=== PATIENT | female | born 1950 | race Caucasian/White ===

== ENCOUNTER 2016-11-17 14:29 | Emergency (ER) | payer OTHER ==
[2016-11-17] MEDS ORDERED: NORCO 7.5/325 MG TAB PO ONE (15:02)
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
[2016-11-17] MEDS ORDERED: NORCO 5/325 MG PO ONE (15:10)
[2016-11-17] MEDS ORDERED: NORCO 5/325 MG ONE (15:12)
--- NOTE | 2016-11-17 15:35 | XRAY ---
Indication: Neck pain following recent cervical collar removal. Injury 5 months ago. Multiple contiguous axial images obtained through the cervical spine. Sagittal and coronal reformatted images obtained. Comparison: June 17, 2017. Osseous structures remain demineralized consistent with patient's age. Again nondisplaced type III odontoid process fracture with interval healing. No new/acute fracture, suspicious bony lesions, or spinal canal stenosis. Stable multilevel degenerative endplate spurring and bilateral facet arthropathy. Sagittal and coronal reformatted images again demonstrates minimal multilevel disc space narrowing again greatest at the C5-C6 level. Stable minimal grade 1 C6 anterolisthesis and remote endplate fractures of C7 and T4 segments. No new compression fracture, subluxation, or jumped facet. Normal-appearing craniocervical junction. Visualized noncontrasted soft tissues again demonstrates mild bilateral carotid calcifications and left neck base stimulator lead. Base of the brain unremarkable. Lung apices again demonstrates pulmonary emphysema. Impression: 1. Stable nondisplaced type III odontoid fracture with interval healing. No new acute fracture or canal stenosis. 2. Stable osteopenia, multilevel degenerative changes, remote C7/T3 endplate fractures, and grade 1 C6 anterolisthesis. 3. Stable emphysema. CTDI 55.44
[2016-11-17 16:50] VITALS: O2SAT 97
[2016-11-17 17:11] VITALS: BP 142/74; PULSE 72
== END 2016-11-17 17:19 | disposition home or self-care (01) ==
LOC: ED 14:29
DX: M79.1 Myalgia (principal); M54.2 Cervicalgia; V89.2XXS Person injured in unspecified motor-vehicle accident, traffic, sequela; I10 Essential (primary) hypertension
CPT/HCPCS: 72125; 99283; L0172

== ENCOUNTER 2017-07-11 10:30 | Emergency (ER) | payer OTHER ==
[2017-07-11] MEDS ORDERED: Sodium Chloride 0.9% 1000 ML 1,000 ML IV STA (10:50)
[2017-07-11] MEDS ORDERED: DUONEB 0.5-3 MG/3 ml Neb IH ONE ×2 (10:52→11:03)
[2017-07-11] MEDS ORDERED: Sodium Chloride 0.9% 1000 ML 1,000 ML ONE (10:57)
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
[2017-07-11 11:29] LABS: BASOPHIL % 0.3 % (0.0-0.4); Eosinophil % 4.8 % (0.00-5.0); Granulocytes % 56.6 % (36.0-66.0); Lymphocytes % 28.1 % (24.0-44.0); Mean Cell Volume 95.7 fl (78-100); Mean Platelet Volume 9.1 fl (6-9.5); Monocytes % 10.2 % (0.0-12.0); Platelet Count 208 K/mm3 (150-450); Red Blood Count 3.92 M/mm3 (4.1-5.4); Red Cell Distribution Width 13.2 % (11.5-14.0); White Blood Count 5.8 K/mm3 (4.0-10.5)
[2017-07-11 11:30] LABS: Mean Corpuscular Hemoglobin 31.3 pg (26-32)
[2017-07-11 11:59] VITALS: BP 197/101; PULSE 64
[2017-07-11 11:59] LABS: ALBUMIN 3.6 g/dL (3.4-5.0); ALKALINE PHOSPHATASE 95 U/L (46-116); BLOOD UREA NITROGEN 13 mg/dL (9-20); CHLORIDE 105 mEq/L (98-107); Carbon Dioxide 27.6 mEq/L (21-32); ETHYL ALCOHOL < 0.010 % (0.00-0.01); Glucose 91 MG/DL (70-110); SGOT/AST 17 U/L (15-37); SGPT/ALT 10 U/L (12-78); SODIUM 141 mEq/L (136-145); Total Protein 7.2 gm/dL (6.4-8.2)
[2017-07-11 12:52] VITALS: O2SAT 89
[2017-07-11] MEDS ORDERED: BABY ASPIRIN 81 MG CHEW PO ONE (13:01)
[2017-07-11] MEDS ORDERED: DELTASONE 20 MG PO ONE (13:07)
[2017-07-11] MEDS ORDERED: AMOXIL 500 MG PO ONE (13:08)
[2017-07-11] MEDS ORDERED: BABY ASPIRIN 81 MG CHEW ONE (13:21)
[2017-07-11] MEDS ORDERED: AMOXIL 500 MG ONE (13:22)
[2017-07-11] MEDS ORDERED: DELTASONE 20 MG ONE (13:22)
--- NOTE | 2017-07-11 21:25 | XRAY ---
Indication: Low oxygen levels. Comparison: December 29, 2016. Portable chest markedly underinflated today and slightly rotated with now bibasilar infiltrates versus atelectasis. Remaining lungs clear. Heart is not enlarged. Stable left-sided electronic stimulator device/lead. Bony thorax intact again without osteopenia, degenerative changes, and multilevel thoracic compression deformities. Impression: Underinflated chest with bibasilar infiltrates versus atelectasis. Correlate clinically.
--- NOTE | 2017-07-11 21:27 | XRAY ---
Indication: Dizziness. Frequent falls. History of epilepsy. Multiple contiguous axial images obtained through the head without contrast. Comparison: June 17, 2016. Again age-appropriate global atrophy and minimal periventricular degenerative micro-ischemia. No acute intracranial hemorrhage, abnormal extra-axial fluid collection, or mass effect. Fourth ventricle is midline without hydrocephalus. Bony calvarium intact. Visualized paranasal sinuses and mastoid air cells are clear. Impression: Stable nonacute senile brain. Comment: Preliminary interpretation was made by [facility]. No discrepancy. CTDI 52.03
== END 2017-07-11 14:44 | disposition home or self-care (01) ==
LOC: ED 10:30
DX: J44.1 Chronic obstructive pulmonary disease with (acute) exacerbation (principal); R42 Dizziness and giddiness; J43.9 Emphysema, unspecified; I10 Essential (primary) hypertension; F41.9 Anxiety disorder, unspecified; F32.9 Major depressive disorder, single episode, unspecified; R56.9 Unspecified convulsions; Z79.899 Other long term (current) drug therapy
CPT/HCPCS: 36000; 36415; 70450; 71010; 80053; 82962; 85025; 93005; 94640; 96360; 99284; G0481; A9270-GY; J7506

== ENCOUNTER 2017-07-22 15:02 | Emergency (ER) | payer OTHER ==
[2017-07-22] MEDS ORDERED: MORPHINE SULFATE 10 MG/ML IM ONE (15:28)
[2017-07-22] MEDS ORDERED: Phenergan 25 MG INJ IM ONE (15:29)
--- NOTE | 2017-07-22 15:39 | ERPHSYRPT ---
- History of Present Illness Time Seen by Provider: 07/22/17 15:20 Source: patient Exam Limitations: clinical condition Patient Subjective Stated Complaint: pt states 2 weeks ago had a seizure and fell, and now left hip hurts getting progressively worse Triage Nursing Assessment: pt walked in, alert, resp easy, skin w/d, no bruising or sweling noted Physician History: PATIENT WITH A HISTORY OF SEIZURE DISORDER, HAD A SEIZURE AND FELL 2 WEEKS AGO COMPLAINS OF PERSISTENT LOWER BACK PAIN AND PAIN BEHIND LEFT HIP UPON WEIGHT BEARING. DENIES ASSOCIATED HEAD OR NECK INJURY, NUMBNESS OR TINGLING OR WEAKNESS IN EXTREMITIES. Occurred: other (2 WEEKS AGO) Reason for Fall: fell from standing pos (DUO TO SEIZURE) Injuries/Pain Location: back, pelvis Loss of Consciousness: no loss of consciousness Quality: throbbing Severity of Pain-Max: moderate Severity of Pain-Current: moderate Modifying Factors: Improves With: other (WEIGHT BEARING) Allergies/Adverse Reactions: cefaclor [From Ceclor] Allergy (Verified 07/22/17 15:18) Home Medications: Lamotrigine 100 mg [lamICTAL 100MG TABLET] 100 mg PO BID 06/25/14 [History ] Levetiracetam [Keppra] 500 mg PO BID 06/25/14 [History] Metoprolol Succinate 50 mg PO DAILY 05/28/16 [History] Aspirin [Adult Low Dose Aspirin EC] 81 mg PO DAILY 07/24/16 [History] Citalopram Hydrobromide [Celexa] 10 mg PO DAILY 07/24/16 [History] Hydroxyzine HCl 25 mg [Atarax 25 mg] 25 mg PO Q4HPRN PRN 07/24/16 [History ] Olanzapine [Zyprexa] 5 mg PO HS 07/24/16 [History] Sennosides/Docusate Sodium [Senna-S Tablet] 1 each PO BID PRN 09/25/16 [History] Hx Tetanus, Diphtheria Vaccination/Date Given: Yes Hx Influenza Vaccination/Date Given: No Hx Pneumococcal Vaccination/Date Given: Yes Immunizations Up to Date: Yes - Review of Systems Constitutional: No Fever, No Chills Eyes: No Symptoms Ears, Nose, & Throat: No Symptoms Respiratory: No Cough, No Dyspnea Cardiac: No Chest Pain, No Edema, No Syncope Abdominal/Gastrointestinal: No Abdominal Pain, No Nausea, No Vomiting, No Diarrhea Genitourinary Symptoms: No Dysuria Musculoskeletal: Injury, No Back Pain, No Neck Pain Skin: No Rash Neurological: No Dizziness, No Focal Weakness, No Sensory Changes Psychological: No Symptoms Endocrine: No Symptoms All Other Systems: Reviewed and Negative - Past Medical History Pertinent Past Medical History: Yes Neurological History: Seizures ENT History: No Pertinent History Cardiac History: No Pertinent History, Hypertension Respiratory History: COPD, Emphysema Endocrine Medical History: No Pertinent History Musculoskeletal History: No Pertinent History GI Medical History: No Pertinent History History: No Pertinent History Psycho-Social History: Anxiety, Depression Female Reproductive Disorders: No Pertinent History Other Medical History: [facility] PT. fractured c-spine - Past Surgical History Past Surgical History: Yes Neuro Surgical History: No Pertinent History Respiratory: No Pertinent History Other Surgical History: MAGNET PLACEMENT FOR SEIZURES - Social History Smoking Status: Former smoker How long have you smoked: 55 Exposure to second hand smoke: No Drug Use: none Patient Lives Alone: Yes Significant Family History: no pertinent family hx - Female History Hx Last Menstrual Period: post Hx Now: No - Nursing Vital Signs Nursing Vital Signs: Initial Vital Signs Temperature 97.0 F 07/22/17 15:13 Pulse Rate 84 07/22/17 15:13 Respiratory Rate 20 07/22/17 15:13 Blood Pressure 126/69 07/22/17 15:13 O2 Sat by Pulse Oximetry 93 L 07/22/17 15:13 Pain Scale Pain Intensity 9 - [place] Coma Score Best Eye Response ([place]): (4) open spontaneously Best Verbal Response ([place]): (5) oriented Best Motor Response ([place]): (6) obeys commands [place] Total: 15 - Physical Exam General Appearance: no apparent distress, alert Head Injury: no evidence of injury Eye Exam: PERRL/EOMI ENT Exam: airway nml Neck Exam: normal inspection, No tenderness Respiratory/Chest Exam: normal breath sounds, No chest tenderness, No respiratory distress Cardiovascular Exam: normal heart sounds, regular rate/rhythm Gastrointestinal Exam: soft, normal bowel sounds, other (NONTENDER), No tenderness, No distention, No guarding, No ecchymosis Back Exam: normal inspection, other (FULL RANGE OF MOTION BILAT HIPS, FLEXION, EXTENSION, INTERNAL/ EXTERNAL ROTATION WITHOUT PAIN), No vertebral tenderness ( TENDERNESS VERTEBRAL L2-L5 WITH PARASPINAL AND LEFT SACROILIAC TENDERNESS) Extremity Exam: normal inspection (BILAT PEDIS PULSES 2+, BILAT GREATER TROCHANTER NONTENDER), normal range of motion, pelvis stable, No deformities Neurologic Exam: alert, oriented x 3, cooperative, sensation nml, No motor deficits Skin Exam: normal color, warm, dry SpO2: 93 Oxygen Delivery: Room Air - Radiology Exams Pelvis X-ray Interpretation: Discussed w/ radiologist, No Fracture (MILD OSTEOPENIA AND SCATTERED VASCULAR CALCIFICATIONS) L-Spine X-ray Interpretation: Discussed w/ radiologist (NORMAL ALIGNMENT WITH MILD OSTEOPENIA, MILD L5-S1 DISC SPACE NARROWING, MINIMLA MILTILEVEL ANTRIOR ENDPLATE SPURRING AND SCATTERED AORTOILIAC CALCIFICATIONS) Ordered Tests: Active Orders 24 hr Category Date Time Status LUMBAR COMPLETE (MIN 4 VIEWS) Stat Exams 07/22/17 15:32 Taken PELVIS (1 OR 2 VIEWS) Stat Exams 07/22/17 15:31 Taken Medication Summary Discontinued Medications Generic Name Dose Route Start Last Admin Trade Name Freq PRN Reason Stop Dose Admin Morphine Sulfate 6 mg 07/22/17 15:28 07/22/17 15:48 Morphine Sulfate 10 Mg/Ml IM 07/22/17 15:29 10 mg STAT ONE Administration Morphine Sulfate Confirm 07/22/17 15:46 Morphine Sulfate 10 Mg/Ml Administered 07/22/17 15:47 Dose 10 mg .ROUTE .STK-MED ONE Promethazine HCl 25 mg 07/22/17 15:29 07/22/17 15:48 Phenergan 25 Mg Inj IM 07/22/17 15:30 25 mg STAT ONE Administration Promethazine HCl Confirm 07/22/17 15:46 Phenergan 25 Mg Inj Administered 07/22/17 15:47 Dose 25 mg .ROUTE .STK-MED ONE - Progress Progress: improved Progress Note: 07/22/17 15:40 GIVEN MORPHINE 6MG/PHENERGAN 25MG IM, MODERATE RELIEF OF PAIN DISCOMFORT 07/22/17 16:34 07/22/17 16:35 Counseled pt/family regarding: diagnosis, need for follow-up, rad results - Departure Time of Disposition: 16:50 Departure Disposition: Home Clinical Impression: ACUTE LUMBAR/SACROILIAC JOINT STRAIN Condition: Stable Critical Care Time: No Referrals: IMELDA CROSS [Primary Care Provider] - Additional Instructions: NORFLEX 100MG TWICE DAILY FOR MUSCLE SPASMS. NORCO 5/325 EVERY 4 HOURS FOR PAIN DISCOMFORT. CONSULT YOUR PRIMARY CARE PHYSICIAN FOR EVALUATION AND PHYSICAL THERAPY. Prescriptions: Hydrocodone/Acetaminophen [[place] 5-325 Tablet] 1 each PO Q4-6HPRN PRN #15 tablet PRN Reason: Pain Orphenadrine Citrate 100 mg [Norflex 100 MG Tablet] 100 mg PO BIDPRN PRN # 14 tab PRN Reason: Muscle Spasms
[2017-07-22] MEDS ORDERED: Phenergan 25 MG INJ ONE (15:46)
[2017-07-22] MEDS ORDERED: MORPHINE SULFATE 10 MG/ML ONE (15:46)
--- NOTE | 2017-07-22 16:25 | XRAY ---
Indication: Low back pain following fall. Comparison: None 5 views of the lumbar spine demonstrates 5 lumbar vertebral segments in normal alignment with mild osteopenia, mild L5-S1 disc space narrowing, minimal multilevel anterior endplate spurring, and scattered aortoiliac calcifications. No other bony, articular, or soft tissue abnormalities.
--- NOTE | 2017-07-22 16:28 | XRAY ---
Indication: Pain following fall. Comparison: None AP pelvis demonstrates mild osteopenia and scattered vascular calcifications. No other bony, articular, or soft tissue abnormalities.
[2017-07-22 16:55] VITALS: BP 148/65; PULSE 68; O2SAT 98
== END 2017-07-22 16:54 | disposition home or self-care (01) ==
LOC: ED 15:02
DX: S39.012A Strain of muscle, fascia and tendon of lower back, initial encounter (principal); S33.6XXA Sprain of sacroiliac joint, initial encounter; W19.XXXD Unspecified fall, subsequent encounter; M54.5 Low back pain; R56.9 Unspecified convulsions; Z79.899 Other long term (current) drug therapy; I10 Essential (primary) hypertension; J44.9 Chronic obstructive pulmonary disease, unspecified
CPT/HCPCS: 72110; 72170; 96372; 99284; J2270; J2550

== ENCOUNTER 2017-09-22 10:50 | Observation (INO) | payer MEDICAID, OTHER ==
[2017-09-22] MEDS ORDERED: Ativan 1 MG PO ONE (11:03)
--- NOTE | 2017-09-22 11:07 | ERPHSYRPT ---
- History of Present Illness Time Seen by Provider: 09/22/17 11:03 Source: patient, EMS Exam Limitations: no limitations Physician History: mild to mod feeling shakey today, no injury, no fever, no lethargy, no pain, not dizzy, hx copd on home oxygen, hx anxiety, hx htn, no dm, shakiness is improving, pt is ambulatory Allergies/Adverse Reactions: [facility] Allergy (Verified 09/22/17 10:53) Home Medications: Metoprolol Succinate 50 mg PO DAILY 05/28/16 [History] Aspirin [Adult Low Dose Aspirin EC] 81 mg PO DAILY 07/24/16 [History] Hydroxyzine HCl 25 mg [Atarax 25 mg] 25 mg PO Q4HPRN PRN 07/24/16 [History ] Olanzapine [Zyprexa] 5 mg PO HS 07/24/16 [History] Sennosides/Docusate Sodium [Senna-S Tablet] 1 each PO BID PRN 09/25/16 [History] Lamotrigine [Lamictal] 200 mg PO BID 09/22/17 [History] Levetiracetam [Keppra] 750 mg PO BID 09/22/17 [History] Paroxetine HCl 20 mg [Paxil 20 MG] 20 mg PO DAILY 09/22/17 [History] Trazodone HCl 50 mg [Desyrel 50 mg] 100 mg PO HS 09/22/17 [History] Hx Tetanus, Diphtheria Vaccination/Date Given: Yes Hx Influenza Vaccination/Date Given: No Hx Pneumococcal Vaccination/Date Given: Yes - Review of Systems Constitutional: No Fever Eyes: No Symptoms Ears, Nose, & Throat: No Symptoms Respiratory: No Cyanosis, No Dyspnea Cardiac: No Chest Pain Abdominal/Gastrointestinal: No Abdominal Pain, No Vomiting Musculoskeletal: No Back Pain, No Neck Pain Skin: No Rash Neurological: No Focal Weakness, No Headache, No Lethargy, No Speech Changes Psychological: Anxiety - Past Medical History Pertinent Past Medical History: Yes Neurological History: Seizures ENT History: No Pertinent History Cardiac History: No Pertinent History, Hypertension Respiratory History: COPD, Emphysema Endocrine Medical History: No Pertinent History Musculoskeletal History: No Pertinent History GI Medical History: No Pertinent History History: No Pertinent History Psycho-Social History: Anxiety, Depression Female Reproductive Disorders: No Pertinent History Other Medical History: [facility] PT. fractured c-spine - Past Surgical History Past Surgical History: Yes Neuro Surgical History: No Pertinent History Respiratory: No Pertinent History Other Surgical History: MAGNET PLACEMENT FOR SEIZURES - Social History Smoking Status: Former smoker How long have you smoked: 55 Exposure to second hand smoke: No Drug Use: none Patient Lives Alone: Yes Significant Family History: no pertinent family hx - Nursing Vital Signs Nursing Vital Signs: Initial Vital Signs Temperature 98.7 F 09/22/17 10:51 Pulse Rate 76 09/22/17 10:51 Respiratory Rate 20 09/22/17 10:51 Blood Pressure 162/102 09/22/17 10:51 O2 Sat by Pulse Oximetry 95 09/22/17 10:51 Pain Scale Pain Intensity 0 - Physical Exam General Appearance: no apparent distress Eye Exam: PERRL/EOMI Ears, Nose, Throat Exam: moist mucous membranes Neck Exam: normal inspection, No meningismus Respiratory Exam: normal breath sounds, lungs clear, No respiratory distress Cardiovascular Exam: regular rate/rhythm Gastrointestinal/Abdomen Exam: soft, No tenderness Back Exam: No vertebral tenderness Extremity Exam: normal range of motion, pelvis stable Neurologic Exam: alert, oriented x 3, cooperative, other (cn 3 to 10 grossly intact) - Course Nursing assessment & vital signs reviewed: Yes EKG Interpreted by Me: Other (nsr 67 similar 06/2017) Ordered Tests: Active Orders 24 hr Category Date Time Status Tours Captain STAT Care 09/22/17 11:01 Active EKG-ER Only STAT Care 09/22/17 11:01 Active IV Insertion STAT Care 09/22/17 11:01 Active Orthostatic Vital Signs STAT Care 09/22/17 12:51 Active Oxygen-ED Only NASAL CANNULA 2 lpm Care 09/22/17 11:01 Active CHEST 1 VIEW (PORTABLE) Stat Exams 09/22/17 11:01 Completed BLOOD CULTURE Stat Lab 09/22/17 Ordered CBC W DIFF Stat Lab 09/22/17 11:20 Completed CMP Stat Lab 09/22/17 11:20 Completed TROPONIN Q3H Lab 09/22/17 11:20 Completed TROPONIN Q3H Lab 09/22/17 14:15 Ordered TROPONIN Q3H Lab 09/22/17 17:15 Ordered TROPONIN Q3H Lab 09/22/17 20:15 Ordered TROPONIN Q3H Lab 09/22/17 23:15 Ordered UA W/RFX UR CULTURE Stat Lab 09/22/17 11:02 Completed Transfer Order Routine Transfer 09/22/17 Ordered Medication Summary Generic Name Dose Route Start Last Admin Trade Name Julia PRN Reason Stop Dose Admin Levofloxacin/Dextrose 500 mg in 100 mls @ 100 mls/hr 09/22/17 13:14 Levofloxacin 500mg/100ml D5w IV 09/22/17 14:13 STAT STA Discontinued Medications Generic Name Dose Route Start Last Admin Trade Name Julia PRN Reason Stop Dose Admin Lorazepam 1 mg 09/22/17 11:03 09/22/17 11:24 Ativan 1 Mg PO 09/22/17 11:04 1 mg STAT ONE Administration Lorazepam Confirm 09/22/17 11:17 Ativan 1 Mg Administered 09/22/17 11:18 Dose 1 mg .ROUTE .[place] ONE Lab/Rad Data: Laboratory Result Diagrams 09/22/17 11:20 09/22/17 11:20 Laboratory Results 09/22/17 09/22/17 09/22/17 Range/Units 11:20 11:20 11:20 WBC 3.9 L (4.0-10.5) K/mm3 RBC 4.06 L (4.1-5.4) M/mm3 Hgb 12.5 (12.0-16.0) gm/dl Hct 38.5 (35-47) % MCV 94.8 (78-100) fl MCH 30.7 (26-32) pg MCHC 32.5 (32-36) g/dl RDW 13.0 (11.5-14.0) % Plt Count 248 (150-450) K/mm3 MPV 8.9 (6-9.5) fl Gran % 50.7 (36.0-66.0) % Lymphocytes % 33.2 (24.0-44.0) % Monocytes % 12.4 H (0.0-12.0) % Eosinophils % 3.4 (0.00-5.0) % Basophils % 0.3 (0.0-0.4) % Basophils # 0.01 (0-0.4) Sodium 140 (136-145) mEq/L Potassium 4.1 (3.5-5.1) mEq/L Chloride 103 (98-107) mEq/L Carbon Dioxide 27.4 (21-32) mEq/L Anion Gap 14.1 (5-15) MEQ/L BUN 8 L (9-20) mg/dL Creatinine 1.01 (0.55-1.30) mg/dl Estimated GFR 58 ML/MIN Glucose 94 (70-110) MG/DL Calcium 9.4 (8.5-10.1) mg/dL Total Bilirubin 0.20 (0.2-1.0) mg/dL AST 19 (15-37) U/L ALT 15 (12-78) U/L Alkaline Phosphatase 172 H (46-116) U/L Troponin I < 0.017 (0.000-0.056) ng/ml Serum Total Protein 7.3 (6.4-8.2) gm/dL Albumin 3.6 (3.4-5.0) g/dL Ur Collection Type Urine Color (YELLOW) Urine Appearance (CLEAR) Urine pH (5-6) Ur Specific [place] (1.005-1.025) Urine Protein (Negative) Urine Ketones (NEGATIVE) Urine Blood (0-5) Jos/ul Urine Nitrite (NEGATIVE) Urine Bilirubin (NEGATIVE) Urine Urobilinogen (0-1) mg/dL Ur Leukocyte Esterase (NEGATIVE) Urine Culture Reflexed (NO) Urine Glucose (NEGATIVE) mg/dL Specimen Received 09/22/17 Range/Units 11:02 WBC (4.0-10.5) K/mm3 RBC (4.1-5.4) M/mm3 Hgb (12.0-16.0) gm/dl Hct (35-47) % MCV (78-100) fl MCH (26-32) pg MCHC (32-36) g/dl RDW (11.5-14.0) % Plt Count (150-450) K/mm3 MPV (6-9.5) fl Gran % (36.0-66.0) % Lymphocytes % (24.0-44.0) % Monocytes % (0.0-12.0) % Eosinophils % (0.00-5.0) % Basophils % (0.0-0.4) % Basophils # (0-0.4) Sodium (136-145) mEq/L Potassium (3.5-5.1) mEq/L Chloride (98-107) mEq/L Carbon Dioxide (21-32) mEq/L Anion Gap (5-15) MEQ/L BUN (9-20) mg/dL Creatinine (0.55-1.30) mg/dl Estimated GFR ML/MIN Glucose (70-110) MG/DL Calcium (8.5-10.1) mg/dL Total Bilirubin (0.2-1.0) mg/dL AST (15-37) U/L ALT (12-78) U/L Alkaline Phosphatase (46-116) U/L Troponin I (0.000-0.056) ng/ml Serum Total Protein (6.4-8.2) gm/dL Albumin (3.4-5.0) g/dL Ur Collection Type CATH Urine Color YELLOW (YELLOW) Urine Appearance CLEAR (CLEAR) Urine pH 7.0 (5-6) Ur Specific [place] 1.010 (1.005-1.025) Urine Protein NEGATIVE (Negative) Urine Ketones NEGATIVE (NEGATIVE) Urine Blood NEGATIVE (0-5) Jos/ul Urine Nitrite NEGATIVE (NEGATIVE) Urine Bilirubin NEGATIVE (NEGATIVE) Urine Urobilinogen NORMAL (0-1) mg/dL Ur Leukocyte Esterase NEGATIVE (NEGATIVE) Urine Culture Reflexed NO (NO) Urine Glucose NEGATIVE (NEGATIVE) mg/dL Specimen Received 09-22 - Progress Progress: improved Progress Note: 09/22/17 13:20 d/w Dr Henson Discussed with : Natividad Will see patient in: hospital (observation) Counseled pt/family regarding: lab results, diagnosis, rad results - Departure Time of Disposition: 13:20 Departure Disposition: Observation Clinical Impression: Anxiety, COPD with exacerbation Pneumonia Qualifiers: Pneumonia type: due to unspecified organism Laterality: bilateral Lung location : unspecified part of lung Qualified Code(s): J18.9 - Pneumonia, unspecified organism Condition: Fair Critical Care Time: No Referrals: IMELDA HENSON [Primary Care Provider] - Instructions: Pneumonia -- Adult, Anxiety -- Adult
[2017-09-22] MEDS ORDERED: Ativan 1 MG ONE (11:17)
[2017-09-22 11:34] LABS: BASOPHIL % 0.3 % (0.0-0.4); Eosinophil % 3.4 % (0.00-5.0); Granulocytes % 50.7 % (36.0-66.0); Lymphocytes % 33.2 % (24.0-44.0); Mean Cell Volume 94.8 fl (78-100); Mean Platelet Volume 8.9 fl (6-9.5); Monocytes % 12.4 % (0.0-12.0); Platelet Count 248 K/mm3 (150-450); Red Blood Count 4.06 M/mm3 (4.1-5.4); White Blood Count 3.9 K/mm3 (4.0-10.5)
[2017-09-22 11:35] LABS: ADD URINE CULTURE? NO (NO); Bilirubin NEGATIVE (NEGATIVE); Blood NEGATIVE Ery/ul (0-5); COMPLETE URINE MICROSCOPIC? NO; Collection Type CATH; Glucose NEGATIVE (NEGATIVE); Leukocyte Esterase NEGATIVE (NEGATIVE)
--- NOTE | 2017-09-22 11:35 | XRAY ---
Indication: Weakness. Comparison: July 11, 2017. Portable chest again slightly underinflated with mild bibasilar infiltrates versus atelectasis, less than before. Heart is not enlarged. Stable left-sided electronic stimulator device with lead. No new cardiopulmonary abnormalities.
[2017-09-22 11:56] LABS: ALBUMIN 3.6 g/dL (3.4-5.0); ANION GAP 14.1 MEQ/L (5-15); BILIRUBIN,TOTAL 0.2 mg/dL (0.2-1.0); Carbon Dioxide 27.4 mEq/L (21-32); Potassium 4.1 mEq/L (3.5-5.1); Total Protein 7.3 gm/dL (6.4-8.2)
[2017-09-22 12:48] LABS: Mean Corpuscular Hemoglobin 30.7 pg (26-32)
[2017-09-22] MEDS ORDERED: Levofloxacin 500MG/100ML D5W 500 MG/100 ML BAG IV STA (13:14)
[2017-09-22] MEDS ORDERED: Levofloxacin 500MG/100ML D5W 500 MG/100 ML BAG IV ONE (13:18)
[2017-09-22] MEDS: DUONEB 0.5-3 MG/3 ml Neb IH SCH ×3 (15:28→23:40)
[2017-09-22] MEDS ORDERED: Senokot-S Tablet PO PRN (16:03)
[2017-09-22] MEDS ORDERED: ATARAX 25 MG PO PRN (16:03)
[2017-09-22] MEDS ORDERED: Nitrostat 0.4 MG Tablet SL PRN (16:03)
[2017-09-22] MEDS ORDERED: Norflex 100 MG Tablet PO PRN (16:03)
[2017-09-22] MEDS: Keppra 250 MG PO SCH (21:56)
[2017-09-22] MEDS: lamICTAL 100MG TABLET PO SCH (21:57)
[2017-09-22] MEDS ORDERED: DESYREL 50 MG PO SCH (22:00)
[2017-09-22] MEDS ORDERED: LAMOTRIGINE 200 MG PO SCH (22:00)
[2017-09-22] MEDS ORDERED: NON-FORMULARY ITEM (Levetiracetam [Keppra] 750 MG) PO SCH (22:00)
[2017-09-22] MEDS ORDERED: zyPREXA 5MG TABLET PO SCH (22:00)
[2017-09-23] MEDS: DUONEB 0.5-3 MG/3 ml Neb IH SCH ×3 (02:43→11:01)
[2017-09-23 05:45] LABS: Mean Cell Volume 95.5 fl (78-100); Mean Platelet Volume 8.6 fl (6-9.5); Platelet Count 225 K/mm3 (150-450); White Blood Count 4.1 K/mm3 (4.0-10.5)
[2017-09-23 05:50] LABS: Mean Corpuscular Hemoglobin 30.2 pg (26-32)
[2017-09-23 06:09] LABS: Potassium 3.7 mEq/L (3.5-5.1)
--- NOTE | 2017-09-23 08:39 | PCM.SSS ---
History of Present Illness - Chief Complaint Chief Complaint: PNEUMONIA History of Present Illness: is a 66 year old female pt from [facility] with hx sz d/o, COPD,and anxiety who was reported by the ER to be suffering from weakness and shakiness. She tells me that she was feeling fine yesterday, then sat in the chair and started shaking all over, eventually just shaking on her R side. She denies LOC. Does have hx grand mal seizures but has not had one of those for some time. She called the ambulance to get her. Denies chest pain; did have some SOB. In the ER per the doctor she apparently had a hard time standing and walking. She was found to have infiltrates on CXR. She has minimal cough and WBC are wnl. This morning she is feeling well, kyler po well. - Review of Systems Constitutional: Weakness Respiratory: Short Of Breath Musculoskeletal: Arthralgias Neurological: Seizure, No Sensory Changes, No Speech Changes Psychological: Anxiety, No Depression, No Suicidal Ideations, No Homicidal Ideations All Other Systems: Reviewed and Negative Medications & Allergies Home Medications: Home Medication List Metoprolol Succinate 50 mg PO DAILY 05/28/16 [History Confirmed 09/22/17] Aspirin [Adult Low Dose Aspirin EC] 81 mg PO DAILY 07/24/16 [History Confirmed 09/22/17] Hydroxyzine HCl 25 mg [Atarax 25 mg] 25 mg PO Q4HPRN PRN 07/24/16 [ History Confirmed 09/22/17] Olanzapine [Zyprexa] 5 mg PO HS 07/24/16 [History Confirmed 09/22/17] Nitroglycerin 0.4 mg Tablet [Nitrostat 0.4 MG Tablet] 0.4 mg SL Q5MIN PRN MR X 3 PRN #1 bottle 09/25/16 [Rx Confirmed 09/22/17] Sennosides/Docusate Sodium [Senna-S Tablet] 1 each PO BID PRN 09/25/16 [History Confirmed 09/22/17] Orphenadrine Citrate 100 mg [Norflex 100 MG Tablet] 100 mg PO BIDPRN PRN # 14 tab 07/22/17 [Rx Confirmed 09/22/17] Buspirone HCl 5 mg [Buspar 5 mg] 15 mg PO DAILY 09/22/17 [History Confirmed 09/22/17] Lamotrigine [Lamictal] 200 mg PO BID 09/22/17 [History Confirmed 09/22/17] Levetiracetam [Keppra] 750 mg PO BID 09/22/17 [History Confirmed 09/22/17] Paroxetine HCl 20 mg [Paxil 20 MG] 20 mg PO DAILY 09/22/17 [History Confirmed 09/22/17] Trazodone HCl 50 mg [Desyrel 50 mg] 100 mg PO HS 09/22/17 [History Confirmed 09/22/17] Doxycycline Hyclate 100 mg PO BID #20 tablet 09/23/17 [Rx] Allergies/Adverse Reactions: Allergies Allergy/AdvReac Type Severity Reaction Status Date / Time cefaclor [From [facility]] Allergy Mild Verified 09/22/17 13:54 - Past Medical History Past Medical History: Yes Neurological History: Seizures ENT History: No Pertinent History Cardiac History: No Pertinent History, Hypertension Respiratory History: COPD, Emphysema Endocrine Medical History: No Pertinent History Musculoskelatal History: No Pertinent History GI Medical History: No Pertinent History History: No Pertinent History Pyscho-Social History: Anxiety, Depression Reproductive Disorders: No Pertinent History Comment: [facility] PT. fractured c-spine - Female History Are you now?: No - Past Surgical History Past Surgical History: Yes Neuro Surgical History: No Pertinent History Cardiac History: No Pertinent History Respiratory Surgery: No Pertinent History GI Surgical History: No Pertinent History Genitourinary Surgical Hx: No Pertinent History Musculskeletal Surgical Hx: No Pertinent History, Orthopedic Surgery Female Surgical History: No Pertinent History Other Surgical History: MAGNET PLACEMENT FOR SEIZURES - Social History Smoking Status: Former smoker How long have you smoked: 55 Exposure to second hand smoke: No Alcohol: None Drug Use: none Significant Family History: no pertinent family hx - Physical Exam Vital Signs: Vital Signs - 24 hr Temp Pulse Resp BP Pulse Ox 09/23/17 07:26 18 09/23/17 07:23 98.1 F 77 18 114/63 90 L 09/23/17 07:00 76 20 90 L 09/23/17 04:00 98.5 F 69 19 107/56 93 L 09/23/17 02:44 78 93 L 12/06/17 00:00 97.6 F 76 19 101/53 92 L 09/22/17 23:28 76 18 92 L 09/22/17 20:00 16 09/22/17 19:38 98.8 F 89 16 101/55 95 09/22/17 19:10 77 18 95 09/22/17 16:30 98.4 F 66 16 180/84 91 L 09/22/17 16:00 18 09/22/17 15:00 68 18 90 L 09/22/17 13:55 98.3 F 68 16 194/85 92 L 09/22/17 13:43 98.3 F 68 16 194/85 92 L 09/22/17 13:24 70 18 157/87 09/22/17 12:50 16 09/22/17 12:40 68 16 152/96 98 09/22/17 11:50 16 09/22/17 11:41 66 16 163/79 100 09/22/17 10:51 98.7 F 76 20 162/102 95 Oxygen-Last 24 hours O2 Percentage 2 Liters = 28% O2 Percentage 2 Liters = 28% O2 Percentage 2 Liters = 28% O2 Percentage 2 Liters = 28% O2 Percentage 2 Liters = 28% O2 Percentage 2 Liters = 28% O2 Percentage 2 Liters = 28% O2 Percentage 2 Liters = 28% O2 Percentage 2 Liters = 28% O2 Percentage 2 Liters = 28% O2 Percentage 2 Liters = 28% O2 Percentage 2 Liters = 28% General Appearance: no apparent distress, alert Neurologic Exam: oriented x 3, cooperative Eye Exam: eyes nml inspection Ears, Nose, Throat Exam: moist mucous membranes Neck Exam: normal inspection, non-tender, No lymphadenopathy Respiratory Exam: lungs clear, diminished breath sounds, No crackles/rales, No rhonchi, No wheezing Cardiovascular Exam: regular rate/rhythm, normal heart sounds, No murmur Gastrointestinal/Abdomen Exam: soft, normal bowel sounds, No tenderness, No distention, No mass, No guarding, No rebound Back Exam: normal inspection, No CVA tenderness Extremity Exam: No pedal edema, No swelling Skin Exam: normal color, warm, dry, No rash Results - Labs Lab/Micro Results: Lab Results-Last 24 Hours 09/22/17 09/22/17 09/22/17 Range/Units 14:25 17:42 20:40 WBC (4.0-10.5) K/mm3 RBC (4.1-5.4) M/mm3 Hgb (12.0-16.0) gm/dl Hct (35-47) % MCV (78-100) fl MCH (26-32) pg MCHC (32-36) g/dl RDW (11.5-14.0) % Plt Count (150-450) K/mm3 MPV (6-9.5) fl Sodium (136-145) mEq/L Potassium (3.5-5.1) mEq/L Chloride (98-107) mEq/L Carbon Dioxide (21-32) mEq/L Anion Gap (5-15) MEQ/L BUN (9-20) mg/dL Creatinine (0.55-1.30) mg/dl Estimated GFR ML/MIN Glucose (70-110) MG/DL Calcium (8.5-10.1) mg/dL Troponin I < 0.017 < 0.017 < 0.017 (0.000-0.056) ng/ml 09/22/17 09/23/17 09/23/17 Range/Units 23:24 05:20 05:20 WBC 4.1 (4.0-10.5) K/mm3 RBC 3.80 L (4.1-5.4) M/mm3 Hgb 11.5 L (12.0-16.0) gm/dl Hct 36.3 (35-47) % MCV 95.5 (78-100) fl MCH 30.2 (26-32) pg MCHC 31.7 L (32-36) g/dl RDW 13.0 (11.5-14.0) % Plt Count 225 (150-450) K/mm3 MPV 8.6 (6-9.5) fl Sodium 139 (136-145) mEq/L Potassium 3.7 (3.5-5.1) mEq/L Chloride 103 (98-107) mEq/L Carbon Dioxide 27.0 (21-32) mEq/L Anion Gap 13.0 (5-15) MEQ/L BUN 16 (9-20) mg/dL Creatinine 1.17 (0.55-1.30) mg/dl Estimated GFR 49 ML/MIN Glucose 93 (70-110) MG/DL Calcium 8.9 (8.5-10.1) mg/dL Troponin I < 0.017 (0.000-0.056) ng/ml - Other Procedures and Tests Respiratory Therapy 09/22/17 15:00 Respiratory Nebulizer Q4H Assessment/Plan (1) COPD with exacerbation Current Visit: Yes Status: Acute Assessment & Plan: Has received levaquin IV here; will send her home on po doxycycline. She can d /c home today and f/u with me in office in 1 week. Code(s): J44.1 - CHRONIC OBSTRUCTIVE PULMONARY DISEASE W (ACUTE) EXACERBATION (2) Seizure disorder Current Visit: No Status: Chronic Assessment & Plan: She has been stable on her seizure meds for some time and this was atypical for seizure activity for her. She has been taking her keppra and lamictal regularly. May be related to her COPD exacerbation. She does not drive. Plan to treat the COPD and observe the seizure disorder; if any more increase in seizure-like activity will adjust her meds as needed/refer to neurology if needed. Any further seizure-like activity at home pt should call 911 or, if no acute concerns and seizure activity is mild, let the office know elma. Code(s): G40.909 - EPILEPSY, UNSP, NOT INTRACTABLE, WITHOUT STATUS EPILEPTICUS (3) Anxiety Current Visit: Yes Status: Chronic Code(s): F41.9 - ANXIETY DISORDER, UNSPECIFIED (4) Weakness Current Visit: Yes Status: Acute Assessment & Plan: If pt is ok getting up and out of bed, ok to d/c home today. Code(s): R53.1 - WEAKNESS (5) Elevated alkaline phosphatase level Current Visit: Yes Status: Acute Assessment & Plan: 170s - recheck outpatient. (6) Dyspnea Current Visit: Yes Status: Acute Qualifiers: Dyspnea type: shortness of breath Qualified Code(s): R06.02 - Shortness of breath; R06.00 - Dyspnea, unspecified; R06.01 - Orthopnea Assessment & Plan: could be related to the COPD exacerbation. Her troponins were neg x 5. Code(s): R06.00 - DYSPNEA, UNSPECIFIED Hospital Summary - Hospital Course Hospital Course: Pt admitted through ER with weakness and COPD exacerbation. She complains to me of seizure-like activity at home when she was otherwise feeling well. Very little cough; some shortness of breath. Troponins neg x 5. She is feeling good the next morning, would like to D/c home. If she is up without assistance, ok to d/c home on po antibiotics and f/u with me in 1 week. Will check a keppra level and observe for further seizure activity. - Vitals & Intake/Output Vital Signs: Vital Signs Temperature 98.1 F 09/23/17 07:23 Pulse Rate 77 09/23/17 07:23 Respiratory Rate 18 09/23/17 07:26 Blood Pressure 114/63 09/23/17 07:23 O2 Sat by Pulse Oximetry 90 L 09/23/17 07:23 Oxygen-Last Documented O2 Percentage 2 Liters = 28% Intake & Output: Intake & Output 09/20/17 09/21/17 09/22/17 09/23/17 11:59 11:59 11:59 11:59 Intake Total 1160 Output Total 1400 Balance -240 Weight 57.72 kg - Lab Result Diagrams: 09/23/17 05:20 09/23/17 05:20 Lab Results-Last 24 Hrs: Lab Results-Last 24 Hours 09/22/17 09/22/17 09/22/17 Range/Units 14:25 17:42 20:40 WBC (4.0-10.5) K/mm3 RBC (4.1-5.4) M/mm3 Hgb (12.0-16.0) gm/dl Hct (35-47) % MCV (78-100) fl MCH (26-32) pg MCHC (32-36) g/dl RDW (11.5-14.0) % Plt Count (150-450) K/mm3 MPV (6-9.5) fl Sodium (136-145) mEq/L Potassium (3.5-5.1) mEq/L Chloride (98-107) mEq/L Carbon Dioxide (21-32) mEq/L Anion Gap (5-15) MEQ/L BUN (9-20) mg/dL Creatinine (0.55-1.30) mg/dl Estimated GFR ML/MIN Glucose (70-110) MG/DL Calcium (8.5-10.1) mg/dL Troponin I < 0.017 < 0.017 < 0.017 (0.000-0.056) ng/ml 09/22/17 09/23/17 09/23/17 Range/Units 23:24 05:20 05:20 WBC 4.1 (4.0-10.5) K/mm3 RBC 3.80 L (4.1-5.4) M/mm3 Hgb 11.5 L (12.0-16.0) gm/dl Hct 36.3 (35-47) % MCV 95.5 (78-100) fl MCH 30.2 (26-32) pg MCHC 31.7 L (32-36) g/dl RDW 13.0 (11.5-14.0) % Plt Count 225 (150-450) K/mm3 MPV 8.6 (6-9.5) fl Sodium 139 (136-145) mEq/L Potassium 3.7 (3.5-5.1) mEq/L Chloride 103 (98-107) mEq/L Carbon Dioxide 27.0 (21-32) mEq/L Anion Gap 13.0 (5-15) MEQ/L BUN 16 (9-20) mg/dL Creatinine 1.17 (0.55-1.30) mg/dl Estimated GFR 49 ML/MIN Glucose 93 (70-110) MG/DL Calcium 8.9 (8.5-10.1) mg/dL Troponin I < 0.017 (0.000-0.056) ng/ml - Procedures and Test Procedures and Tests throughout Hospitalization: Therapy Orders & Screens 09/22/17 14:14 RT Screen per Nursing Assess ONCE Comment: Protocol Order Physician Instructions: Greater than 3 points order RT Admission Screen Reason For Exam: Triggered on Admission Diagnosis: PNEUMONIA Diagnosis: PNEUMONIA Pneumonia: Yes Home O2: Yes: [place] Asthma: Yes CHF: No Home CPAP/BIPAP: No Home Nebs/MDI: No Total Points: 12 09/22/17 15:00 Respiratory Nebulizer Q4H Comment: Diagnosis: PNEUMONIA - Discharge Disposition: Home, Self-Care Condition: Stable Prescriptions: New Doxycycline Hyclate 100 mg PO BID #20 tablet Continue Metoprolol Succinate 50 mg PO DAILY Hydroxyzine HCl 25 mg [Atarax 25 mg] 25 mg PO Q4HPRN PRN PRN Reason: Anxiety Aspirin [Adult Low Dose Aspirin EC] 81 mg PO DAILY Olanzapine [Zyprexa] 5 mg PO HS Sennosides/Docusate Sodium [Senna-S Tablet] 1 each PO BID PRN PRN Reason: Constipation Nitroglycerin 0.4 mg Tablet [Nitrostat 0.4 MG Tablet] 0.4 mg SL Q5MIN PRN MR X 3 PRN #1 bottle PRN Reason: Chest Pain Orphenadrine Citrate 100 mg [Norflex 100 MG Tablet] 100 mg PO BIDPRN PRN #14 tab PRN Reason: Muscle Spasms Paroxetine HCl 20 mg [Paxil 20 MG] 20 mg PO DAILY Levetiracetam [Keppra] 750 mg PO BID Trazodone HCl 50 mg [Desyrel 50 mg] 100 mg PO HS Lamotrigine [Lamictal] 200 mg PO BID Buspirone HCl 5 mg [Buspar 5 mg] 15 mg PO DAILY Instructions: Pneumonia -- Adult, Anxiety -- Adult Follow up with: IMELDA CROSS [Primary Care Provider] -
[2017-09-23] MEDS ORDERED: DELTASONE 20 MG PO SCH (10:00)
[2017-09-23] MEDS ORDERED: Paxil 20 MG PO SCH (10:00)
[2017-09-23] MEDS ORDERED: Levofloxacin 500MG/100ML D5W 500 MG/100 ML BAG IV SCH (10:00)
[2017-09-23] MEDS ORDERED: BUSPAR 5 MG PO SCH (10:00)
[2017-09-23] MEDS ORDERED: ECOTRIN 81 MG PO SCH (10:00)
[2017-09-23] MEDS ORDERED: Toprol Xl 50 MG PO SCH (10:00)
[2017-09-23] MEDS: lamICTAL 100MG TABLET PO SCH (10:24)
[2017-09-23] MEDS: Keppra 250 MG PO SCH (10:25)
[2017-09-23 11:36] VITALS: BP 99/53; PULSE 87; O2SAT 92
== END 2017-09-23 11:50 | disposition home or self-care (01) ==
LOC: ED 10:50 → MED SURG 13:30
PROVIDERS: ADMIT Family Medicine; ATTEND Family Medicine
DX: J44.1 Chronic obstructive pulmonary disease with (acute) exacerbation (principal); G40.909 Epilepsy, unspecified, not intractable, without status epilepticus; F41.9 Anxiety disorder, unspecified; R53.1 Weakness; R06.02 Shortness of breath; Z79.899 Other long term (current) drug therapy; I10 Essential (primary) hypertension; F41.8 Other specified anxiety disorders; R74.8 Abnormal levels of other serum enzymes
CPT/HCPCS: 36000; 36415; 71010; 80048; 80053; 80177; 81002; 84484; 85025; 85027; 87040; 93005; 93041; 93268; 94640; 94760; 96365; 99285; G0378; J1956; A9270-GY; J7506

== ENCOUNTER 2017-10-14 22:30 | Observation (INO) | payer MEDICAID ==
[2017-10-14] MEDS ORDERED: Ativan 2 MG/1 ML VIAL SL ONE (22:38)
[2017-10-14] MEDS ORDERED: Zofran 4 MG/2 ML VIAL IV ONE (22:38)
[2017-10-14] MEDS ORDERED: PROVENTIL 2.5 MG/3 ML NEB IH ONE ×2 (22:39→23:10)
[2017-10-14] MEDS ORDERED: Zofran 4 MG/2 ML VIAL ONE (23:02)
[2017-10-14] MEDS ORDERED: Ativan 2 MG/1 ML VIAL ONE (23:03)
[2017-10-14 23:15] LABS: BASOPHIL % 0.3 % (0.0-0.4); Eosinophil % 2.4 % (0.00-5.0); Granulocytes % 62.3 % (36.0-66.0); Lymphocytes % 25.4 % (24.0-44.0); Mean Cell Volume 92.4 fl (78-100); Mean Corpuscular Hemoglobin 29.7 pg (26-32); Mean Platelet Volume 8.5 fl (6-9.5); Monocytes % 9.6 % (0.0-12.0); Platelet Count 285 K/mm3 (150-450); Red Blood Count 4.34 M/mm3 (4.1-5.4); Red Cell Distribution Width 13.1 % (11.5-14.0); White Blood Count 6.4 K/mm3 (4.0-10.5)
--- NOTE | 2017-10-14 23:19 | ERPHSYRPT ---
- History of Present Illness Time Seen by Provider: 10/14/17 22:32 Source: patient, EMS Patient Subjective Stated Complaint: PT STATES SHE BEGAN SHAKING AROUND 2030 THIS EVENING. REPORTS FEELING ANXIOUS, STATES SHE WAS FEELING ANXIOUS THIS MORNING - REPORTS SHE HAD AN ANXIETY ATTACK BUT SHE WAS ABLE TO BREATHE THROUGH IT UNTIL IT WENT AWAY. Triage Nursing Assessment: PT IS AOX3, PUPILS PERRL, PT IS AFEBRILE, RESPS EASY AND NON LABORED, LUNG SOUNDS ARE CLEAR THROUGHOUT, RADIAL PULSES ARE STRONG AND EQUAL, ABD IS SOFT NONTENDER, SKIN IS PINK WARM DRY. PT APPEARS ANXIOUS UPON EXAM WITH A FINE TREMOR PRESENT THAT IS INTERMITTENT IN NATURE. PT COOPERATIVE. Physician History: CC: Shaky Hx: 66 y/o patient of Dr Henson with hx of anxiety, COPD. Recently treated with pneumonia. She states she had an anxiety attack this AM and got herself better. Tonite she felt shaky, anxious and could not control her symptoms. She called 911. No fever. Normal urine. Her breathing has been better. No V/D. No chest pain. Not short of breath. She lives alone. She has some nausea. Severity: moderate Allergies/Adverse Reactions: cefaclor [From [facility]] Allergy (Mild, Verified 10/14/17 22:43) STATES GOT REAL HOT Home Medications: Metoprolol Succinate 50 mg PO DAILY 05/28/16 [History] Aspirin [Adult Low Dose Aspirin EC] 81 mg PO DAILY 07/24/16 [History] Hydroxyzine HCl 25 mg [Atarax 25 mg] 25 mg PO Q4HPRN PRN 07/24/16 [History ] Olanzapine [Zyprexa] 5 mg PO HS 07/24/16 [History] Sennosides/Docusate Sodium [Senna-S Tablet] 1 each PO BID PRN 09/25/16 [History] Buspirone HCl 5 mg [Buspar 5 mg] 15 mg PO DAILY 09/22/17 [History] Lamotrigine [Lamictal] 200 mg PO BID 09/22/17 [History] Levetiracetam [Keppra] 750 mg PO BID 09/22/17 [History] Paroxetine HCl 20 mg [Paxil 20 MG] 20 mg PO DAILY 09/22/17 [History] Trazodone HCl 50 mg [Desyrel 50 mg] 100 mg PO HS 09/22/17 [History] Hx Tetanus, Diphtheria Vaccination/Date Given: Yes Hx Influenza Vaccination/Date Given: Yes Hx Pneumococcal Vaccination/Date Given: Yes Immunizations Up to Date: Yes - Review of Systems Constitutional: Chills (shaking), No Fever, No Malaise Eyes: No Symptoms Ears, Nose, & Throat: No Symptoms Respiratory: No Cough, No Dyspnea Cardiac: No Chest Pain Abdominal/Gastrointestinal: Nausea, No Abdominal Pain, No Vomiting, No Diarrhea Genitourinary Symptoms: No Dysuria Skin: No Rash Neurological: No Headache Psychological: Anxiety All Other Systems: Reviewed and Negative - Past Medical History Pertinent Past Medical History: Yes Neurological History: Seizures ENT History: No Pertinent History Cardiac History: No Pertinent History, Hypertension Respiratory History: COPD, Emphysema Endocrine Medical History: No Pertinent History Musculoskeletal History: No Pertinent History GI Medical History: No Pertinent History History: No Pertinent History Psycho-Social History: Anxiety, Depression Female Reproductive Disorders: No Pertinent History Other Medical History: [facility] PT. fractured c-spine - Past Surgical History Past Surgical History: Yes Neuro Surgical History: No Pertinent History Cardiac: No Pertinent History Respiratory: No Pertinent History Gastrointestinal: No Pertinent History Genitourinary: No Pertinent History Musculoskeletal: No Pertinent History, Orthopedic Surgery Female Surgical History: No Pertinent History Other Surgical History: MAGNET PLACEMENT FOR SEIZURES - Social History Smoking Status: Former smoker How long have you smoked: 55 Exposure to second hand smoke: No Drug Use: none Patient Lives Alone: No Significant Family History: no pertinent family hx - Nursing Vital Signs Nursing Vital Signs: Initial Vital Signs Temperature 98.6 F 10/14/17 22:32 Pulse Rate 66 10/14/17 22:32 Respiratory Rate 20 10/14/17 22:32 Blood Pressure 182/81 10/14/17 22:32 O2 Sat by Pulse Oximetry 95 10/14/17 22:32 Pain Scale Pain Intensity 0 - Physical Exam General Appearance: alert, other (conversant) Eye Exam: PERRL/EOMI Ears, Nose, Throat Exam: moist mucous membranes Neck Exam: normal inspection, non-tender, supple Respiratory Exam: wheezing (faint right) Cardiovascular Exam: regular rate/rhythm Gastrointestinal/Abdomen Exam: soft, No tenderness, No distention Back Exam: normal inspection Extremity Exam: normal inspection, normal range of motion, No calf tenderness, No pedal edema Neurologic Exam: alert, oriented x 3, cooperative, lurer II-XII nml as tested, sensation nml, No motor deficits Skin Exam: warm, dry, No rash SpO2 Interpretation: normal SpO2: 95 Oxygen Delivery: Room Air - Course Nursing assessment & vital signs reviewed: Yes EKG Interpreted by Me: RATE (71), Sinus Rhythm, NORMAL AXIS, NORMAL INTERVALS ( QTc 437), Non-specific ST Changes - Radiology Exams cxr X-ray Interpretation: Interpreted by me (COPD, bibasilar atelecatsis. Right base dominant infiltrates.) Ordered Tests: Active Orders 24 hr Category Date Time Status Cath for Specimen-Straight STAT Care 10/14/17 22:38 Active EKG-ER Only STAT Care 10/14/17 22:37 Active IV Insertion STAT Care 10/14/17 22:37 Active CHEST 1 VIEW (PORTABLE) Stat Exams 10/14/17 22:38 Taken BLOOD CULTURE Stat Lab 10/14/17 23:55 Received CBC W DIFF Stat Lab 10/14/17 23:00 Completed CMP Stat Lab 10/14/17 23:00 Completed Lactic Acid Stat Lab 10/14/17 22:37 Completed MAGNESIUM Stat Lab 10/14/17 23:00 Completed UA W/RFX UR CULTURE Stat Lab 10/14/17 23:45 Completed VENOUS BLOOD GAS Stat Lab 10/14/17 22:39 Completed Respiratory Nebulizer STAT RT 10/14/17 22:40 Completed Medication Summary Generic Name Dose Route Start Last Admin Trade Name Freq PRN Reason Stop Dose Admin Levofloxacin 250 mg 10/15/17 00:32 Levofloxacin 250mg Tablet PO 10/15/17 00:33 STAT ONE Levofloxacin 500 mg 10/15/17 00:32 Levofloxacin 500 Mg Tablet PO 10/15/17 00:33 STAT ONE Discontinued Medications Generic Name Dose Route Start Last Admin Trade Name Freq PRN Reason Stop Dose Admin Albuterol Sulfate 2.5 mg 10/14/17 22:39 10/14/17 23:12 Proventil 2.5 Mg/3 Ml Neb IH 10/14/17 22:40 2.5 mg STAT ONE Administration Albuterol Sulfate Confirm 10/14/17 23:10 Proventil 2.5 Mg/3 Ml Neb Administered 10/14/17 23:11 Dose 2.5 mg IH .STK-MED ONE Lorazepam 1 mg 10/14/17 22:38 10/14/17 23:08 Ativan 2 Mg/1 Ml Vial SL 10/14/17 22:39 1 mg STAT ONE Administration Lorazepam Confirm 10/14/17 23:03 Ativan 2 Mg/1 Ml Vial Administered 10/14/17 23:04 Dose 2 mg .ROUTE .STK-MED ONE Ondansetron HCl 4 mg 10/14/17 22:38 10/14/17 23:08 Zofran 4 Mg/2 Ml Vial IV 10/14/17 22:39 4 mg STAT ONE Administration Ondansetron HCl Confirm 10/14/17 23:02 Zofran 4 Mg/2 Ml Vial Administered 10/14/17 23:03 Dose 4 mg .ROUTE .STK-MED ONE Lab/Rad Data: Laboratory Result Diagrams 10/14/17 23:00 10/14/17 23:00 Laboratory Results 10/15/17 10/15/17 10/14/17 Range/Units 00:07 00:07 23:45 WBC (4.0-10.5) K/mm3 RBC (4.1-5.4) M/mm3 Hgb (12.0-16.0) gm/dl Hct (35-47) % MCV (78-100) fl MCH (26-32) pg MCHC (32-36) g/dl RDW (11.5-14.0) % Plt Count (150-450) K/mm3 MPV (6-9.5) fl Gran % (36.0-66.0) % Lymphocytes % (24.0-44.0) % Monocytes % (0.0-12.0) % Eosinophils % (0.00-5.0) % Basophils % (0.0-0.4) % Basophils # (0-0.4) VBG pH 7.37 (7.32-7.42) VBG pCO2 at Pat Temp 49 (42-55) mm/Hg VBG pO2 at Pat Temp 38 (25-40) mm/Hg VBG HCO3 28.3 H (22-28) meq/L VBG O2 Sat (Ritu) 76.2 L (95-100) VBG Base Excess 2.2 H (-2.0-2.0) VBG Hemoglobin 13.2 VBG Carboxyhemoglobin 2.0 (0.0-6.9) % T HGB POC Potassium 4.1 (3.5-5.1) Sodium (136-145) mEq/L Potassium (3.5-5.1) mEq/L Chloride (98-107) mEq/L Carbon Dioxide (21-32) mEq/L Anion Gap (5-15) MEQ/L BUN (9-20) mg/dL Creatinine (0.55-1.30) mg/dl Estimated GFR ML/MIN Glucose (70-110) MG/DL Lactic Acid 1.0 (0.4-2.0) Calcium (8.5-10.1) mg/dL Magnesium (1.8-2.4) mg/dL Total Bilirubin (0.2-1.0) mg/dL AST (15-37) U/L ALT (12-78) U/L Alkaline Phosphatase (46-116) U/L Serum Total Protein (6.4-8.2) gm/dL Albumin (3.4-5.0) g/dL Ur Collection Type CATH Urine Color YELLOW (YELLOW) Urine Appearance CLEAR (CLEAR) Urine pH 7.0 (5-6) Ur Specific [place] 1.010 (1.005-1.025) Urine Protein NEGATIVE (Negative) Urine Ketones NEGATIVE (NEGATIVE) Urine Blood NEGATIVE (0-5) Jos/ul Urine Nitrite NEGATIVE (NEGATIVE) Urine Bilirubin NEGATIVE (NEGATIVE) Urine Urobilinogen NORMAL (0-1) mg/dL Ur Leukocyte Esterase NEGATIVE (NEGATIVE) Urine Culture Reflexed NO (NO) Urine Glucose NEGATIVE (NEGATIVE) mg/dL Specimen Received 10-14-17 [id number] 10/14/17 10/14/17 10/14/17 Range/Units 23:00 23:00 23:00 WBC 6.4 (4.0-10.5) K/mm3 RBC 4.34 (4.1-5.4) M/mm3 Hgb 12.9 (12.0-16.0) gm/dl Hct 40.1 (35-47) % MCV 92.4 (78-100) fl MCH 29.7 (26-32) pg MCHC 32.2 (32-36) g/dl RDW 13.1 (11.5-14.0) % Plt Count 285 (150-450) K/mm3 MPV 8.5 (6-9.5) fl Gran % 62.3 (36.0-66.0) % Lymphocytes % 25.4 (24.0-44.0) % Monocytes % 9.6 (0.0-12.0) % Eosinophils % 2.4 (0.00-5.0) % Basophils % 0.3 (0.0-0.4) % Basophils # 0.02 (0-0.4) VBG pH (7.32-7.42) VBG pCO2 at Pat Temp (42-55) mm/Hg VBG pO2 at Pat Temp (25-40) mm/Hg VBG HCO3 (22-28) meq/L VBG O2 Sat (Ritu) (95-100) VBG Base Excess (-2.0-2.0) VBG Hemoglobin VBG Carboxyhemoglobin (0.0-6.9) % T HGB POC Potassium (3.5-5.1) Sodium 138 (136-145) mEq/L Potassium 4.4 (3.5-5.1) mEq/L Chloride 101 (98-107) mEq/L Carbon Dioxide 26.1 (21-32) mEq/L Anion Gap 15.4 H (5-15) MEQ/L BUN 11 (9-20) mg/dL Creatinine 1.03 (0.55-1.30) mg/dl Estimated GFR 57 ML/MIN Glucose 120 H (70-110) MG/DL Lactic Acid (0.4-2.0) Calcium 9.3 (8.5-10.1) mg/dL Magnesium 1.8 (1.8-2.4) mg/dL Total Bilirubin 0.20 (0.2-1.0) mg/dL AST 21 (15-37) U/L ALT 19 (12-78) U/L Alkaline Phosphatase 173 H (46-116) U/L Serum Total Protein 7.5 (6.4-8.2) gm/dL Albumin 3.6 (3.4-5.0) g/dL Ur Collection Type Urine Color (YELLOW) Urine Appearance (CLEAR) Urine pH (5-6) Ur Specific [place] (1.005-1.025) Urine Protein (Negative) Urine Ketones (NEGATIVE) Urine Blood (0-5) Jos/ul Urine Nitrite (NEGATIVE) Urine Bilirubin (NEGATIVE) Urine Urobilinogen (0-1) mg/dL Ur Leukocyte Esterase (NEGATIVE) Urine Culture Reflexed (NO) Urine Glucose (NEGATIVE) mg/dL Specimen Received - Progress Progress Note: 10/14/17 23:19 Rectal temp 98. She has no current sign of infection. Will give lorazepam and neb and check labs. 10/14/17 23:44 Allergic to ceclor. She was given levaquin in [facility] at home last admission early Sep. 10/15/17 00:33 No focal weakness. Anxiety better. She was too weak and shaky to ambulate with nurse. She does have RLL pneumonia or cxr. Called Dr Soto for [place] and will place in obs for abtx, PT consult. Counseled pt/family regarding: lab results, diagnosis, need for follow-up, rad results - Departure Time of Disposition: 00:34 Departure Disposition: Observation Clinical Impression: Generalized weakness, RLL pneumonia, Anxiety Condition: Fair Critical Care Time: No Referrals: IMELDA HENSON [Primary Care Provider] -
[2017-10-14 23:47] LABS: ADD URINE CULTURE? NO (NO); Blood NEGATIVE Ery/ul (0-5); COMPLETE URINE MICROSCOPIC? NO; Collection Type CATH; Leukocyte Esterase NEGATIVE (NEGATIVE)
[2017-10-14 23:57] LABS: ALBUMIN 3.6 g/dL (3.4-5.0); ANION GAP 15.4 MEQ/L (5-15); BILIRUBIN,TOTAL 0.2 mg/dL (0.2-1.0); Carbon Dioxide 26.1 mEq/L (21-32); Potassium 4.4 mEq/L (3.5-5.1); Total Protein 7.5 gm/dL (6.4-8.2)
[2017-10-15 00:14] LABS: VBG BASE EXCESS 2.2 (-2.0-2.0); VBG HCO3- 28.3 meq/L (22-28); VBG HEMOGLOBIN 13.2; VBG O2 SATURATION 76.2 (95-100); VBG POTASSIUM 4.1 (3.5-5.1); VBG pH 7.37 (7.32-7.42)
[2017-10-15] MEDS ORDERED: Levofloxacin 250MG Tablet PO ONE (00:32)
[2017-10-15] MEDS ORDERED: Levofloxacin 500 MG Tablet PO ONE (00:32)
[2017-10-15] MEDS ORDERED: Levofloxacin 250MG Tablet ONE (00:46)
[2017-10-15] MEDS ORDERED: Levofloxacin 500 MG Tablet ONE (00:46)
[2017-10-15] MEDS ORDERED: Ativan 1 MG PO PRN (01:16)
[2017-10-15] MEDS ORDERED: TYLENOL 325 MG PO PRN (01:16)
[2017-10-15] MEDS ORDERED: Sodium Chloride 0.9% 1000 ML 1,000 ML IV SCH (01:16)
--- NOTE | 2017-10-15 02:22 | PCM.HP ---
History of Present Illness - Chief Complaint Chief Complaint: Generalized weakness, RLL Pneumonia, Anxiety History of Present Illness: is a 66 year old female patient of Dr Henson who arrived in the ER with the sudden onset of anxiety, shaking on the inside and feeling weak. She lives at home and is normally independent with her care, was unable to ambulate in the ER after arrival due to weakness and anxiety. She has some mild dry cough today, is on oxygen at home. - Review of Systems Constitutional: No Fever, No Chills Respiratory: Cough Cardiac: No Chest Pain, No Edema, No Syncope Abdominal/Gastrointestinal: No Abdominal Pain, No Nausea, No Vomiting, No Diarrhea Psychological: Anxiety All Other Systems: Reviewed and Negative Medications & Allergies Home Medications: Home Medication List Metoprolol Succinate 50 mg PO DAILY 05/28/16 [History Confirmed 09/22/17] Aspirin [Adult Low Dose Aspirin EC] 81 mg PO DAILY 07/24/16 [History Confirmed 09/22/17] Hydroxyzine HCl 25 mg [Atarax 25 mg] 25 mg PO Q4HPRN PRN 07/24/16 [ History Confirmed 09/22/17] Olanzapine [Zyprexa] 5 mg PO HS 07/24/16 [History Confirmed 09/22/17] Nitroglycerin 0.4 mg Tablet [Nitrostat 0.4 MG Tablet] 0.4 mg SL Q5MIN PRN MR X 3 PRN #1 bottle 09/25/16 [Rx Confirmed 09/22/17] Sennosides/Docusate Sodium [Senna-S Tablet] 1 each PO BID PRN 09/25/16 [History Confirmed 09/22/17] Orphenadrine Citrate 100 mg [Norflex 100 MG Tablet] 100 mg PO BIDPRN PRN # 14 tab 07/22/17 [Rx Confirmed 09/22/17] Buspirone HCl 5 mg [Buspar 5 mg] 15 mg PO DAILY 09/22/17 [History Confirmed 09/22/17] Lamotrigine [Lamictal] 200 mg PO BID 09/22/17 [History Confirmed 09/22/17] Levetiracetam [Keppra] 750 mg PO BID 09/22/17 [History Confirmed 09/22/17] Paroxetine HCl 20 mg [Paxil 20 MG] 20 mg PO DAILY 09/22/17 [History Confirmed 09/22/17] Trazodone HCl 50 mg [Desyrel 50 mg] 100 mg PO HS 09/22/17 [History Confirmed 09/22/17] Doxycycline Hyclate 100 mg PO BID #20 tablet 09/23/17 [Rx] Allergies/Adverse Reactions: Allergies Allergy/AdvReac Type Severity Reaction Status Date / Time cefaclor [From [facility]] Allergy Mild Verified 10/14/17 22:43 - Past Medical History Past Medical History: Yes Neurological History: Seizures ENT History: No Pertinent History Cardiac History: Hypertension Respiratory History: Asthma, COPD, Pneumonia Endocrine Medical History: No Pertinent History Musculoskelatal History: No Pertinent History GI Medical History: No Pertinent History History: No Pertinent History Pyscho-Social History: Anxiety, Depression, Panic Disorder Reproductive Disorders: No Pertinent History Comment: [facility] PT. fractured c-spine - Female History Are you now?: No - Past Surgical History Past Surgical History: Yes Neuro Surgical History: No Pertinent History Cardiac History: No Pertinent History Respiratory Surgery: No Pertinent History GI Surgical History: No Pertinent History Genitourinary Surgical Hx: No Pertinent History Musculskeletal Surgical Hx: No Pertinent History, Orthopedic Surgery Female Surgical History: No Pertinent History Other Surgical History: MAGNET PLACEMENT FOR SEIZURES - Social History Smoking Status: Former smoker How long have you smoked: 55 Exposure to second hand smoke: No Alcohol: None Drug Use: none Significant Family History: no pertinent family hx - Physical Exam Vital Signs: Vital Signs - 24 hr Temp Pulse Resp BP Pulse Ox 10/15/17 01:49 97.9 F 74 20 171/90 97 10/15/17 00:54 71 18 129/80 96 10/15/17 00:34 95 10/15/17 00:25 98.7 F 80 20 95 10/14/17 23:21 71 20 153/102 95 10/14/17 23:12 68 24 91 L 10/14/17 22:32 98.6 F 66 20 182/81 95 Oxygen-Last 24 hours O2 Percentage 3 Liters = 32% O2 Percentage 3 Liters = 32% O2 Percentage 3 Liters = 32% O2 Percentage 3 Liters = 32% General Appearance: no apparent distress, anxiety Respiratory Exam: prolonged expirations, rhonchi Cardiovascular Exam: regular rate/rhythm, normal heart sounds, normal peripheral pulses Gastrointestinal/Abdomen Exam: soft, normal bowel sounds, No tenderness, No mass Back Exam: normal inspection, normal range of motion, No CVA tenderness, No vertebral tenderness Extremity Exam: normal inspection, normal range of motion, pelvis stable Assessment/Plan (1) RLL pneumonia Current Visit: Yes Status: Acute Assessment & Plan: on levaquin, nebs and supportive care. Code(s): J18.1 - LOBAR PNEUMONIA, UNSPECIFIED ORGANISM (2) Weakness Current Visit: Yes Status: Acute Code(s): R53.1 - WEAKNESS (3) Anxiety Current Visit: Yes Status: Chronic Assessment & Plan: on po ativan Code(s): F41.9 - ANXIETY DISORDER, UNSPECIFIED
[2017-10-15] MEDS: DUONEB 0.5-3 MG/3 ml Neb IH SCH ×2 (03:54→07:05)
[2017-10-15] MEDS ORDERED: DUONEB 0.5-3 MG/3 ml Neb IH ONE (06:48)
--- NOTE | 2017-10-15 07:43 | PCM.DCORD ---
- Discharge Disposition: Home, Self-Care Condition: Stable Prescriptions: New Lorazepam 1 mg [Ativan 1 MG] 1 mg PO TID PRN PRN #30 tablet PRN Reason: Anxiety Levofloxacin [Levofloxacin 250MG Tablet] 250 mg PO Q24H22 #7 tab Continue Metoprolol Succinate 50 mg PO DAILY Hydroxyzine HCl 25 mg [Atarax 25 mg] 25 mg PO Q4HPRN PRN PRN Reason: Anxiety Aspirin [Adult Low Dose Aspirin EC] 81 mg PO DAILY Olanzapine [Zyprexa] 5 mg PO HS Sennosides/Docusate Sodium [Senna-S Tablet] 1 each PO BID PRN PRN Reason: Constipation Nitroglycerin 0.4 mg Tablet [Nitrostat 0.4 MG Tablet] 0.4 mg SL Q5MIN PRN MR X 3 PRN #1 bottle PRN Reason: Chest Pain Orphenadrine Citrate 100 mg [Norflex 100 MG Tablet] 100 mg PO BIDPRN PRN #14 tab PRN Reason: Muscle Spasms Paroxetine HCl 20 mg [Paxil 20 MG] 20 mg PO DAILY Levetiracetam [Keppra] 750 mg PO BID Trazodone HCl 50 mg [Desyrel 50 mg] 100 mg PO HS Lamotrigine [Lamictal] 200 mg PO BID Buspirone HCl 5 mg [Buspar 5 mg] 15 mg PO DAILY Follow up with: IMELDA CROSS [Primary Care Provider] -
[2017-10-15] MEDS ORDERED: Nitrostat 0.4 MG Tablet SL PRN (08:41)
[2017-10-15] MEDS ORDERED: Senokot-S Tablet PO PRN (08:41)
[2017-10-15] MEDS ORDERED: Norflex 100 MG Tablet PO PRN (08:41)
[2017-10-15] MEDS ORDERED: ATARAX 25 MG PO PRN (08:41)
--- NOTE | 2017-10-15 09:05 | XRAY ---
Indication: COPD. Comparison: October 08, 2017. Portable chest now demonstrates right base subsegmental atelectasis/scarring with stable left base fibrosis/scarring. Remaining heart and lungs unremarkable.
[2017-10-15] MEDS ORDERED: BUSPAR 5 MG PO SCH (10:00)
[2017-10-15] MEDS ORDERED: KEPPRA 500 MG PO SCH (10:00)
[2017-10-15] MEDS ORDERED: NON-FORMULARY ITEM (Levetiracetam [Keppra] 750 MG) PO SCH (10:00)
[2017-10-15] MEDS ORDERED: Paxil 20 MG PO SCH (10:00)
[2017-10-15] MEDS ORDERED: lamICTAL 100MG TABLET PO SCH (10:00)
[2017-10-15] MEDS ORDERED: ECOTRIN 81 MG PO SCH (10:00)
[2017-10-15] MEDS ORDERED: Toprol Xl 50 MG PO SCH (10:00)
[2017-10-15] MEDS ORDERED: LAMOTRIGINE 200 MG PO SCH (10:00)
[2017-10-15 11:42] VITALS: BP 103/58; PULSE 82; O2SAT 90
[2017-10-15] MEDS ORDERED: zyPREXA 5MG TABLET PO SCH (22:00)
[2017-10-15] MEDS ORDERED: Levofloxacin 250MG Tablet PO SCH (22:00)
[2017-10-15] MEDS ORDERED: DESYREL 50 MG PO SCH (22:00)
[2017-10-15] MEDS ORDERED: Levofloxacin 500 MG Tablet PO SCH (22:00)
== END 2017-10-15 10:50 | disposition home or self-care (01) ==
LOC: ED 22:30 → MED SURG 10-15 01:11
PROVIDERS: ADMIT Family Medicine; ATTEND Family Medicine
DX: J18.1 Lobar pneumonia, unspecified organism (principal); R53.1 Weakness; Z79.899 Other long term (current) drug therapy; F41.8 Other specified anxiety disorders; G40.909 Epilepsy, unspecified, not intractable, without status epilepticus; J44.9 Chronic obstructive pulmonary disease, unspecified; J45.909 Unspecified asthma, uncomplicated
CPT/HCPCS: 36000; 36415; 71010; 80053; 81002; 82805; 83605; 83735; 85025; 87040; 93005; 94640; 94760; 96374; 99285; G0378; J2060; J2405; P9612; A9270-GY

== ENCOUNTER 2017-10-19 10:18 | Observation (INO) | payer MEDICAID ==
[2017-10-19] MEDS ORDERED: Sodium Chloride 0.9% 1000 ML 1,000 ML IV STA (10:42)
[2017-10-19] MEDS ORDERED: Valium 5 MG PO ONE (10:45)
[2017-10-19] MEDS ORDERED: Sodium Chloride 0.9% 1000 ML 1,000 ML ONE (10:48)
[2017-10-19] MEDS ORDERED: Valium 5 MG ONE (10:48)
--- NOTE | 2017-10-19 10:51 | ERPHSYRPT ---
- History of Present Illness Time Seen by Provider: 10/19/17 10:30 Source: patient Exam Limitations: no limitations Patient Subjective Stated Complaint: Ems states they were called to Pt residence for pt having weakness and chest pain. upon their arrival Ems states pt confused to time and complained of chest pain with deep breathing. Triage Nursing Assessment: pt pale, warm, dry. mouth dry. pt alert oriented x2. lung sounds clear and equal. denies cough or reecent illness. old bruising with abrasion noted to left eye. pt states she fell. Physician History: SINCE YESTERDAY PT HAS HAD MID ANTERIOR CHEST PAIN, CHILLS AND A FRONTAL HEADACHE. PT ALSO STATES SHE FELL AT HOME WHICH IS HER REASON FOR HER CHEST PAIN. PT WAS HOSPITALIZED AT [facility] FROM 10/14/17 - 10/15/17 WITH PNEUMONIA AND IS CURRENTLY ON LEVAQUIN. PT IS ORIENTED TO TIME AND PLACE BUT DOES NOT KNOW THE CURRENT PRESIDENT. PT ADMITS TO FALLING 3 TIMES IN THE PAST FEW DAYS. PT STATES SHE HAS BEEN LIVING ALONE FOR THE PAST 18 MONTHS AFTER HER MOTHER . PT ALSO STATES SHE HAS BEEN ON 3L/M HOME OXYGEN FOR YEARS. Allergies/Adverse Reactions: cefaclor [From [facility]] Allergy (Mild, Verified 10/19/17 10:28) STATES GOT REAL HOT Home Medications: Metoprolol Succinate 50 mg PO DAILY 05/28/16 [History] Aspirin [Adult Low Dose Aspirin EC] 81 mg PO DAILY 07/24/16 [History] Hydroxyzine HCl 25 mg [Atarax 25 mg] 25 mg PO Q4HPRN PRN 07/24/16 [History ] Olanzapine [Zyprexa] 5 mg PO HS 07/24/16 [History] Sennosides/Docusate Sodium [Senna-S Tablet] 1 each PO BID PRN 09/25/16 [History] Buspirone HCl 5 mg [Buspar 5 mg] 15 mg PO DAILY 09/22/17 [History] Lamotrigine [Lamictal] 200 mg PO BID 09/22/17 [History] Levetiracetam [Keppra] 750 mg PO BID 09/22/17 [History] Paroxetine HCl 20 mg [Paxil 20 MG] 20 mg PO DAILY 09/22/17 [History] Trazodone HCl 50 mg [Desyrel 50 mg] 100 mg PO HS 09/22/17 [History] Hx Tetanus, Diphtheria Vaccination/Date Given: Yes (up to date) Hx Influenza Vaccination/Date Given: Yes Hx Pneumococcal Vaccination/Date Given: Yes Immunizations Up to Date: Yes - Review of Systems Constitutional: Chills, No Fever Respiratory: No Dyspnea Cardiac: Chest Pain Abdominal/Gastrointestinal: No Abdominal Pain, No Vomiting, No Diarrhea Neurological: Headache All Other Systems: Reviewed and Negative - Past Medical History Pertinent Past Medical History: Yes Neurological History: Seizures ENT History: No Pertinent History Cardiac History: Hypertension Respiratory History: Asthma, COPD, Pneumonia Endocrine Medical History: No Pertinent History Musculoskeletal History: No Pertinent History GI Medical History: No Pertinent History History: No Pertinent History Psycho-Social History: Anxiety, Depression, Panic Disorder Female Reproductive Disorders: No Pertinent History Other Medical History: [facility] PT. fractured c-spine - Past Surgical History Past Surgical History: Yes Neuro Surgical History: No Pertinent History Cardiac: No Pertinent History Respiratory: No Pertinent History Gastrointestinal: No Pertinent History Genitourinary: No Pertinent History Musculoskeletal: No Pertinent History, Orthopedic Surgery Female Surgical History: No Pertinent History Other Surgical History: MAGNET PLACEMENT FOR SEIZURES - Social History Smoking Status: Former smoker How long have you smoked: 55 Exposure to second hand smoke: No Drug Use: none Patient Lives Alone: No Significant Family History: no pertinent family hx - Female History Hx Now: No - Nursing Vital Signs Nursing Vital Signs: Initial Vital Signs O2 Sat by Pulse Oximetry 94 L 10/19/17 10:20 Pain Scale Pain Intensity 0 - Physical Exam General Appearance: alert Eye Exam: PERRL/EOMI Ears, Nose, Throat Exam: TMs normal, dry mucous membranes, pharyngeal erythema ( MILD) Neck Exam: normal inspection, non-tender Respiratory Exam: lungs clear Cardiovascular Exam: normal heart sounds Gastrointestinal/Abdomen Exam: soft, normal bowel sounds, tenderness (MINIMAL SUPRAPUBIC TENDERNESS) Back Exam: other (KYPHOSIS), No vertebral tenderness Extremity Exam: normal inspection, normal range of motion, No pedal edema Neurologic Exam: alert, cooperative, sensation nml, other (NO BABINSKI PRESENT) , No motor deficits Skin Exam: abrasion (~ 1 CM LINEAR HEALING ABRASION TO LATERAL ASPECT OF LEFT EYEBROW), other (~ 2 CM DIAMETER OLD BRUISING OF LOWER RIGHT ANTERIOR CHEST WITHOUT CREPITUS) SpO2 Interpretation: normal SpO2: 94 Oxygen Delivery: Room Air - Course Nursing assessment & vital signs reviewed: Yes EKG Interpreted by Me: RATE (84), Sinus Rhythm, NORMAL AXIS, NORMAL INTERVALS - Radiology Exams Chest X-ray Interpretation: Interpreted by me, No Pneumonia - CT Exams Head CT Interpretation: Tele-radiologist Report (CHRONIC AGE RELATED CHANGES BUT NO EVIDENCE OF ACUTE INTRACRANIAL PATHOLOGY.) Ordered Tests: Active Orders 24 hr Category Date Time Status Accounting Intern STAT Care 10/19/17 10:43 Active EKG-ER Only STAT Care 10/19/17 10:42 Active IV Insertion STAT Care 10/19/17 10:42 Active Oxygen-ED Only NASAL CANNULA 2 lpm Care 10/19/17 10:42 Active Pulse Oximetry (ED) STAT Care 10/19/17 10:42 Active CHEST 2 VIEWS (PA AND LAT) Stat Exams 10/19/17 10:43 Taken HEAD WITHOUT CONTRAST [CT] Stat Exams 10/19/17 12:34 Taken AMYLASE Stat Lab 10/19/17 11:10 Completed CBC W DIFF Stat Lab 10/19/17 11:10 Completed CMP Stat Lab 10/19/17 11:10 Completed CULTURE, THROAT Stat Lab 10/19/17 11:15 Received CULTURE,URINE Stat Lab 10/19/17 11:05 Received LIPASE Stat Lab 10/19/17 11:10 Completed MAGNESIUM Stat Lab 10/19/17 11:10 Completed NT PRO BNP Stat Lab 10/19/17 11:10 Completed STREP SCREEN-BETA A Stat Lab 10/19/17 11:15 Completed TROPONIN Q3H Lab 10/19/17 11:10 Completed TROPONIN Q3H Lab 10/19/17 13:45 Ordered TROPONIN Q3H Lab 10/19/17 16:45 Ordered TROPONIN Q3H Lab 10/19/17 19:45 Ordered TROPONIN Q3H Lab 10/19/17 22:45 Ordered UA W/ MICROSCOPIC Stat Lab 10/19/17 11:05 Completed Medication Summary Generic Name Dose Route Start Last Admin Trade Name Freq PRN Reason Stop Dose Admin Magnesium Oxide 400 mg 10/19/17 22:00 10/19/17 12:01 Mag-Ox 400 PO 11/18/17 21:59 400 mg BID MOE Administration Discontinued Medications Generic Name Dose Route Start Last Admin Trade Name Freq PRN Reason Stop Dose Admin Diazepam 5 mg 10/19/17 10:45 10/19/17 10:57 Valium 5 Mg PO 10/19/17 10:46 5 mg STAT ONE Administration Diazepam Confirm 10/19/17 10:48 Valium 5 Mg Administered 10/19/17 10:49 Dose 5 mg .ROUTE .STK-MED ONE Sodium Chloride 1,000 mls @ 999 mls/hr 10/19/17 10:42 10/19/17 10:58 Sodium Chloride 0.9% 1000 Ml IV 10/19/17 11:42 999 mls/hr .Q1H1M STA Administration Sodium Chloride Confirm 10/19/17 10:48 Sodium Chloride 0.9% 1000 Ml Administered 10/19/17 10:49 Dose 1,000 mls @ ud .ROUTE .STK-MED ONE Lab/Rad Data: Laboratory Result Diagrams 10/19/17 11:10 10/19/17 11:10 Laboratory Results 10/19/17 10/19/17 10/19/17 Range/Units 11:15 11:15 11:10 WBC (4.0-10.5) K/mm3 RBC (4.1-5.4) M/mm3 Hgb (12.0-16.0) gm/dl Hct (35-47) % MCV (78-100) fl MCH (26-32) pg MCHC (32-36) g/dl RDW (11.5-14.0) % Plt Count (150-450) K/mm3 MPV (6-9.5) fl Gran % (36.0-66.0) % Lymphocytes % (24.0-44.0) % Monocytes % (0.0-12.0) % Eosinophils % (0.00-5.0) % Basophils % (0.0-0.4) % Basophils # (0-0.4) Sodium (136-145) mEq/L Potassium (3.5-5.1) mEq/L Chloride (98-107) mEq/L Carbon Dioxide (21-32) mEq/L Anion Gap (5-15) MEQ/L BUN (9-20) mg/dL Creatinine (0.55-1.30) mg/dl Estimated GFR ML/MIN Glucose (70-110) MG/DL Calcium (8.5-10.1) mg/dL Magnesium (1.8-2.4) mg/dL Total Bilirubin (0.2-1.0) mg/dL AST (15-37) U/L ALT (12-78) U/L Alkaline Phosphatase (46-116) U/L Troponin I < 0.017 (0.000-0.056) ng/ml NT-Pro-B Natriuret Pep (0-125) pg/ml Serum Total Protein (6.4-8.2) gm/dL Albumin (3.4-5.0) g/dL Amylase (25-115) U/L Lipase (73-393) U/L Ur Collection Type Urine Color (YELLOW) Urine Appearance (CLEAR) Urine pH (5-6) Ur Specific [place] (1.005-1.025) Urine Protein (Negative) Urine Ketones (NEGATIVE) Urine Blood (0-5) Jos/ul Urine Nitrite (NEGATIVE) Urine Bilirubin (NEGATIVE) Urine Urobilinogen (0-1) mg/dL Ur Leukocyte Esterase (NEGATIVE) Urine Microscopic RBC (0-2) /HPF Urine Microscopic WBC (0-5) /HPF Ur Epithelial Cells (FEW) /HPF Urine Bacteria (NEGATIVE) /HPF Urine Mucus (NEGATIVE) /HPF Urine Culture Reflexed (NO) Urine Glucose (NEGATIVE) mg/dL Influenza Type A Ag NEGATIVE (NEGATIVE) Influenza Type B Ag NEGATIVE (NEGATIVE) RSV (PCR) NEGATIVE (Negative) Streptococcus Screen NEGATIVE (Negative) Specimen Received 10/19/17 10/19/17 10/19/17 Range/Units 11:10 11:10 11:05 WBC 6.3 (4.0-10.5) K/mm3 RBC 3.98 L (4.1-5.4) M/mm3 Hgb 11.9 L (12.0-16.0) gm/dl Hct 37.1 (35-47) % MCV 93.2 (78-100) fl MCH 29.8 (26-32) pg MCHC 32.1 (32-36) g/dl RDW 13.4 (11.5-14.0) % Plt Count 259 (150-450) K/mm3 MPV 8.5 (6-9.5) fl Gran % 63.2 (36.0-66.0) % Lymphocytes % 26.6 (24.0-44.0) % Monocytes % 9.3 (0.0-12.0) % Eosinophils % 0.6 (0.00-5.0) % Basophils % 0.3 (0.0-0.4) % Basophils # 0.02 (0-0.4) Sodium 141 (136-145) mEq/L Potassium 3.7 (3.5-5.1) mEq/L Chloride 105 (98-107) mEq/L Carbon Dioxide 25.2 (21-32) mEq/L Anion Gap 14.5 (5-15) MEQ/L BUN 17 (9-20) mg/dL Creatinine 0.99 (0.55-1.30) mg/dl Estimated GFR 59 ML/MIN Glucose 109 (70-110) MG/DL Calcium 8.7 (8.5-10.1) mg/dL Magnesium 1.7 L (1.8-2.4) mg/dL Total Bilirubin 0.30 (0.2-1.0) mg/dL AST 23 (15-37) U/L ALT 21 (12-78) U/L Alkaline Phosphatase 144 H (46-116) U/L Troponin I (0.000-0.056) ng/ml NT-Pro-B Natriuret Pep 175 H (0-125) pg/ml Serum Total Protein 6.8 (6.4-8.2) gm/dL Albumin 3.4 (3.4-5.0) g/dL Amylase 19 L (25-115) U/L Lipase 72 L (73-393) U/L Ur Collection Type CATH Urine Color YELLOW (YELLOW) Urine Appearance CLEAR (CLEAR) Urine pH 5.0 (5-6) Ur Specific [place] 1.025 (1.005-1.025) Urine Protein 100 (Negative) Urine Ketones LARGE (NEGATIVE) Urine Blood 5-10 (0-5) Jos/ul Urine Nitrite NEGATIVE (NEGATIVE) Urine Bilirubin NEGATIVE (NEGATIVE) Urine Urobilinogen 4 (0-1) mg/dL Ur Leukocyte Esterase NEGATIVE (NEGATIVE) Urine Microscopic RBC 0-2 (0-2) /HPF Urine Microscopic WBC 0-2 (0-5) /HPF Ur Epithelial Cells RARE (FEW) /HPF Urine Bacteria FEW (NEGATIVE) /HPF Urine Mucus SLIGHT (NEGATIVE) /HPF Urine Culture Reflexed YES (NO) Urine Glucose NEGATIVE (NEGATIVE) mg/dL Influenza Type A Ag (NEGATIVE) Influenza Type B Ag (NEGATIVE) RSV (PCR) (Negative) Streptococcus Screen (Negative) Specimen Received 10/19/16 1130 - Progress Discussed with : Charles (OBS - [id number]) - Departure Time of Disposition: 14:13 Departure Disposition: Observation Clinical Impression: CONFUSION, GENERALIZED WEAKNESS, CHEST PAIN, MILD HYPOMAGNESEMIA, FREQUENT FALLS, HTN, COPD, ANXIETY, DEPRESSION, SEIZURE DISORDER Condition: Stable Critical Care Time: No Referrals: IMELDA CROSS [Primary Care Provider] -
[2017-10-19 11:28] LABS: BASOPHIL % 0.3 % (0.0-0.4); Basophil (Absolute #) 0.02 (0-0.4); Eosinophil % 0.6 % (0.00-5.0); Eosinophil (Absolute #) 0.04 (0-0.5); Granulocyte Absolute (ANC) 3.95 (1.4-6.9); Granulocytes % 63.2 % (36.0-66.0); Hematocrit 37.1 % (35-47); Hemoglobin 11.9 gm/dl (12.0-16.0); Lymphocyte (Absolute #) 1.66 (1.0-4.6); Lymphocytes % 26.6 % (24.0-44.0); Mean Cell Volume 93.2 fl (78-100); Mean Corpuscular Hemoglobin 29.8 pg (26-32); Mean Corpuscular Hgb Concent. 32.1 g/dl (32-36); Mean Platelet Volume 8.5 fl (6-9.5); Monocyte (Absolute #) 0.58 (0.0-1.3); Monocytes % 9.3 % (0.0-12.0); Platelet Count 259 K/mm3 (150-450); Red Blood Count 3.98 M/mm3 (4.1-5.4); Red Cell Distribution Width 13.4 % (11.5-14.0); White Blood Count 6.3 K/mm3 (4.0-10.5)
[2017-10-19 11:46] LABS: Appearance CLEAR (CLEAR); Bacteria FEW /HPF (NEGATIVE); Bilirubin NEGATIVE (NEGATIVE); Epithelial Cells RARE /HPF (FEW); Glucose NEGATIVE (NEGATIVE); Ketones LARGE (NEGATIVE); Leukocyte Esterase NEGATIVE (NEGATIVE); Mucus SLIGHT /HPF (NEGATIVE); Nitrite NEGATIVE (NEGATIVE); Protein,Urine Dip 100 (Negative); Specific Gravity 1.025 (1.005-1.025); Urobilinogen 4 mg/dL (0-1); WBC 0-2 /HPF (0-5)
[2017-10-19 11:53] LABS: ALBUMIN 3.4 g/dL (3.4-5.0); ANION GAP 14.5 MEQ/L (5-15); BILIRUBIN,TOTAL 0.3 mg/dL (0.2-1.0); Calcium 8.7 mg/dL (8.5-10.1); Carbon Dioxide 25.2 mEq/L (21-32); Creatinine 1 0.99 mg/dl (0.55-1.30); MAGNESIUM 1.7 mg/dL (1.8-2.4); Potassium 3.7 mEq/L (3.5-5.1); Total Protein 6.8 gm/dL (6.4-8.2)
[2017-10-19] MEDS: MAG-OX 400 PO SCH (12:01)
[2017-10-19 12:29] LABS: INFLUENZA A NEGATIVE (NEGATIVE); INFLUENZA B NEGATIVE (NEGATIVE); RESPIRATORY SYNCTIAL VIRUS NEGATIVE (Negative)
[2017-10-19] MEDS ORDERED: PROVENTIL 2.5 MG/3 ML NEB IH PRN (15:01)
[2017-10-19] MEDS ORDERED: TYLENOL 325 MG PO PRN (15:01)
[2017-10-19] MEDS ORDERED: Phenergan 25 MG INJ IV PRN (15:01)
[2017-10-19] MEDS ORDERED: Nitrostat 0.4 MG Tablet SL PRN (15:48)
[2017-10-19] MEDS: Sodium Chloride 0.9% 1000 ML 1,000 ML IV SCH (15:58)
[2017-10-19] MEDS: BUSPAR 5 MG PO SCH (16:00)
[2017-10-19] MEDS: Paxil 20 MG PO SCH (16:00)
[2017-10-19] MEDS: Toprol Xl 50 MG PO SCH (16:00)
[2017-10-19] MEDS: ECOTRIN 81 MG PO SCH (16:01)
--- NOTE | 2017-10-19 18:16 | XRAY ---
Indication: Chest pain. Comparison: October 14, 2017. PA/lateral chest demonstrates stable minimal left base fibrosis/scarring and right apical calcified granuloma. Remaining heart and lungs unremarkable. No new/acute findings.
--- NOTE | 2017-10-19 18:18 | XRAY ---
Indication: Multiple falls. Multiple contiguous axial images obtained through the head without contrast as ordered. Comparison: July 11, 2017. Again age-appropriate global atrophy and minimal periventricular degenerative micro-ischemia. No acute intracranial hemorrhage, abnormal extra-axial fluid collection, or mass effect. Fourth ventricle is midline without hydrocephalus. Bony calvarium intact. Tiny fluid leveling in the right maxillary sinus. Remaining visualized paranasal sinuses and mastoid air cells are clear. Impression: 1. Stable nonacute senile brain. 2. Minimal right maxillary sinus disease. Comment: Preliminary interpretation was made by [facility]. No critical discrepancy. CTDI 61.49
[2017-10-19] MEDS: DESYREL 50 MG PO SCH (21:09)
[2017-10-19] MEDS: Senokot-S Tablet PO PRN (21:09)
[2017-10-19] MEDS: zyPREXA 5MG TABLET PO SCH (21:09)
[2017-10-19] MEDS: KEPPRA 500 MG PO SCH (21:10)
[2017-10-19] MEDS: lamICTAL 100MG TABLET PO SCH (21:11)
[2017-10-19] MEDS ORDERED: NON-FORMULARY ITEM (Levetiracetam [Keppra] 750 MG) PO SCH (22:00)
[2017-10-19] MEDS ORDERED: LAMOTRIGINE 200 MG PO SCH (22:00)
[2017-10-20] MEDS: Sodium Chloride 0.9% 1000 ML 1,000 ML IV SCH ×3 (02:18→23:06)
[2017-10-20 05:49] LABS: BASOPHIL % 0.2 % (0.0-0.4); Basophil (Absolute #) 0.01 (0-0.4); Eosinophil % 3.4 % (0.00-5.0); Eosinophil (Absolute #) 0.14 (0-0.5); Granulocyte Absolute (ANC) 1.48 (1.4-6.9); Granulocytes % 36.6 % (36.0-66.0); Hematocrit 33.2 % (35-47); Hemoglobin 10.5 gm/dl (12.0-16.0); Lymphocyte (Absolute #) 1.93 (1.0-4.6); Lymphocytes % 47.5 % (24.0-44.0); Mean Cell Volume 95.7 fl (78-100); Mean Corpuscular Hgb Concent. 31.6 g/dl (32-36); Mean Platelet Volume 8.6 fl (6-9.5); Monocytes % 12.3 % (0.0-12.0); Platelet Count 227 K/mm3 (150-450); Red Blood Count 3.47 M/mm3 (4.1-5.4); Red Cell Distribution Width 13.5 % (11.5-14.0); White Blood Count 4.1 K/mm3 (4.0-10.5)
[2017-10-20 05:53] LABS: Mean Corpuscular Hemoglobin 30.2 pg (26-32)
[2017-10-20 06:26] LABS: ALBUMIN 2.9 g/dL (3.4-5.0); ALKALINE PHOSPHATASE 123 U/L (46-116); ANION GAP 12.4 MEQ/L (5-15); BLOOD UREA NITROGEN 13 mg/dL (9-20); CHLORIDE 110 mEq/L (98-107); Calcium 8.5 mg/dL (8.5-10.1); Carbon Dioxide 24.7 mEq/L (21-32); Creatinine 1 0.85 mg/dl (0.55-1.30); EST GLOMERULAR FILTRATION RATE > 60 ML/MIN; Glucose 97 MG/DL (70-110); MAGNESIUM 1.8 mg/dL (1.8-2.4); Potassium 3.8 mEq/L (3.5-5.1); SGOT/AST 22 U/L (15-37); SGPT/ALT 17 U/L (12-78); SODIUM 143 mEq/L (136-145); Total Protein 5.6 gm/dL (6.4-8.2)
[2017-10-20 06:30] LABS: TROPONIN < 0.017 ng/ml (0.000-0.056)
[2017-10-20] MEDS ORDERED: MAG-OX 400 PO SCH (10:00)
[2017-10-20] MEDS: lamICTAL 100MG TABLET PO SCH ×2 (10:20→22:49)
[2017-10-20] MEDS: MAG-OX 400 PO SCH ×2 (10:20→22:49)
[2017-10-20] MEDS: ECOTRIN 81 MG PO SCH (10:20)
[2017-10-20] MEDS: KEPPRA 500 MG PO SCH ×2 (10:20→22:48)
[2017-10-20] MEDS: Toprol Xl 50 MG PO SCH (10:20)
[2017-10-20] MEDS: Paxil 20 MG PO SCH (10:23)
--- NOTE | 2017-10-20 14:29 | PCM.HP ---
History of Present Illness - Chief Complaint Chief Complaint: confusion, chest pain, freq. falling History of Present Illness: is a 66 year old female of mine from [facility] who was in the hospital about 2 weeks ago with pneumonia. After that she has had some episodes of dizziness and shaking, as well as multiple falls. She states several times she doesn't remember much from "when I was sick." Last night she was apparently quite disoriented and was brought to the ER. She had mildly low magnesium. Her head CT was negative for acute findings. She did have some signs of dehydration. This morning she is oriented to placed, with some prompting oriented to time. Still thinks Fitzgerald is the president. She does not know if she can stand up today. Pt lives alone. - Review of Systems All Other Systems: Unable due to condition (recent memory loss) Medications & Allergies Home Medications: Home Medication List Metoprolol Succinate 50 mg PO DAILY 05/28/16 [History Confirmed 10/19/17] Aspirin [Adult Low Dose Aspirin EC] 81 mg PO DAILY 07/24/16 [History Confirmed 10/19/17] Hydroxyzine HCl 25 mg [Atarax 25 mg] 25 mg PO Q4HPRN PRN 07/24/16 [ History Confirmed 10/19/17] Olanzapine [Zyprexa] 5 mg PO HS 07/24/16 [History Confirmed 10/19/17] Nitroglycerin 0.4 mg Tablet [Nitrostat 0.4 MG Tablet] 0.4 mg SL Q5MIN PRN MR X 3 PRN #1 bottle 09/25/16 [Rx Confirmed 10/19/17] Sennosides/Docusate Sodium [Senna-S Tablet] 1 each PO BID PRN 09/25/16 [History Confirmed 10/19/17] Orphenadrine Citrate 100 mg [Norflex 100 MG Tablet] 100 mg PO BIDPRN PRN # 14 tab 07/22/17 [Rx Confirmed 10/19/17] Buspirone HCl 5 mg [Buspar 5 mg] 15 mg PO DAILY 09/22/17 [History Confirmed 10/19/17] Lamotrigine [Lamictal] 200 mg PO BID 09/22/17 [History Confirmed 10/19/17] Levetiracetam [Keppra] 750 mg PO BID 09/22/17 [History Confirmed 10/19/17] Paroxetine HCl 20 mg [Paxil 20 MG] 20 mg PO DAILY 09/22/17 [History Confirmed 10/19/17] Trazodone HCl 50 mg [Desyrel 50 mg] 100 mg PO HS 09/22/17 [History Confirmed 10/19/17] Levofloxacin [Levofloxacin 250MG Tablet] 250 mg PO Q24H22 #7 tab 10/15/17 [Rx Confirmed 10/19/17] Lorazepam 1 mg [Ativan 1 MG] 1 mg PO TID PRN PRN #30 tablet 10/15/17 [Rx Confirmed 10/19/17] Allergies/Adverse Reactions: Allergies Allergy/AdvReac Type Severity Reaction Status Date / Time cefaclor [From [facility]] Allergy Mild Verified 10/19/17 10:28 - Past Medical History Past Medical History: Yes Neurological History: Seizures ENT History: No Pertinent History Cardiac History: Hypertension Respiratory History: Asthma, COPD, Pneumonia Endocrine Medical History: No Pertinent History Musculoskelatal History: No Pertinent History GI Medical History: No Pertinent History History: No Pertinent History Pyscho-Social History: Anxiety, Depression, Panic Disorder Reproductive Disorders: No Pertinent History Comment: [facility] PT. fractured c-spine - Female History Are you now?: No - Past Surgical History Past Surgical History: Yes Neuro Surgical History: No Pertinent History Cardiac History: No Pertinent History Respiratory Surgery: No Pertinent History GI Surgical History: No Pertinent History Genitourinary Surgical Hx: No Pertinent History Musculskeletal Surgical Hx: No Pertinent History, Orthopedic Surgery Female Surgical History: No Pertinent History Other Surgical History: MAGNET PLACEMENT FOR SEIZURES - Social History Smoking Status: Never smoker How long have you smoked: 55 Exposure to second hand smoke: No Alcohol: None Drug Use: none Significant Family History: no pertinent family hx - Physical Exam Vital Signs: Vital Signs - 24 hr Temp Pulse Resp BP Pulse Ox 10/20/17 12:00 97.9 F 70 18 112/62 94 L 10/20/17 08:00 97.9 F 72 19 112/57 94 L 10/20/17 04:00 97.9 F 72 19 112/57 94 L 10/20/17 00:00 97.9 F 86 20 92/55 92 L 10/19/17 20:00 98.5 F 64 18 149/67 94 L 10/19/17 19:18 64 18 95 10/19/17 17:49 79 18 96 10/19/17 15:05 98.1 F 70 18 118/69 98 10/19/17 15:01 98.1 F 70 18 118/69 98 Oxygen-Last 24 hours O2 Percentage 2 Liters = 28% O2 Percentage 2 Liters = 28% O2 Percentage 2 Liters = 28% O2 Percentage 2 Liters = 28% O2 Percentage 2 Liters = 28% O2 Percentage 2 Liters = 28% O2 Percentage 2 Liters = 28% General Appearance: no apparent distress, alert Neurologic Exam: cooperative, other (oriented to place; oriented to date with minimal prompting.) Eye Exam: eyes nml inspection Neck Exam: normal inspection, supple, No lymphadenopathy Respiratory Exam: normal breath sounds, lungs clear, other (R substernal ttp), No crackles/rales, No rhonchi, No wheezing Cardiovascular Exam: regular rate/rhythm, normal heart sounds, No murmur Gastrointestinal/Abdomen Exam: soft, No tenderness, No distention, No mass Extremity Exam: swelling (trace pitting edema pretibial bilat) Skin Exam: normal color, warm, dry, No rash Results - Labs Lab/Micro Results: Lab Results-Last 24 Hours 10/19/17 10/19/17 10/19/17 Range/Units 16:45 20:10 22:50 WBC (4.0-10.5) K/mm3 RBC (4.1-5.4) M/mm3 Hgb (12.0-16.0) gm/dl Hct (35-47) % MCV (78-100) fl MCH (26-32) pg MCHC (32-36) g/dl RDW (11.5-14.0) % Plt Count (150-450) K/mm3 MPV (6-9.5) fl Gran % (36.0-66.0) % Lymphocytes % (24.0-44.0) % Monocytes % (0.0-12.0) % Eosinophils % (0.00-5.0) % Basophils % (0.0-0.4) % Basophils # (0-0.4) Sodium (136-145) mEq/L Potassium (3.5-5.1) mEq/L Chloride (98-107) mEq/L Carbon Dioxide (21-32) mEq/L Anion Gap (5-15) MEQ/L BUN (9-20) mg/dL Creatinine (0.55-1.30) mg/dl Estimated GFR ML/MIN Glucose (70-110) MG/DL Calcium (8.5-10.1) mg/dL Magnesium (1.8-2.4) mg/dL Total Bilirubin (0.2-1.0) mg/dL AST (15-37) U/L ALT (12-78) U/L Alkaline Phosphatase (46-116) U/L Troponin I < 0.017 < 0.017 < 0.017 (0.000-0.056) ng/ml Serum Total Protein (6.4-8.2) gm/dL Albumin (3.4-5.0) g/dL 10/20/17 10/20/17 Range/Units 05:20 05:20 WBC 4.1 (4.0-10.5) K/mm3 RBC 3.47 L (4.1-5.4) M/mm3 Hgb 10.5 L (12.0-16.0) gm/dl Hct 33.2 L (35-47) % MCV 95.7 (78-100) fl MCH 30.2 (26-32) pg MCHC 31.6 L (32-36) g/dl RDW 13.5 (11.5-14.0) % Plt Count 227 (150-450) K/mm3 MPV 8.6 (6-9.5) fl Gran % 36.6 (36.0-66.0) % Lymphocytes % 47.5 H (24.0-44.0) % Monocytes % 12.3 H (0.0-12.0) % Eosinophils % 3.4 (0.00-5.0) % Basophils % 0.2 (0.0-0.4) % Basophils # 0.01 (0-0.4) Sodium 143 (136-145) mEq/L Potassium 3.8 (3.5-5.1) mEq/L Chloride 110 H (98-107) mEq/L Carbon Dioxide 24.7 (21-32) mEq/L Anion Gap 12.4 (5-15) MEQ/L BUN 13 (9-20) mg/dL Creatinine 0.85 (0.55-1.30) mg/dl Estimated GFR > 60 ML/MIN Glucose 97 (70-110) MG/DL Calcium 8.5 (8.5-10.1) mg/dL Magnesium 1.8 (1.8-2.4) mg/dL Total Bilirubin 0.20 (0.2-1.0) mg/dL AST 22 (15-37) U/L ALT 17 (12-78) U/L Alkaline Phosphatase 123 H (46-116) U/L Troponin I < 0.017 (0.000-0.056) ng/ml Serum Total Protein 5.6 L (6.4-8.2) gm/dL Albumin 2.9 L (3.4-5.0) g/dL - Other Procedures and Tests Respiratory Therapy 10/19/17 17:49 Respiratory Nebulizer PRN Assessment/Plan (1) Falls Current Visit: Yes Status: Acute Qualifiers: Encounter type: subsequent encounter Qualified Code(s): W19.XXXD - Unspecified fall, subsequent encounter Assessment & Plan: PT to evaluate. Code(s): W19.XXXA - UNSPECIFIED FALL, INITIAL ENCOUNTER (2) Chest pain Current Visit: No Status: Acute Qualifiers: Chest pain type: intercostal pain Qualified Code(s): R07.82 - Intercostal pain Assessment & Plan: I think likely related to injury sustained in one of her falls. her troponins are neg x 6. Code(s): R07.9 - CHEST PAIN, UNSPECIFIED (3) Hypertension Current Visit: No Status: Chronic Qualifiers: Hypertension type: essential hypertension Qualified Code(s): I10 - Essential (primary) hypertension Assessment & Plan: observe on home meds. Code(s): I10 - ESSENTIAL (PRIMARY) HYPERTENSION (4) Dizziness Current Visit: Yes Status: Acute Assessment & Plan: Will check orthostats when she is able. CT of head was nl. Will consider MRI brain. Code(s): R42 - DIZZINESS AND GIDDINESS
[2017-10-20] MEDS: DESYREL 50 MG PO SCH (22:48)
[2017-10-20] MEDS: zyPREXA 5MG TABLET PO SCH (22:49)
[2017-10-20] MEDS: Senokot-S Tablet PO PRN (22:49)
[2017-10-21 06:11] LABS: Hematocrit 32.7 % (35-47); Hemoglobin 9.9 gm/dl (12.0-16.0); Mean Cell Volume 98.8 fl (78-100); Mean Corpuscular Hemoglobin 29.9 pg (26-32); Mean Corpuscular Hgb Concent. 30.3 g/dl (32-36); Mean Platelet Volume 8.8 fl (6-9.5); Platelet Count 218 K/mm3 (150-450); Red Blood Count 3.31 M/mm3 (4.1-5.4)
[2017-10-21 06:37] LABS: ANION GAP 9.7 MEQ/L (5-15); BLOOD UREA NITROGEN 12 mg/dL (9-20); CHLORIDE 112 mEq/L (98-107); Calcium 8.3 mg/dL (8.5-10.1); Carbon Dioxide 26.4 mEq/L (21-32); Creatinine 1 0.81 mg/dl (0.55-1.30); EST GLOMERULAR FILTRATION RATE > 60 ML/MIN; Glucose 102 MG/DL (70-110); MAGNESIUM 1.7 mg/dL (1.8-2.4); Potassium 4.1 mEq/L (3.5-5.1); SODIUM 144 mEq/L (136-145)
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
[2017-10-21] MEDS: KEPPRA 500 MG PO SCH ×2 (09:21→21:44)
[2017-10-21] MEDS: BUSPAR 5 MG PO SCH (09:21)
[2017-10-21] MEDS: lamICTAL 100MG TABLET PO SCH ×2 (09:21→21:46)
[2017-10-21] MEDS: MAG-OX 400 PO SCH ×2 (09:22→21:47)
[2017-10-21] MEDS: Paxil 20 MG PO SCH (09:22)
[2017-10-21] MEDS: Toprol Xl 50 MG PO SCH (09:22)
[2017-10-21] MEDS: Senokot-S Tablet PO PRN ×2 (09:22→21:46)
[2017-10-21] MEDS: ECOTRIN 81 MG PO SCH (09:22)
[2017-10-21] MEDS: ENOXAPARIN SODIUM SQ SCH (09:23)
[2017-10-21] MEDS: Sodium Chloride 0.9% 1000 ML 1,000 ML IV SCH ×2 (09:23→20:07)
[2017-10-21] MEDS: DESYREL 50 MG PO SCH (21:46)
[2017-10-21] MEDS: zyPREXA 5MG TABLET PO SCH (21:47)
[2017-10-22] MEDS: Sodium Chloride 0.9% 1000 ML 1,000 ML IV SCH ×2 (06:02→16:03)
[2017-10-22 06:23] LABS: Hematocrit 30.3 % (35-47); Hemoglobin 9.4 gm/dl (12.0-16.0); Mean Cell Volume 97.4 fl (78-100); Mean Corpuscular Hemoglobin 30.2 pg (26-32); Mean Platelet Volume 8.8 fl (6-9.5); Platelet Count 212 K/mm3 (150-450); Red Blood Count 3.11 M/mm3 (4.1-5.4); Red Cell Distribution Width 13.8 % (11.5-14.0); White Blood Count 4.2 K/mm3 (4.0-10.5)
[2017-10-22 06:29] LABS: ANION GAP 5.4 MEQ/L (5-15); BLOOD UREA NITROGEN 11 mg/dL (9-20); CHLORIDE 106 mEq/L (98-107); Calcium 8.3 mg/dL (8.5-10.1); Carbon Dioxide 27.3 mEq/L (21-32); Creatinine 1 0.72 mg/dl (0.55-1.30); EST GLOMERULAR FILTRATION RATE > 60 ML/MIN; Glucose 101 MG/DL (70-110); Potassium 3.8 mEq/L (3.5-5.1); SODIUM 135 mEq/L (136-145)
[2017-10-22] MEDS: lamICTAL 100MG TABLET PO SCH ×2 (09:35→20:04)
[2017-10-22] MEDS: Toprol Xl 50 MG PO SCH (09:36)
[2017-10-22] MEDS: KEPPRA 500 MG PO SCH ×2 (09:36→20:03)
[2017-10-22] MEDS: Paxil 20 MG PO SCH (09:36)
[2017-10-22] MEDS: MAG-OX 400 PO SCH ×2 (09:37→20:04)
[2017-10-22] MEDS: ENOXAPARIN SODIUM SQ SCH (09:37)
[2017-10-22] MEDS: ECOTRIN 81 MG PO SCH (09:37)
[2017-10-22] MEDS: BUSPAR 5 MG PO SCH (09:37)
--- NOTE | 2017-10-22 16:42 | PCM.NOTE ---
Date and Time: 10/22/17 Slime Subjective Assessment: Pt has been up and walked, no c/o dizziness. Does still have mid sternal chest pain that is constant. oriented to date today! - Review of Systems Constitutional: No Fever Cardiac: Chest Pain Objective Exam General Appearance: no apparent distress, alert Neurologic Exam: oriented x 3, cooperative Skin Exam: normal color, warm, dry Respiratory Exam: normal breath sounds, lungs clear, No crackles/rales, No rhonchi, No wheezing Cardiovascular Exam: regular rate/rhythm, normal heart sounds, No murmur Gastrointestinal/Abdomen Exam: soft, normal bowel sounds, No tenderness Extremity Exam: No pedal edema, No swelling Back Exam: normal inspection, No rash OBJECTIVE DATA Vital Signs: Vital Signs - 24 hr Temp Pulse Resp BP Pulse Ox 10/22/17 16:00 97.9 F 71 16 132/76 96 10/22/17 11:52 98.3 F 75 16 140/61 95 10/22/17 10:43 68 20 95 10/22/17 07:14 98 F 66 16 122/56 94 L 10/22/17 04:00 97.9 F 69 22 128/66 94 L 10/22/17 00:00 98.6 F 71 24 126/60 93 L 10/21/17 20:00 98.4 F 85 30 H 143/66 92 L 10/21/17 19:35 85 12 95 Oxygen-Last 24 hours O2 Percentage 3 Liters = 32% O2 Percentage 3 Liters = 32% O2 Percentage 3 Liters = 32% O2 Percentage 3 Liters = 32% Pain Assessment - Last Documented Pain Intensity 0 Pain Scale Used 0-10 Pain Scale Intake and Output: Intake & Output 10/20/17 10/21/17 10/22/17 10/23/17 11:59 11:59 11:59 11:59 Intake Total 1463 3892 3747 360 Output Total 036 551 9156 550 Balance 1263 3442 2497 -190 Weight 59.647 kg 60.328 kg 61.008 kg Lab Results: Lab Results-Last 24 Hours 10/22/17 10/22/17 Range/Units 05:00 05:00 WBC 4.2 (4.0-10.5) K/mm3 RBC 3.11 L (4.1-5.4) M/mm3 Hgb 9.4 L (12.0-16.0) gm/dl Hct 30.3 L (35-47) % MCV 97.4 (78-100) fl MCH 30.2 (26-32) pg MCHC 31.0 L (32-36) g/dl RDW 13.8 (11.5-14.0) % Plt Count 212 (150-450) K/mm3 MPV 8.8 (6-9.5) fl Sodium 135 L (136-145) mEq/L Potassium 3.8 (3.5-5.1) mEq/L Chloride 106 (98-107) mEq/L Carbon Dioxide 27.3 (21-32) mEq/L Anion Gap 5.4 (5-15) MEQ/L BUN 11 (9-20) mg/dL Creatinine 0.72 (0.55-1.30) mg/dl Estimated GFR > 60 ML/MIN Glucose 101 (70-110) MG/DL Calcium 8.3 L (8.5-10.1) mg/dL Multi-Disciplinary Progress Notes: Multi-Disciplinary Progress Notes 10/22/17 12:03 Case Management Note by Maureen Lua CENTER HERE TODAY FOR LEVEL 2. WAITING ON OK TO SEND TO [place]. Initialized on 10/22/17 12:03 - END OF NOTE 10/22/17 11:34 Physical Therapy Note by Aiyana Rudolph AMBULATED 200' TODAY WITH ROLLER WALKER AND SBA. SUPPLEMENTAL O2 AT 3L NC. O2 SAT 85% AFTER WALK WITH QUICK RECOVERY TO 94% AFTER 30 SEC OF DEEP BREATHING. EXERTION TOLERANCE IMPROVING - BETTER WITH O2 SUPPLEMENT DURING ACTIVITY. Initialized on 10/22/17 11:34 - END OF NOTE Assessment/Plan (1) Falls Current Visit: Yes Status: Acute Qualifiers: Encounter type: subsequent encounter Qualified Code(s): W19.XXXD - Unspecified fall, subsequent encounter Assessment & Plan: Will definitely benefit from a rehab stay. Working w PT here. Code(s): W19.XXXA - UNSPECIFIED FALL, INITIAL ENCOUNTER (2) Chest pain Current Visit: No Status: Acute Qualifiers: Chest pain type: intercostal pain Qualified Code(s): R07.82 - Intercostal pain Assessment & Plan: Troponins were negative. Likely musculoskeletal. Code(s): R07.9 - CHEST PAIN, UNSPECIFIED (3) Hypertension Current Visit: No Status: Chronic Qualifiers: Hypertension type: essential hypertension Qualified Code(s): I10 - Essential (primary) hypertension Code(s): I10 - ESSENTIAL (PRIMARY) HYPERTENSION (4) Dizziness Current Visit: Yes Status: Acute Assessment & Plan: improved Code(s): R42 - DIZZINESS AND GIDDINESS
[2017-10-22] MEDS: zyPREXA 5MG TABLET PO SCH (20:04)
[2017-10-22] MEDS: DESYREL 50 MG PO SCH (20:04)
[2017-10-23] MEDS: Sodium Chloride 0.9% 1000 ML 1,000 ML IV SCH ×3 (01:02→20:56)
[2017-10-23] MEDS: BUSPAR 5 MG PO SCH (09:57)
[2017-10-23] MEDS: Toprol Xl 50 MG PO SCH (09:57)
[2017-10-23] MEDS: MAG-OX 400 PO SCH ×2 (09:57→21:01)
[2017-10-23] MEDS: Paxil 20 MG PO SCH (09:57)
[2017-10-23] MEDS: KEPPRA 500 MG PO SCH ×2 (09:57→20:59)
[2017-10-23] MEDS: ENOXAPARIN SODIUM SQ SCH (09:58)
[2017-10-23] MEDS: ECOTRIN 81 MG PO SCH (09:58)
[2017-10-23] MEDS: lamICTAL 100MG TABLET PO SCH ×2 (10:15→21:00)
--- NOTE | 2017-10-23 18:56 | PCM.NOTE ---
Date and Time: 10/23/171852 Subjective Assessment: Has been up walking w assistance. Chest pain is lessening. Objective Exam General Appearance: no apparent distress, alert Neurologic Exam: oriented x 3, cooperative Skin Exam: normal color, warm, dry, No rash Respiratory Exam: normal breath sounds, crackles/rales (scattered), No rhonchi, No wheezing Cardiovascular Exam: regular rate/rhythm, normal heart sounds, No murmur Extremity Exam: normal inspection, No pedal edema, No swelling OBJECTIVE DATA Vital Signs: Vital Signs - 24 hr Temp Pulse Resp BP Pulse Ox 10/23/17 16:21 97.8 F 70 20 147/69 98 10/23/17 12:17 97.8 F 66 20 130/74 97 10/23/17 07:50 62 20 96 10/23/17 07:17 98 F 68 20 122/80 97 10/23/17 04:00 98.5 F 64 18 131/61 94 L 10/23/17 00:00 98.4 F 69 20 121/58 93 L 10/22/17 21:03 66 20 96 10/22/17 20:00 98.7 F 74 20 138/63 95 Oxygen-Last 24 hours O2 Percentage 3 Liters = 32% O2 Percentage 3 Liters = 32% O2 Percentage 3 Liters = 32% O2 Percentage 3 Liters = 32% O2 Percentage 5 Liters = 40% Pain Assessment - Last Documented Pain Intensity 0 Pain Scale Used 0-10 Pain Scale Intake and Output: Intake & Output 10/21/17 10/22/17 10/23/17 10/24/17 11:59 11:59 11:59 11:59 Intake Total 3892 3747 2364 1481 Output Total 450 1250 950 400 Balance 3442 2497 1414 1081 Weight 60.328 kg 61.008 kg 61.235 kg Multi-Disciplinary Progress Notes: Multi-Disciplinary Progress Notes 10/23/17 11:34 Case Management Note by Maureen Lua PT WAS UP IN [place] WALKING WITH WALKER AND SEPIDEH. STILL WAITING ON LEVEL 2, [facility] CAME YESTERDAY 10/22/17 .[facility] HAS ACCEPTED PT. WILL CONT TO MONITOR. Initialized on 10/23/17 11:34 - END OF NOTE Assessment/Plan (1) Falls Current Visit: Yes Status: Acute Qualifiers: Encounter type: subsequent encounter Qualified Code(s): W19.XXXD - Unspecified fall, subsequent encounter Assessment & Plan: Pt came in 2 weeks after having an admission for pneumonia, having had multiple falls. Will benefit from rehab. She is being evaluated. Working with PT here. Code(s): W19.XXXA - UNSPECIFIED FALL, INITIAL ENCOUNTER (2) Chest pain Current Visit: No Status: Acute Qualifiers: Chest pain type: intercostal pain Qualified Code(s): R07.82 - Intercostal pain Assessment & Plan: Constant; MD ruled out upon arrival. I think she fell and hit her chest on something while she was disoriented at home. Code(s): R07.9 - CHEST PAIN, UNSPECIFIED (3) Hypertension Current Visit: No Status: Chronic Qualifiers: Hypertension type: essential hypertension Qualified Code(s): I10 - Essential (primary) hypertension Code(s): I10 - ESSENTIAL (PRIMARY) HYPERTENSION (4) Dizziness Current Visit: Yes Status: Resolved Code(s): R42 - DIZZINESS AND GIDDINESS
[2017-10-23] MEDS: zyPREXA 5MG TABLET PO SCH (20:59)
[2017-10-23] MEDS: DESYREL 50 MG PO SCH (20:59)
[2017-10-23] MEDS: Senokot-S Tablet PO PRN (21:00)
[2017-10-24] MEDS: ENOXAPARIN SODIUM SQ SCH (07:38)
[2017-10-24] MEDS: Sodium Chloride 0.9% 1000 ML 1,000 ML IV SCH ×2 (07:38→21:34)
[2017-10-24] MEDS: Toprol Xl 50 MG PO SCH (07:39)
[2017-10-24] MEDS: ECOTRIN 81 MG PO SCH (07:39)
[2017-10-24] MEDS: lamICTAL 100MG TABLET PO SCH ×2 (07:39→21:35)
[2017-10-24] MEDS: Senokot-S Tablet PO PRN ×2 (07:39→21:35)
[2017-10-24] MEDS: MAG-OX 400 PO SCH ×2 (07:39→21:35)
[2017-10-24] MEDS: Paxil 20 MG PO SCH (07:39)
[2017-10-24] MEDS: BUSPAR 5 MG PO SCH (07:40)
[2017-10-24] MEDS: KEPPRA 500 MG PO SCH ×2 (07:40→21:35)
--- NOTE | 2017-10-24 11:12 | PCM.NOTE ---
Date and Time: 10/24/17 1106 Subjective Assessment: She reports she has some chest pain in the middle that is sharp that has not changed from when she came in. Dr. Henson's notes states she ruled out for [place] and has continued to have constant pain. She reports some loose stools this AM and denies constipation. She reports her appetite has been good. She reports she wears oxygen at home at night and also sometimes during the day. - Review of Systems Constitutional: Weakness Eyes: No Symptoms Ears, Nose, & Throat: No Symptoms Respiratory: No Symptoms Cardiac: Chest Pain Abdominal/Gastrointestinal: Diarrhea, No Abdominal Pain, No Nausea, No Vomiting , No Constipation Genitourinary Symptoms: No Symptoms Musculoskeletal: No Symptoms Objective Exam General Appearance: no apparent distress Neurologic Exam: alert, cooperative, normal mood/affect Skin Exam: normal color, warm, dry Respiratory Exam: normal breath sounds, lungs clear, No crackles/rales, No rhonchi, No wheezing Cardiovascular Exam: regular rate/rhythm, normal heart sounds, No murmur, No friction rub, No gallop Gastrointestinal/Abdomen Exam: soft, normal bowel sounds, No tenderness, No distention, No mass Extremity Exam: other (no c/c/e) OBJECTIVE DATA Vital Signs: Vital Signs - 24 hr Temp Pulse Resp BP Pulse Ox 10/24/17 07:21 97.8 F 78 20 126/80 96 10/24/17 04:15 98.2 F 76 20 127/65 98 10/23/17 23:45 98.0 F 72 18 123/58 94 L 10/23/17 21:19 68 20 95 10/23/17 20:10 98.4 F 72 20 128/58 95 10/23/17 16:21 97.8 F 70 20 147/69 98 10/23/17 12:17 97.8 F 66 20 130/74 97 Oxygen-Last 24 hours O2 Percentage 3 Liters = 32% O2 Percentage 3 Liters = 32% O2 Percentage 3 Liters = 32% O2 Percentage 3 Liters = 32% O2 Percentage 3 Liters = 32% Pain Assessment - Last Documented Pain Intensity 0 Pain Scale Used 0-10 Pain Scale Intake and Output: Intake & Output 10/22/17 10/23/17 10/24/17 10/25/17 06:59 06:59 06:59 06:59 Intake Total 3747 2244 2879 Output Total 2106 229 5262 Balance 2497 1694 179 Weight 61.008 kg 61.235 kg 60.872 kg Multi-Disciplinary Progress Notes: Multi-Disciplinary Progress Notes 10/23/17 11:34 Case Management Note by Maureen Lua PT WAS UP IN [place] WALKING WITH WALKER AND SEPIDEH. STILL WAITING ON LEVEL 2, [facility] CAME YESTERDAY 10/22/17 .[facility] HAS ACCEPTED PT. WILL CONT TO MONITOR. Initialized on 10/23/17 11:34 - END OF NOTE Assessment/Plan (1) Falls Current Visit: Yes Status: Acute Qualifiers: Encounter type: subsequent encounter Qualified Code(s): W19.XXXD - Unspecified fall, subsequent encounter Assessment & Plan: Awaiting placement in senior care care facility. She is on fall precautions. Code(s): W19.XXXA - UNSPECIFIED FALL, INITIAL ENCOUNTER (2) Chest wall pain, chronic Current Visit: Yes Status: Acute Assessment & Plan: Ruled out for [place]. She has been on tele for days with no events so will discontinue telemetry. Tylenol as needed for pain. Code(s): R07.89 - OTHER CHEST PAIN; G89.29 - OTHER CHRONIC PAIN (3) Weakness Current Visit: No Status: Acute Code(s): R53.1 - WEAKNESS
[2017-10-24] MEDS: zyPREXA 5MG TABLET PO SCH (21:36)
[2017-10-24] MEDS: DESYREL 50 MG PO SCH (21:36)
[2017-10-25] MEDS: lamICTAL 100MG TABLET PO SCH ×2 (10:10→21:45)
[2017-10-25] MEDS: BUSPAR 5 MG PO SCH (10:10)
[2017-10-25] MEDS: ENOXAPARIN SODIUM SQ SCH (10:10)
[2017-10-25] MEDS: Paxil 20 MG PO SCH (10:10)
[2017-10-25] MEDS: Toprol Xl 50 MG PO SCH (10:10)
[2017-10-25] MEDS: KEPPRA 500 MG PO SCH ×2 (10:10→21:44)
[2017-10-25] MEDS: ECOTRIN 81 MG PO SCH (10:10)
[2017-10-25] MEDS: MAG-OX 400 PO SCH ×2 (10:11→21:46)
--- NOTE | 2017-10-25 15:19 | PCM.NOTE ---
Date and Time: 10/25/17 1517 Subjective Assessment: She reports she fells much better today and denies chest pain. She has been able to ambulate in the halls. She no longer feels confused. She is agreeable to rehab for strength. Her cousin Christina is at the bedside. - Review of Systems Constitutional: No Symptoms Eyes: No Symptoms Ears, Nose, & Throat: No Symptoms Respiratory: No Symptoms Cardiac: No Symptoms Abdominal/Gastrointestinal: No Symptoms Genitourinary Symptoms: No Symptoms Musculoskeletal: No Symptoms Skin: No Symptoms Objective Exam General Appearance: no apparent distress, alert Neurologic Exam: alert, cooperative, normal mood/affect Skin Exam: normal color, warm, dry, No rash Respiratory Exam: normal breath sounds, lungs clear, airway intact, No crackles/ rales, No rhonchi, No wheezing Cardiovascular Exam: regular rate/rhythm, normal heart sounds, No murmur, No friction rub, No gallop Gastrointestinal/Abdomen Exam: soft, normal bowel sounds, No tenderness, No distention, No mass Extremity Exam: other (no c/c/e) OBJECTIVE DATA Vital Signs: Vital Signs - 24 hr Temp Pulse Resp BP Pulse Ox 10/25/17 11:42 98.4 F 71 18 142/65 93 L 10/25/17 07:33 98.2 F 65 18 128/77 95 10/25/17 04:00 97.9 F 72 18 135/77 95 10/25/17 00:22 98.2 F 74 18 144/68 94 L 10/24/17 20:30 69 20 95 10/24/17 20:00 98.6 F 71 20 160/67 95 10/24/17 16:26 97.5 F 74 20 138/70 97 Oxygen-Last 24 hours O2 Percentage 3 Liters = 32% O2 Percentage 3 Liters = 32% O2 Percentage 3 Liters = 32% O2 Percentage 3 Liters = 32% O2 Percentage 3 Liters = 32% O2 Percentage 3 Liters = 32% Pain Assessment - Last Documented Pain Intensity 0 Pain Scale Used 0-10 Pain Scale Intake and Output: Intake & Output 10/23/17 10/24/17 10/25/17 10/26/17 06:59 06:59 06:59 06:59 Intake Total 2248 2889 4852 Output Total 810 2700 1400 Balance 1694 179 942 Weight 61.235 kg 60.736 kg Assessment/Plan (1) Falls Current Visit: Yes Status: Acute Qualifiers: Encounter type: subsequent encounter Qualified Code(s): W19.XXXD - Unspecified fall, subsequent encounter Assessment & Plan: Plan for discharge to rehab once cleared by [facility]. Code(s): W19.XXXA - UNSPECIFIED FALL, INITIAL ENCOUNTER (2) Chest wall pain, chronic Current Visit: Yes Status: Acute Assessment & Plan: Much better today. Code(s): R07.89 - OTHER CHEST PAIN; G89.29 - OTHER CHRONIC PAIN (3) Weakness Current Visit: No Status: Acute Assessment & Plan: Slowly improving. Plan for rehab stay after discharge. Code(s): R53.1 - WEAKNESS
[2017-10-25] MEDS: zyPREXA 5MG TABLET PO SCH (21:46)
[2017-10-25] MEDS: DESYREL 50 MG PO SCH (21:57)
--- NOTE | 2017-10-26 08:17 | PCM.DS ---
Discharge Summary Date of Admission: 10/19/17 14:45 Admitting Physician: IMELDA CROSS Primary Care Provider: IMELDA CROSS Allergies Allergies cefaclor [From Ceclor] Allergy (Mild, Verified 10/19/17 10:28) STATES GOT [facility] Summary - Hospital Course Hospital Course: Pt admitted with dizziness and disoriented, had been treated for pneumonia 2 weeks prior to admission. She had several falls at home. She was rehydrated and over the next 2 days became oriented. She had CP on admission, troponins were negative x 6 and the pain remained for several days; she thought she probably hurt her chest during one of her falls. She has been up with therapy and with assistance here. Is going to be admitted to [facility]TCF for rehab stay. This morning she feels good, tolerating po well. Was not complaining of any chest pain yesterday. - Vitals & Intake/Output Vital Signs: Vital Signs Temperature 98.0 F 10/26/17 04:00 Pulse Rate 64 10/26/17 04:00 Respiratory Rate 20 10/26/17 04:00 Blood Pressure 168/88 10/26/17 08:05 O2 Sat by Pulse Oximetry 96 10/26/17 04:00 Oxygen-Last Documented O2 Percentage 3 Liters = 32% Intake & Output: Intake & Output 10/23/17 10/24/17 10/25/17 10/26/17 11:59 11:59 11:59 11:59 Intake Total 2364 2759 2342 640 Output Total 950 2300 1400 2150 Balance 1414 459 942 -1510 Weight 61.235 kg 60.872 kg 60.736 kg 59.647 kg - Lab Result Diagrams: 10/22/17 05:00 10/22/17 05:00 - Procedures and Test Procedures and Tests throughout Hospitalization: Therapy Orders & Screens 10/19/17 17:49 Respiratory Nebulizer PRN Comment: Albuterol Q4PRN Diagnosis: confusion, chest pain, freq. falling 10/20/17 14:23 PT Eval & Treat ( Order) ROUTINE Evaluate: Yes Treat: Yes Reason for Eval:: frequent falls Diagnosis: confusion, chest pain, freq. falling 10/23/17 18:53 Incentive Spirometry Assessmen TID Comment: Diagnosis: confusion, chest pain, freq. falling Discharge Exam General Appearance: no apparent distress, alert Neurologic Exam: oriented x 3, cooperative Skin Exam: normal color, warm, dry, No rash Respiratory Exam: normal breath sounds, lungs clear, No crackles/rales, No rhonchi, No wheezing Cardiovascular Exam: regular rate/rhythm, normal heart sounds, No murmur Extremity Exam: No pedal edema, No swelling Back Exam: normal inspection, No rash Final Diagnosis/Problem List - Final Discharge Diagnosis/Problem (1) Falls Current Visit: Yes Status: Acute Assessment & Plan: to LTCF for rehab stay. (2) Chest pain Current Visit: No Status: Resolved (3) Hypertension Current Visit: No Status: Chronic Assessment & Plan: Has been very well controlled until the last 24 hours, with some BP into the 150s and 170s. Pt denies any pain. Having RN take manual BP today. (4) Dizziness Current Visit: Yes Status: Resolved - Discharge Disposition: Home, Self-Care Condition: Stable Prescriptions: No Action Metoprolol Succinate 50 mg PO DAILY Hydroxyzine HCl 25 mg [Atarax 25 mg] 25 mg PO Q4HPRN PRN PRN Reason: Anxiety Aspirin [Adult Low Dose Aspirin EC] 81 mg PO DAILY Olanzapine [Zyprexa] 5 mg PO HS Sennosides/Docusate Sodium [Senna-S Tablet] 1 each PO BID PRN PRN Reason: Constipation Nitroglycerin 0.4 mg Tablet [Nitrostat 0.4 MG Tablet] 0.4 mg SL Q5MIN PRN MR X 3 PRN #1 bottle PRN Reason: Chest Pain Orphenadrine Citrate 100 mg [Norflex 100 MG Tablet] 100 mg PO BIDPRN PRN #14 tab PRN Reason: Muscle Spasms Paroxetine HCl 20 mg [Paxil 20 MG] 20 mg PO DAILY Levetiracetam [Keppra] 750 mg PO BID Trazodone HCl 50 mg [Desyrel 50 mg] 100 mg PO HS Lamotrigine [Lamictal] 200 mg PO BID Buspirone HCl 5 mg [Buspar 5 mg] 15 mg PO DAILY Lorazepam 1 mg [Ativan 1 MG] 1 mg PO TID PRN PRN #30 tablet PRN Reason: Anxiety Levofloxacin [Levofloxacin 250MG Tablet] 250 mg PO Q24H22 #7 tab Follow up with: IMELDA CROSS [Primary Care Provider] - Forms: Patient Portal Information
[2017-10-26] MEDS: BUSPAR 5 MG PO SCH (09:02)
[2017-10-26] MEDS: ENOXAPARIN SODIUM SQ SCH (09:03)
[2017-10-26] MEDS: ECOTRIN 81 MG PO SCH (09:03)
[2017-10-26] MEDS: KEPPRA 500 MG PO SCH ×2 (09:04→23:09)
[2017-10-26] MEDS: Paxil 20 MG PO SCH (09:05)
[2017-10-26] MEDS: lamICTAL 100MG TABLET PO SCH ×2 (09:05→23:10)
[2017-10-26] MEDS: MAG-OX 400 PO SCH ×2 (09:05→23:10)
[2017-10-26] MEDS: Toprol Xl 50 MG PO SCH (09:05)
[2017-10-26] MEDS: DESYREL 50 MG PO SCH (23:09)
[2017-10-26] MEDS: zyPREXA 5MG TABLET PO SCH (23:10)
--- NOTE | 2017-10-27 08:43 | PCM.NOTE ---
Date and Time: 10/27/17840 Subjective Assessment: She is still having some minimal chest pain, but it's much better, only happens when she is twisting a certain way. John po fine. Up with one assist. no c/o dizziness this morning. Objective Exam General Appearance: no apparent distress, alert Neurologic Exam: oriented x 3, cooperative Skin Exam: normal color, warm, dry, No rash Respiratory Exam: normal breath sounds, lungs clear, No crackles/rales, No rhonchi, No wheezing Cardiovascular Exam: regular rate/rhythm, normal heart sounds, No murmur Extremity Exam: No pedal edema, No swelling OBJECTIVE DATA Vital Signs: Vital Signs - 24 hr Temp Pulse Resp BP BP Pulse Ox 10/27/17 07:14 98.1 F 73 18 125/68 95 10/27/17 04:00 98.4 F 64 20 134/62 158/72 93 L 10/27/17 00:00 98.4 F 63 16 144/65 93 L 10/26/17 23:59 64 18 93 L 10/26/17 20:00 97.3 F 65 22 144/64 94 L 10/26/17 16:00 98.5 F 67 22 160/72 94 L 10/26/17 12:00 98.9 F 66 20 160/88 91 L 10/26/17 11:46 70 18 95 Oxygen-Last 24 hours O2 Percentage 3 Liters = 32% O2 Percentage 3 Liters = 32% Oxygen Flowrate (L/min)-RT 3 Oxygen Flowrate (L/min)-RT 3 Oxygen Flowrate (L/min)-RT 3 Oxygen Flowrate (L/min)-RT 3 Pain Assessment - Last Documented Pain Intensity 0 Pain Scale Used 0-10 Pain Scale Intake and Output: Intake & Output 10/24/17 10/25/17 10/26/17 10/27/17 11:59 11:59 11:59 11:59 Intake Total 2759 2342 640 1950 Output Total 2300 1400 2150 Balance 459 942 -1510 1950 Weight 60.872 kg 60.736 kg 59.647 kg 59.647 kg Assessment/Plan (1) Falls Current Visit: Yes Status: Acute Qualifiers: Encounter type: subsequent encounter Qualified Code(s): W19.XXXD - Unspecified fall, subsequent encounter Assessment & Plan: With frequent falls before admission; she has one assist here. Not safe to go home. Needs LTCF for rehab stay. Code(s): W19.XXXA - UNSPECIFIED FALL, INITIAL ENCOUNTER (2) Chest pain Current Visit: No Status: Acute Qualifiers: Chest pain type: intercostal pain Qualified Code(s): R07.82 - Intercostal pain Assessment & Plan: Still having a little chest pain. much improved. From her falls. Code(s): R07.9 - CHEST PAIN, UNSPECIFIED (3) Hypertension Current Visit: No Status: Chronic Qualifiers: Hypertension type: essential hypertension Qualified Code(s): I10 - Essential (primary) hypertension Assessment & Plan: one elevated bp last night - will continue to observe. Code(s): I10 - ESSENTIAL (PRIMARY) HYPERTENSION (4) Dizziness Current Visit: Yes Status: Resolved Code(s): R42 - DIZZINESS AND GIDDINESS
[2017-10-27 08:53] LABS: Hematocrit 36.7 % (35-47); Hemoglobin 11.4 gm/dl (12.0-16.0); Mean Cell Volume 96.6 fl (78-100); Mean Corpuscular Hgb Concent. 31.1 g/dl (32-36); Mean Platelet Volume 9.1 fl (6-9.5); Platelet Count 280 K/mm3 (150-450); Red Cell Distribution Width 13.6 % (11.5-14.0); White Blood Count 4.4 K/mm3 (4.0-10.5)
[2017-10-27 09:59] LABS: ANION GAP 11.7 MEQ/L (5-15); BLOOD UREA NITROGEN 10 mg/dL (9-20); CHLORIDE 104 mEq/L (98-107); Calcium 9.3 mg/dL (8.5-10.1); Carbon Dioxide 30.5 mEq/L (21-32); Creatinine 1 0.94 mg/dl (0.55-1.30); EST GLOMERULAR FILTRATION RATE > 60 ML/MIN; Glucose 119 MG/DL (70-110); Potassium 4.4 mEq/L (3.5-5.1); SODIUM 142 mEq/L (136-145)
[2017-10-27] MEDS: ECOTRIN 81 MG PO SCH (10:56)
[2017-10-27] MEDS: ENOXAPARIN SODIUM SQ SCH (10:56)
[2017-10-27] MEDS: BUSPAR 5 MG PO SCH (10:56)
[2017-10-27] MEDS: Toprol Xl 50 MG PO SCH (10:57)
[2017-10-27] MEDS: MAG-OX 400 PO SCH (10:57)
[2017-10-27] MEDS: Paxil 20 MG PO SCH (10:57)
[2017-10-27] MEDS: lamICTAL 100MG TABLET PO SCH (10:57)
[2017-10-27] MEDS: KEPPRA 500 MG PO SCH (10:57)
[2017-10-27 11:35] VITALS: BP 129/66; PULSE 81; O2SAT 94
--- NOTE | 2017-10-27 15:04 | PCM.DS ---
Discharge Summary Date of Admission: 10/19/17 14:45 Admitting Physician: IMELDA CROSS Primary Care Provider: IMELDA CROSS Allergies Allergies cefaclor [From Ceclor] Allergy (Mild, Verified 10/19/17 10:28) STATES GOT REAL [facility] Summary - Hospital Course Hospital Course: Pt admitted with multiple falls at home, dizziness, weakness, and altered mental status. She was 2 weeks post hospital stay for pneumonia. She was found to be deconditioned, a bit dehydrated, and improved over the next several days. She was finally oriented after a couple of days. Currently she still required one assist to amublate (with walker). She c/o chest pain at admission ; her troponins were negative for [place]. She has a small amount of chest pain currently but we believe it's because she fell on her chest at one point. CXR and CT head were non acute. - Vitals & Intake/Output Vital Signs: Vital Signs Temperature 98 F 10/27/17 11:34 Pulse Rate 81 10/27/17 11:34 Respiratory Rate 18 10/27/17 11:34 Blood Pressure 129/66 10/27/17 11:34 O2 Sat by Pulse Oximetry 94 L 10/27/17 11:34 Oxygen-Last Documented O2 Percentage 3 Liters = 32% Intake & Output: Intake & Output 10/25/17 10/26/17 10/27/17 10/28/17 11:59 11:59 11:59 11:59 Intake Total 2342 640 1950 Output Total 1400 2150 Balance 942 -1510 1950 Weight 60.736 kg 59.647 kg 59.647 kg - Lab Result Diagrams: 10/27/17 08:34 10/27/17 08:34 Lab Results-Last 24 Hrs: Lab Results-Last 24 Hours 10/27/17 10/27/17 Range/Units 08:34 08:34 WBC 4.4 (4.0-10.5) K/mm3 RBC 3.80 L (4.1-5.4) M/mm3 Hgb 11.4 L (12.0-16.0) gm/dl Hct 36.7 (35-47) % MCV 96.6 (78-100) fl MCH 30.0 (26-32) pg MCHC 31.1 L (32-36) g/dl RDW 13.6 (11.5-14.0) % Plt Count 280 (150-450) K/mm3 MPV 9.1 (6-9.5) fl Sodium 142 (136-145) mEq/L Potassium 4.4 (3.5-5.1) mEq/L Chloride 104 (98-107) mEq/L Carbon Dioxide 30.5 (21-32) mEq/L Anion Gap 11.7 (5-15) MEQ/L BUN 10 (9-20) mg/dL Creatinine 0.94 (0.55-1.30) mg/dl Estimated GFR > 60 ML/MIN Glucose 119 H (70-110) MG/DL Calcium 9.3 (8.5-10.1) mg/dL - Procedures and Test Procedures and Tests throughout Hospitalization: Therapy Orders & Screens 10/19/17 17:49 Respiratory Nebulizer PRN Comment: Albuterol Q4PRN Diagnosis: confusion, chest pain, freq. falling 10/20/17 14:23 PT Eval & Treat ( Order) ROUTINE Evaluate: Yes Treat: Yes Reason for Eval:: frequent falls Diagnosis: confusion, chest pain, freq. falling 10/23/17 18:53 Incentive Spirometry Assessmen TID Comment: Diagnosis: confusion, chest pain, freq. falling Discharge Exam General Appearance: no apparent distress, alert, other (pt examined this morning ) Neurologic Exam: oriented x 3, cooperative Skin Exam: normal color, warm, dry, No rash Neck Exam: normal inspection, supple Respiratory Exam: normal breath sounds, lungs clear, No crackles/rales, No rhonchi, No wheezing Cardiovascular Exam: regular rate/rhythm, normal heart sounds, No murmur Extremity Exam: No pedal edema, No swelling Back Exam: normal inspection, No rash Final Diagnosis/Problem List - Final Discharge Diagnosis/Problem (1) Falls Current Visit: Yes Status: Acute Assessment & Plan: Deconditioned; not safe to discharge home as she still requires one assist with walker. She is at very high risk for falls and in fact fell multiple times prior to admission. She would benefit from stay in LTCF. (2) Physical deconditioning Current Visit: Yes Status: Acute (3) Chest pain Current Visit: No Status: Acute Assessment & Plan: Nearly resolved. Appears post-traumatic. (4) Hypertension Current Visit: No Status: Chronic Assessment & Plan: Few elevated BP here - continue to monitor at LTCF. (5) Dizziness Current Visit: Yes Status: Resolved Assessment & Plan: Resolved. (6) COPD (chronic obstructive pulmonary disease) Current Visit: No Status: Chronic Assessment & Plan: Lungs have done very well this stay. - Discharge Disposition: Skilled Care @ [facility] Condition: Good Prescriptions: New Magnesium Oxide 400 mg [Mag-Ox 400] 400 mg PO BID #60 tablet Continue Metoprolol Succinate 50 mg PO DAILY Hydroxyzine HCl 25 mg [Atarax 25 mg] 25 mg PO Q4HPRN PRN PRN Reason: Anxiety Aspirin [Adult Low Dose Aspirin EC] 81 mg PO DAILY Olanzapine [Zyprexa] 5 mg PO HS Sennosides/Docusate Sodium [Senna-S Tablet] 1 each PO BID PRN PRN Reason: Constipation Nitroglycerin 0.4 mg Tablet [Nitrostat 0.4 MG Tablet] 0.4 mg SL Q5MIN PRN MR X 3 PRN #1 bottle PRN Reason: Chest Pain Orphenadrine Citrate 100 mg [Norflex 100 MG Tablet] 100 mg PO BIDPRN PRN #14 tab PRN Reason: Muscle Spasms Paroxetine HCl 20 mg [Paxil 20 MG] 20 mg PO DAILY Levetiracetam [Keppra] 750 mg PO BID Trazodone HCl 50 mg [Desyrel 50 mg] 100 mg PO HS Lamotrigine [Lamictal] 200 mg PO BID Buspirone HCl 5 mg [Buspar 5 mg] 15 mg PO DAILY Lorazepam 1 mg [Ativan 1 MG] 1 mg PO TID PRN PRN #30 tablet PRN Reason: Anxiety Discontinued Levofloxacin [Levofloxacin 250MG Tablet] 250 mg PO Q24H22 #7 tab Additional Instructions: [facility] DISCHARGE ORDERS: PT/OT EVAL AND TREAT REGULAR DIET 3L OXYGEN PER N/C NEEDED TO KEEP SPO2 >92% UP IN CHAIR AMBULATE WITH ASSIST SEE ATTACHED MEDICATION LIST FOR CURRENT MED ORDERS Follow up with: IMELDA CROSS [Primary Care Provider] - (DR. QUISPE TO FOLLOW AT [facility]) Forms: Patient Portal Information
== END 2017-10-27 15:45 ==
LOC: ED 10:18 → MED SURG 14:45
PROVIDERS: ADMIT Family Medicine; ATTEND Family Medicine
DX: R42 Dizziness and giddiness (principal); R53.1 Weakness; W19.XXXD Unspecified fall, subsequent encounter; R29.6 Repeated falls; R41.82 Altered mental status, unspecified; R07.82 Intercostal pain; I10 Essential (primary) hypertension; J45.909 Unspecified asthma, uncomplicated; G40.909 Epilepsy, unspecified, not intractable, without status epilepticus; F32.9 Major depressive disorder, single episode, unspecified; Z79.899 Other long term (current) drug therapy
CPT/HCPCS: 36000; 36415; 70450; 71046; 80048; 80053; 81000; 82150; 83690; 83735; 83880; 84484; 85025; 85027; 87070; 87086; 87430; 87631; 93005; 93041; 93268; 94640; 94760; 96360; 96374; 99285; G0378; J1650; J2550; 97110-GP; A9270-GY

== ENCOUNTER 2017-11-28 21:55 | Emergency (ER) | payer MEDICAID ==
[2017-11-28] MEDS ORDERED: Valium 5 MG PO ONE (22:54)
[2017-11-28] MEDS ORDERED: Valium 5 MG ONE (22:59)
--- NOTE | 2017-11-28 22:59 | ERPHSYRPT ---
- History of Present Illness Time Seen by Provider: 11/28/17 22:49 Source: patient Exam Limitations: no limitations Patient Subjective Stated Complaint: Anxiety Triage Nursing Assessment: Pt presents to the ED by EMS with complaints of "shaking all over from anxiety." Pt states hx of complaint. Pt deneis pain. Pt is A&O x4, no distress noted. Skin PWD. Physician History: SINCE YESTERDAY PT HAS HAD INTERMITTENT SHAKINESS INSIDE. PT STATES SHE HAS HAD THIS BEFORE AND IT WAS ANXIETY. PT DENIES CHEST PAIN, ABDOMINAL PAIN, FEVER, WEAKNESS, NUMBNESS. Allergies/Adverse Reactions: cefaclor [From [id number]] Allergy (Mild, Verified 10/19/17 10:28) STATES GOT REAL [facility] Home Medications: Metoprolol Succinate 50 mg PO DAILY 05/28/16 [History] Aspirin [Adult Low Dose Aspirin EC] 81 mg PO DAILY 07/24/16 [History] Hydroxyzine HCl 25 mg [Atarax 25 mg] 25 mg PO Q4HPRN PRN 07/24/16 [History ] Olanzapine [Zyprexa] 5 mg PO HS 07/24/16 [History] Sennosides/Docusate Sodium [Senna-S Tablet] 1 each PO BID PRN 09/25/16 [History] Buspirone HCl 5 mg [Buspar 5 mg] 15 mg PO DAILY 09/22/17 [History] Lamotrigine [Lamictal] 200 mg PO BID 09/22/17 [History] Levetiracetam [Keppra] 750 mg PO BID 09/22/17 [History] Paroxetine HCl 20 mg [Paxil 20 MG] 20 mg PO DAILY 09/22/17 [History] Trazodone HCl 50 mg [Desyrel 50 mg] 100 mg PO HS 09/22/17 [History] Hx Tetanus, Diphtheria Vaccination/Date Given: Yes Hx Influenza Vaccination/Date Given: Yes Hx Pneumococcal Vaccination/Date Given: Yes Immunizations Up to Date: Yes - Review of Systems Constitutional: No Fever, No Weakness Respiratory: No Dyspnea Cardiac: No Chest Pain Abdominal/Gastrointestinal: No Abdominal Pain Neurological: Other (SHAKINESS INSIDE), No Sensory Changes Psychological: Anxiety All Other Systems: Reviewed and Negative - Past Medical History Pertinent Past Medical History: Yes Neurological History: Seizures ENT History: No Pertinent History Cardiac History: Hypertension Respiratory History: Asthma, COPD, Pneumonia Endocrine Medical History: No Pertinent History Musculoskeletal History: No Pertinent History GI Medical History: No Pertinent History History: No Pertinent History Psycho-Social History: Anxiety, Depression, Panic Disorder Female Reproductive Disorders: No Pertinent History Other Medical History: [facility] PT. fractured c-spine - Past Surgical History Past Surgical History: Yes Neuro Surgical History: No Pertinent History Cardiac: No Pertinent History Respiratory: No Pertinent History Gastrointestinal: No Pertinent History Genitourinary: No Pertinent History Musculoskeletal: No Pertinent History, Orthopedic Surgery Female Surgical History: No Pertinent History Other Surgical History: MAGNET PLACEMENT FOR SEIZURES - Social History Smoking Status: Former smoker How long have you smoked: 55 Exposure to second hand smoke: No Drug Use: none Patient Lives Alone: Yes Significant Family History: no pertinent family hx - Female History Hx Now: No - Nursing Vital Signs Nursing Vital Signs: Initial Vital Signs Temperature 98.2 F 11/28/17 22:00 Pulse Rate 66 11/28/17 22:00 Respiratory Rate 16 11/28/17 22:00 Blood Pressure 145/92 11/28/17 22:00 O2 Sat by Pulse Oximetry 94 L 11/28/17 22:00 Pain Scale Pain Intensity 0 - Physical Exam General Appearance: alert, anxiety Eye Exam: PERRL/EOMI Ears, Nose, Throat Exam: TMs normal, pharynx normal, moist mucous membranes Neck Exam: normal inspection Respiratory Exam: lungs clear Cardiovascular Exam: normal heart sounds Gastrointestinal/Abdomen Exam: soft, normal bowel sounds Back Exam: normal range of motion Extremity Exam: normal inspection, No pedal edema Neurologic Exam: alert, cooperative, sensation nml, No motor deficits, No motor weakness Skin Exam: warm, dry SpO2 Interpretation: normal SpO2: 94 Oxygen Delivery: Room Air - Course Nursing assessment & vital signs reviewed: Yes - CT Exams Head CT Interpretation: Tele-radiologist Report (NO ACUTE INTRACRANIAL ABNORMALITY.) Ordered Tests: Active Orders 24 hr Category Date Time Status HEAD WITHOUT CONTRAST [CT] Stat Exams 11/28/17 23:08 Taken CBC W DIFF Stat Lab 11/28/17 23:15 Completed CMP Stat Lab 11/28/17 23:15 Completed MAGNESIUM Stat Lab 11/28/17 23:15 Completed UA W/RFX UR CULTURE Stat Lab 11/28/17 22:54 Ordered Medication Summary Discontinued Medications Generic Name Dose Route Start Last Admin Trade Name Julia PRN Reason Stop Dose Admin Diazepam 5 mg 11/28/17 22:54 11/28/17 23:00 Valium 5 Mg PO 11/28/17 22:55 5 mg STAT ONE Administration Diazepam Confirm 11/28/17 22:59 Valium 5 Mg Administered 11/28/17 23:00 Dose 5 mg .ROUTE .STK-MED ONE Lab/Rad Data: Laboratory Result Diagrams 11/28/17 23:15 11/28/17 23:15 Laboratory Results 11/28/17 11/28/17 Range/Units 23:15 23:15 WBC 5.7 (4.0-10.5) K/mm3 RBC 4.23 (4.1-5.4) M/mm3 Hgb 12.5 (12.0-16.0) gm/dl Hct 39.0 (35-47) % MCV 92.2 (78-100) fl MCH 29.6 (26-32) pg MCHC 32.1 (32-36) g/dl RDW 13.5 (11.5-14.0) % Plt Count 228 (150-450) K/mm3 MPV 8.9 (6-9.5) fl Gran % 55.7 (36.0-66.0) % Lymphocytes % 31.4 (24.0-44.0) % Monocytes % 9.0 (0.0-12.0) % Eosinophils % 3.5 (0.00-5.0) % Basophils % 0.4 (0.0-0.4) % Basophils # 0.02 (0-0.4) Sodium 138 (136-145) mEq/L Potassium 4.2 (3.5-5.1) mEq/L Chloride 102 (98-107) mEq/L Carbon Dioxide 27.7 (21-32) mEq/L Anion Gap 12.3 (5-15) MEQ/L BUN 11 (9-20) mg/dL Creatinine 1.20 (0.55-1.30) mg/dl Estimated GFR 48 ML/MIN Glucose 114 H (70-110) MG/DL Calcium 9.2 (8.5-10.1) mg/dL Magnesium 2.2 (1.8-2.4) mg/dL Total Bilirubin 0.20 (0.2-1.0) mg/dL AST 24 (15-37) U/L ALT 15 (12-78) U/L Alkaline Phosphatase 125 H (46-116) U/L Serum Total Protein 7.6 (6.4-8.2) gm/dL Albumin 4.0 (3.4-5.0) g/dL - Progress Progress Note: 11/28/17 23:09 ER NURSE NOTED PT HAS UNSTEADY GATE. 11/29/17 00:15 PT STATES SHE FEELS BETTER. - Departure Time of Disposition: 00:16 Departure Disposition: Home Clinical Impression: SHAKINESS, ANXIETY Condition: Stable Critical Care Time: No Referrals: IMELDA CROSS [Primary Care Provider] - Instructions: Anxiety, Adult (DC) Additional Instructions: FOLLOW UP WITH PRIVATE DOCTOR TOMORROW.
[2017-11-28 23:19] LABS: BASOPHIL % 0.4 % (0.0-0.4); Basophil (Absolute #) 0.02 (0-0.4); Eosinophil % 3.5 % (0.00-5.0); Granulocyte Absolute (ANC) 3.16 (1.4-6.9); Granulocytes % 55.7 % (36.0-66.0); Hemoglobin 12.5 gm/dl (12.0-16.0); Lymphocyte (Absolute #) 1.78 (1.0-4.6); Lymphocytes % 31.4 % (24.0-44.0); Mean Cell Volume 92.2 fl (78-100); Mean Corpuscular Hemoglobin 29.6 pg (26-32); Mean Corpuscular Hgb Concent. 32.1 g/dl (32-36); Mean Platelet Volume 8.9 fl (6-9.5); Monocyte (Absolute #) 0.51 (0.0-1.3); Platelet Count 228 K/mm3 (150-450); Red Blood Count 4.23 M/mm3 (4.1-5.4); Red Cell Distribution Width 13.5 % (11.5-14.0); White Blood Count 5.7 K/mm3 (4.0-10.5)
[2017-11-28 23:51] LABS: ANION GAP 12.3 MEQ/L (5-15); BILIRUBIN,TOTAL 0.2 mg/dL (0.2-1.0); Calcium 9.2 mg/dL (8.5-10.1); Carbon Dioxide 27.7 mEq/L (21-32); Creatinine 1 1.2 mg/dl (0.55-1.30); MAGNESIUM 2.2 mg/dL (1.8-2.4); Potassium 4.2 mEq/L (3.5-5.1); Total Protein 7.6 gm/dL (6.4-8.2)
[2017-11-29 00:44] VITALS: BP 126/83; PULSE 58; O2SAT 95
--- NOTE | 2017-11-29 08:30 | XRAY ---
Indication: Shaky and unsteady gait 1 day. No known injury. Multiple contiguous axial images obtained through the head without contrast. Comparison: October 19, 2017. Stable age-appropriate global atrophy and minimal periventricular degenerative micro-ischemia bilaterally. No acute intracranial hemorrhage, abnormal extra-axial fluid collection, or mass effect. Fourth ventricle is midline without hydrocephalus. Bony calvarium intact. Visualized paranasal sinuses and mastoid air cells are clear. Impression: Stable nonacute senile brain. Comment: Preliminary interpretation was made by [facility]. No discrepancy. CTDI 66.37
== END 2017-11-29 01:09 | disposition home or self-care (01) ==
LOC: ED 21:55
DX: R25.9 Unspecified abnormal involuntary movements (principal); F41.9 Anxiety disorder, unspecified; R26.81 Unsteadiness on feet; Z79.899 Other long term (current) drug therapy
CPT/HCPCS: 36415; 70450; 80053; 83735; 85025; 99283; 99284; A9270-GY

== ENCOUNTER 2017-11-30 10:52 | Observation (INO) | payer MEDICAID, OTHER ==
[2017-11-30] MEDS ORDERED: Sodium Chloride 0.9% 1000 ML 1,000 ML IV STA (11:38)
--- NOTE | 2017-11-30 11:38 | ERPHSYRPT ---
- History of Present Illness Time Seen by Provider: 11/30/17 11:26 Source: patient, family Exam Limitations: no limitations Patient Subjective Stated Complaint: PT states "I was just sitting there and started shaking. I have anxiety spells. I was here last night for one too and they gave me a pill and a shot and it helped." Triage Nursing Assessment: Pt alert and oriented X 3, skin Pwd. When patient tried to sit up, she started to flail around and moan. Pt stopped when her name was called and she was told to stop. Pt stated "see that is what happens. " Physician History: The patient is a 66-year-old female brought in by ambulance from home where she states she's been having anxiety and panic attacks. She was seen in this ER late yesterday or the same complaint by Dr. Ramos. She was given Valium 5 mg orally, felt better, and went home. Today she has a similar complaint but also says she just isn't feeling her normal self. She is shaking. She does slur some of her words. She denies any pain. She's had significant stressors over the past few months that have led to anxiety issues have been increasing. For example, her water pipes have burst over the cold weather. She's had difficulty paying hospital bills in [place]. Her washing machine was not working. She wears O2 3L NC at home. Her past medical history is significant for anxiety, panic attacks, hypertension, COPD, and epilepsy. Timing/Duration: day(s) Severity: moderate Modifying Factors: Improves With: medication Associated Symptoms: other (anxiety) Allergies/Adverse Reactions: cefaclor [From Ceclor] Allergy (Mild, Verified 10/19/17 10:28) STATES GOT REAL HOT Home Medications: Metoprolol Succinate 50 mg PO DAILY 05/28/16 [History] Aspirin [Adult Low Dose Aspirin EC] 81 mg PO DAILY 07/24/16 [History] Hydroxyzine HCl 25 mg [Atarax 25 mg] 25 mg PO Q4HPRN PRN 07/24/16 [History ] Olanzapine [Zyprexa] 5 mg PO HS 07/24/16 [History] Sennosides/Docusate Sodium [Senna-S Tablet] 1 each PO BID PRN 12/08/16 [History] Buspirone HCl 5 mg [Buspar 5 mg] 15 mg PO DAILY 09/22/17 [History] Lamotrigine [Lamictal] 200 mg PO BID 09/22/17 [History] Levetiracetam [Keppra] 750 mg PO BID 09/22/17 [History] Paroxetine HCl 20 mg [Paxil 20 MG] 20 mg PO DAILY 09/22/17 [History] Trazodone HCl 50 mg [Desyrel 50 mg] 100 mg PO HS 09/22/17 [History] Hx Tetanus, Diphtheria Vaccination/Date Given: Yes Hx Influenza Vaccination/Date Given: No Hx Pneumococcal Vaccination/Date Given: No Immunizations Up to Date: Yes - Review of Systems Constitutional: No Fever, No Chills Eyes: No Symptoms Ears, Nose, & Throat: No Symptoms Respiratory: No Cough, No Dyspnea Cardiac: No Chest Pain, No Edema, No Syncope Abdominal/Gastrointestinal: No Abdominal Pain, No Nausea, No Vomiting, No Diarrhea Genitourinary Symptoms: No Dysuria Musculoskeletal: No Back Pain, No Neck Pain Skin: No Rash Neurological: Speech Changes Psychological: Anxiety, Emotional Lability Endocrine: No Symptoms Hematologic/Lymphatic: No Symptoms Immunological/Allergic: No Symptoms All Other Systems: Reviewed and Negative - Past Medical History Pertinent Past Medical History: Yes Neurological History: Seizures ENT History: No Pertinent History Cardiac History: Hypertension Respiratory History: Asthma, COPD, Pneumonia Endocrine Medical History: No Pertinent History Musculoskeletal History: No Pertinent History GI Medical History: No Pertinent History History: No Pertinent History Psycho-Social History: Anxiety, Depression, Panic Disorder Female Reproductive Disorders: No Pertinent History Other Medical History: PT. fractured c-spine - Past Surgical History Past Surgical History: Yes Neuro Surgical History: No Pertinent History Cardiac: No Pertinent History Respiratory: No Pertinent History Gastrointestinal: No Pertinent History Genitourinary: No Pertinent History Musculoskeletal: No Pertinent History, Orthopedic Surgery Female Surgical History: No Pertinent History Other Surgical History: MAGNET PLACEMENT FOR SEIZURES - Social History Smoking Status: Former smoker How long have you smoked: 55 Exposure to second hand smoke: No Drug Use: none Patient Lives Alone: Yes Significant Family History: no pertinent family hx - Female History Hx Now: No - Nursing Vital Signs Nursing Vital Signs: Initial Vital Signs Temperature 98.1 F 11/30/17 10:53 Pulse Rate 78 11/30/17 10:53 Respiratory Rate 16 11/30/17 10:53 Blood Pressure 185/93 11/30/17 10:53 O2 Sat by Pulse Oximetry 94 L 11/30/17 10:53 Pain Scale Pain Intensity 0 - Physical Exam General Appearance: mild distress, anxiety Eye Exam: PERRL/EOMI, eyes nml inspection Ears, Nose, Throat Exam: dry mucous membranes Neck Exam: normal inspection, non-tender, supple, full range of motion Respiratory Exam: normal breath sounds, lungs clear, No respiratory distress Cardiovascular Exam: regular rate/rhythm, normal heart sounds, normal peripheral pulses Gastrointestinal/Abdomen Exam: soft, normal bowel sounds, No tenderness, No mass Pelvic Exam: not done Rectal Exam: not done Back Exam: normal inspection, normal range of motion, No CVA tenderness, No vertebral tenderness Extremity Exam: normal inspection, normal range of motion, pelvis stable Neurologic Exam: alert, oriented x 3, cooperative, normal mood/affect, nml cerebellar function, nml station & gait, sensation nml, slurred speech, No motor deficits Skin Exam: normal color, warm, dry, No rash Lymphatic Exam: No adenopathy SpO2 Interpretation: normal SpO2: 94 Oxygen Delivery: Room Air Ordered Tests: Active Orders 24 hr Category Date Time Status IV Insertion STAT Care 11/30/17 11:38 Active CBC W DIFF Stat Lab 11/30/17 11:38 Completed CMP Stat Lab 11/30/17 11:38 Completed Lactic Acid Stat Lab 11/30/17 11:38 Completed TROPONIN Q3H Lab 11/30/17 11:45 Completed TROPONIN Q3H Lab 11/30/17 14:45 Ordered TROPONIN Q3H Lab 11/30/17 17:45 Ordered TROPONIN Q3H Lab 11/30/17 20:45 Ordered TROPONIN Q3H Lab 11/30/17 23:45 Ordered UA W/RFX UR CULTURE Stat Lab 11/30/17 12:10 Completed Urine Triage Profile Stat Lab 11/30/17 12:50 Completed Medication Summary Discontinued Medications Generic Name Dose Route Start Last Admin Trade Name Freq PRN Reason Stop Dose Admin Diazepam 5 mg 11/30/17 11:39 11/30/17 11:49 Valium 5 Mg PO 11/30/17 11:40 5 mg STAT ONE Administration Diazepam Confirm 11/30/17 11:43 Valium 5 Mg Administered 11/30/17 11:44 Dose 5 mg .ROUTE .[employer] ONE Sodium Chloride 1,000 mls @ 999 mls/hr 11/30/17 11:38 11/30/17 11:49 Sodium Chloride 0.9% 1000 Ml IV 11/30/17 12:38 999 mls/hr .Q1H1M STA Administration Sodium Chloride Confirm 11/30/17 11:43 Sodium Chloride 0.9% 1000 Ml Administered 11/30/17 11:44 Dose 1,000 mls @ ud .ROUTE .[employer] ONE Lab/Rad Data: Laboratory Result Diagrams 11/30/17 11:38 11/30/17 11:38 Laboratory Results 11/30/17 11/30/17 11/30/17 Range/Units 12:50 12:10 11:45 WBC (4.0-10.5) K/mm3 RBC (4.1-5.4) M/mm3 Hgb (12.0-16.0) gm/dl Hct (35-47) % MCV (78-100) fl MCH (26-32) pg MCHC (32-36) g/dl RDW (11.5-14.0) % Plt Count (150-450) K/mm3 MPV (6-9.5) fl Gran % (36.0-66.0) % Lymphocytes % (24.0-44.0) % Monocytes % (0.0-12.0) % Eosinophils % (0.00-5.0) % Basophils % (0.0-0.4) % Basophils # (0-0.4) Sodium (136-145) mEq/L Potassium (3.5-5.1) mEq/L Chloride (98-107) mEq/L Carbon Dioxide (21-32) mEq/L Anion Gap (5-15) MEQ/L BUN (9-20) mg/dL Creatinine (0.55-1.30) mg/dl Estimated GFR ML/MIN Glucose (70-110) MG/DL Lactic Acid (0.4-2.0) Calcium (8.5-10.1) mg/dL Total Bilirubin (0.2-1.0) mg/dL AST (15-37) U/L ALT (12-78) U/L Alkaline Phosphatase (46-116) U/L Troponin I < 0.017 (0.000-0.056) ng/ml Serum Total Protein (6.4-8.2) gm/dL Albumin (3.4-5.0) g/dL Ur Collection Type CATH Urine Color YELLOW (YELLOW) Urine Appearance CLEAR (CLEAR) Urine pH 6.0 (5-6) Ur Specific [place] 1.010 (1.005-1.025) Urine Protein NEGATIVE (Negative) Urine Ketones NEGATIVE (NEGATIVE) Urine Blood NEGATIVE (0-5) Jos/ul Urine Nitrite NEGATIVE (NEGATIVE) Urine Bilirubin NEGATIVE (NEGATIVE) Urine Urobilinogen NORMAL (0-1) mg/dL Ur Leukocyte Esterase NEGATIVE (NEGATIVE) Urine Culture Reflexed NO (NO) Urine Glucose NEGATIVE (NEGATIVE) mg/dL Urine Opiates Level NEG. (NEGATIVE) Ur Methadone NEG. (NEGATIVE) Urine Barbiturates NEG. (NEGATIVE) Ur Phencyclidine (PCP) NEG. (NEGATIVE) Urine Amphetamine NEG. (NEGATIVE) U Benzodiazepine Level POS. (NEGATIVE) Urine Cocaine NEG. (NEGATIVE) Urine Marijuana (THC) NEG. (NEGATIVE) Specimen Received 11/30/17 1210 11/30/17 11/30/17 11/30/17 Range/Units 11:38 11:38 11:38 WBC 4.2 (4.0-10.5) K/mm3 RBC 4.27 (4.1-5.4) M/mm3 Hgb 12.6 (12.0-16.0) gm/dl Hct 39.8 (35-47) % MCV 93.2 (78-100) fl MCH 29.5 (26-32) pg MCHC 31.7 L (32-36) g/dl RDW 13.8 (11.5-14.0) % Plt Count 234 (150-450) K/mm3 MPV 9.1 (6-9.5) fl Gran % 60.7 (36.0-66.0) % Lymphocytes % 26.6 (24.0-44.0) % Monocytes % 8.6 (0.0-12.0) % Eosinophils % 3.6 (0.00-5.0) % Basophils % 0.5 (0.0-0.4) % Basophils # 0.02 (0-0.4) Sodium 141 (136-145) mEq/L Potassium 4.0 (3.5-5.1) mEq/L Chloride 104 (98-107) mEq/L Carbon Dioxide 29.5 (21-32) mEq/L Anion Gap 11.3 (5-15) MEQ/L BUN 14 (9-20) mg/dL Creatinine 1.25 (0.55-1.30) mg/dl Estimated GFR 45 ML/MIN Glucose 112 H (70-110) MG/DL Lactic Acid 1.1 (0.4-2.0) Calcium 9.0 (8.5-10.1) mg/dL Total Bilirubin 0.20 (0.2-1.0) mg/dL AST 17 (15-37) U/L ALT 15 (12-78) U/L Alkaline Phosphatase 124 H (46-116) U/L Troponin I (0.000-0.056) ng/ml Serum Total Protein 7.6 (6.4-8.2) gm/dL Albumin 3.9 (3.4-5.0) g/dL Ur Collection Type Urine Color (YELLOW) Urine Appearance (CLEAR) Urine pH (5-6) Ur Specific [place] (1.005-1.025) Urine Protein (Negative) Urine Ketones (NEGATIVE) Urine Blood (0-5) Jos/ul Urine Nitrite (NEGATIVE) Urine Bilirubin (NEGATIVE) Urine Urobilinogen (0-1) mg/dL Ur Leukocyte Esterase (NEGATIVE) Urine Culture Reflexed (NO) Urine Glucose (NEGATIVE) mg/dL Urine Opiates Level (NEGATIVE) Ur Methadone (NEGATIVE) Urine Barbiturates (NEGATIVE) Ur Phencyclidine (PCP) (NEGATIVE) Urine Amphetamine (NEGATIVE) U Benzodiazepine Level (NEGATIVE) Urine Cocaine (NEGATIVE) Urine Marijuana (THC) (NEGATIVE) Specimen Received - Progress Progress: unchanged Discussed with : Natividad Will see patient in: hospital (observation) Counseled pt/family regarding: lab results, diagnosis, rad results - Departure Time of Disposition: 13:29 Departure Disposition: Observation (per Dr Henson) Clinical Impression: Mental status change Condition: Stable Critical Care Time: No Referrals: IMELDA HENSON [Primary Care Provider] -
[2017-11-30] MEDS ORDERED: Valium 5 MG PO ONE (11:39)
[2017-11-30] MEDS ORDERED: Sodium Chloride 0.9% 1000 ML 1,000 ML ONE (11:43)
[2017-11-30] MEDS ORDERED: Valium 5 MG ONE (11:43)
[2017-11-30 11:55] LABS: BASOPHIL % 0.5 % (0.0-0.4); Basophil (Absolute #) 0.02 (0-0.4); Eosinophil % 3.6 % (0.00-5.0); Eosinophil (Absolute #) 0.15 (0-0.5); Granulocyte Absolute (ANC) 2.56 (1.4-6.9); Granulocytes % 60.7 % (36.0-66.0); Hematocrit 39.8 % (35-47); Hemoglobin 12.6 gm/dl (12.0-16.0); Lymphocyte (Absolute #) 1.12 (1.0-4.6); Lymphocytes % 26.6 % (24.0-44.0); Mean Cell Volume 93.2 fl (78-100); Mean Corpuscular Hemoglobin 29.5 pg (26-32); Mean Corpuscular Hgb Concent. 31.7 g/dl (32-36); Mean Platelet Volume 9.1 fl (6-9.5); Monocyte (Absolute #) 0.36 (0.0-1.3); Monocytes % 8.6 % (0.0-12.0); Platelet Count 234 K/mm3 (150-450); Red Blood Count 4.27 M/mm3 (4.1-5.4); Red Cell Distribution Width 13.8 % (11.5-14.0); White Blood Count 4.2 K/mm3 (4.0-10.5)
[2017-11-30 12:14] LABS: ALBUMIN 3.9 g/dL (3.4-5.0); ANION GAP 11.3 MEQ/L (5-15); BILIRUBIN,TOTAL 0.2 mg/dL (0.2-1.0); Carbon Dioxide 29.5 mEq/L (21-32); Creatinine 1 1.25 mg/dl (0.55-1.30); Total Protein 7.6 gm/dL (6.4-8.2)
[2017-11-30 12:18] LABS: Appearance CLEAR (CLEAR); Bilirubin NEGATIVE (NEGATIVE); Blood NEGATIVE Ery/ul (0-5); Glucose NEGATIVE (NEGATIVE); Ketones NEGATIVE (NEGATIVE); Leukocyte Esterase NEGATIVE (NEGATIVE); Nitrite NEGATIVE (NEGATIVE); Protein,Urine Dip NEGATIVE (Negative); Urobilinogen NORMAL mg/dL (0-1)
[2017-11-30 13:04] LABS: Amphetamine,Urine NEG. (NEGATIVE); Barbiturate,Urine NEG. (NEGATIVE); Benzodiazepine,Urine POS. (NEGATIVE); Cocaine,Urine NEG. (NEGATIVE); Methadone,Urine NEG. (NEGATIVE); Opiate,Urine NEG. (NEGATIVE); PCP,Urine NEG. (NEGATIVE); THC,Urine NEG. (NEGATIVE)
[2017-11-30] MEDS ORDERED: TYLENOL 325 MG PO PRN (15:22)
[2017-11-30] MEDS ORDERED: Zofran 4 MG/2 ML VIAL IV PRN (15:22)
[2017-11-30] MEDS ORDERED: Sodium Chloride 0.9% 10 ML FLUSH Syringe IV PRN (15:45)
[2017-11-30] MEDS ORDERED: Ativan 1 MG PO PRN (22:00)
[2017-11-30] MEDS ORDERED: zyPREXA 5MG TABLET PO SCH (22:00)
[2017-11-30] MEDS ORDERED: ATARAX 25 MG PO PRN (22:00)
[2017-11-30] MEDS ORDERED: Keppra 250 MG PO SCH (22:00)
[2017-11-30] MEDS ORDERED: DESYREL 50 MG PO SCH (22:00)
[2017-11-30] MEDS ORDERED: PROVENTIL COMMON CANISTER IH PRN (22:00)
[2017-11-30] MEDS ORDERED: Neurontin 100 MG PO PRN (22:00)
[2017-11-30] MEDS: Sodium Chloride 0.9% 10 ML FLUSH Syringe IV SCH (22:29)
[2017-12-01 05:39] LABS: BASOPHIL % 0.4 % (0.0-0.4); Basophil (Absolute #) 0.02 (0-0.4); Eosinophil % 5.6 % (0.00-5.0); Eosinophil (Absolute #) 0.27 (0-0.5); Granulocyte Absolute (ANC) 1.91 (1.4-6.9); Granulocytes % 39.6 % (36.0-66.0); Hematocrit 36.9 % (35-47); Hemoglobin 11.5 gm/dl (12.0-16.0); Lymphocyte (Absolute #) 2.13 (1.0-4.6); Lymphocytes % 44.2 % (24.0-44.0); Mean Cell Volume 94.4 fl (78-100); Mean Corpuscular Hemoglobin 29.4 pg (26-32); Mean Corpuscular Hgb Concent. 31.2 g/dl (32-36); Mean Platelet Volume 9.1 fl (6-9.5); Monocyte (Absolute #) 0.49 (0.0-1.3); Monocytes % 10.2 % (0.0-12.0); Platelet Count 221 K/mm3 (150-450); Red Blood Count 3.91 M/mm3 (4.1-5.4); Red Cell Distribution Width 13.8 % (11.5-14.0); White Blood Count 4.8 K/mm3 (4.0-10.5)
[2017-12-01] MEDS: Sodium Chloride 0.9% 10 ML FLUSH Syringe IV SCH (05:44)
[2017-12-01 06:08] LABS: ALBUMIN 3.5 g/dL (3.4-5.0); ANION GAP 11.1 MEQ/L (5-15); BILIRUBIN,TOTAL 0.2 mg/dL (0.2-1.0); Carbon Dioxide 27.5 mEq/L (21-32); Creatinine 1 1.04 mg/dl (0.55-1.30)
[2017-12-01] MEDS ORDERED: DESYREL 50 MG PO PRN (07:08)
[2017-12-01] MEDS ORDERED: Senokot-S Tablet PO PRN (07:14)
[2017-12-01] MEDS ORDERED: Nitrostat 0.4 MG Tablet SL PRN (07:14)
--- NOTE | 2017-12-01 09:07 | PCM.HP ---
History of Present Illness - Chief Complaint Chief Complaint: mental changes History of Present Illness: is a 66 year old female pt of mine from [facility] who c/o anxiety and "shaking inside" recently - her cousin was over yesterday and pt began flailing her arms. Cousin became so alarmed that she ran out of the house and called 911. In ER there was no abnormal activity. Pt does have known seizure disorder and is on 2 anti-seizure meds. Cousin reported the pipes had frozen in the house - however apparently this is now fixed. Pt just notes she gets very anxious. Poor historian, but she seems to have grand mal and partial seizures. Last night in the hospital she was talking to people who were not present. - Review of Systems Constitutional: Fatigue Neurological: Seizure Psychological: Anxiety, No Depression, No Suicidal Ideations All Other Systems: Reviewed and Negative Medications & Allergies Home Medications: Home Medication List Metoprolol Succinate 50 mg PO DAILY 05/28/16 [History Confirmed 11/30/17] Hydroxyzine HCl 25 mg [Atarax 25 mg] 25 mg PO Q4HPRN PRN 07/24/16 [ History Confirmed 11/30/17] Olanzapine [Zyprexa] 5 mg PO HS 07/24/16 [History Confirmed 11/30/17] Nitroglycerin 0.4 mg Tablet [Nitrostat 0.4 MG Tablet] 0.4 mg SL Q5MIN PRN MR X 3 PRN #1 bottle 09/25/16 [Rx Confirmed 11/30/17] Sennosides/Docusate Sodium [Senna-S Tablet] 2 each PO BID PRN 09/25/16 [History Confirmed 11/30/17] Buspirone HCl 5 mg [Buspar 5 mg] 15 mg PO DAILY 09/22/17 [History Confirmed 11/30/17] Lamotrigine [Lamictal] 200 mg PO BID 09/22/17 [History Confirmed 11/30/17] Levetiracetam [Keppra] 750 mg PO BID 09/22/17 [History Confirmed 11/30/17] Paroxetine HCl 20 mg [Paxil 20 MG] 20 mg PO DAILY 09/22/17 [History Confirmed 11/30/17] Trazodone HCl 50 mg [Desyrel 50 mg] 100 mg PO HS 09/22/17 [History Confirmed 11/30/17] Lorazepam 1 mg [Ativan 1 MG] 1 mg PO TID PRN PRN #30 tablet 10/15/17 [Rx Confirmed 11/30/17] Magnesium Oxide 400 mg [Mag-Ox 400] 400 mg PO BID #60 tablet 10/27/17 [Rx Confirmed 11/30/17] Albuterol Sulfate [Proair Hfa] 1 - 2 puff IH Q4-6HPRN PRN 11/30/17 [History Confirmed 11/30/17] Gabapentin 100 mg PO HS PRN PRN 11/30/17 [History Confirmed 11/30/17] Allergies/Adverse Reactions: Allergies Allergy/AdvReac Type Severity Reaction Status Date / Time [facility] [[facility] Allergy Mild Verified 11/30/17 16:07 - Past Medical History Past Medical History: Yes Neurological History: Seizures ENT History: No Pertinent History Cardiac History: Hypertension Respiratory History: Asthma, COPD, Pneumonia Endocrine Medical History: No Pertinent History Musculoskelatal History: No Pertinent History GI Medical History: No Pertinent History History: No Pertinent History Pyscho-Social History: Anxiety, Depression, Panic Disorder Reproductive Disorders: No Pertinent History Comment: [facility] PT. fractured c-spine - Female History Are you now?: No - Past Surgical History Past Surgical History: Yes Neuro Surgical History: No Pertinent History Cardiac History: No Pertinent History Respiratory Surgery: No Pertinent History GI Surgical History: No Pertinent History Genitourinary Surgical Hx: No Pertinent History Musculskeletal Surgical Hx: No Pertinent History, Orthopedic Surgery Female Surgical History: No Pertinent History Other Surgical History: MAGNET PLACEMENT FOR SEIZURES - Social History Smoking Status: Former smoker How long have you smoked: 55 Exposure to second hand smoke: No Alcohol: None Drug Use: none Significant Family History: no pertinent family hx - Physical Exam Vital Signs: Vital Signs - 24 hr Temp Pulse Resp BP Pulse Ox 12/01/17 07:30 97.9 F 61 18 121/75 96 12/01/17 04:00 97.5 F 64 18 130/66 94 L 12/01/17 00:00 97.6 F 62 16 116/57 91 L 11/30/17 22:00 64 18 95 11/30/17 20:00 97.5 F 68 18 101/50 92 L 11/30/17 15:24 97.7 F 70 16 163/78 93 L 11/30/17 15:21 97.7 F 70 163/78 11/30/17 14:50 97.7 F 70 16 163/78 93 L 11/30/17 14:40 97.6 F 72 16 163/78 93 L 11/30/17 14:15 97.7 F 70 16 163/78 93 L 11/30/17 13:50 97.7 F 70 16 163/78 93 L 11/30/17 13:43 97 H 16 149/100 93 L 11/30/17 13:36 94 L 11/30/17 11:54 98.0 F 70 18 175/98 94 L 11/30/17 10:53 98.1 F 78 16 185/93 94 L Oxygen-Last 24 hours O2 Percentage 3 Liters = 32% O2 Percentage 3 Liters = 32% O2 Percentage 3 Liters = 32% O2 Percentage 3 Liters = 32% Oxygen Flowrate (L/min)-RT 2 General Appearance: no apparent distress, alert Neurologic Exam: oriented x 3 (she knows it's Nov 2017 but thinks the day is Thursday), cooperative Eye Exam: eyes nml inspection Ears, Nose, Throat Exam: moist mucous membranes Respiratory Exam: normal breath sounds, lungs clear, No crackles/rales, No rhonchi, No wheezing Cardiovascular Exam: regular rate/rhythm, normal heart sounds, No murmur Back Exam: normal inspection, No rash Extremity Exam: normal inspection, No pedal edema, No swelling Skin Exam: normal color, warm, dry, No rash Results - Labs Lab/Micro Results: Lab Results-Last 24 Hours 11/30/17 11/30/17 11/30/17 Range/Units 15:50 18:10 21:13 WBC (4.0-10.5) K/mm3 RBC (4.1-5.4) M/mm3 Hgb (12.0-16.0) gm/dl Hct (35-47) % MCV (78-100) fl MCH (26-32) pg MCHC (32-36) g/dl RDW (11.5-14.0) % Plt Count (150-450) K/mm3 MPV (6-9.5) fl Gran % (36.0-66.0) % Lymphocytes % (24.0-44.0) % Monocytes % (0.0-12.0) % Eosinophils % (0.00-5.0) % Basophils % (0.0-0.4) % Basophils # (0-0.4) Sodium (136-145) mEq/L Potassium (3.5-5.1) mEq/L Chloride (98-107) mEq/L Carbon Dioxide (21-32) mEq/L Anion Gap (5-15) MEQ/L BUN (9-20) mg/dL Creatinine (0.55-1.30) mg/dl Estimated GFR ML/MIN Glucose (70-110) MG/DL Calcium (8.5-10.1) mg/dL Total Bilirubin (0.2-1.0) mg/dL AST (15-37) U/L ALT (12-78) U/L Alkaline Phosphatase (46-116) U/L Troponin I < 0.017 < 0.017 < 0.017 (0.000-0.056) ng/ml Serum Total Protein (6.4-8.2) gm/dL Albumin (3.4-5.0) g/dL 11/30/17 12/01/17 12/01/17 Range/Units 23:51 05:00 05:00 WBC 4.8 (4.0-10.5) K/mm3 RBC 3.91 L (4.1-5.4) M/mm3 Hgb 11.5 L (12.0-16.0) gm/dl Hct 36.9 (35-47) % MCV 94.4 (78-100) fl MCH 29.4 (26-32) pg MCHC 31.2 L (32-36) g/dl RDW 13.8 (11.5-14.0) % Plt Count 221 (150-450) K/mm3 MPV 9.1 (6-9.5) fl Gran % 39.6 (36.0-66.0) % Lymphocytes % 44.2 H (24.0-44.0) % Monocytes % 10.2 (0.0-12.0) % Eosinophils % 5.6 H (0.00-5.0) % Basophils % 0.4 (0.0-0.4) % Basophils # 0.02 (0-0.4) Sodium 141 (136-145) mEq/L Potassium 4.0 (3.5-5.1) mEq/L Chloride 106 (98-107) mEq/L Carbon Dioxide 27.5 (21-32) mEq/L Anion Gap 11.1 (5-15) MEQ/L BUN 8 L (9-20) mg/dL Creatinine 1.04 (0.55-1.30) mg/dl Estimated GFR 56 ML/MIN Glucose 95 (70-110) MG/DL Calcium 9.0 (8.5-10.1) mg/dL Total Bilirubin 0.20 (0.2-1.0) mg/dL AST 16 (15-37) U/L ALT 12 (12-78) U/L Alkaline Phosphatase 113 (46-116) U/L Troponin I < 0.017 (0.000-0.056) ng/ml Serum Total Protein 7.0 (6.4-8.2) gm/dL Albumin 3.5 (3.4-5.0) g/dL - Other Procedures and Tests Respiratory Therapy 11/30/17 22:00 Respiratory MDI UD Assessment/Plan (1) Mental status change Current Visit: Yes Status: Acute Qualifiers: Altered mental status type: transient alteration of awareness Qualified Code(s): R40.4 - Transient alteration of awareness Assessment & Plan: Basically oriented this morning. WIll go ahead and check TSH. Discussed MRI; pt can't tolerate closed MRI. Would consider (of brain) outpatient. Code(s): R41.82 - ALTERED MENTAL STATUS, UNSPECIFIED (2) Seizure disorder Current Visit: No Status: Chronic Assessment & Plan: Continue lamictal; add another 750 mg keppra (750 po TID). Code(s): G40.909 - EPILEPSY, UNSP, NOT INTRACTABLE, WITHOUT STATUS EPILEPTICUS (3) Anxiety Current Visit: No Status: Chronic Assessment & Plan: She's on buspar and paroxetine. Code(s): F41.9 - ANXIETY DISORDER, UNSPECIFIED (4) COPD (chronic obstructive pulmonary disease) Current Visit: No Status: Chronic Assessment & Plan: stable (5) Hypertension Current Visit: No Status: Chronic Qualifiers: Hypertension type: essential hypertension Code(s): I10 - ESSENTIAL (PRIMARY) HYPERTENSION
[2017-12-01] MEDS ORDERED: MAG-OX 400 PO SCH (10:00)
[2017-12-01] MEDS ORDERED: FLUZONE HIGH-DOSE 2017-18 SYR IM ONE (10:00)
[2017-12-01] MEDS ORDERED: Paxil 20 MG PO SCH (10:00)
[2017-12-01] MEDS ORDERED: ENOXAPARIN SODIUM SQ SCH (10:00)
[2017-12-01] MEDS ORDERED: lamICTAL 100MG TABLET PO SCH (10:00)
[2017-12-01] MEDS ORDERED: Toprol Xl 50 MG PO SCH (10:00)
[2017-12-01] MEDS ORDERED: LAMOTRIGINE 200 MG PO SCH (10:00)
[2017-12-01] MEDS ORDERED: Keppra 250 MG PO SCH (10:00)
[2017-12-01] MEDS ORDERED: BUSPAR 5 MG PO SCH (10:00)
[2017-12-01 11:47] VITALS: BP 127/74; PULSE 67; O2SAT 96
== END 2017-12-01 15:30 | disposition home or self-care (01) ==
LOC: ED 10:52 → MED SURG 14:00
PROVIDERS: ADMIT Family Medicine; ATTEND Family Medicine
DX: R41.82 Altered mental status, unspecified (principal); G40.909 Epilepsy, unspecified, not intractable, without status epilepticus; F41.9 Anxiety disorder, unspecified; J44.9 Chronic obstructive pulmonary disease, unspecified; I10 Essential (primary) hypertension; F32.9 Major depressive disorder, single episode, unspecified; R29.6 Repeated falls; Z87.891 Personal history of nicotine dependence; Z79.899 Other long term (current) drug therapy
CPT/HCPCS: 36000; 36415; 80053; 80307; 81002; 83605; 84443; 84484; 85025; 94760; 96360; 99285; G0378; J1650; A9270-GY

== ENCOUNTER 2018-02-25 01:22 | Emergency (ER) | payer MEDICAID ==
[2018-02-25 01:47] VITALS: O2SAT 97
[2018-02-25] MEDS ORDERED: Sodium Chloride 0.9% 1000 ML 1,000 ML IV STA (01:55)
[2018-02-25 02:12] LABS: Granulocyte Absolute (ANC) 2.22 (1.4-6.9); Hematocrit 33.8 % (35-47); Mean Cell Volume 91.8 fl (78-100); Mean Corpuscular Hgb Concent. 32.5 g/dl (32-36); Mean Platelet Volume 8.7 fl (6-9.5); Platelet Count 345 K/mm3 (150-450); Red Blood Count 3.68 M/mm3 (4.1-5.4); Red Cell Distribution Width 14.9 % (11.5-14.0); White Blood Count 3.8 K/mm3 (4.0-10.5)
[2018-02-25 02:20] LABS: Mean Corpuscular Hemoglobin 29.8 pg (26-32)
[2018-02-25 02:26] LABS: ALKALINE PHOSPHATASE 122 U/L (38-126); BLOOD UREA NITROGEN 11 mg/dL (7-17); CHLORIDE 100 mmol/L (98-107); Calcium 9.3 mg/dL (8.4-10.2); Carbon Dioxide 26 mmol/L (22-30); Creatinine 1 0.76 mg/dL (0.52-1.04); Glucose 115 mg/dL (74-106); Potassium 4.1 mmol/L (3.5-5.1); SGOT/AST 19 U/L (14-36); SGPT/ALT 14 U/L (0-35); SODIUM 137 mmol/L (137-145); Total Protein 7.2 g/dL (6.3-8.2)
[2018-02-25] MEDS ORDERED: Sodium Chloride 0.9% 1000 ML 1,000 ML ONE (02:33)
[2018-02-25 02:41] LABS: INR 1.09 (0.8-3.0)
[2018-02-25 02:46] LABS: Appearance HAZY (CLEAR); Bilirubin NEGATIVE (NEGATIVE); Blood NEGATIVE Ery/ul (0-5); Glucose NEGATIVE (NEGATIVE); Ketones NEGATIVE (NEGATIVE); Leukocyte Esterase NEGATIVE (NEGATIVE); Nitrite NEGATIVE (NEGATIVE); Protein,Urine Dip NEGATIVE (Negative); Urobilinogen NORMAL mg/dL (0-1)
--- NOTE | 2018-02-25 03:06 | ERPHSYRPT ---
- History of Present Illness Time Seen by Provider: 02/25/18 01:44 Source: patient, longterm records Exam Limitations: clinical condition Patient Subjective Stated Complaint: Pt arrives to ER via EMS as transfer from [facility] for Anxiety "pale" and SOB states had right shoulder replacement on 02/06 with revision on 02/07 (d/t dislocation) with incision appearing red, inflamed and draiange. Per [facility] RN report pt also has been confused for past week which is abnormal for pt stating she is normally A&Ox4. This RN does not appreciate any confusion during assessment but I also do not know pt's baseline. Pt also recently had "psych meds" changed but no report from [facility] on which meds. Pt was given night time meds including Lamictal and Risperdol. Initial HR for NH 120's with BP 160/92. This RN does not note any overwhelming pallar. Pt has pink undertones. Triage Nursing Assessment: A&Ox4 with clear lungs, normal heart tones and +2 pulses throughout. PERRLA. Physician History: PATIENT WITH A HISTORY OF COPD, HYPERTENSION, MAJOR DEPRESSION, PANIC DISORDER , AND POST OPERATIVE RIGHT OPEN REDUCTION INTERNAL FIXATION OF A RIGHT CLAVICLE FRACTURE ON 02/06/2018 WITH REVISION THE FOLLOWING DAY. PATIENT REFERRED TO EMERGENCY ROOM FOR A PALE APPEARANCE AND ANXIETY, PER THE NURSING STAFF AT [facility] . PATIENT DENIES SHOULDER PAIN, CHEST PAIN, DYSPNEA, NAUSEA, EMESIS, HEADACHE, NUMBNESS, TINGLING OR WEAKNESS IN EXTREMITIES. Associated Symptoms: denies symptoms Allergies/Adverse Reactions: [facility] Allergy (Mild, Verified 02/25/18 02:51) STATES GOT REAL HOT Home Medications: Hydroxyzine HCl 25 mg [Atarax 25 mg] 25 mg PO Q4HPRN PRN 07/24/16 [History ] OLANZapine [Zyprexa] 5 mg PO HS 07/24/16 [History] Sennosides/Docusate Sodium [Senna-S Tablet] 2 each PO BID PRN 09/25/16 [History] Buspirone HCl 5 mg [Buspar 5 mg] 15 mg PO DAILY 09/22/17 [History] Levetiracetam [Keppra] 750 mg PO BID 09/22/17 [History] Paroxetine HCl 20 mg [Paxil 20 MG] 20 mg PO DAILY 09/22/17 [History] Trazodone HCl 50 mg [Desyrel 50 mg] 100 mg PO HS 09/22/17 [History] lamoTRIgine [Lamictal] 200 mg PO BID 09/22/17 [History] Albuterol Sulfate [Proair Hfa] 1 - 2 puff IH Q4-6HPRN PRN 11/30/17 [History] Gabapentin 100 mg PO HS PRN PRN 11/30/17 [History] Acetaminophen [Tylenol] 650 mg PO Q4HPRN PRN 02/25/18 [History] Hydrocodone Bit/Acetaminophen [Diggs 5-325 Tablet] 1 tab PO Q4HPRN PRN 02/25/18 [History] Magnesium Hydroxide 30 ml [Milk of Magnesia 30 ml] 30 ml PO DAILY PRN PRN 02/25/18 [History] Metoprolol Tartrate 25 mg [Lopressor 25MG Tab] 25 mg PO BID 02/25/18 [ History] Risperidone [Risperdal] 0.5 mg PO BID 02/25/18 [History] Hx Tetanus, Diphtheria Vaccination/Date Given: Yes Hx Influenza Vaccination/Date Given: No Hx Pneumococcal Vaccination/Date Given: No - Review of Systems Constitutional: No Fever, No Chills Eyes: No Symptoms Ears, Nose, & Throat: No Symptoms Respiratory: No Symptoms, No Cough, No Dyspnea Cardiac: No Symptoms, No Chest Pain, No Edema, No Syncope Abdominal/Gastrointestinal: No Symptoms, No Abdominal Pain, No Nausea, No Vomiting, No Diarrhea Genitourinary Symptoms: No Symptoms, No Dysuria Musculoskeletal: No Back Pain, No Neck Pain Skin: No Rash Neurological: No Dizziness, No Focal Weakness, No Sensory Changes Psychological: No Symptoms Endocrine: No Symptoms All Other Systems: Reviewed and Negative - Past Medical History Pertinent Past Medical History: Yes Neurological History: Seizures ENT History: No Pertinent History Cardiac History: Hypertension Respiratory History: Asthma, COPD, Pneumonia Endocrine Medical History: No Pertinent History Musculoskeletal History: No Pertinent History GI Medical History: No Pertinent History History: No Pertinent History Psycho-Social History: Anxiety, Depression, Panic Disorder Female Reproductive Disorders: No Pertinent History Other Medical History: [facility] PT. fractured c-spine - Past Surgical History Past Surgical History: Yes Neuro Surgical History: No Pertinent History Cardiac: No Pertinent History Respiratory: No Pertinent History Gastrointestinal: No Pertinent History Genitourinary: No Pertinent History Musculoskeletal: No Pertinent History, Joint Replacement, Orthopedic Surgery Female Surgical History: No Pertinent History Other Surgical History: MAGNET PLACEMENT FOR SEIZURES - Social History Smoking Status: Former smoker How long have you smoked: 55 Exposure to second hand smoke: No Drug Use: none Patient Lives Alone: No Significant Family History: no pertinent family hx - Female History Hx Now: No - Nursing Vital Signs Nursing Vital Signs: Initial Vital Signs Temperature 98.6 F 02/25/18 01:24 Pulse Rate 113 H 02/25/18 01:24 Respiratory Rate 24 02/25/18 01:24 Blood Pressure 156/80 02/25/18 01:24 O2 Sat by Pulse Oximetry 97 02/25/18 01:24 Pain Scale Pain Intensity 0 - Physical Exam General Appearance: no apparent distress, alert, other (ALERT AND APPROPRIATE) Eye Exam: PERRL/EOMI, eyes nml inspection Ears, Nose, Throat Exam: normal ENT inspection, TMs normal, pharynx normal, moist mucous membranes Neck Exam: normal inspection, non-tender, supple, full range of motion Respiratory Exam: normal breath sounds, lungs clear, other (THERE IS A HEALING INCISIONAL WOUND STITCHES INTACT OVER RIGHT CLAVICLE MID TO LATERAL ASPECT, SLIGHT WARMTH, NO DRAINAGE), No respiratory distress Cardiovascular Exam: regular rate/rhythm, normal heart sounds, normal peripheral pulses Gastrointestinal/Abdomen Exam: soft, normal bowel sounds, No tenderness, No mass Back Exam: normal inspection, normal range of motion, No CVA tenderness, No vertebral tenderness Extremity Exam: normal inspection, normal range of motion, pelvis stable Neurologic Exam: alert, oriented x 3, cooperative, normal mood/affect, nml cerebellar function, nml station & gait, sensation nml, No motor deficits Skin Exam: normal color, warm, dry, No rash Lymphatic Exam: No adenopathy SpO2 Interpretation: normal SpO2: 97 Oxygen Delivery: Nasal Cannula - Course EKG Interpreted by Me: RATE, Sinus Rhythm, NORMAL AXIS - Radiology Exams Chest X-ray Interpretation: Interpreted by me, Negative, No Infiltrates Ordered Tests: Active Orders 24 hr Category Date Time Status Electrician Substation STAT Care 02/25/18 01:57 Active EKG-ER Only STAT Care 02/25/18 01:55 Active IV Insertion STAT Care 02/25/18 01:55 Active Oxygen-ED Only NASAL CANNULA 2 lpm Care 02/25/18 01:55 Active CHEST 1 VIEW (PORTABLE) Stat Exams 02/25/18 01:56 Taken BLOOD CULTURE Stat Lab 02/25/18 02:36 Received CBC W DIFF Stat Lab 02/25/18 02:07 Completed CMP Stat Lab 02/25/18 02:07 Completed Lactic Acid Stat Lab 02/25/18 02:11 Completed MAGNESIUM Stat Lab 02/25/18 02:07 Completed Manual Differential NC Stat Lab 02/25/18 02:07 Completed PROTIME WITH INR Stat Lab 02/25/18 02:07 Completed TROPONIN Q3H Lab 02/25/18 02:07 Completed TROPONIN Q3H Lab 02/25/18 05:00 Ordered TROPONIN Q3H Lab 02/25/18 08:00 Ordered TROPONIN Q3H Lab 02/25/18 11:00 Ordered TROPONIN Q3H Lab 02/25/18 14:00 Ordered UA Stat Lab 02/25/18 02:37 Completed Medication Summary Generic Name Dose Route Start Last Admin Trade Name Freq PRN Reason Stop Dose Admin Sodium Chloride 1,000 mls @ 500 mls/hr 02/25/18 01:55 02/25/18 02:37 Sodium Chloride 0.9% 1000 Ml IV 02/25/18 03:54 500 mls/hr .Q2H STA Administration Piperacillin Sod/Tazobactam Sod 3.375 gm in 100 mls @ 200 mls/hr 02/25/18 03: 07 Zosyn 3.375gm/100 Ml D5w IV 02/25/18 03:36 STAT STA Discontinued Medications Generic Name Dose Route Start Last Admin Trade Name Freq PRN Reason Stop Dose Admin Sodium Chloride Confirm 02/25/18 02:33 Sodium Chloride 0.9% 1000 Ml Administered 02/25/18 02:34 Dose 1,000 mls @ ud .ROUTE .STK-MED ONE Lab/Rad Data: Laboratory Result Diagrams 02/25/18 02:07 02/25/18 02:07 Laboratory Results 02/25/18 02/25/18 02/25/18 Range/Units 02:37 02:11 02:07 WBC (4.0-10.5) K/mm3 RBC (4.1-5.4) M/mm3 Hgb (12.0-16.0) gm/dl Hct (35-47) % MCV (78-100) fl MCH (26-32) pg MCHC (32-36) g/dl RDW (11.5-14.0) % Plt Count (150-450) K/mm3 MPV (6-9.5) fl Absolute Granulocytes (1.4-6.9) PT (9.95-12.35) SECONDS INR (0.8-3.0) Sodium (137-145) mmol/L Potassium (3.5-5.1) mmol/L Chloride (98-107) mmol/L Carbon Dioxide (22-30) mmol/L Anion Gap (5-15) MEQ/L BUN (7-17) mg/dL Creatinine (0.52-1.04) mg/dL Estimated GFR ML/MIN Glucose (74-106) mg/dL Lactic Acid 0.9 (0.4-2.0) Calcium (8.4-10.2) mg/dL Magnesium 2.2 (1.6-2.3) mg/dL Total Bilirubin (0.2-1.3) mg/dL AST (14-36) U/L ALT (0-35) U/L Alkaline Phosphatase (38-126) U/L Troponin I (0.000-0.034) ng/mL Serum Total Protein (6.3-8.2) g/dL Albumin (3.5-5.0) g/dL Ur Collection Type CATH Urine Color YELLOW (YELLOW) Urine Appearance HAZY (CLEAR) Urine pH 7.0 (5-6) Ur Specific [place] 1.010 (1.005-1.025) Urine Protein NEGATIVE (Negative) Urine Ketones NEGATIVE (NEGATIVE) Urine Blood NEGATIVE (0-5) Jos/ul Urine Nitrite NEGATIVE (NEGATIVE) Urine Bilirubin NEGATIVE (NEGATIVE) Urine Urobilinogen NORMAL (0-1) mg/dL Ur Leukocyte Esterase NEGATIVE (NEGATIVE) Urine Glucose NEGATIVE (NEGATIVE) mg/dL Specimen Received 02/25/18 0230 02/25/18 02/25/18 02/25/18 Range/Units 02:07 02:07 02:07 WBC (4.0-10.5) K/mm3 RBC (4.1-5.4) M/mm3 Hgb (12.0-16.0) gm/dl Hct (35-47) % MCV (78-100) fl MCH (26-32) pg MCHC (32-36) g/dl RDW (11.5-14.0) % Plt Count (150-450) K/mm3 MPV (6-9.5) fl Absolute Granulocytes (1.4-6.9) PT 12.7 H (9.95-12.35) SECONDS INR 1.09 (0.8-3.0) Sodium 137 (137-145) mmol/L Potassium 4.1 (3.5-5.1) mmol/L Chloride 100 (98-107) mmol/L Carbon Dioxide 26 (22-30) mmol/L Anion Gap 15.0 (5-15) MEQ/L BUN 11 (7-17) mg/dL Creatinine 0.76 (0.52-1.04) mg/dL Estimated GFR > 60.0 ML/MIN Glucose 115 H (74-106) mg/dL Lactic Acid (0.4-2.0) Calcium 9.3 (8.4-10.2) mg/dL Magnesium (1.6-2.3) mg/dL Total Bilirubin 0.20 (0.2-1.3) mg/dL AST 19 (14-36) U/L ALT 14 (0-35) U/L Alkaline Phosphatase 122 (38-126) U/L Troponin I < 0.012 (0.000-0.034) ng/mL Serum Total Protein 7.2 (6.3-8.2) g/dL Albumin 4.0 (3.5-5.0) g/dL Ur Collection Type Urine Color (YELLOW) Urine Appearance (CLEAR) Urine pH (5-6) Ur Specific [place] (1.005-1.025) Urine Protein (Negative) Urine Ketones (NEGATIVE) Urine Blood (0-5) Jos/ul Urine Nitrite (NEGATIVE) Urine Bilirubin (NEGATIVE) Urine Urobilinogen (0-1) mg/dL Ur Leukocyte Esterase (NEGATIVE) Urine Glucose (NEGATIVE) mg/dL Specimen Received 02/25/18 Range/Units 02:07 WBC 3.8 L (4.0-10.5) K/mm3 RBC 3.68 L (4.1-5.4) M/mm3 Hgb 11.0 L (12.0-16.0) gm/dl Hct 33.8 L (35-47) % MCV 91.8 (78-100) fl MCH 29.8 (26-32) pg MCHC 32.5 (32-36) g/dl RDW 14.9 H (11.5-14.0) % Plt Count 345 (150-450) K/mm3 MPV 8.7 (6-9.5) fl Absolute Granulocytes 2.22 (1.4-6.9) PT (9.95-12.35) SECONDS INR (0.8-3.0) Sodium (137-145) mmol/L Potassium (3.5-5.1) mmol/L Chloride (98-107) mmol/L Carbon Dioxide (22-30) mmol/L Anion Gap (5-15) MEQ/L BUN (7-17) mg/dL Creatinine (0.52-1.04) mg/dL Estimated GFR ML/MIN Glucose (74-106) mg/dL Lactic Acid (0.4-2.0) Calcium (8.4-10.2) mg/dL Magnesium (1.6-2.3) mg/dL Total Bilirubin (0.2-1.3) mg/dL AST (14-36) U/L ALT (0-35) U/L Alkaline Phosphatase (38-126) U/L Troponin I (0.000-0.034) ng/mL Serum Total Protein (6.3-8.2) g/dL Albumin (3.5-5.0) g/dL Ur Collection Type Urine Color (YELLOW) Urine Appearance (CLEAR) Urine pH (5-6) Ur Specific [place] (1.005-1.025) Urine Protein (Negative) Urine Ketones (NEGATIVE) Urine Blood (0-5) Jos/ul Urine Nitrite (NEGATIVE) Urine Bilirubin (NEGATIVE) Urine Urobilinogen (0-1) mg/dL Ur Leukocyte Esterase (NEGATIVE) Urine Glucose (NEGATIVE) mg/dL Specimen Received - Progress Progress Note: 02/25/18 03:22 IV NORMAL SALINE 200ML/HR ROCEPHIN 1GM IVPB - Departure Time of Disposition: 04:01 Departure Disposition: Home Clinical Impression: EARLY RIGHT CLAVICLE WOUND CELLULITIS Condition: Stable Critical Care Time: No Referrals: CHELSEY TODD [Primary Care Provider] - Additional Instructions: - History of Present Illness Time Seen by Provider: 02/25/18 01:44 Source: patient, longterm records Exam Limitations: clinical condition Patient Subjective Stated Complaint: Pt arrives to ER via EMS as transfer from [facility] for Anxiety "pale" and SOB states had right shoulder replacement on 02/06 with revision on 02/07 (d/t dislocation) with incision appearing red, inflamed and draiange. Per [facility] RN report pt also has been confused for past week which is abnormal for pt stating she is normally A&Ox4. This RN does not appreciate any confusion during assessment but I also do not know pt's baseline. Pt also recently had "psych meds" changed but no report from [facility] on which meds. Pt was given night time meds including Lamictal and Risperdol. Initial HR for NH 120's with BP 160/92. This RN does not note any overwhelming pallar. Pt has pink undertones. Triage Nursing Assessment: A&Ox4 with clear lungs, normal heart tones and +2 pulses throughout. PERRLA. Physician History: PATIENT WITH A HISTORY OF COPD, HYPERTENSION, MAJOR DEPRESSION, PANIC DISORDER , AND POST OPERATIVE RIGHT OPEN REDUCTION INTERNAL FIXATION OF A RIGHT CLAVICLE FRACTURE ON 02/06/2018 WITH REVISION THE FOLLOWING DAY. PATIENT REFERRED TO EMERGENCY ROOM FOR A PALE APPEARANCE AND ANXIETY, PER THE NURSING STAFF AT [facility] . PATIENT DENIES SHOULDER PAIN, CHEST PAIN, DYSPNEA, NAUSEA, EMESIS, HEADACHE, NUMBNESS, TINGLING OR WEAKNESS IN EXTREMITIES. Associated Symptoms: denies symptoms Allergies/Adverse Reactions: cefaclor [From Ce[facility]] Allergy (Mild, Verified 02/25/18 02:51) STATES GOT REAL HOT Home Medications: Hydroxyzine HCl 25 mg [Atarax 25 mg] 25 mg PO Q4HPRN PRN 07/24/16 [History ] OLANZapine [Zyprexa] 5 mg PO HS 07/24/16 [History] Sennosides/Docusate Sodium [Senna-S Tablet] 2 each PO BID PRN 09/25/16 [History] Buspirone HCl 5 mg [Buspar 5 mg] 15 mg PO DAILY 09/22/17 [History] Levetiracetam [Keppra] 750 mg PO BID 09/22/17 [History] Paroxetine HCl 20 mg [Paxil 20 MG] 20 mg PO DAILY 09/22/17 [History] Trazodone HCl 50 mg [Desyrel 50 mg] 100 mg PO HS 09/22/17 [History] lamoTRIgine [Lamictal] 200 mg PO BID 09/22/17 [History] Albuterol Sulfate [Proair Hfa] 1 - 2 puff IH Q4-6HPRN PRN 11/30/17 [History] Gabapentin 100 mg PO HS PRN PRN 11/30/17 [History] Acetaminophen [Tylenol] 650 mg PO Q4HPRN PRN 02/25/18 [History] Hydrocodone Bit/Acetaminophen [Diggs 5-325 Tablet] 1 tab PO Q4HPRN PRN 02/25/18 [History] Magnesium Hydroxide 30 ml [Milk of Magnesia 30 ml] 30 ml PO DAILY PRN PRN 02/25/18 [History] Metoprolol Tartrate 25 mg [Lopressor 25MG Tab] 25 mg PO BID 02/25/18 [ History] Risperidone [Risperdal] 0.5 mg PO BID 02/25/18 [History] Hx Tetanus, Diphtheria Vaccination/Date Given: Yes Hx Influenza Vaccination/Date Given: No Hx Pneumococcal Vaccination/Date Given: No - Review of Systems Constitutional: No Fever, No Chills Eyes: No Symptoms Ears, Nose, & Throat: No Symptoms Respiratory: No Symptoms, No Cough, No Dyspnea Cardiac: No Symptoms, No Chest Pain, No Edema, No Syncope Abdominal/Gastrointestinal: No Symptoms, No Abdominal Pain, No Nausea, No Vomiting, No Diarrhea Genitourinary Symptoms: No Symptoms, No Dysuria Musculoskeletal: No Back Pain, No Neck Pain Skin: No Rash Neurological: No Dizziness, No Focal Weakness, No Sensory Changes Psychological: No Symptoms Endocrine: No Symptoms All Other Systems: Reviewed and Negative - Past Medical History Pertinent Past Medical History: Yes Neurological History: Seizures ENT History: No Pertinent History Cardiac History: Hypertension Respiratory History: Asthma, COPD, Pneumonia Endocrine Medical History: No Pertinent History Musculoskeletal History: No Pertinent History GI Medical History: No Pertinent History History: No Pertinent History Psycho-Social History: Anxiety, Depression, Panic Disorder Female Reproductive Disorders: No Pertinent History Other Medical History: [facility] PT. fractured c-spine - Past Surgical History Past Surgical History: Yes Neuro Surgical History: No Pertinent History Cardiac: No Pertinent History Respiratory: No Pertinent History Gastrointestinal: No Pertinent History Genitourinary: No Pertinent History Musculoskeletal: No Pertinent History, Joint Replacement, Orthopedic Surgery Female Surgical History: No Pertinent History Other Surgical History: MAGNET PLACEMENT FOR SEIZURES - Social History Smoking Status: Former smoker How long have you smoked: 55 Exposure to second hand smoke: No Drug Use: none Patient Lives Alone: No Significant Family History: no pertinent family hx - Female History Hx Now: No - Nursing Vital Signs Nursing Vital Signs: Initial Vital Signs Temperature 98.6 F 02/25/18 01:24 Pulse Rate 113 H 02/25/18 01:24 Respiratory Rate 24 02/25/18 01:24 Blood Pressure 156/80 02/25/18 01:24 O2 Sat by Pulse Oximetry 97 02/25/18 01:24 Pain Scale Pain Intensity 0 - Physical Exam General Appearance: no apparent distress, alert, other (ALERT AND APPROPRIATE) Eye Exam: PERRL/EOMI, eyes nml inspection Ears, Nose, Throat Exam: normal ENT inspection, TMs normal, pharynx normal, moist mucous membranes Neck Exam: normal inspection, non-tender, supple, full range of motion Respiratory Exam: normal breath sounds, lungs clear, other (THERE IS A HEALING INCISIONAL WOUND STITCHES INTACT OVER RIGHT CLAVICLE MID TO LATERAL ASPECT, SLIGHT WARMTH, NO DRAINAGE), No respiratory distress Cardiovascular Exam: regular rate/rhythm, normal heart sounds, normal peripheral pulses Gastrointestinal/Abdomen Exam: soft, normal bowel sounds, No tenderness, No mass Back Exam: normal inspection, normal range of motion, No CVA tenderness, No vertebral tenderness Extremity Exam: normal inspection, normal range of motion, pelvis stable Neurologic Exam: alert, oriented x 3, cooperative, normal mood/affect, nml cerebellar function, nml station & gait, sensation nml, No motor deficits Skin Exam: normal color, warm, dry, No rash Lymphatic Exam: No adenopathy SpO2 Interpretation: normal SpO2: 97 Oxygen Delivery: Nasal Cannula - Course EKG Interpreted by Me: RATE, Sinus Rhythm, NORMAL AXIS - Radiology Exams Chest X-ray Interpretation: Interpreted by me, Negative, No Infiltrates Ordered Tests: Active Orders 24 hr Category Date Time Status Electrician Substation STAT Care 02/25/18 01:57 Active EKG-ER Only STAT Care 02/25/18 01:55 Active IV Insertion STAT Care 02/25/18 01:55 Active Oxygen-ED Only NASAL CANNULA 2 lpm Care 02/25/18 01:55 Active CHEST 1 VIEW (PORTABLE) Stat Exams 02/25/18 01:56 Taken BLOOD CULTURE Stat Lab 02/25/18 02:36 Received CBC W DIFF Stat Lab 02/25/18 02:07 Completed CMP Stat Lab 02/25/18 02:07 Completed Lactic Acid Stat Lab 02/25/18 02:11 Completed MAGNESIUM Stat Lab 02/25/18 02:07 Completed Manual Differential NC Stat Lab 02/25/18 02:07 Completed PROTIME WITH INR Stat Lab 02/25/18 02:07 Completed TROPONIN Q3H Lab 02/25/18 02:07 Completed TROPONIN Q3H Lab 02/25/18 05:00 Ordered TROPONIN Q3H Lab 02/25/18 08:00 Ordered TROPONIN Q3H Lab 02/25/18 11:00 Ordered TROPONIN Q3H Lab 02/25/18 14:00 Ordered UA Stat Lab 02/25/18 02:37 Completed Medication Summary Generic Name Dose Route Start Last Admin Trade Name Freq PRN Reason Stop Dose Admin Sodium Chloride 1,000 mls @ 500 mls/hr 02/25/18 01:55 02/25/18 02:37 Sodium Chloride 0.9% 1000 Ml IV 02/25/18 03:54 500 mls/hr .Q2H STA Administration Piperacillin Sod/Tazobactam Sod 3.375 gm in 100 mls @ 200 mls/hr 02/25/18 03: 07 Zosyn 3.375gm/100 Ml D5w IV 02/25/18 03:36 STAT STA Discontinued Medications Generic Name Dose Route Start Last Admin Trade Name Freq PRN Reason Stop Dose Admin Sodium Chloride Confirm 02/25/18 02:33 Sodium Chloride 0.9% 1000 Ml Administered 02/25/18 02:34 Dose 1,000 mls @ ud .ROUTE .STK-MED ONE Lab/Rad Data: Laboratory Result Diagrams 02/25/18 02:07 02/25/18 02:07 Laboratory Results 02/25/18 02/25/18 02/25/18 Range/Units 02:37 02:11 02:07 WBC (4.0-10.5) K/mm3 RBC (4.1-5.4) M/mm3 Hgb (12.0-16.0) gm/dl Hct (35-47) % MCV (78-100) fl MCH (26-32) pg MCHC (32-36) g/dl RDW (11.5-14.0) % Plt Count (150-450) K/mm3 MPV (6-9.5) fl Absolute Granulocytes (1.4-6.9) PT (9.95-12.35) SECONDS INR (0.8-3.0) Sodium (137-145) mmol/L Potassium (3.5-5.1) mmol/L Chloride (98-107) mmol/L Carbon Dioxide (22-30) mmol/L Anion Gap (5-15) MEQ/L BUN (7-17) mg/dL Creatinine (0.52-1.04) mg/dL Estimated GFR ML/MIN Glucose (74-106) mg/dL Lactic Acid 0.9 (0.4-2.0) Calcium (8.4-10.2) mg/dL Magnesium 2.2 (1.6-2.3) mg/dL Total Bilirubin (0.2-1.3) mg/dL AST (14-36) U/L ALT (0-35) U/L Alkaline Phosphatase (38-126) U/L Troponin I (0.000-0.034) ng/mL Serum Total Protein (6.3-8.2) g/dL Albumin (3.5-5.0) g/dL Ur Collection Type CATH Urine Color YELLOW (YELLOW) Urine Appearance HAZY (CLEAR) Urine pH 7.0 (5-6) Ur Specific [place] 1.010 (1.005-1.025) Urine Protein NEGATIVE (Negative) Urine Ketones NEGATIVE (NEGATIVE) Urine Blood NEGATIVE (0-5) Jos/ul Urine Nitrite NEGATIVE (NEGATIVE) Urine Bilirubin NEGATIVE (NEGATIVE) Urine Urobilinogen NORMAL (0-1) mg/dL Ur Leukocyte Esterase NEGATIVE (NEGATIVE) Urine Glucose NEGATIVE (NEGATIVE) mg/dL Specimen Received 02/25/18 0230 02/25/18 02/25/18 02/25/18 Range/Units 02:07 02:07 02:07 WBC (4.0-10.5) K/mm3 RBC (4.1-5.4) M/mm3 Hgb (12.0-16.0) gm/dl Hct (35-47) % MCV (78-100) fl MCH (26-32) pg MCHC (32-36) g/dl RDW (11.5-14.0) % Plt Count (150-450) K/mm3 MPV (6-9.5) fl Absolute Granulocytes (1.4-6.9) PT 12.7 H (9.95-12.35) SECONDS INR 1.09 (0.8-3.0) Sodium 137 (137-145) mmol/L Potassium 4.1 (3.5-5.1) mmol/L Chloride 100 (98-107) mmol/L Carbon Dioxide 26 (22-30) mmol/L Anion Gap 15.0 (5-15) MEQ/L BUN 11 (7-17) mg/dL Creatinine 0.76 (0.52-1.04) mg/dL Estimated GFR > 60.0 ML/MIN Glucose 115 H (74-106) mg/dL Lactic Acid (0.4-2.0) Calcium 9.3 (8.4-10.2) mg/dL Magnesium (1.6-2.3) mg/dL Total Bilirubin 0.20 (0.2-1.3) mg/dL AST 19 (14-36) U/L ALT 14 (0-35) U/L Alkaline Phosphatase 122 (38-126) U/L Troponin I < 0.012 (0.000-0.034) ng/mL Serum Total Protein 7.2 (6.3-8.2) g/dL Albumin 4.0 (3.5-5.0) g/dL Ur Collection Type Urine Color (YELLOW) Urine Appearance (CLEAR) Urine pH (5-6) Ur Specific [place] (1.005-1.025) Urine Protein (Negative) Urine Ketones (NEGATIVE) Urine Blood (0-5) Jos/ul Urine Nitrite (NEGATIVE) Urine Bilirubin (NEGATIVE) Urine Urobilinogen (0-1) mg/dL Ur Leukocyte Esterase (NEGATIVE) Urine Glucose (NEGATIVE) mg/dL Specimen Received 02/25/18 Range/Units 02:07 WBC 3.8 L (4.0-10.5) K/mm3 RBC 3.68 L (4.1-5.4) M/mm3 Hgb 11.0 L (12.0-16.0) gm/dl Hct 33.8 L (35-47) % MCV 91.8 (78-100) fl MCH 29.8 (26-32) pg MCHC 32.5 (32-36) g/dl RDW 14.9 H (11.5-14.0) % Plt Count 345 (150-450) K/mm3 MPV 8.7 (6-9.5) fl Absolute Granulocytes 2.22 (1.4-6.9) PT (9.95-12.35) SECONDS INR (0.8-3.0) Sodium (137-145) mmol/L Potassium (3.5-5.1) mmol/L Chloride (98-107) mmol/L Carbon Dioxide (22-30) mmol/L Anion Gap (5-15) MEQ/L BUN (7-17) mg/dL Creatinine (0.52-1.04) mg/dL Estimated GFR ML/MIN Glucose (74-106) mg/dL Lactic Acid (0.4-2.0) Calcium (8.4-10.2) mg/dL Magnesium (1.6-2.3) mg/dL Total Bilirubin (0.2-1.3) mg/dL AST (14-36) U/L ALT (0-35) U/L Alkaline Phosphatase (38-126) U/L Troponin I (0.000-0.034) ng/mL Serum Total Protein (6.3-8.2) g/dL Albumin (3.5-5.0) g/dL Ur Collection Type Urine Color (YELLOW) Urine Appearance (CLEAR) Urine pH (5-6) Ur Specific [place] (1.005-1.025) Urine Protein (Negative) Urine Ketones (NEGATIVE) Urine Blood (0-5) Jos/ul Urine Nitrite (NEGATIVE) Urine Bilirubin (NEGATIVE) Urine Urobilinogen (0-1) mg/dL Ur Leukocyte Esterase (NEGATIVE) Urine Glucose (NEGATIVE) mg/dL Specimen Received - Progress Progress Note: 02/25/18 03:22 IV NORMAL SALINE 200ML/HR ROCEPHIN 1GM IVPB - Departure Departure Disposition: Home Clinical Impression: EARLY RIGHT CLAVICLE WOUND CELLULITIS Condition: Stable Critical Care Time: No Referrals: CHELSEY TODD [Primary Care Provider] - BEGIN AUGMENTIN 875MG TWICE DAILY FOR 10 DAYS . CONSULT THE ORTHOPEDIC SURGEON FOR EVALUATION. CONTINUE ALL CURRENT MEDICATIONS Prescriptions: Amox Tr/Potass Clav. 875 mg [Augmentin 875-125 Tablet] 1 tab PO BID #20 tablet
[2018-02-25] MEDS ORDERED: Zosyn 3.375GM/100 Ml D5W 3.375 GM/100 ML IVPB IV STA (03:07)
[2018-02-25] MEDS ORDERED: Zosyn 3.375GM/100 Ml D5W 3.375 GM/100 ML IVPB IV ONE (03:10)
[2018-02-25 03:34] LABS: BAND 4 % (0.0-2.0); Basophil 1 % (0.0-1.0); Eosinophil 3 % (0.00-3.0); Lymphocytes 36 % (24-44); Monocyte 7 % (0.0-12.0); Neutrophils 49 % (36.0-66.0); Platelet Estimate NORMAL (NORMAL); Total Cells Counted 100
[2018-02-25 04:06] VITALS: BP 157/77; PULSE 88
[2018-02-25] MEDS ORDERED: TYLENOL 325 MG PO STA (05:01)
[2018-02-25] MEDS ORDERED: TYLENOL 325 MG ONE (05:04)
--- NOTE | 2018-02-25 09:50 | XRAY ---
Indication: Cough. Comparison: October 19, 2017. Portable chest demonstrates new right base discoid atelectasis. Heart and lungs unremarkable. Stable osteopenia and degenerative changes with near right clavicle fixation plate/screws fixating shaft fracture.
== END 2018-02-25 06:45 ==
LOC: ED 01:22
DX: L03.113 Cellulitis of right upper limb (principal); Z98.890 Other specified postprocedural states; Z96.611 Presence of right artificial shoulder joint; Z79.899 Other long term (current) drug therapy
CPT/HCPCS: 36000; 36415; 71045; 80053; 81002; 83605; 83735; 84484; 85025; 85610; 87040; 93005; 93041; 96360; 96361; 99284; P9612; 96365; 99285; J2543; A9270-GY

== ENCOUNTER 2018-04-30 11:03 | Emergency (ER) | payer MEDICAID ==
--- NOTE | 2018-04-30 11:15 | ERPHSYRPT ---
- History of Present Illness Time Seen by Provider: 04/30/18 11:11 Source: patient, EMS, [facility] records Exam Limitations: no limitations Physician History: The patient is a 67-year-old female brought in by ambulance from a local [facility] where it was reported that she had a fever this morning and pus draining from his surgical wound on her right shoulder. The patient had shoulder surgery in January. Since the surgery, she has had recurring infection at the surgical site. Patient is reported that she has been on 5 rounds of antibiotics without total success. Currently she denies any fever or chills. She is not on antibiotics at this time. Her past medical history is significant for right shoulder surgery, anxiety, depression, COPD, hypertension , and seizure disorder. Occurred: this morning Method of Injury: other (surgery) Quality: constant, aching Severity of Pain-Max: mild Severity of Pain-Current: mild Extremities Pain Location: shoulder: right Modifying Factors: Improves With: pain medication (tylenol) Associated Symptoms: fever Allergies/Adverse Reactions: cefaclor [From Ceclor] Allergy (Mild, Verified 04/30/18 11:33) STATES GOT REAL HOT Home Medications: Levetiracetam [Keppra] 750 mg PO BID 09/22/17 [History] lamoTRIgine [Lamictal] 200 mg PO BID 09/22/17 [History] Albuterol Sulfate [Proair Hfa] 1 - 2 puff IH Q4-6HPRN PRN 11/30/17 [History] Acetaminophen [Tylenol] 650 mg PO Q4HPRN PRN 02/25/18 [History] Hydrocodone Bit/Acetaminophen [[place] 5-325 Tablet] 1 tab PO Q4HPRN PRN 02/25/18 [History] Metoprolol Tartrate 25 mg [Lopressor 25MG Tab] 25 mg PO BID 02/25/18 [ History] Risperidone [Risperdal] 0.5 mg PO BID 02/25/18 [History] Hx Tetanus, Diphtheria Vaccination/Date Given: Yes Hx Influenza Vaccination/Date Given: No Hx Pneumococcal Vaccination/Date Given: No - Review of Systems Constitutional: Fever Eyes: No Symptoms Ears, Nose, & Throat: No Symptoms Respiratory: No Cough, No Dyspnea Cardiac: No Chest Pain, No Edema, No Syncope Abdominal/Gastrointestinal: No Abdominal Pain, No Nausea, No Vomiting, No Diarrhea Genitourinary Symptoms: No Dysuria Musculoskeletal: No Back Pain, No Neck Pain Skin: Cellulitis Neurological: No Dizziness, No Focal Weakness, No Sensory Changes Psychological: No Symptoms Endocrine: No Symptoms Hematologic/Lymphatic: No Symptoms Immunological/Allergic: No Symptoms All Other Systems: Reviewed and Negative - Past Medical History Pertinent Past Medical History: Yes Neurological History: Seizures ENT History: No Pertinent History Cardiac History: Hypertension Respiratory History: Asthma, COPD, Pneumonia Endocrine Medical History: No Pertinent History Musculoskeletal History: No Pertinent History GI Medical History: No Pertinent History History: No Pertinent History Psycho-Social History: Anxiety, Depression, Panic Disorder Female Reproductive Disorders: No Pertinent History Other Medical History: [facility] PT. fractured c-spine - Past Surgical History Past Surgical History: Yes Neuro Surgical History: No Pertinent History Cardiac: No Pertinent History Respiratory: No Pertinent History Gastrointestinal: No Pertinent History Genitourinary: No Pertinent History Musculoskeletal: No Pertinent History, Joint Replacement, Orthopedic Surgery Female Surgical History: No Pertinent History Other Surgical History: MAGNET PLACEMENT FOR SEIZURES - Social History Smoking Status: Former smoker How long have you smoked: 55 Exposure to second hand smoke: No Drug Use: none Patient Lives Alone: No Significant Family History: no pertinent family hx - Nursing Vital Signs Nursing Vital Signs: Initial Vital Signs Pulse Rate 82 04/30/18 11:05 Respiratory Rate 14 04/30/18 11:05 Blood Pressure 162/78 04/30/18 11:05 O2 Sat by Pulse Oximetry 97 04/30/18 11:05 Pain Scale Pain Intensity 0 - Physical Exam General Appearance: alert Eyes, Ears, Nose, Throat Exam: moist mucous membranes Neck Exam: non-tender, supple Cardiovascular/Respiratory Exam: chest non-tender, normal breath sounds, regular rate/rhythm, no respiratory distress Abdominal Exam: non-tender, No guarding Back Exam: normal inspection, No vertebral tenderness Elbow/Forearm Exam: normal inspection Wrist Exam: normal inspection Hand Exam: normal inspection Neuro/Tendon Exam: normal sensation, normal motor functions Mental Status Exam: alert, oriented x 3, cooperative Skin Exam: normal color, warm, dry, other (Examination of the surgical site on the right shoulder: There is an open portion of the healing surgical site with granulomatous tissue. Adjacent to this is another area of small abscess with pus. Wound culture was taken from the small abscess.) SpO2 Interpretation: normal Oxygen Delivery: Room Air Ordered Tests: Active Orders 24 hr Category Date Time Status IV Insertion STAT Care 04/30/18 11:15 Active BLOOD CULTURE Stat Lab 04/30/18 11:40 Received BMP Stat Lab 04/30/18 11:30 Completed CBC W DIFF Stat Lab 04/30/18 11:30 Completed CULTURE,WOUND Stat Lab 04/30/18 12:00 Received Lactic Acid Stat Lab 04/30/18 11:36 Completed Lab/Rad Data: Laboratory Result Diagrams 04/30/18 11:30 04/30/18 11:30 Laboratory Results 04/30/18 04/30/18 04/30/18 Range/Units 11:36 11:30 11:30 WBC 9.4 (4.0-10.5) K/mm3 RBC 3.73 L (4.1-5.4) M/mm3 Hgb 10.6 L (12.0-16.0) gm/dl Hct 32.6 L (35-47) % MCV 87.4 (78-100) fl MCH 28.4 (26-32) pg MCHC 32.5 (32-36) g/dl RDW 14.6 H (11.5-14.0) % Plt Count 363 (150-450) K/mm3 MPV 8.9 (6-9.5) fl Gran % 74.4 H (36.0-66.0) % Eos # (Auto) 0.10 (0-0.5) Absolute Lymphs (auto) 1.14 (1.0-4.6) Absolute Monos (auto) 1.12 (0.0-1.3) Lymphocytes % 12.2 L (24.0-44.0) % Monocytes % 12.0 (0.0-12.0) % Eosinophils % 1.1 (0.00-5.0) % Basophils % 0.3 (0.0-0.4) % Absolute Granulocytes 6.96 H (1.4-6.9) Basophils # 0.03 (0-0.4) Sodium 137 (137-145) mmol/L Potassium 4.3 (3.5-5.1) mmol/L Chloride 103 (98-107) mmol/L Carbon Dioxide 24 (22-30) mmol/L Anion Gap 14.2 (5-15) MEQ/L BUN 14 (7-17) mg/dL Creatinine 0.76 (0.52-1.04) mg/dL Estimated GFR > 60.0 ML/MIN Glucose 121 H (74-106) mg/dL Lactic Acid 1.6 (0.4-2.0) Calcium 9.3 (8.4-10.2) mg/dL - Progress Progress: unchanged Discussed with : Charles Will see patient in: other (in [facility]) Counseled pt/family regarding: diagnosis, need for follow-up - Departure Time of Disposition: 12:44 Departure Disposition: Home Clinical Impression: Cellulitis Condition: Stable Critical Care Time: No Referrals: IMELDA CROSS [Primary Care Provider] - Additional Instructions: You have a wound infection to your right shoulder. I discussed the findings with Dr. Soto. Take clindamycin 300 mg 4 times a day for [address] Soto will see you next week after the culture results have returned. Prescriptions: Clindamycin HCl 1 cap PO QID #40 capsule
[2018-04-30 11:44] LABS: BASOPHIL % 0.3 % (0.0-0.4); Basophil (Absolute #) 0.03 (0-0.4); Eosinophil % 1.1 % (0.00-5.0); Granulocyte Absolute (ANC) 6.96 (1.4-6.9); Granulocytes % 74.4 % (36.0-66.0); Hematocrit 32.6 % (35-47); Hemoglobin 10.6 gm/dl (12.0-16.0); Lymphocyte (Absolute #) 1.14 (1.0-4.6); Lymphocytes % 12.2 % (24.0-44.0); Mean Cell Volume 87.4 fl (78-100); Mean Corpuscular Hemoglobin 28.4 pg (26-32); Mean Corpuscular Hgb Concent. 32.5 g/dl (32-36); Mean Platelet Volume 8.9 fl (6-9.5); Monocyte (Absolute #) 1.12 (0.0-1.3); Platelet Count 363 K/mm3 (150-450); Red Blood Count 3.73 M/mm3 (4.1-5.4); Red Cell Distribution Width 14.6 % (11.5-14.0); White Blood Count 9.4 K/mm3 (4.0-10.5)
[2018-04-30 12:07] LABS: ANION GAP 14.2 MEQ/L (5-15); BLOOD UREA NITROGEN 14 mg/dL (7-17); CHLORIDE 103 mmol/L (98-107); Calcium 9.3 mg/dL (8.4-10.2); Carbon Dioxide 24 mmol/L (22-30); Creatinine 1 0.76 mg/dL (0.52-1.04); Glucose 121 mg/dL (74-106); Potassium 4.3 mmol/L (3.5-5.1); SODIUM 137 mmol/L (137-145)
[2018-04-30 13:10] VITALS: O2SAT 93
[2018-04-30 14:19] VITALS: BP 140/80; PULSE 86
== END 2018-04-30 14:20 ==
LOC: ED 11:03
DX: L03.113 Cellulitis of right upper limb (principal); M25.511 Pain in right shoulder; Z79.899 Other long term (current) drug therapy
CPT/HCPCS: 36000; 36415; 80048; 83605; 85025; 87040; 87070; 87077; 87186; 99284

== ENCOUNTER 2018-09-15 18:55 | Emergency (ER) | payer MEDICAID ==
--- NOTE | 2018-09-15 19:17 | ERPHSYRPT ---
- History of Present Illness Time Seen by Provider: 09/15/18 18:56 Source: patient, family, EMS Exam Limitations: no limitations Physician History: 67 y/o white female presents with sudden onset weakness,blurred vision and dizziness. pt has h/o seizures but not sure if she had one or not. pt denies headache, denies cp, denies soa, denies abd pain. pt denies flu like sx, pt denies n/v/d. pts sx nearly completely resolved now that she is in ED. Timing/Duration: today Severity: mild Associated Symptoms: weakness, No nausea, No vomiting, No shortness of breath, No chest pain, No headaches, No loss of appetite, No syncope, No seizure Allergies/Adverse Reactions: cefaclor [From [employer]] Allergy (Mild, Verified 09/15/18 19:08) STATES GOT REAL HOT Home Medications: Levetiracetam [Keppra] 750 mg PO BID 09/22/17 [History] lamoTRIgine [Lamictal] 200 mg PO BID 09/22/17 [History] Albuterol Sulfate [Proair Hfa] 1 - 2 puff IH Q4-6HPRN PRN 11/30/17 [History] Acetaminophen [Tylenol] 650 mg PO Q4HPRN PRN 02/25/18 [History] Hydrocodone Bit/Acetaminophen [[place] 5-325 Tablet] 1 tab PO Q4HPRN PRN 02/25/18 [History] Metoprolol Tartrate 25 mg [Lopressor 25MG Tab] 25 mg PO BID 02/25/18 [ History] Risperidone [Risperdal] 0.5 mg PO BID 02/25/18 [History] Hx Tetanus, Diphtheria Vaccination/Date Given: Yes Hx Influenza Vaccination/Date Given: No Hx Pneumococcal Vaccination/Date Given: No - Review of Systems Constitutional: Weakness (improved now), No Fever, No Chills Eyes: Vision Changes (resolved) Ears, Nose, & Throat: No Symptoms, Throat Swelling Respiratory: No Symptoms, No Cough, No Dyspnea, No Stridor, No Wheezing Cardiac: No Symptoms, No Chest Pain, No Palpitations, No Syncope Abdominal/Gastrointestinal: No Symptoms, No Abdominal Pain, No Nausea, No Vomiting, No Diarrhea Genitourinary Symptoms: No Symptoms, No Dysuria, No Frequency, No Hematuria Musculoskeletal: No Symptoms, Injury, No Back Pain, No Neck Pain Skin: No Symptoms Neurological: Dizziness Psychological: No Symptoms Endocrine: No Symptoms Hematologic/Lymphatic: No Symptoms Immunological/Allergic: No Symptoms All Other Systems: Reviewed and Negative - Past Medical History Pertinent Past Medical History: Yes Neurological History: Seizures ENT History: No Pertinent History Cardiac History: No Pertinent History Respiratory History: Asthma Endocrine Medical History: No Pertinent History Musculoskeletal History: No Pertinent History GI Medical History: No Pertinent History History: No Pertinent History Psycho-Social History: Anxiety, Depression, Panic Disorder Female Reproductive Disorders: No Pertinent History Other Medical History: SEIZURE 02/03 FELL AND LED TO R SHOULDER ISSUES. PT USES O2 PRN AT HOME - Past Surgical History Past Surgical History: Yes Neuro Surgical History: No Pertinent History Cardiac: No Pertinent History Respiratory: No Pertinent History Gastrointestinal: No Pertinent History Genitourinary: No Pertinent History Musculoskeletal: No Pertinent History, Joint Replacement, Orthopedic Surgery Female Surgical History: No Pertinent History Other Surgical History: MAGNET PLACEMENT FOR SEIZURES - Social History Smoking Status: Former smoker How long have you smoked: 55 Exposure to second hand smoke: No Drug Use: none Patient Lives Alone: No Significant Family History: no pertinent family hx - Nursing Vital Signs Nursing Vital Signs: Initial Vital Signs Temperature 98.5 F 09/15/18 18:56 Pulse Rate 83 09/15/18 18:56 Blood Pressure 155/97 09/15/18 18:56 O2 Sat by Pulse Oximetry 100 09/15/18 18:56 Pain Scale Pain Intensity 0 - Physical Exam General Appearance: mild distress, alert, anxiety Eye Exam: PERRL/EOMI, eyes nml inspection Ears, Nose, Throat Exam: normal ENT inspection, TMs normal, pharynx normal, moist mucous membranes Neck Exam: normal inspection, non-tender, supple, full range of motion Respiratory Exam: normal breath sounds, lungs clear, airway intact, No chest tenderness, No respiratory distress, No accessory muscle use, No rhonchi, No wheezing, No stridor Cardiovascular Exam: regular rate/rhythm, normal heart sounds, normal peripheral pulses Gastrointestinal/Abdomen Exam: soft, normal bowel sounds, No tenderness, No guarding, No rebound Pelvic Exam: not done Rectal Exam: not done Back Exam: normal inspection, normal range of motion, No CVA tenderness, No vertebral tenderness Extremity Exam: normal inspection, normal range of motion, pelvis stable Neurologic Exam: alert, oriented x 3, cooperative, 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 as tested, normal mood/affect, sensation nml, No disoriented, No confusion Skin Exam: normal color, warm, dry Lymphatic Exam: No adenopathy SpO2 Interpretation: normal - Course Nursing assessment & vital signs reviewed: Yes EKG Interpreted by Me: RATE (106), Sinus Tach, NORMAL AXIS, NORMAL INTERVALS, NORMAL QRS, NORMAL ST-T, Other (no comparison ekg) Ordered Tests: Active Orders 24 hr Category Date Time Status Data Warehousing Architect STAT Care 09/15/18 19:24 Active Clean Catch Urine Specimen STAT Care 09/15/18 19:22 Active EKG-ER Only STAT Care 09/15/18 19:22 Active IV Insertion STAT Care 09/15/18 19:22 Active HEAD WITHOUT CONTRAST [CT] Stat Exams 09/15/18 19:23 Taken CBC W DIFF Stat Lab 09/15/18 19:50 Completed CMP Stat Lab 09/15/18 19:50 Completed UA W/RFX UR CULTURE Stat Lab 09/15/18 22:45 Completed Urine Triage Profile Stat Lab 09/15/18 22:45 Received Medication Summary Discontinued Medications Generic Name Dose Route Start Last Admin Trade Name Freq PRN Reason Stop Dose Admin Sodium Chloride 1,000 mls @ 999 mls/hr 09/15/18 19:22 09/15/18 20:10 Sodium Chloride 0.9% 1000 Ml IV 09/15/18 20:22 999 mls/hr .Q1H1M STA Administration Sodium Chloride Confirm 09/15/18 20:09 Sodium Chloride 0.9% 1000 Ml Administered 09/15/18 20:10 Dose 1,000 mls @ ud .ROUTE .STK-MED ONE Lab/Rad Data: Laboratory Result Diagrams 09/15/18 19:50 09/15/18 19:50 Laboratory Results 09/15/18 09/15/18 09/15/18 Range/Units 22:45 19:50 19:50 WBC 4.9 (4.0-10.5) K/mm3 RBC 4.20 (4.1-5.4) M/mm3 Hgb 10.2 L (12.0-16.0) gm/dl Hct 34.0 L (35-47) % MCV 81.0 (78-100) fl MCH 24.2 L (26-32) pg MCHC 30.0 L (32-36) g/dl RDW 15.6 H (11.5-14.0) % Plt Count 350 (150-450) K/mm3 MPV 8.7 (6-9.5) fl Gran % 56.3 (36.0-66.0) % Eos # (Auto) 0.22 (0-0.5) Absolute Lymphs (auto) 1.40 (1.0-4.6) Absolute Monos (auto) 0.49 (0.0-1.3) Lymphocytes % 28.6 (24.0-44.0) % Monocytes % 10.0 (0.0-12.0) % Eosinophils % 4.5 (0.00-5.0) % Basophils % 0.6 (0.0-0.4) % Absolute Granulocytes 2.76 (1.4-6.9) Basophils # 0.03 (0-0.4) Sodium 139 (137-145) mmol/L Potassium 4.3 (3.5-5.1) mmol/L Chloride 101 (98-107) mmol/L Carbon Dioxide 28 (22-30) mmol/L Anion Gap 14.2 (5-15) MEQ/L BUN 13 (7-17) mg/dL Creatinine 1.47 H (0.52-1.04) mg/dL Estimated GFR 37.6 ML/MIN Glucose 116 H (74-106) mg/dL Calcium 9.3 (8.4-10.2) mg/dL Total Bilirubin 0.30 (0.2-1.3) mg/dL AST 19 (14-36) U/L ALT 12 (0-35) U/L Alkaline Phosphatase 108 (38-126) U/L Serum Total Protein 8.1 (6.3-8.2) g/dL Albumin 4.7 (3.5-5.0) g/dL Urine Color STRAW (YELLOW) Urine Appearance CLEAR (CLEAR) Urine pH 7.0 (5-6) Ur Specific [place] 1.008 (1.005-1.025) Urine Protein NEGATIVE (Negative) Urine Ketones NEGATIVE (NEGATIVE) Urine Blood NEGATIVE (0-5) Jos/ul Urine Nitrite NEGATIVE (NEGATIVE) Urine Bilirubin NEGATIVE (NEGATIVE) Urine Urobilinogen NEGATIVE (0-1) mg/dL Ur Leukocyte Esterase NEGATIVE (NEGATIVE) Urine WBC (Auto) NONE (0-5) /HPF Urine RBC (Auto) NONE (0-2) /HPF U Epithel Cells (Auto) NONE (FEW) /HPF Urine Bacteria (Auto) NONE SEEN (NEGATIVE) /HPF Urine Mucus (Auto) SLIGHT (NEGATIVE) /HPF Urine Culture Reflexed NO (NO) Urine Glucose NEGATIVE (NEGATIVE) mg/dL - Progress Progress: improved, re-examined Progress Note: 09/15/18 23:32 pt feeling better. Counseled pt/family regarding: lab results, diagnosis, need for follow-up, rad results - Departure Time of Disposition: 23:32 Departure Disposition: Home Clinical Impression: Dizziness, Weakness Condition: Stable Critical Care Time: No Referrals: CHELSEY TODD [Primary Care Provider] - Additional Instructions: drink plenty of fluids. take your medications as prescribed. follow up with your primary doctor tomorrow for further management
[2018-09-15] MEDS ORDERED: Sodium Chloride 0.9% 1000 ML 1,000 ML IV STA (19:22)
[2018-09-15 20:02] LABS: BASOPHIL % 0.6 % (0.0-0.4); Basophil (Absolute #) 0.03 (0-0.4); Eosinophil % 4.5 % (0.00-5.0); Eosinophil (Absolute #) 0.22 (0-0.5); Granulocyte Absolute (ANC) 2.76 (1.4-6.9); Granulocytes % 56.3 % (36.0-66.0); Hemoglobin 10.2 gm/dl (12.0-16.0); Lymphocytes % 28.6 % (24.0-44.0); Mean Platelet Volume 8.7 fl (6-9.5); Monocyte (Absolute #) 0.49 (0.0-1.3); Platelet Count 350 K/mm3 (150-450); Red Cell Distribution Width 15.6 % (11.5-14.0); White Blood Count 4.9 K/mm3 (4.0-10.5)
[2018-09-15] MEDS ORDERED: Sodium Chloride 0.9% 1000 ML 1,000 ML ONE (20:09)
[2018-09-15 20:25] LABS: ALBUMIN 4.7 g/dL (3.5-5.0); ANION GAP 14.2 MEQ/L (5-15); BILIRUBIN,TOTAL 0.3 mg/dL (0.2-1.3); Calcium 9.3 mg/dL (8.4-10.2); Creatinine 1 1.47 mg/dL (0.52-1.04); Potassium 4.3 mmol/L (3.5-5.1); Total Protein 8.1 g/dL (6.3-8.2)
[2018-09-15 20:33] LABS: Mean Corpuscular Hemoglobin 24.2 pg (26-32)
[2018-09-15 23:18] LABS: Appearance CLEAR (CLEAR); Bilirubin NEGATIVE (NEGATIVE); Blood NEGATIVE Ery/ul (0-5); Glucose NEGATIVE (NEGATIVE); Ketones NEGATIVE (NEGATIVE); Leukocyte Esterase NEGATIVE (NEGATIVE); Nitrite NEGATIVE (NEGATIVE); Protein,Urine Dip NEGATIVE (Negative); Specific Gravity 1.008 (1.005-1.025); Urobilinogen NEGATIVE mg/dL (0-1)
[2018-09-15 23:33] LABS: Amphetamine,Urine NEGATIVE (NEGATIVE); Barbiturate,Urine NEGATIVE (NEGATIVE); Benzodiazepine,Urine NEGATIVE (NEGATIVE); Cocaine,Urine NEGATIVE (NEGATIVE); Methadone,Urine NEGATIVE (NEGATIVE); Opiate,Urine NEGATIVE (NEGATIVE); PCP,Urine NEGATIVE (NEGATIVE); THC,Urine NEGATIVE (NEGATIVE)
[2018-09-16 01:21] VITALS: BP 150/98; PULSE 78; O2SAT 97
--- NOTE | 2018-09-16 08:46 | XRAY ---
Indication: Sudden onset weakness, blurred vision, and dizziness. History seizures. Multiple contiguous axial images obtained through the head without contrast. Comparison: November 28, 2017. Again stable age-appropriate global atrophy and mild periventricular degenerative micro-ischemia. No acute intracranial hemorrhage, abnormal extra-axial fluid collection, or mass effect. Fourth ventricle is midline without hydrocephalus. Bony calvarium is intact. Visualized paranasal sinuses and mastoid air cells are clear. Impression: Stable nonacute senile brain. Comment: Preliminary interpretation was made by [facility]. No discrepancy. CT DI 70.00
== END 2018-09-16 01:50 | disposition home or self-care (01) ==
LOC: ED 18:55
DX: R42 Dizziness and giddiness (principal); R53.1 Weakness; H53.8 Other visual disturbances; Z79.899 Other long term (current) drug therapy
CPT/HCPCS: 36000; 36415; 70450; 80053; 80307; 81001; 85025; 93005; 93041; 96360; 99284

== ENCOUNTER 2018-11-05 06:40 | Emergency (ER) | payer MEDICAID, OTHER ==
[2018-11-05] MEDS ORDERED: BENADRYL 50 MG/ML IV ONE (07:22)
[2018-11-05] MEDS ORDERED: Sodium Chloride 0.9% 1000 ML 1,000 ML IV SCH (07:30)
--- NOTE | 2018-11-05 07:30 | ERPHSYRPT ---
- History of Present Illness Time Seen by Provider: 11/05/18 07:14 Source: patient Exam Limitations: no limitations Patient Subjective Stated Complaint: pt is alert and oriented. pt brought in via ambulance. pt comes in with c/o left sided shaking beginning at about 0500. pt states she has had seizures in the past. pt is shaking a moderate amount on the left side. pt states she feels as if she could pass out. pt does not appear to be in distress. Triage Nursing Assessment: see above Physician History: 67 year old white female arrives with complaint of shaking left upper extremity since 05:00 this am no fevers, no shortness of breath. Past medical history includes seizures, anxiety, depression, panic disorder Past surgical history includes orthopedic surgery, magnet placement for seizures. Timing/Duration: today (5 AM this morning) Severity: moderate Modifying Factors: Improves With: nothing Associated Symptoms: other (shaking of left arm and left side of face), No nausea, No vomiting, No abdominal pain, No shortness of breath, No heartburn, No diaphoresis, No cough, No chills, No chest pain, No fever, No headaches, No loss of appetite, No malaise, No rash, No syncope, No seizure, No weakness Allergies/Adverse Reactions: cefaclor [From Ceclor] Allergy (Mild, Verified 09/15/18 19:08) STATES GOT REAL HOT Home Medications: Levetiracetam [Keppra] 750 mg PO BID 09/22/17 [History] lamoTRIgine [Lamictal] 200 mg PO BID 09/22/17 [History] Albuterol Sulfate [Proair Hfa] 1 - 2 puff IH Q4-6HPRN PRN 11/30/17 [History] Acetaminophen [Tylenol] 650 mg PO Q4HPRN PRN 02/25/18 [History] Hydrocodone Bit/Acetaminophen [[place] 5-325 Tablet] 1 tab PO Q4HPRN PRN 02/25/18 [History] Metoprolol Tartrate 25 mg [Lopressor 25MG Tab] 25 mg PO BID 02/25/18 [ History] Risperidone [Risperdal] 0.5 mg PO BID 02/25/18 [History] Hx Tetanus, Diphtheria Vaccination/Date Given: Yes Hx Influenza Vaccination/Date Given: No Hx Pneumococcal Vaccination/Date Given: No Immunizations Up to Date: Yes - Review of Systems Constitutional: No Fever, No Chills Eyes: No Symptoms Ears, Nose, & Throat: No Symptoms Respiratory: No Cough, No Dyspnea Cardiac: No Chest Pain, No Edema, No Syncope Abdominal/Gastrointestinal: No Abdominal Pain, No Nausea, No Vomiting, No Diarrhea Genitourinary Symptoms: No Dysuria Musculoskeletal: No Back Pain, No Neck Pain Skin: No Rash Neurological: Other (patient with repetitive shaking of left arm and left side of face since 5 AM.), No Dizziness, No Focal Weakness, No Sensory Changes Psychological: No Symptoms Endocrine: No Symptoms All Other Systems: Reviewed and Negative - Past Medical History Pertinent Past Medical History: Yes Neurological History: Seizures ENT History: No Pertinent History Cardiac History: No Pertinent History Respiratory History: Asthma Endocrine Medical History: No Pertinent History Musculoskeletal History: No Pertinent History GI Medical History: No Pertinent History History: No Pertinent History Psycho-Social History: Anxiety, Depression, Panic Disorder Female Reproductive Disorders: No Pertinent History Other Medical History: SEIZURE 02/03 FELL AND LED TO R SHOULDER ISSUES. PT USES O2 PRN AT HOME - Past Surgical History Past Surgical History: Yes Neuro Surgical History: No Pertinent History Cardiac: No Pertinent History Respiratory: No Pertinent History Gastrointestinal: No Pertinent History Genitourinary: No Pertinent History Musculoskeletal: No Pertinent History, Joint Replacement, Orthopedic Surgery Female Surgical History: No Pertinent History Other Surgical History: MAGNET PLACEMENT FOR SEIZURES - Social History Smoking Status: Never smoker How long have you smoked: 55 Exposure to second hand smoke: No Drug Use: none Patient Lives Alone: No Significant Family History: no pertinent family hx - Female History Hx Now: No - Nursing Vital Signs Nursing Vital Signs: Initial Vital Signs Temperature 98.1 F 11/05/18 06:46 Pulse Rate 76 11/05/18 06:46 Respiratory Rate 18 11/05/18 06:46 Blood Pressure 173/86 11/05/18 06:46 O2 Sat by Pulse Oximetry 95 11/05/18 06:46 Pain Scale Pain Intensity 0 - Physical Exam General Appearance: other (Well-developed well-nouished white female, alert oriented 3 tremor of left arm and left side of face) Eye Exam: PERRL/EOMI, eyes nml inspection Ears, Nose, Throat Exam: normal ENT inspection, TMs normal, pharynx normal, moist mucous membranes Neck Exam: normal inspection, non-tender, supple, full range of motion Respiratory Exam: normal breath sounds, lungs clear, No respiratory distress Cardiovascular Exam: regular rate/rhythm, normal heart sounds, normal peripheral pulses, capillary refill <2 sec Gastrointestinal/Abdomen Exam: soft, normal bowel sounds, No tenderness, No mass Back Exam: normal inspection, normal range of motion, No CVA tenderness, No vertebral tenderness Extremity Exam: normal inspection, normal range of motion, pelvis stable Neurologic Exam: alert, oriented x 3, cooperative, electrical development engineer II-XII nml as tested, normal mood/affect, nml cerebellar function, nml station & gait, sensation nml, other (patient with tremor of left arm and left side of face. No facial droop, speech is normal. No tongue deviation, roll on man equal 5 over 5, normal finger to nose, tremor stops when attempting finger to nose. [place] Coma Scale 15 roll on man equal 5 over 5, full range of motion all extremities, sensation intact to all extremities.), No motor deficits SpO2: 95 Oxygen Delivery: Room Air - Course Nursing assessment & vital signs reviewed: Yes EKG Interpreted by Me: RATE (72 bpm), Sinus Rhythm, NORMAL AXIS, Other (EKG: Sinus rhythm, 72 bpm, normal axis, moderate amount of artifact, no acute ST or T wave changes essentially normal EKG, compared to September 15, 2018) - CT Exams Head CT Interpretation: Discussed w/radiologist (head CT: Impression: Stable nonacute senile brain) Ordered Tests: Active Orders 24 hr Category Date Time Status EKG-ER Only STAT Care 11/05/18 07:20 Active IV Insertion STAT Care 11/05/18 07:20 Active HEAD WITHOUT CONTRAST [CT] Stat Exams 11/05/18 07:21 Completed CBC W DIFF Stat Lab 11/05/18 07:45 Completed CMP Stat Lab 11/05/18 07:45 Completed UA W/RFX UR CULTURE Stat Lab 11/05/18 08:54 Completed Medication Summary Generic Name Dose Route Start Last Admin Trade Name Freq PRN Reason Stop Dose Admin Sodium Chloride 1,000 mls @ 100 mls/hr 11/05/18 07:30 11/05/18 08:00 Sodium Chloride 0.9% 1000 Ml IV 12/05/18 07:29 100 mls/hr .Q10H MOE Administration Discontinued Medications Generic Name Dose Route Start Last Admin Trade Name Freq PRN Reason Stop Dose Admin Diphenhydramine HCl 25 mg 11/05/18 07:22 11/05/18 07:59 Benadryl 50 Mg/Ml IV 11/05/18 07:23 50 mg STAT ONE Administration Diphenhydramine HCl Confirm 11/05/18 07:58 Benadryl 50 Mg/Ml Administered 11/05/18 07:59 Dose 50 mg .ROUTE .STK-MED ONE Lab/Rad Data: Laboratory Result Diagrams 11/05/18 07:45 11/05/18 07:45 Laboratory Results 11/05/18 11/05/18 11/05/18 Range/Units 08:54 07:45 07:45 WBC 4.9 (4.0-10.5) K/mm3 RBC 4.17 (4.1-5.4) M/mm3 Hgb 11.1 L (12.0-16.0) gm/dl Hct 35.6 (35-47) % MCV 85.4 (78-100) fl MCH 26.6 (26-32) pg MCHC 31.2 L (32-36) g/dl RDW 22.7 H (11.5-14.0) % Plt Count 208 (150-450) K/mm3 MPV 9.9 H (6-9.5) fl Gran % 62.3 (36.0-66.0) % Eos # (Auto) 0.21 (0-0.5) Absolute Lymphs (auto) 1.11 (1.0-4.6) Absolute Monos (auto) 0.51 (0.0-1.3) Lymphocytes % 22.5 L (24.0-44.0) % Monocytes % 10.3 (0.0-12.0) % Eosinophils % 4.3 (0.00-5.0) % Basophils % 0.6 (0.0-0.4) % Absolute Granulocytes 3.07 (1.4-6.9) Basophils # 0.03 (0-0.4) Sodium 140 (137-145) mmol/L Potassium 4.6 (3.5-5.1) mmol/L Chloride 101 (98-107) mmol/L Carbon Dioxide 29 (22-30) mmol/L Anion Gap 14.2 (5-15) MEQ/L BUN 14 (7-17) mg/dL Creatinine 0.98 (0.52-1.04) mg/dL Estimated GFR 60.0 ML/MIN Glucose 96 (74-106) mg/dL Calcium 9.3 (8.4-10.2) mg/dL Total Bilirubin 0.30 (0.2-1.3) mg/dL AST 17 (14-36) U/L ALT 12 (0-35) U/L Alkaline Phosphatase 102 (38-126) U/L Serum Total Protein 7.3 (6.3-8.2) g/dL Albumin 4.1 (3.5-5.0) g/dL Urine Color STRAW (YELLOW) Urine Appearance CLEAR (CLEAR) Urine pH 7.0 (5-6) Ur Specific [place] 1.008 (1.005-1.025) Urine Protein NEGATIVE (Negative) Urine Ketones NEGATIVE (NEGATIVE) Urine Blood NEGATIVE (0-5) Jos/ul Urine Nitrite NEGATIVE (NEGATIVE) Urine Bilirubin NEGATIVE (NEGATIVE) Urine Urobilinogen NEGATIVE (0-1) mg/dL Ur Leukocyte Esterase NEGATIVE (NEGATIVE) Urine WBC (Auto) NONE SEEN (0-5) /HPF Urine RBC (Auto) NONE SEEN (0-2) /HPF U Epithel Cells (Auto) NONE (FEW) /HPF Urine Bacteria (Auto) NONE SEEN (NEGATIVE) /HPF Urine Culture Reflexed NO (NO) Urine Glucose NEGATIVE (NEGATIVE) mg/dL Slides for Path Review - Progress Progress: improved Progress Note: 11/05/18 08:51 67-year-old white female with history of seizure disorder anxiety depression and panic disorder. Arrives with complaint of shaking of her left upper extremity is noted to have a tremor which appears to be rolling of her left upper extremity somnolent involvement of her left lip. Resembles Parkinson's tremor or tardive dyskinesia patient was head CT remarkable for nonacute senile brain. Chemistry CBC are normal. Normal EKG. Awaiting EKG. Patient improved with IV normal saline and Benadryl 25 mg IV. Still some tremor to her left upper lip. Patient other than tremor normal neurologic examination there is no facial droop speech is normal normal finger to nose roll on man are equal and symmetrical 5 over 5 full range of motion to all extremities GCS is 15 sensation intact to all extremities no pronator drift. Tremor disappears when patient is doing finger to nose. I've discussed the case with Dr. Soto will plan placing patient on Benadryl 25 mg orally every 6 hours as needed. Patient to follow-up with Dr. Henson she is to call her office and make an appointment. She is to return for acute distress or for severe symptoms. 11/05/18 09:42 Patient stable. Labs are all normal. Will discharge. - Departure Time of Disposition: 09:42 Departure Disposition: Home Clinical Impression: Tremor Condition: Fair Critical Care Time: No Referrals: CHELSEY TODD [Primary Care Provider] - Additional Instructions: Return home Benadryl 25 mg orally every 6 hours as needed for tremor.. Follow-up with Dr. Henson call her office and schedule a follow-up appointment. Return for acute distress, severe symptoms, or acute neurologic changes, or for any problems.
[2018-11-05] MEDS ORDERED: BENADRYL 50 MG/ML ONE (07:58)
[2018-11-05 07:59] LABS: BASOPHIL % 0.6 % (0.0-0.4); Basophil (Absolute #) 0.03 (0-0.4); Eosinophil % 4.3 % (0.00-5.0); Eosinophil (Absolute #) 0.21 (0-0.5); Granulocytes % 62.3 % (36.0-66.0); Hematocrit 35.6 % (35-47); Hemoglobin 11.1 gm/dl (12.0-16.0); Lymphocyte (Absolute #) 1.11 (1.0-4.6); Lymphocytes % 22.5 % (24.0-44.0); Mean Cell Volume 85.4 fl (78-100); Mean Corpuscular Hemoglobin 26.6 pg (26-32); Mean Corpuscular Hgb Concent. 31.2 g/dl (32-36); Mean Platelet Volume 9.9 fl (6-9.5); Monocyte (Absolute #) 0.51 (0.0-1.3); Monocytes % 10.3 % (0.0-12.0); Platelet Count 208 K/mm3 (150-450); Red Blood Count 4.17 M/mm3 (4.1-5.4); Red Cell Distribution Width 22.7 % (11.5-14.0); White Blood Count 4.9 K/mm3 (4.0-10.5)
[2018-11-05] MEDS ORDERED: Sodium Chloride 0.9% 1000 ML 1,000 ML ONE (07:59)
[2018-11-05 08:10] LABS: ALBUMIN 4.1 g/dL (3.5-5.0); ANION GAP 14.2 MEQ/L (5-15); BILIRUBIN,TOTAL 0.3 mg/dL (0.2-1.3); Calcium 9.3 mg/dL (8.4-10.2); Creatinine 1 0.98 mg/dL (0.52-1.04); Potassium 4.6 mmol/L (3.5-5.1); Total Protein 7.3 g/dL (6.3-8.2)
--- NOTE | 2018-11-05 08:27 | XRAY ---
Indication: Tremors. Left arm shaking. Multiple contiguous axial images obtained through the head without contrast. Comparison: September 15, 2018. Stable age-appropriate global atrophy and mild periventricular degenerative micro-ischemia bilaterally. Again no acute intracranial hemorrhage, abnormal extra-axial fluid collection, or mass effect. Fourth ventricle is midline without hydrocephalus. Bony calvarium intact. Visualized paranasal sinuses and mastoid air cells are clear. Impression: Stable nonacute senile brain. CTDI 67.99
[2018-11-05 09:05] LABS: Appearance CLEAR (CLEAR); Bilirubin NEGATIVE (NEGATIVE); Blood NEGATIVE Ery/ul (0-5); Glucose NEGATIVE (NEGATIVE); Ketones NEGATIVE (NEGATIVE); Leukocyte Esterase NEGATIVE (NEGATIVE); Nitrite NEGATIVE (NEGATIVE); Protein,Urine Dip NEGATIVE (Negative); Specific Gravity 1.008 (1.005-1.025); Urobilinogen NEGATIVE mg/dL (0-1)
[2018-11-05 09:06] LABS: Bacteria NONE SEEN /HPF (NEGATIVE); RBC NONE SEEN /HPF (0-2); WBC NONE SEEN /HPF (0-5)
[2018-11-05 10:27] VITALS: BP 149/82; PULSE 72; O2SAT 94
== END 2018-11-05 10:15 | disposition home or self-care (01) ==
LOC: ED 06:40
DX: R25.1 Tremor, unspecified (principal); G40.909 Epilepsy, unspecified, not intractable, without status epilepticus; J45.909 Unspecified asthma, uncomplicated; F41.9 Anxiety disorder, unspecified; F32.9 Major depressive disorder, single episode, unspecified; Z79.899 Other long term (current) drug therapy
CPT/HCPCS: 36415; 70450; 80053; 81001; 85025; 93005; 96360; 96361; 96374; 99284; J1200

== ENCOUNTER 2018-11-05 21:44 | Observation (INO) | payer OTHER ==
[2018-11-05] MEDS ORDERED: Sodium Chloride 0.9% 1000 ML 1,000 ML ONE (23:07)
--- NOTE | 2018-11-05 23:09 | ERPHSYRPT ---
- History of Present Illness Time Seen by Provider: 11/05/18 23:06 Source: patient, EMS Exam Limitations: no limitations Patient Subjective Stated Complaint: pt is alert and oriented x3. pt comes in after a fall where she landed on her bottom. pt denies hitting her head. pt landed on a tile floor. pt states her knees gave out on her. pt pupils PERRLA, pt foot pushes and hand property preservation specialist equal and strong. pt is able to lift legs, no drift. no sensation loss. Triage Nursing Assessment: see above Physician History: The patient is a 67-year-old female brought in from home where she lives alone by ambulance. She complains that her legs gave out when she was trying to walk this evening. She denies pain anywhere at this time. She is able to freely move her lower extremities while on the gurney without any difficulty. She was seen in this ER about 12 hours ago for shaking of the left arm. A full workup was done including head CT that was negative, EKG, CBC that was normal, CMP that was normal, and UA that was normal. Her past medical history is significant for seizures, anxiety, depression, COPD , and panic disorder. Her past surgical history includes orthopedic surgery and magnet placement for seizures. Timing/Duration: today Severity: moderate Modifying Factors: Improves With: nothing Associated Symptoms: weakness Allergies/Adverse Reactions: cefaclor [From Ceclor] Allergy (Mild, Verified 09/15/18 19:08) STATES GOT REAL HOT Home Medications: Levetiracetam [Keppra] 750 mg PO BID 09/22/17 [History] lamoTRIgine [Lamictal] 200 mg PO BID 09/22/17 [History] Albuterol Sulfate [Proair Hfa] 1 - 2 puff IH Q4-6HPRN PRN 11/30/17 [History] Acetaminophen [Tylenol] 650 mg PO Q4HPRN PRN 02/25/18 [History] Hydrocodone Bit/Acetaminophen [[place] 5-325 Tablet] 1 tab PO Q4HPRN PRN 02/25/18 [History] Metoprolol Tartrate 25 mg [Lopressor 25MG Tab] 25 mg PO BID 02/25/18 [ History] Risperidone [Risperdal] 0.5 mg PO BID 02/25/18 [History] Hx Tetanus, Diphtheria Vaccination/Date Given: Yes Hx Influenza Vaccination/Date Given: No Hx Pneumococcal Vaccination/Date Given: No Immunizations Up to Date: Yes - Review of Systems Constitutional: Weakness Eyes: No Symptoms Ears, Nose, & Throat: No Symptoms Respiratory: No Cough, No Dyspnea Cardiac: No Chest Pain, No Edema, No Syncope Abdominal/Gastrointestinal: No Abdominal Pain, No Nausea, No Vomiting, No Diarrhea Genitourinary Symptoms: No Dysuria Musculoskeletal: No Back Pain, No Neck Pain Skin: No Rash Neurological: No Dizziness, No Focal Weakness, No Sensory Changes Psychological: No Symptoms Endocrine: No Symptoms Hematologic/Lymphatic: No Symptoms Immunological/Allergic: No Symptoms All Other Systems: Reviewed and Negative - Past Medical History Pertinent Past Medical History: Yes Neurological History: Seizures ENT History: No Pertinent History Cardiac History: No Pertinent History Respiratory History: Asthma Endocrine Medical History: No Pertinent History Musculoskeletal History: No Pertinent History GI Medical History: No Pertinent History History: No Pertinent History Psycho-Social History: Anxiety, Depression, Panic Disorder Female Reproductive Disorders: No Pertinent History Other Medical History: SEIZURE 02/03 FELL AND LED TO R SHOULDER ISSUES. PT USES O2 PRN AT HOME - Past Surgical History Past Surgical History: Yes Neuro Surgical History: No Pertinent History Cardiac: No Pertinent History Respiratory: No Pertinent History Gastrointestinal: No Pertinent History Genitourinary: No Pertinent History Musculoskeletal: No Pertinent History, Joint Replacement, Orthopedic Surgery Female Surgical History: No Pertinent History Other Surgical History: MAGNET PLACEMENT FOR SEIZURES - Social History Smoking Status: Former smoker How long have you smoked: 55 Exposure to second hand smoke: No Drug Use: none Patient Lives Alone: No Significant Family History: no pertinent family hx - Female History Hx Now: No - Nursing Vital Signs Nursing Vital Signs: Initial Vital Signs Temperature 98.2 F 11/05/18 21:48 Pulse Rate 67 11/05/18 21:48 Respiratory Rate 18 11/05/18 21:48 Blood Pressure 166/89 11/05/18 21:48 O2 Sat by Pulse Oximetry 93 L 11/05/18 21:48 Pain Scale Pain Intensity 0 - Physical Exam General Appearance: no apparent distress, alert Eye Exam: PERRL/EOMI, eyes nml inspection Ears, Nose, Throat Exam: normal ENT inspection, TMs normal, pharynx normal, moist mucous membranes Neck Exam: normal inspection, non-tender, supple, full range of motion Respiratory Exam: rhonchi Cardiovascular Exam: regular rate/rhythm, normal heart sounds, normal peripheral pulses Gastrointestinal/Abdomen Exam: soft, normal bowel sounds, No tenderness, No mass Pelvic Exam: not done Rectal Exam: not done Back Exam: normal inspection, normal range of motion, No CVA tenderness, No vertebral tenderness Extremity Exam: normal inspection, normal range of motion, pelvis stable Neurologic Exam: alert, oriented x 3, cooperative, normal mood/affect, nml cerebellar function, nml station & gait, sensation nml, No motor deficits, No slurred speech, No aphasia, No dysarthria Skin Exam: normal color, warm, dry, No rash Lymphatic Exam: No adenopathy SpO2 Interpretation: normal SpO2: 96 O2 Delivery: Nasal Cannula (2 L) - Course EKG Interpreted by Me: RATE, NORMAL AXIS, NORMAL INTERVALS, NORMAL QRS, NORMAL ST-T - Radiology Exams Chest X-ray Interpretation: Interpreted by me, Infiltrates (loss of right hemidiaphragm [place]ette, comp 1/v chest 02/25/18.) Ordered Tests: Active Orders 24 hr Category Date Time Status EKG-ER Only STAT Care 11/05/18 21:54 Active IV Insertion STAT Care 11/05/18 21:54 Active Oxygen-ED Only Nasal Cannula 2 lpm Care 11/05/18 21:54 Active CHEST 1 VIEW (PORTABLE) Stat Exams 11/05/18 23:10 Taken BMP Stat Lab 11/05/18 23:15 Received CBC W DIFF Stat Lab 11/05/18 23:15 Completed Medication Summary Generic Name Dose Route Start Last Admin Trade Name uJlia PRN Reason Stop Dose Admin Sodium Chloride 1,000 mls @ 100 mls/hr 11/05/18 23:15 11/05/18 23:12 Sodium Chloride 0.9% 1000 Ml IV 12/05/18 23:14 100 mls/hr .Q10H MOE Administration Lab/Rad Data: Laboratory Result Diagrams 11/05/18 23:15 Laboratory Results 11/05/18 Range/Units 23:15 WBC 5.4 (4.0-10.5) K/mm3 RBC 3.99 L (4.1-5.4) M/mm3 Hgb 10.5 L (12.0-16.0) gm/dl Hct 34.0 L (35-47) % MCV 85.2 (78-100) fl MCH 26.3 (26-32) pg MCHC 30.9 L (32-36) g/dl RDW 22.3 H (11.5-14.0) % Plt Count 222 (150-450) K/mm3 MPV 9.0 (6-9.5) fl Gran % 61.5 (36.0-66.0) % Eos # (Auto) 0.16 (0-0.5) Absolute Lymphs (auto) 1.30 (1.0-4.6) Absolute Monos (auto) 0.55 (0.0-1.3) Lymphocytes % 24.3 (24.0-44.0) % Monocytes % 10.3 (0.0-12.0) % Eosinophils % 3.0 (0.00-5.0) % Basophils % 0.9 (0.0-0.4) % Absolute Granulocytes 3.30 (1.4-6.9) Basophils # 0.05 (0-0.4) - Progress Progress: unchanged Discussed with : Charles Will see patient in: hospital (observation) Counseled pt/family regarding: lab results, diagnosis, rad results - Departure Time of Disposition: 23:43 Departure Disposition: Observation (per Dr Soto) Clinical Impression: Weakness, Infiltrate noted on imaging study Condition: Stable Critical Care Time: No Referrals: CHELSEY TODD [Primary Care Provider] -
[2018-11-05] MEDS ORDERED: Sodium Chloride 0.9% 1000 ML 1,000 ML IV SCH (23:15)
[2018-11-05 23:22] LABS: BASOPHIL % 0.9 % (0.0-0.4); Basophil (Absolute #) 0.05 (0-0.4); Eosinophil (Absolute #) 0.16 (0-0.5); Granulocytes % 61.5 % (36.0-66.0); Hemoglobin 10.5 gm/dl (12.0-16.0); Lymphocytes % 24.3 % (24.0-44.0); Mean Cell Volume 85.2 fl (78-100); Mean Corpuscular Hemoglobin 26.3 pg (26-32); Mean Corpuscular Hgb Concent. 30.9 g/dl (32-36); Monocyte (Absolute #) 0.55 (0.0-1.3); Monocytes % 10.3 % (0.0-12.0); Platelet Count 222 K/mm3 (150-450); Red Blood Count 3.99 M/mm3 (4.1-5.4); Red Cell Distribution Width 22.3 % (11.5-14.0); White Blood Count 5.4 K/mm3 (4.0-10.5)
[2018-11-05 23:41] LABS: BLOOD UREA NITROGEN 17 mg/dL (7-17); CHLORIDE 101 mmol/L (98-107); Calcium 9.1 mg/dL (8.4-10.2); Carbon Dioxide 28 mmol/L (22-30); Creatinine 1 0.94 mg/dL (0.52-1.04); Glucose 110 mg/dL (74-106); SODIUM 137 mmol/L (137-145)
[2018-11-05] MEDS ORDERED: LEVOFLOXACIN 750MG/150ML D5W 750 MG/150 ML BAG IV STA (23:43)
[2018-11-06] MEDS ORDERED: LEVOFLOXACIN 750MG/150ML D5W 750 MG/150 ML BAG IV ONE (00:16)
[2018-11-06] MEDS ORDERED: Sodium Chloride 0.9% 1000 ML 1,000 ML ONE (00:16)
[2018-11-06 00:43] LABS: Slide Review 1 YES
[2018-11-06] MEDS ORDERED: TYLENOL 325 MG PO PRN (01:14)
[2018-11-06] MEDS ORDERED: Zofran 4 MG/2 ML VIAL IV PRN (01:14)
[2018-11-06] MEDS: Sodium Chloride 0.9% 1000 ML 1,000 ML IV SCH ×3 (01:41→21:12)
[2018-11-06 05:55] LABS: BASOPHIL % 0.4 % (0.0-0.4); Basophil (Absolute #) 0.02 (0-0.4); Eosinophil (Absolute #) 0.19 (0-0.5); Granulocytes % 54.1 % (36.0-66.0); Hematocrit 32.8 % (35-47); Lymphocyte (Absolute #) 1.44 (1.0-4.6); Lymphocytes % 30.5 % (24.0-44.0); Mean Cell Volume 86.1 fl (78-100); Mean Corpuscular Hemoglobin 26.2 pg (26-32); Mean Corpuscular Hgb Concent. 30.5 g/dl (32-36); Mean Platelet Volume 9.2 fl (6-9.5); Monocyte (Absolute #) 0.52 (0.0-1.3); Platelet Count 222 K/mm3 (150-450); Red Blood Count 3.81 M/mm3 (4.1-5.4); Red Cell Distribution Width 22.6 % (11.5-14.0); White Blood Count 4.7 K/mm3 (4.0-10.5)
[2018-11-06 06:16] LABS: ANION GAP 12.2 MEQ/L (5-15); BLOOD UREA NITROGEN 14 mg/dL (7-17); CHLORIDE 103 mmol/L (98-107); Calcium 8.8 mg/dL (8.4-10.2); Carbon Dioxide 27 mmol/L (22-30); Creatinine 1 0.89 mg/dL (0.52-1.04); Glucose 85 mg/dL (74-106); Potassium 4.5 mmol/L (3.5-5.1); SODIUM 138 mmol/L (137-145)
[2018-11-06 06:57] LABS: Slide Review 1 YES
--- NOTE | 2018-11-06 09:14 | XRAY ---
Indication: Weakness. Comparison: February 25, 2018. Portable chest less inflated today again with right base infiltrate versus atelectasis. Remaining lungs clear. Heart and mediastinal structures within normal limits. Bony thorax again demonstrates osteopenia and degenerative changes. Previous right clavicle orthopedic hardware removed. Impression: Again right base infiltrate versus atelectasis. Correlate clinically.
--- NOTE | 2018-11-06 10:01 | PCM.HP ---
History of Present Illness - Chief Complaint Chief Complaint: weakness History of Present Illness: is a 67 year old female patient of Dr Valladares who presented from assisted living. she has felt increasing more weak the last 3 days, apparently fell on her bottom with no injury due to weakness that is nonfocal. She has had a cough that has been productive at times, no fever, denies wheezing or shortness of breath. - Review of Systems Constitutional: No Fever, No Chills Respiratory: Cough Cardiac: No Chest Pain, No Edema, No Syncope Abdominal/Gastrointestinal: No Abdominal Pain, No Nausea, No Vomiting, No Diarrhea Skin: No Symptoms All Other Systems: Reviewed and Negative Medications & Allergies Home Medications: Home Medication List Nitroglycerin 0.4 mg Tablet [Nitrostat 0.4 MG Tablet] 0.4 mg SL Q5MIN PRN MR X 3 PRN #1 bottle 09/25/16 [Rx Confirmed 11/06/18] Levetiracetam [Keppra] 750 mg PO BID 09/22/17 [History Confirmed 11/06/18] lamoTRIgine [Lamictal] 200 mg PO BID 09/22/17 [History Confirmed 11/06/18] Magnesium Oxide 400 mg [Mag-Ox 400] 400 mg PO BID #60 tablet 10/27/17 [Rx Confirmed 11/06/18] Acetaminophen [Tylenol] 650 mg PO Q4HPRN PRN 02/25/18 [History Confirmed ] Metoprolol Tartrate 25 mg [Lopressor 25MG Tab] 25 mg PO BID 02/25/18 [ History Confirmed 11/06/18] ALPRAZolam [Alprazolam] 0.25 mg PO DAILY PRN PRN 11/06/18 [History Confirmed ] Fluticasone Propionate [Flonase NASAL] 1 spray IH DAILY 11/06/18 [History Confirmed 11/06/18] Hydroxyzine HCl 25 mg [Atarax 25 mg] 25 mg PO TID 11/06/18 [History Confirmed 11/06/18] Melatonin 3 mg PO HS PRN PRN 11/06/18 [History Confirmed 11/06/18] Sertraline HCl 100 mg PO DAILY 11/06/18 [History Confirmed 11/06/18] risperiDONE [Risperidone] 1 mg PO BID 11/06/18 [History Confirmed 11/06/18] Allergies/Adverse Reactions: Allergies Allergy/AdvReac Type Severity Reaction Status Date / Time cefaclor [From [facility] [place] Allergy Mild Verified 11/06/18 02:03 - Past Medical History Past Medical History: Yes Neurological History: Seizures ENT History: No Pertinent History Cardiac History: No Pertinent History Respiratory History: Asthma Endocrine Medical History: No Pertinent History Musculoskelatal History: No Pertinent History GI Medical History: No Pertinent History History: No Pertinent History Pyscho-Social History: Anxiety, Depression, Panic Disorder Reproductive Disorders: No Pertinent History Comment: SEIZURE 02/03 FELL AND LED TO R SHOULDER ISSUES. PT USES O2 @ 2L PRN during the day and routine at night AT HOME - Female History Are you now?: No - Past Surgical History Past Surgical History: Yes Neuro Surgical History: No Pertinent History Cardiac History: No Pertinent History Respiratory Surgery: No Pertinent History GI Surgical History: No Pertinent History Genitourinary Surgical Hx: No Pertinent History Musculskeletal Surgical Hx: No Pertinent History, Joint Replacement, Orthopedic Surgery Female Surgical History: No Pertinent History Other Surgical History: MAGNET PLACEMENT FOR SEIZURES in left chest and wears a watch to activate magnet. - Social History Smoking Status: Former smoker How long have you smoked: 55 years Exposure to second hand smoke: No Alcohol: None Drug Use: none Significant Family History: no pertinent family hx - Physical Exam Vital Signs: Vital Signs - 24 hr Temp Pulse Resp BP Pulse Ox 11/06/18 08:07 61 18 97 11/06/18 07:19 98.1 F 64 17 131/60 97 11/06/18 06:00 18 11/06/18 03:57 97.9 F 63 18 116/61 97 11/06/18 01:18 63 19 97 11/06/18 01:14 97.5 F 60 19 148/71 97 11/06/18 00:40 68 91 L 11/05/18 23:48 96 11/05/18 23:01 63 18 159/84 96 11/05/18 22:24 66 16 129/76 97 11/05/18 21:48 98.2 F 67 18 166/89 93 L Oxygen-Last 24 hours O2 Percentage 2 Liters = 28% O2 Percentage 2 Liters = 28% O2 Percentage 2 Liters = 28% O2 Percentage 2 Liters = 28% O2 Percentage 2 Liters = 28% O2 Percentage 2 Liters = 28% General Appearance: no apparent distress, alert Neurologic Exam: alert, oriented x 3, 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, 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, normal mood/affect, No motor deficits, No sensory deficit Respiratory Exam: rhonchi (right lung base), No respiratory distress, No accessory muscle use, No prolonged expirations Cardiovascular Exam: regular rate/rhythm, normal heart sounds, normal peripheral pulses Gastrointestinal/Abdomen Exam: soft, normal bowel sounds, No tenderness, No mass Extremity Exam: normal inspection, normal range of motion, pelvis stable Skin Exam: normal color, warm, dry, No rash Results - Labs Lab/Micro Results: Lab Results-Last 24 Hours 11/05/18 11/05/18 11/06/18 Range/Units 23:15 23:15 01:55 WBC 5.4 (4.0-10.5) K/mm3 RBC 3.99 L (4.1-5.4) M/mm3 Hgb 10.5 L (12.0-16.0) gm/dl Hct 34.0 L (35-47) % MCV 85.2 (78-100) fl MCH 26.3 (26-32) pg MCHC 30.9 L (32-36) g/dl RDW 22.3 H (11.5-14.0) % Plt Count 222 (150-450) K/mm3 MPV 9.0 (6-9.5) fl Gran % 61.5 (36.0-66.0) % Eos # (Auto) 0.16 (0-0.5) Absolute Lymphs (auto) 1.30 (1.0-4.6) Absolute Monos (auto) 0.55 (0.0-1.3) Lymphocytes % 24.3 (24.0-44.0) % Monocytes % 10.3 (0.0-12.0) % Eosinophils % 3.0 (0.00-5.0) % Basophils % 0.9 (0.0-0.4) % Absolute Granulocytes 3.30 (1.4-6.9) Basophils # 0.05 (0-0.4) Sodium 137 (137-145) mmol/L Potassium 5.0 (3.5-5.1) mmol/L Chloride 101 (98-107) mmol/L Carbon Dioxide 28 (22-30) mmol/L Anion Gap 13.0 (5-15) MEQ/L BUN 17 (7-17) mg/dL Creatinine 0.94 (0.52-1.04) mg/dL Estimated GFR > 60.0 ML/MIN Glucose 110 H (74-106) mg/dL Calcium 9.1 (8.4-10.2) mg/dL Troponin I < 0.012 (0.000-0.034) ng/mL Slides for Path Review YES 11/06/18 11/06/18 11/06/18 Range/Units 05:10 05:10 05:10 WBC 4.7 (4.0-10.5) K/mm3 RBC 3.81 L (4.1-5.4) M/mm3 Hgb 10.0 L (12.0-16.0) gm/dl Hct 32.8 L (35-47) % MCV 86.1 (78-100) fl MCH 26.2 (26-32) pg MCHC 30.5 L (32-36) g/dl RDW 22.6 H (11.5-14.0) % Plt Count 222 (150-450) K/mm3 MPV 9.2 (6-9.5) fl Gran % 54.1 (36.0-66.0) % Eos # (Auto) 0.19 (0-0.5) Absolute Lymphs (auto) 1.44 (1.0-4.6) Absolute Monos (auto) 0.52 (0.0-1.3) Lymphocytes % 30.5 (24.0-44.0) % Monocytes % 11.0 (0.0-12.0) % Eosinophils % 4.0 (0.00-5.0) % Basophils % 0.4 (0.0-0.4) % Absolute Granulocytes 2.55 (1.4-6.9) Basophils # 0.02 (0-0.4) Sodium 138 (137-145) mmol/L Potassium 4.5 (3.5-5.1) mmol/L Chloride 103 (98-107) mmol/L Carbon Dioxide 27 (22-30) mmol/L Anion Gap 12.2 (5-15) MEQ/L BUN 14 (7-17) mg/dL Creatinine 0.89 (0.52-1.04) mg/dL Estimated GFR > 60.0 ML/MIN Glucose 85 (74-106) mg/dL Calcium 8.8 (8.4-10.2) mg/dL Troponin I < 0.012 (0.000-0.034) ng/mL Slides for Path Review YES 11/06/18 Range/Units 07:53 WBC (4.0-10.5) K/mm3 RBC (4.1-5.4) M/mm3 Hgb (12.0-16.0) gm/dl Hct (35-47) % MCV (78-100) fl MCH (26-32) pg MCHC (32-36) g/dl RDW (11.5-14.0) % Plt Count (150-450) K/mm3 MPV (6-9.5) fl Gran % (36.0-66.0) % Eos # (Auto) (0-0.5) Absolute Lymphs (auto) (1.0-4.6) Absolute Monos (auto) (0.0-1.3) Lymphocytes % (24.0-44.0) % Monocytes % (0.0-12.0) % Eosinophils % (0.00-5.0) % Basophils % (0.0-0.4) % Absolute Granulocytes (1.4-6.9) Basophils # (0-0.4) Sodium (137-145) mmol/L Potassium (3.5-5.1) mmol/L Chloride (98-107) mmol/L Carbon Dioxide (22-30) mmol/L Anion Gap (5-15) MEQ/L BUN (7-17) mg/dL Creatinine (0.52-1.04) mg/dL Estimated GFR ML/MIN Glucose (74-106) mg/dL Calcium (8.4-10.2) mg/dL Troponin I < 0.012 (0.000-0.034) ng/mL Slides for Path Review - Radiology Impressions Radiology Exams & Impressions: Radiology Procedures Category Date Time Status CHEST 1 VIEW (PORTABLE) Stat Exams 11/05/18 23:10 Completed - Other Procedures and Tests Respiratory Therapy 11/06/18 01:14 Oxygen Nasal Cannula 2 lpm 11/06/18 01:42 Respiratory Therapy Assessment Assessment/Plan (1) Pneumonia Current Visit: Yes Status: Acute Assessment & Plan: on levaquin at this time, gentle hydration. add prn nebs. x-ray changes might be more chronic but has some rales in right lung base, u/a was not done in ER unfortunately and had had levaquin. will add u/a to workup at this time Code(s): J18.9 - PNEUMONIA, UNSPECIFIED ORGANISM (2) Weakness Current Visit: Yes Status: Acute Assessment & Plan: PT consult Code(s): R53.1 - WEAKNESS
[2018-11-06] MEDS: DUONEB 0.5-3 MG/3 ml Neb IH SCH ×3 (10:48→19:41)
[2018-11-06] MEDS ORDERED: xanAX 0.25 MG PO PRN (11:36)
[2018-11-06] MEDS ORDERED: Nitrostat 0.4 MG Tablet SL PRN (11:36)
[2018-11-06] MEDS ORDERED: MEDICATION INTERVENTION MC SCH (12:00)
[2018-11-06] MEDS: ZOLOFT 50 MG TABLET PO SCH (12:02)
[2018-11-06] MEDS: ENOXAPARIN SODIUM SQ SCH (12:02)
[2018-11-06] MEDS: lamICTAL 100MG TABLET PO SCH ×2 (12:02→21:13)
[2018-11-06] MEDS: MAG-OX 400 PO SCH ×2 (12:02→21:13)
[2018-11-06] MEDS: Lopressor 25MG Tab PO SCH ×2 (12:03→21:13)
[2018-11-06] MEDS: KEPPRA 500 MG PO SCH ×2 (12:03→21:13)
[2018-11-06] MEDS: Risperdal 1 MG PO SCH ×2 (12:03→21:13)
[2018-11-06 13:21] LABS: Appearance CLEAR (CLEAR); Bilirubin NEGATIVE (NEGATIVE); Blood NEGATIVE Ery/ul (0-5); Glucose NEGATIVE (NEGATIVE); Ketones NEGATIVE (NEGATIVE); Leukocyte Esterase TRACE (NEGATIVE); Mucus SLIGHT /HPF (NEGATIVE); Nitrite NEGATIVE (NEGATIVE); Protein,Urine Dip NEGATIVE (Negative); Specific Gravity 1.013 (1.005-1.025); Urobilinogen NEGATIVE mg/dL (0-1)
[2018-11-06 13:28] LABS: Bacteria NONE SEEN /HPF (NEGATIVE)
[2018-11-06] MEDS: ATARAX 25 MG PO SCH ×2 (15:07→21:13)
[2018-11-06] MEDS ORDERED: LAMOTRIGINE 200 MG PO SCH (22:00)
[2018-11-06] MEDS ORDERED: NON-FORMULARY ITEM (Levetiracetam [Keppra] 750 MG) PO SCH (22:00)
[2018-11-06] MEDS ORDERED: LEVOFLOXACIN 750MG/150ML D5W 750 MG/150 ML BAG IV SCH (22:00)
[2018-11-07 06:17] LABS: BASOPHIL % 0.2 % (0.0-0.4); Basophil (Absolute #) 0.02 (0-0.4); Eosinophil % 1.3 % (0.00-5.0); Eosinophil (Absolute #) 0.11 (0-0.5); Granulocytes % 75.7 % (36.0-66.0); Hematocrit 30.9 % (35-47); Hemoglobin 9.4 gm/dl (12.0-16.0); Lymphocytes % 13.3 % (24.0-44.0); Mean Cell Volume 87.3 fl (78-100); Mean Corpuscular Hgb Concent. 30.4 g/dl (32-36); Mean Platelet Volume 9.2 fl (6-9.5); Monocyte (Absolute #) 0.79 (0.0-1.3); Monocytes % 9.5 % (0.0-12.0); Platelet Count 200 K/mm3 (150-450); Red Blood Count 3.54 M/mm3 (4.1-5.4); Red Cell Distribution Width 22.9 % (11.5-14.0); White Blood Count 8.3 K/mm3 (4.0-10.5)
[2018-11-07 06:36] LABS: ANION GAP 11.4 MEQ/L (5-15); BLOOD UREA NITROGEN 18 mg/dL (7-17); CHLORIDE 103 mmol/L (98-107); Calcium 8.8 mg/dL (8.4-10.2); Carbon Dioxide 26 mmol/L (22-30); Glucose 103 mg/dL (74-106); Potassium 4.3 mmol/L (3.5-5.1); SODIUM 136 mmol/L (137-145)
[2018-11-07 06:42] LABS: Mean Corpuscular Hemoglobin 26.5 pg (26-32)
[2018-11-07] MEDS: Sodium Chloride 0.9% 1000 ML 1,000 ML IV SCH ×2 (07:30→17:21)
[2018-11-07] MEDS: DUONEB 0.5-3 MG/3 ml Neb IH SCH ×4 (07:47→20:55)
[2018-11-07 08:26] LABS: Slide Review 1 YES
[2018-11-07] MEDS: ENOXAPARIN SODIUM SQ SCH (09:36)
[2018-11-07] MEDS: ATARAX 25 MG PO SCH ×4 (09:36→22:45)
[2018-11-07] MEDS: KEPPRA 500 MG PO SCH ×2 (09:38→22:09)
[2018-11-07] MEDS: lamICTAL 100MG TABLET PO SCH ×2 (09:39→22:10)
[2018-11-07] MEDS: ZOLOFT 50 MG TABLET PO SCH (09:40)
[2018-11-07] MEDS: Lopressor 25MG Tab PO SCH ×2 (09:40→22:11)
[2018-11-07] MEDS: MAG-OX 400 PO SCH ×2 (09:40→22:11)
[2018-11-07] MEDS: Risperdal 1 MG PO SCH ×2 (09:40→22:11)
[2018-11-07] MEDS: Flonase NASAL NS SCH (09:44)
--- NOTE | 2018-11-07 09:58 | PCM.NOTE ---
Date and Time: 11/07/18956 Subjective Assessment: patient reports improvement in her cough, overall feeling better. still weak, hasn't ambulated much according to patient. Objective Exam General Appearance: no apparent distress, alert Neurologic Exam: alert, oriented x 3, cooperative Skin Exam: normal color, warm, dry Respiratory Exam: prolonged expirations, rhonchi Cardiovascular Exam: regular rate/rhythm, normal heart sounds Gastrointestinal/Abdomen Exam: soft, No tenderness, No mass Extremity Exam: normal inspection, normal range of motion OBJECTIVE DATA Vital Signs: Vital Signs - 24 hr Temp Pulse Resp BP Pulse Ox 11/07/18 07:48 71 20 94 L 11/07/18 07:09 97.8 F 66 20 132/68 96 11/07/18 03:48 99.6 F 75 24 163/72 93 L 11/07/18 00:00 98.6 F 75 28 H 133/61 94 L 11/06/18 20:00 98.9 F 77 18 127/60 94 L 11/06/18 19:41 78 18 95 11/06/18 16:00 98.5 F 83 18 145/78 92 L 11/06/18 15:00 66 18 96 11/06/18 12:00 98.2 F 84 18 117/58 92 L 11/06/18 10:59 73 20 96 11/06/18 10:00 18 Oxygen-Last 24 hours O2 Percentage 2 Liters = 28% O2 Percentage 2 Liters = 28% O2 Percentage 2 Liters = 28% O2 Percentage 2 Liters = 28% O2 Percentage 2 Liters = 28% O2 Percentage 2 Liters = 28% Pain Assessment - Last Documented Pain Intensity 0 Pain Scale Used 0-10 Pain Scale Intake and Output: Intake & Output 11/04/18 11/05/18 11/06/18 11/07/18 11:59 11:59 11:59 11:59 Intake Total 678 2751 Output Total 600 2500 Balance 78 251 Weight 61.5 kg Lab Results: Lab Results-Last 24 Hours 11/06/18 11/06/18 11/06/18 Range/Units 10:56 12:50 13:55 WBC (4.0-10.5) K/mm3 RBC (4.1-5.4) M/mm3 Hgb (12.0-16.0) gm/dl Hct (35-47) % MCV (78-100) fl MCH (26-32) pg MCHC (32-36) g/dl RDW (11.5-14.0) % Plt Count (150-450) K/mm3 MPV (6-9.5) fl Gran % (36.0-66.0) % Eos # (Auto) (0-0.5) Absolute Lymphs (auto) (1.0-4.6) Absolute Monos (auto) (0.0-1.3) Lymphocytes % (24.0-44.0) % Monocytes % (0.0-12.0) % Eosinophils % (0.00-5.0) % Basophils % (0.0-0.4) % Absolute Granulocytes (1.4-6.9) Basophils # (0-0.4) Sodium (137-145) mmol/L Potassium (3.5-5.1) mmol/L Chloride (98-107) mmol/L Carbon Dioxide (22-30) mmol/L Anion Gap (5-15) MEQ/L BUN (7-17) mg/dL Creatinine (0.52-1.04) mg/dL Estimated GFR ML/MIN Glucose (74-106) mg/dL Calcium (8.4-10.2) mg/dL Troponin I < 0.012 < 0.012 (0.000-0.034) ng/mL Urine Color STRAW (YELLOW) Urine Appearance CLEAR (CLEAR) Urine pH 7.0 (5-6) Ur Specific [place] 1.013 (1.005-1.025) Urine Protein NEGATIVE (Negative) Urine Ketones NEGATIVE (NEGATIVE) Urine Blood NEGATIVE (0-5) Jos/ul Urine Nitrite NEGATIVE (NEGATIVE) Urine Bilirubin NEGATIVE (NEGATIVE) Urine Urobilinogen NEGATIVE (0-1) mg/dL Ur Leukocyte Esterase TRACE (NEGATIVE) Urine WBC (Auto) NONE (0-5) /HPF Urine RBC (Auto) NONE (0-2) /HPF Urine Bacteria (Auto) NONE SEEN (NEGATIVE) /HPF Urine Mucus (Auto) SLIGHT (NEGATIVE) /HPF Urine Culture Reflexed NO (NO) Urine Glucose NEGATIVE (NEGATIVE) mg/dL Slides for Path Review 11/07/18 11/07/18 Range/Units 05:45 05:45 WBC 8.3 (4.0-10.5) K/mm3 RBC 3.54 L (4.1-5.4) M/mm3 Hgb 9.4 L (12.0-16.0) gm/dl Hct 30.9 L (35-47) % MCV 87.3 (78-100) fl MCH 26.5 (26-32) pg MCHC 30.4 L (32-36) g/dl RDW 22.9 H (11.5-14.0) % Plt Count 200 (150-450) K/mm3 MPV 9.2 (6-9.5) fl Gran % 75.7 H (36.0-66.0) % Eos # (Auto) 0.11 (0-0.5) Absolute Lymphs (auto) 1.10 (1.0-4.6) Absolute Monos (auto) 0.79 (0.0-1.3) Lymphocytes % 13.3 L (24.0-44.0) % Monocytes % 9.5 (0.0-12.0) % Eosinophils % 1.3 (0.00-5.0) % Basophils % 0.2 (0.0-0.4) % Absolute Granulocytes 6.27 (1.4-6.9) Basophils # 0.02 (0-0.4) Sodium 136 L (137-145) mmol/L Potassium 4.3 (3.5-5.1) mmol/L Chloride 103 (98-107) mmol/L Carbon Dioxide 26 (22-30) mmol/L Anion Gap 11.4 (5-15) MEQ/L BUN 18 H (7-17) mg/dL Creatinine 0.90 (0.52-1.04) mg/dL Estimated GFR > 60.0 ML/MIN Glucose 103 (74-106) mg/dL Calcium 8.8 (8.4-10.2) mg/dL Troponin I (0.000-0.034) ng/mL Urine Color (YELLOW) Urine Appearance (CLEAR) Urine pH (5-6) Ur Specific [place] (1.005-1.025) Urine Protein (Negative) Urine Ketones (NEGATIVE) Urine Blood (0-5) Jos/ul Urine Nitrite (NEGATIVE) Urine Bilirubin (NEGATIVE) Urine Urobilinogen (0-1) mg/dL Ur Leukocyte Esterase (NEGATIVE) Urine WBC (Auto) (0-5) /HPF Urine RBC (Auto) (0-2) /HPF Urine Bacteria (Auto) (NEGATIVE) /HPF Urine Mucus (Auto) (NEGATIVE) /HPF Urine Culture Reflexed (NO) Urine Glucose (NEGATIVE) mg/dL Slides for Path Review YES Radiology Exams: Radiology Procedures Category Date Time Status CHEST 1 VIEW (PORTABLE) Stat Exams 11/05/18 23:10 Completed Multi-Disciplinary Progress Notes: Multi-Disciplinary Progress Notes 11/06/18 11:00 (created 11/06/18 11:31) Case Management Note by Evelia Dominguez ATTEMPTED TO REACH MARYAM, PT'S COUSIN, AND LAY CAREGIVER BY PHONE, NO ANSWER, [phone]. VISITED WITH PT AND DISCUSSED DISCHARGE PLAN. PT REPORTS THAT SHE IS NOW AT THIS [employer] AP[facility]. REPORTS THAT SHE HAS A WALKER AND A CANE BUT NEVER HAS TO USE THEM. REPORTS THAT SHE IS INDEPENDENT WITH ALL ADL'S. SHE DOES NOT DRIVE, BUT FAMILY TAKES HER TO APPTS AND TO RUN ERRANDS. HAS HOME O2 THAT [facility] PROVIDES. DENIES NEEDS FOR DISCHARGE. WILL FOLLOW. Initialized on 11/06/18 11:31 - END OF NOTE Assessment/Plan (1) Pneumonia Current Visit: Yes Status: Acute Assessment & Plan: improving on levaquin, continue current regimen Code(s): J18.9 - PNEUMONIA, UNSPECIFIED ORGANISM (2) Weakness Current Visit: Yes Status: Acute Assessment & Plan: will ambulate, ?whether she will be able to return to assisted living vs referral for ECF stay. will let primary evaluate tomorrow Code(s): R53.1 - WEAKNESS
[2018-11-07] MEDS ORDERED: LEVOFLOXACIN 750MG/150ML D5W 750 MG/150 ML BAG IV SCH (22:00)
[2018-11-08] MEDS: Sodium Chloride 0.9% 1000 ML 1,000 ML IV SCH (04:03)
[2018-11-08 06:06] LABS: BASOPHIL % 0.3 % (0.0-0.4); Basophil (Absolute #) 0.02 (0-0.4); Eosinophil (Absolute #) 0.19 (0-0.5); Granulocytes % 73.7 % (36.0-66.0); Hemoglobin 8.5 gm/dl (12.0-16.0); Lymphocyte (Absolute #) 0.92 (1.0-4.6); Lymphocytes % 14.6 % (24.0-44.0); Mean Cell Volume 88.1 fl (78-100); Mean Corpuscular Hemoglobin 26.7 pg (26-32); Mean Corpuscular Hgb Concent. 30.4 g/dl (32-36); Mean Platelet Volume 9.4 fl (6-9.5); Monocyte (Absolute #) 0.53 (0.0-1.3); Monocytes % 8.4 % (0.0-12.0); Platelet Count 198 K/mm3 (150-450); Red Blood Count 3.18 M/mm3 (4.1-5.4); Red Cell Distribution Width 23.8 % (11.5-14.0); White Blood Count 6.3 K/mm3 (4.0-10.5)
[2018-11-08 06:13] LABS: ANION GAP 11.1 MEQ/L (5-15); BLOOD UREA NITROGEN 14 mg/dL (7-17); CHLORIDE 109 mmol/L (98-107); Calcium 8.5 mg/dL (8.4-10.2); Carbon Dioxide 24 mmol/L (22-30); Creatinine 1 0.78 mg/dL (0.52-1.04); Glucose 93 mg/dL (74-106); Potassium 4.6 mmol/L (3.5-5.1); SODIUM 140 mmol/L (137-145)
[2018-11-08] MEDS: DUONEB 0.5-3 MG/3 ml Neb IH SCH (07:26)
[2018-11-08 07:58] LABS: Slide Review 1 YES
[2018-11-08 08:26] VITALS: BP 140/62; PULSE 74; O2SAT 94
--- NOTE | 2018-11-08 09:12 | PCM.DS ---
Discharge Summary Date of Admission: 11/06/18 01:09 Admitting Physician: BELKYS QUISPE Primary Care Provider: IMELDA HENSON Allergies Allergies cefaclor [From [facility] [place]] Allergy (Mild, Verified 11/06/18 02:03) STATES GOT [facility] Hospital Summary - Hospital Course Hospital Course: patient of Dr Henson admitted with weakness and fall, had some cough. chest xray showed pneumonia, was treated with levaquin. she is ambulatory and back to her baseline, discharging back to assisted living today. - Vitals & Intake/Output Vital Signs: Vital Signs Temperature 98.7 F 11/08/18 08:00 Pulse Rate 74 11/08/18 08:00 Respiratory Rate 16 11/08/18 08:33 Blood Pressure 140/62 11/08/18 08:00 O2 Sat by Pulse Oximetry 94 L 11/08/18 08:00 Oxygen-Last Documented O2 Percentage 2 Liters = 28% Intake & Output: Intake & Output 11/05/18 11/06/18 11/07/18 11/08/18 11:59 11:59 11:59 11:59 Intake Total 678 2871 3522 Output Total 600 2700 2350 Balance 78 171 1172 Weight 61.5 kg - Lab Result Diagrams: 11/08/18 05:20 11/08/18 05:20 Lab Results-Last 24 Hrs: Lab Results-Last 24 Hours 11/08/18 11/08/18 Range/Units 05:20 05:20 WBC 6.3 (4.0-10.5) K/mm3 RBC 3.18 L (4.1-5.4) M/mm3 Hgb 8.5 L (12.0-16.0) gm/dl Hct 28.0 L (35-47) % MCV 88.1 (78-100) fl MCH 26.7 (26-32) pg MCHC 30.4 L (32-36) g/dl RDW 23.8 H (11.5-14.0) % Plt Count 198 (150-450) K/mm3 MPV 9.4 (6-9.5) fl Gran % 73.7 H (36.0-66.0) % Eos # (Auto) 0.19 (0-0.5) Absolute Lymphs (auto) 0.92 L (1.0-4.6) Absolute Monos (auto) 0.53 (0.0-1.3) Lymphocytes % 14.6 L (24.0-44.0) % Monocytes % 8.4 (0.0-12.0) % Eosinophils % 3.0 (0.00-5.0) % Basophils % 0.3 (0.0-0.4) % Absolute Granulocytes 4.62 (1.4-6.9) Basophils # 0.02 (0-0.4) Sodium 140 (137-145) mmol/L Potassium 4.6 (3.5-5.1) mmol/L Chloride 109 H (98-107) mmol/L Carbon Dioxide 24 (22-30) mmol/L Anion Gap 11.1 (5-15) MEQ/L BUN 14 (7-17) mg/dL Creatinine 0.78 (0.52-1.04) mg/dL Estimated GFR > 60.0 ML/MIN Glucose 93 (74-106) mg/dL Calcium 8.5 (8.4-10.2) mg/dL Slides for Path Review YES - Procedures and Test Procedures and Tests throughout Hospitalization: Therapy Orders & Screens 11/06/18 01:14 Oxygen Nasal Cannula 2 lpm Comment: 11/06/18 01:42 Respiratory Therapy Assessment Comment: Diagnosis: weakness 11/06/18 02:24 RT Screen per Nursing Assess ONCE Comment: Protocol Order Physician Instructions: Greater than 3 points order RT Admission Screen Reason For Exam: Triggered on Admission Diagnosis: weakness Diagnosis: weakness Pneumonia: Yes Home O2: Yes Asthma: No CHF: No Home CPAP/BIPAP: No Home Nebs/MDI: Yes Total Points: 13 11/06/18 10:01 PT Eval & Treat (MD Order) ROUTINE Reason for Eval:: weakness, fall Diagnosis: weakness 11/06/18 10:58 Peak Expiratory Flow Rate ONCE Comment: Reason For Exam: Diagnosis: weakness Discharge Exam General Appearance: no apparent distress Neurologic Exam: alert, oriented x 3 Skin Exam: normal color, warm, dry Respiratory Exam: prolonged expirations, rhonchi Cardiovascular Exam: regular rate/rhythm Gastrointestinal/Abdomen Exam: soft, No tenderness, No mass Extremity Exam: normal inspection, normal range of motion Final Diagnosis/Problem List - Final Discharge Diagnosis/Problem (1) Pneumonia Current Visit: Yes Status: Acute Assessment & Plan: home on levaquin for 2 more days (2) Weakness Current Visit: Yes Status: Acute - Discharge Disposition: Home, Self-Care Condition: Stable Prescriptions: New Levofloxacin [Levaquin] 750 mg PO DAILY #2 tablet Continue Nitroglycerin 0.4 mg Tablet [Nitrostat 0.4 MG Tablet] 0.4 mg SL Q5MIN PRN MR X 3 PRN #1 bottle PRN Reason: Chest Pain Levetiracetam [Keppra] 750 mg PO BID lamoTRIgine [Lamictal] 200 mg PO BID Magnesium Oxide 400 mg [Mag-Ox 400] 400 mg PO BID #60 tablet Metoprolol Tartrate 25 mg [Lopressor 25MG Tab] 25 mg PO BID Acetaminophen [Tylenol] 650 mg PO Q4HPRN PRN PRN Reason: Pain Fluticasone Propionate [Flonase NASAL] 1 spray IH DAILY Hydroxyzine HCl 25 mg [Atarax 25 mg] 25 mg PO TID Melatonin 3 mg PO HS PRN PRN PRN Reason: Insomnia risperiDONE [Risperidone] 1 mg PO BID Sertraline HCl 100 mg PO DAILY ALPRAZolam [Alprazolam] 0.25 mg PO DAILY PRN PRN PRN Reason: Anxiety Follow up with: IMELDA HENSON [Primary Care Provider] - 1 Week
[2018-11-08] MEDS: Lopressor 25MG Tab PO SCH (09:56)
[2018-11-08] MEDS: Risperdal 1 MG PO SCH (09:56)
[2018-11-08] MEDS: MAG-OX 400 PO SCH (09:56)
[2018-11-08] MEDS: ATARAX 25 MG PO SCH (09:56)
[2018-11-08] MEDS: KEPPRA 500 MG PO SCH (09:56)
[2018-11-08] MEDS: lamICTAL 100MG TABLET PO SCH (09:57)
[2018-11-08] MEDS: ZOLOFT 50 MG TABLET PO SCH (09:57)
[2018-11-08] MEDS: ENOXAPARIN SODIUM SQ SCH (10:04)
[2018-11-08] MEDS: Flonase NASAL NS SCH (10:13)
== END 2018-11-08 11:30 | disposition home or self-care (01) ==
LOC: ED 21:44 → MED SURG 11-06 01:09
PROVIDERS: ADMIT Family Medicine; ATTEND Family Medicine
DX: J18.9 Pneumonia, unspecified organism (principal); R53.1 Weakness; W19.XXXA Unspecified fall, initial encounter; Z79.899 Other long term (current) drug therapy
CPT/HCPCS: 36000; 36415; 70450; 71045; 80048; 80053; 81001; 84484; 85025; 93005; 93268; 94150; 94640; 94760; 96360; 96361; 96365; 96374; 99284; 99285; G0378; J1200; J1650; J1956; A9270-GY

== ENCOUNTER 2019-12-12 17:40 | Emergency (ER) | payer OTHER ==
[2019-12-12] MEDS ORDERED: BENADRYL 50 MG/ML ONE (19:51)
[2019-12-12] MEDS: BENADRYL 50 MG/ML IV ONE (19:56)
[2019-12-12 20:01] LABS: ALBUMIN 4.4 g/dL (3.5-5.0); ALKALINE PHOSPHATASE 108 U/L (38-126); ANION GAP 15.1 MEQ/L (5-15); BLOOD UREA NITROGEN 9 mg/dL (7-17); CHLORIDE 104 mmol/L (98-107); Calcium 9.8 mg/dL (8.4-10.2); Carbon Dioxide 25 mmol/L (22-30); Creatinine 1 0.92 mg/dL (0.52-1.04); Glucose 128 mg/dL (74-106); Potassium 4.3 mmol/L (3.5-5.1); SGOT/AST 53 U/L (14-36); SGPT/ALT 20 U/L (0-35); SODIUM 139 mmol/L (137-145); Total Protein 7.9 g/dL (6.3-8.2)
[2019-12-12 20:05] LABS: Hematocrit 39.4 % (35-47); Hemoglobin 12.5 gm/dl (12.0-16.0); Lymphocytes % 18.3 % (24.0-44.0); Mean Cell Volume 93.4 fl (78-100); Mean Corpuscular Hemoglobin 29.6 pg (26-32); Mean Corpuscular Hgb Concent. 31.7 g/dl (32-36); Mean Platelet Volume 9.6 fl (7.5-11.0); Monocytes % 8.9 % (0.0-12.0); Neutrophil % 72.1 % (36.0-66.0); Platelet Count 236 K/mm3 (150-450); Red Blood Count 4.22 M/mm3 (4.1-5.4); Red Cell Distribution Width 14.6 % (11.5-14.0)
[2019-12-12 20:06] LABS: BASOPHIL % 0.2 % (0.0-0.4); Basophil (Absolute #) 0.01 (0-0.4); Eosinophil % 0.5 % (0.00-5.0); Eosinophil (Absolute #) 0.03 (0-0.5); Lymphocyte (Absolute #) 1.09 (1.0-4.6); Monocyte (Absolute #) 0.53 (0.0-1.3)
[2019-12-12] MEDS ORDERED: Sodium Chloride 0.9% 1000 ML 1,000 ML ONE (20:14)
[2019-12-12 20:15] VITALS: O2SAT 96
[2019-12-12] MEDS: Sodium Chloride 0.9% 1000 ML 1,000 ML IV STA (20:15)
[2019-12-12 20:34] LABS: Amphetamine,Urine NEGATIVE (NEGATIVE); Barbiturate,Urine NEGATIVE (NEGATIVE); Benzodiazepine,Urine NEGATIVE (NEGATIVE); Cocaine,Urine NEGATIVE (NEGATIVE); Methadone,Urine NEGATIVE (NEGATIVE); Opiate,Urine NEGATIVE (NEGATIVE); PCP,Urine NEGATIVE (NEGATIVE); THC,Urine NEGATIVE (NEGATIVE)
[2019-12-12 21:55] VITALS: BP 153/87; PULSE 95
--- NOTE | 2019-12-12 22:03 | ERPHSYRPT ---
- History of Present Illness Time Seen by Provider: 12/12/19 18:00 Source: patient Exam Limitations: no limitations Patient Subjective Stated Complaint: Anxiety Triage Nursing Assessment: Patient brought back to ED via w/c and transferred to bed per self. Patient A+O x3. Patient's skin pink, warm and dry. Patient having increased anxiety after being notified her apartment complex is being sprayed for bed bugs. Patient states she has taken Xanax at 0800 and 1400 with no relief. Patient's lungs clear a/p jayesh. This nurse did not see any type of bug on patient or clothing. Physician History: Patient is a 69-year-old female presents to our ED with complaints of anxiety. Patient's anxiety developed after she was advised that her apartment complex had to be sprayed for bedbugs. Patient self-administered Xanax at 8:00 this morning and administered a second dose at approximately 4 PM. Patient states that she feels very anxious. No associated chest pain or shortness of breath. No nausea vomiting or diaphoresis. No fever. Symptoms are ongoing. Symptoms are moderate intensity. No specific worsening improving factors. Patient voices no other complaints at this time. Timing/Duration: today Severity: moderate Modifying Factors: Improves With: nothing Associated Symptoms: No nausea, No vomiting, No abdominal pain, No diaphoresis, No cough Allergies/Adverse Reactions: cefaclor [From Ceclor] Allergy (Mild, Verified 12/12/19 17:55) STATES GOT REAL HOT Home Medications: Levetiracetam [Keppra] 750 mg PO BID 09/22/17 [History] lamoTRIgine [Lamictal] 200 mg PO BID 09/22/17 [History] Acetaminophen [Tylenol] 650 mg PO Q4HPRN PRN 02/25/18 [History] Metoprolol Tartrate 25 mg [Lopressor 25MG Tab] 25 mg PO BID 02/25/18 [ History] ALPRAZolam [Alprazolam] 0.25 mg PO DAILY PRN PRN 11/06/18 [History] Fluticasone Propionate [Flonase NASAL] 1 spray IH DAILY 11/06/18 [History] Hydroxyzine HCl 25 mg [Atarax 25 mg] 25 mg PO TID 11/06/18 [History] Melatonin 3 mg PO HS PRN PRN 11/06/18 [History] Sertraline HCl 100 mg PO DAILY 11/06/18 [History] risperiDONE [Risperidone] 1 mg PO BID 11/06/18 [History] Hx Tetanus, Diphtheria Vaccination/Date Given: Yes Hx Influenza Vaccination/Date Given: Yes Hx Pneumococcal Vaccination/Date Given: Yes Immunizations Up to Date: Yes - Review of Systems Constitutional: No Fever, No Chills Eyes: No Symptoms Ears, Nose, & Throat: No Symptoms Respiratory: No Symptoms, No Cough, No Dyspnea Cardiac: No Symptoms, No Chest Pain, No Edema, No Syncope Abdominal/Gastrointestinal: No Symptoms, No Abdominal Pain, No Nausea, No Vomiting, No Diarrhea Genitourinary Symptoms: No Symptoms, No Dysuria Musculoskeletal: No Symptoms, No Back Pain, No Neck Pain Skin: No Symptoms, No Rash Neurological: No Symptoms, No Dizziness, No Focal Weakness, No Sensory Changes Psychological: No Symptoms, Anxiety (Patient denies homicidal suicidal ideation. ) Endocrine: No Symptoms Hematologic/Lymphatic: No Symptoms All Other Systems: Reviewed and Negative - Past Medical History Pertinent Past Medical History: Yes Neurological History: Seizures ENT History: No Pertinent History Cardiac History: No Pertinent History Respiratory History: Asthma Endocrine Medical History: No Pertinent History Musculoskeletal History: No Pertinent History GI Medical History: No Pertinent History History: No Pertinent History Psycho-Social History: Anxiety, Depression, Panic Disorder Female Reproductive Disorders: No Pertinent History Other Medical History: SEIZURE 02/03 FELL AND LED TO R SHOULDER ISSUES. PT USES O2 @ 2L PRN during the day and routine at night AT HOME - Past Surgical History Past Surgical History: Yes Neuro Surgical History: No Pertinent History Cardiac: No Pertinent History Respiratory: No Pertinent History Gastrointestinal: No Pertinent History Genitourinary: No Pertinent History Musculoskeletal: No Pertinent History, Joint Replacement, Orthopedic Surgery Female Surgical History: No Pertinent History Other Surgical History: MAGNET PLACEMENT FOR SEIZURES in left chest and wears a watch to activate magnet. - Social History Smoking Status: Never smoker How long have you smoked: 55 years Exposure to second hand smoke: Yes Drug Use: none Patient Lives Alone: Yes Significant Family History: no pertinent family hx - Female History Hx Now: No - Nursing Vital Signs Nursing Vital Signs: Initial Vital Signs Temperature 97.9 F 12/12/19 17:56 Pulse Rate 119 H 12/12/19 17:56 Respiratory Rate 12/12/19 17:56 Blood Pressure 159/87 12/12/19 17:56 O2 Sat by Pulse Oximetry 92 L 12/12/19 17:56 Pain Scale Pain Intensity 5 - Physical Exam General Appearance: no apparent distress, alert, other (Patient sitting up in bed. She appears very anxious.) Eye Exam: PERRL/EOMI, eyes nml inspection Ears, Nose, Throat Exam: normal ENT inspection, TMs normal, pharynx normal, moist mucous membranes Neck Exam: normal inspection, non-tender, supple, full range of motion Respiratory Exam: normal breath sounds, lungs clear, No respiratory distress Cardiovascular Exam: regular rate/rhythm, normal heart sounds, normal peripheral pulses Gastrointestinal/Abdomen Exam: soft, normal bowel sounds, No tenderness, No mass Back Exam: normal inspection, normal range of motion, No CVA tenderness, No vertebral tenderness Extremity Exam: normal inspection, normal range of motion, pelvis stable Neurologic Exam: alert, oriented x 3, cooperative, normal mood/affect, nml cerebellar function, nml station & gait, sensation nml, No motor deficits Skin Exam: normal color, warm, dry, No rash Lymphatic Exam: No adenopathy SpO2 Interpretation: normal SpO2: 96 O2 Delivery: Room Air - CT Exams Chest CT Interpretation: Negative (Negative for PE. No small hiatal hernia. Stable emphysema, bibasilar atelectasis, a few scattered calcified granulomas.) Ordered Tests: Active Orders 24 hr Category Date Time Status IV Insertion STAT Care 12/12/19 19:43 Active Pulse Oximetry (ED) STAT Care 12/12/19 19:43 Active CHEST WITH CONTRAST [CT] Stat Exams 12/12/19 20:32 Taken CBC W DIFF Stat Lab 12/12/19 18:48 Completed CMP Stat Lab 12/12/19 18:48 Completed D-DIMER QUANTITATIVE Stat Lab 12/12/19 18:48 Completed TROPONIN Q3H Lab 12/12/19 18:48 Completed TSH [TSH, 3RD Generation] Stat Lab 12/12/19 18:48 Completed Urine Triage Profile Stat Lab 12/12/19 20:13 Completed Medication Summary Discontinued Medications Generic Name Dose Route Start Last Admin Trade Name Freq PRN Reason Stop Dose Admin Diphenhydramine HCl 25 mg 12/12/19 19:43 12/12/19 19:56 Benadryl 50 Mg/Ml IV 12/12/19 19:44 25 mg STAT ONE Administration Diphenhydramine HCl Confirm 12/12/19 19:51 Benadryl 50 Mg/Ml Administered 12/12/19 19:52 Dose 50 mg .ROUTE .STK-MED ONE Sodium Chloride 1,000 mls @ 999 mls/hr 12/12/19 20:13 12/12/19 20:15 Sodium Chloride 0.9% 1000 Ml IV 12/12/19 21:13 999 mls/hr .Q1H1M STA Administration Sodium Chloride Confirm 12/12/19 20:14 Sodium Chloride 0.9% 1000 Ml Administered 12/12/19 20:15 Dose 1,000 mls @ ud .ROUTE .[facility]-MED ONE Lab/Rad Data: Laboratory Result Diagrams 12/12/19 18:48 12/12/19 18:48 Laboratory Results 12/12/19 12/12/19 12/12/19 Range/Units 20:13 18:48 18:48 WBC (4.0-10.5) K/mm3 RBC (4.1-5.4) M/mm3 Hgb (12.0-16.0) gm/dl Hct (35-47) % MCV (78-100) fl MCH (26-32) pg MCHC (32-36) g/dl RDW (11.5-14.0) % Plt Count (150-450) K/mm3 MPV (7.5-11.0) fl Gran % (36.0-66.0) % Eos # (Auto) (0-0.5) Absolute Lymphs (auto) (1.0-4.6) Absolute Monos (auto) (0.0-1.3) Lymphocytes % (24.0-44.0) % Monocytes % (0.0-12.0) % Eosinophils % (0.00-5.0) % Basophils % (0.0-0.4) % Absolute Granulocytes (1.4-6.9) Basophils # (0-0.4) D-Dimer 786 H* (215-500) ng/mL Sodium (137-145) mmol/L Potassium (3.5-5.1) mmol/L Chloride (98-107) mmol/L Carbon Dioxide (22-30) mmol/L Anion Gap (5-15) MEQ/L BUN (7-17) mg/dL Creatinine (0.52-1.04) mg/dL Estimated GFR ML/MIN Glucose (74-106) mg/dL Calcium (8.4-10.2) mg/dL Total Bilirubin (0.2-1.3) mg/dL AST (14-36) U/L ALT (0-35) U/L Alkaline Phosphatase (38-126) U/L Troponin I < 0.012 (0.000-0.034) ng/mL Serum Total Protein (6.3-8.2) g/dL Albumin (3.5-5.0) g/dL TSH 3rd Generation (0.47-4.68) mIU/L Urine Opiates Level NEGATIVE (NEGATIVE) Ur Methadone NEGATIVE (NEGATIVE) Urine Barbiturates NEGATIVE (NEGATIVE) Ur Phencyclidine (PCP) NEGATIVE (NEGATIVE) Urine Amphetamine NEGATIVE (NEGATIVE) U Benzodiazepine Level NEGATIVE (NEGATIVE) Urine Cocaine NEGATIVE (NEGATIVE) Urine Marijuana (THC) NEGATIVE (NEGATIVE) 12/12/19 12/12/19 12/12/19 Range/Units 18:48 18:48 18:48 WBC 6.0 (4.0-10.5) K/mm3 RBC 4.22 (4.1-5.4) M/mm3 Hgb 12.5 (12.0-16.0) gm/dl Hct 39.4 (35-47) % MCV 93.4 (78-100) fl MCH 29.6 (26-32) pg MCHC 31.7 L (32-36) g/dl RDW 14.6 H (11.5-14.0) % Plt Count 236 (150-450) K/mm3 MPV 9.6 (7.5-11.0) fl Gran % 72.1 H (36.0-66.0) % Eos # (Auto) 0.03 (0-0.5) Absolute Lymphs (auto) 1.09 (1.0-4.6) Absolute Monos (auto) 0.53 (0.0-1.3) Lymphocytes % 18.3 L (24.0-44.0) % Monocytes % 8.9 (0.0-12.0) % Eosinophils % 0.5 (0.00-5.0) % Basophils % 0.2 (0.0-0.4) % Absolute Granulocytes 4.30 (1.4-6.9) Basophils # 0.01 (0-0.4) D-Dimer (215-500) ng/mL Sodium 139 (137-145) mmol/L Potassium 4.3 (3.5-5.1) mmol/L Chloride 104 (98-107) mmol/L Carbon Dioxide 25 (22-30) mmol/L Anion Gap 15.1 H (5-15) MEQ/L BUN 9 (7-17) mg/dL Creatinine 0.92 (0.52-1.04) mg/dL Estimated GFR > 60.0 ML/MIN Glucose 128 H (74-106) mg/dL Calcium 9.8 (8.4-10.2) mg/dL Total Bilirubin 0.50 (0.2-1.3) mg/dL AST 53 H (14-36) U/L ALT 20 (0-35) U/L Alkaline Phosphatase 108 (38-126) U/L Troponin I (0.000-0.034) ng/mL Serum Total Protein 7.9 (6.3-8.2) g/dL Albumin 4.4 (3.5-5.0) g/dL TSH 3rd Generation 4.070 (0.47-4.68) mIU/L Urine Opiates Level (NEGATIVE) Ur Methadone (NEGATIVE) Urine Barbiturates (NEGATIVE) Ur Phencyclidine (PCP) (NEGATIVE) Urine Amphetamine (NEGATIVE) U Benzodiazepine Level (NEGATIVE) Urine Cocaine (NEGATIVE) Urine Marijuana (THC) (NEGATIVE) - Progress Progress: unchanged, improved Progress Note: 12/13/19 02:30 Patient reassessed. Anxiety resolved. Patient feels much better. Patient requesting discharge. Patient voices no other complaints at this time. 12/13/19 02:32 D-dimer elevated. CTA chest negative for PE. Counseled pt/family regarding: lab results, diagnosis, rad results - Departure Departure Disposition: Home Clinical Impression: Anxiety Condition: Good Critical Care Time: No Referrals: IMELDA CROSS [Primary Care Provider] - Instructions: Anxiety, Adult (DC) Additional Instructions: Discharge/Care Plan CAROLINAJAMES BAUTISTA was seen on 12/12/19 in the Emergency Room. The patient was counseled regarding Diagnosis,Lab results, Imaging studies, need for follow up and when to return to the Emergency Room. Prescriptions given: Discharge Note I have spoken with the patient and/or caregivers. I have explained the patient' s condition, diagnosis and treatment plan based on the information available to me at this time. I have answered the patient's and/or caregiver's questions and addressed any concerns. The patient and/or caregivers have as good understanding of the patient's diagnosis, condition and treatment plan as can be expected at this point. The vital signs have been stable. The patient's condition is stable and appropriate for discharge from the emergency department. The patient will pursue further outpatient evaluation with the primary care physician or other designated or consulting physician as outlined in the discharge instructions. The patient and/or caregivers are agreeable to this plan of care and follow-up instructions have been explained in detail. The patient and/or caregivers have received these instruction. The patient/and or caregivers are aware that any significant change in condition or worsening of symptoms should prompt an immediate return to this or the closest emergency department or call 911.
--- NOTE | 2019-12-13 08:57 | XRAY ---
Indication: Short of breath, anxiety, and elevated d-dimer. Multiple contiguous axial images obtained through the chest using 80 cc Isovue 370 contrast and PE protocol. Comparison: Conventional CT chest with contrast exam June 17, 2016. There is adequate opacification of the pulmonary arteries to include the lobar and segmental branches. Minimal respiration artifact limits evaluation of the more distal branches. No filling defect or pulmonary embolus. Again prominent right main pulmonary artery up to 2.8 cm in diameter suggestive of pulmonary hypertension. Heart is borderline enlarged again with left-sided pacemaker. Aorta is normal in course and caliber. No pathologic mediastinal/hilar lymphadenopathy. New small hiatal hernia. Examination of the lungs again demonstrate diffuse pulmonary emphysema, bibasilar atelectasis, and a few tiny right lung calcified granulomas. No suspicious pulmonary mass, infiltrate, or effusion. Bony thorax again demonstrates osteopenia, remote T8 compression fracture, mild multilevel endplate concave deformities, and old sternal fracture. T7 segment demonstrates new anterior wedging with approximately 25% height loss of uncertain chronicity. Limited upper abdomen again demonstrates mild diffuse fatty liver. Impression: 1. Minimal respiration artifact limits pulmonary embolus evaluation. No obvious pulmonary embolus. 2. Stable pulmonary emphysema, bibasilar atelectasis, and evidence for old granulomatous disease. 3. Incidental bony findings as above.
== END 2019-12-12 22:30 | disposition home or self-care (01) ==
LOC: ED 17:40
DX: F41.9 Anxiety disorder, unspecified (principal)
CPT/HCPCS: 36000; 36415; 71260; 80053; 80307; 84443; 84484; 85025; 85379; 94760; 96374; 99284; J1200

== ENCOUNTER 2020-04-04 12:52 | Emergency (ER) | payer OTHER ==
--- NOTE | 2020-04-04 13:04 | ERPHSYRPT ---
- History of Present Illness Time Seen by Provider: 04/04/20 12:59 Source: patient, EMS Exam Limitations: no limitations Physician History: This is a 69-year-old white female who is a former smoker many years ago and presents with shortness of breath. She does have a history of COPD. She primarily uses her 2 L oxygen via nasal cannula just at night. However this pas t weekend she states that she has had to use it all day long since this past weekend. Patient denies chest pain. She denies cough. She denies nausea vomiting and denies diarrhea. Patient has a significant history of anxiety Timing/Duration: day(s) (4-5), worse Severity of Dyspnea-Max: moderate Severity of Dyspnea-Current: moderate Possible Cause: occasional episodes Modifying Factors: Improves With: oxygen Associated Symptoms: anxiety, tightness, No chest pain/discomfort, No lightheadedness, No leg swelling, No productive cough Allergies/Adverse Reactions: cefaclor [From Ceclor] Allergy (Mild, Verified 04/04/20 13:12) STATES GOT REAL HOT Home Medications: Levetiracetam [Keppra] 750 mg PO BID 09/22/17 [History] lamoTRIgine [Lamictal] 200 mg PO BID 09/22/17 [History] Acetaminophen [Tylenol] 650 mg PO Q4HPRN PRN 02/25/18 [History] Metoprolol Tartrate 25 mg [Lopressor 25MG Tab] 25 mg PO BID 02/25/18 [History] ALPRAZolam [Alprazolam] 0.25 mg PO DAILY PRN PRN 11/06/18 [History] Fluticasone Propionate [Flonase NASAL] 1 spray IH DAILY 11/06/18 [History] Hydroxyzine HCl 25 mg [Atarax 25 mg] 25 mg PO TID 11/06/18 [History] Melatonin 3 mg PO HS PRN PRN 11/06/18 [History] Sertraline HCl 100 mg PO DAILY 11/06/18 [History] risperiDONE [Risperidone] 1 mg PO BID 11/06/18 [History] Hx Tetanus, Diphtheria Vaccination/Date Given: Yes Hx Influenza Vaccination/Date Given: Yes Hx Pneumococcal Vaccination/Date Given: Yes Travel Risk - International Travel Have you traveled outside of the country in past 3 weeks: No - Coronavirus Screening Are you exhibiting any of the following symptoms?: Yes Symptoms: Shortness of Breath Close contact with a COVID-19 positive Pt in past 14-21 Days: No - Review of Systems Constitutional: No Symptoms Eyes: No Symptoms Ears, Nose, & Throat: No Symptoms Respiratory: Dyspnea, No Cough, No Stridor, No Wheezing Cardiac: No Symptoms Abdominal/Gastrointestinal: No Symptoms Genitourinary Symptoms: No Symptoms Musculoskeletal: No Symptoms Skin: No Symptoms Neurological: No Symptoms Psychological: No Symptoms Endocrine: No Symptoms Hematologic/Lymphatic: No Symptoms Immunological/Allergic: No Symptoms All Other Systems: Reviewed and Negative - Past Medical History Pertinent Past Medical History: Yes Neurological History: Seizures ENT History: No Pertinent History Cardiac History: No Pertinent History Respiratory History: Asthma Endocrine Medical History: No Pertinent History Musculoskeletal History: No Pertinent History GI Medical History: No Pertinent History History: No Pertinent History Psycho-Social History: Anxiety, Depression, Panic Disorder Female Reproductive Disorders: No Pertinent History Other Medical History: SEIZURE 02/03 FELL AND LED TO R SHOULDER ISSUES. PT USES O2 @ 2L PRN during the day and routine at night AT HOME - Past Surgical History Past Surgical History: Yes Neuro Surgical History: No Pertinent History Cardiac: No Pertinent History Respiratory: No Pertinent History Gastrointestinal: No Pertinent History Genitourinary: No Pertinent History Musculoskeletal: No Pertinent History, Joint Replacement, Orthopedic Surgery Female Surgical History: No Pertinent History Other Surgical History: MAGNET PLACEMENT FOR SEIZURES in left chest and wears a watch to activate magnet. - Social History Smoking Status: Never smoker How long have you smoked: 55 years Exposure to second hand smoke: Yes Drug Use: none Patient Lives Alone: Yes Significant Family History: no pertinent family hx - Nursing Vital Signs Nursing Vital Signs: Initial Vital Signs Temperature 98.4 F 04/04/20 13:04 Pulse Rate 80 04/04/20 13:04 Respiratory Rate 18 04/04/20 13:04 Blood Pressure 170/100 04/04/20 13:04 O2 Sat by Pulse Oximetry 97 04/04/20 13:04 Pain Scale Pain Intensity 0 - Physical Exam General Appearance: mild distress, alert, anxiety Eye Exam: PERRL/EOMI, eyes nml inspection Ears, Nose, Throat Exam: hearing grossly normal, normal ENT inspection, normal pharynx Neck Exam: normal inspection, non-tender, supple, full range of motion Respiratory Exam: normal breath sounds, lungs clear, airway intact, No chest tenderness, No respiratory distress Cardiovascular/Chest Exam: normal heart sounds, regular rate/rhythm, murmur Abdominal/Gastrointestinal Exam: soft, normal bowel sounds, No tenderness Rectal Exam: not done Extremity Exam: non-tender, normal range of motion, normal inspection Neurologic Exam: alert, oriented x 3, cooperative, aircraft servicer II-XII nml as tested, nml cerebellar function, nml station & gait, sensation nml Skin Exam: normal color, warm, dry Lymphatic Exam: adenopathy SpO2 Interpretation: normal O2 Delivery: Room Air - Course Nursing assessment & vital signs reviewed: Yes EKG Interpreted by Me: RATE (77), Sinus Rhythm, NORMAL AXIS, NORMAL INTERVALS, NORMAL QRS, Other (No acute ischemic changes) Ordered Tests: Active Orders 24 hr Category Date Time Status EKG-ER Only STAT Care 04/04/20 13:05 Active IV Insertion STAT Care 04/04/20 13:05 Active CHEST 1 VIEW (PORTABLE) Stat Exams 04/04/20 13:06 Completed CBC W DIFF Stat Lab 04/04/20 13:20 Completed CMP Stat Lab 04/04/20 13:20 Completed NT PRO BNP Stat Lab 04/04/20 13:20 Completed TROPONIN Q3H Lab 04/04/20 13:20 Completed TROPONIN Q3H Lab 04/04/20 16:15 Ordered TROPONIN Q3H Lab 04/04/20 19:15 Ordered TROPONIN Q3H Lab 04/04/20 22:15 Ordered TROPONIN Q3H Lab 04/05/20 01:15 Ordered Medication Summary Discontinued Medications Generic Name Dose Route Start Last Admin Trade Name Julia PRN Reason Stop Dose Admin Lorazepam 0.5 mg 04/04/20 13:07 04/04/20 13:18 Ativan 2 Mg/1 Ml Vial IV 04/04/20 13:08 0.5 mg STAT ONE Administration Lorazepam Confirm 04/04/20 13:15 Ativan 2 Mg/1 Ml Vial Administered 04/04/20 13:16 Dose 2 mg .ROUTE [place]MED ONE Lab/Rad Data: Laboratory Result Diagrams 04/04/20 13:20 04/04/20 13:20 Laboratory Results 04/04/20 04/04/20 04/04/20 Range/Units 13:20 13:20 13:20 WBC 5.2 (4.0-10.5) K/mm3 RBC 4.60 (4.1-5.4) M/mm3 Hgb 13.7 (12.0-16.0) gm/dl Hct 41.8 (35-47) % MCV 90.9 (78-100) fl MCH 29.8 (26-32) pg MCHC 32.8 (32-36) g/dl RDW 15.2 H (11.5-14.0) % Plt Count 211 (150-450) K/mm3 MPV 9.2 (7.5-11.0) fl Gran % 52.4 (36.0-66.0) % Eos # (Auto) 0.40 (0-0.5) Absolute Lymphs (auto) 1.39 (1.0-4.6) Absolute Monos (auto) 0.64 (0.0-1.3) Lymphocytes % 26.9 (24.0-44.0) % Monocytes % 12.4 H (0.0-12.0) % Eosinophils % 7.7 H (0.00-5.0) % Basophils % 0.6 (0.0-0.4) % Absolute Granulocytes 2.71 (1.4-6.9) Basophils # 0.03 (0-0.4) Sodium 138 (137-145) mmol/L Potassium 4.4 (3.5-5.1) mmol/L Chloride 105 (98-107) mmol/L Carbon Dioxide 26 (22-30) mmol/L Anion Gap 11.6 (5-15) MEQ/L BUN 14 (7-17) mg/dL Creatinine 0.85 (0.52-1.04) mg/dL Estimated GFR > 60.0 ML/MIN Glucose 88 (74-106) mg/dL Calcium 9.0 (8.4-10.2) mg/dL Total Bilirubin 0.30 (0.2-1.3) mg/dL AST 26 (14-36) U/L ALT 17 (0-35) U/L Alkaline Phosphatase 85 (38-126) U/L Troponin I < 0.012 (0.000-0.034) ng/mL NT-Pro-B Natriuret Pep 91.4 (0-900) pg/mL Serum Total Protein 7.3 (6.3-8.2) g/dL Albumin 4.1 (3.5-5.0) g/dL - Progress Progress: improved, re-examined Air Movement: good Progress Note: 04/04/20 14:06 Chest x-ray reveals no acute pulmonary process Blood Culture(s) Obtained: No Antibiotics given: No Counseled pt/family regarding: lab results, diagnosis, need for follow-up, rad results - Departure Departure Disposition: Home Clinical Impression: Shortness of breath, COPD exacerbation, Anxiety Condition: Stable Critical Care Time: No Referrals: IMELDA CROSS [Primary Care Provider] - Instructions: Chronic Obstructive Pulmonary Disease Additional Instructions: Take your medications as at home. Call your primary care doctor tomorrow to make arrangements for follow-up appointment and to get instructions on your home oxygen therapy.
[2020-04-04] MEDS ORDERED: Ativan 2 MG/1 ML VIAL IV ONE (13:07)
[2020-04-04] MEDS ORDERED: Ativan 2 MG/1 ML VIAL ONE (13:15)
--- NOTE | 2020-04-04 13:24 | XRAY ---
Indication: Short of breath. Anxiety. Comparison: January 07, 2019. Portable chest less inflated crowding the lung bases again with minimal right base subsegmental atelectasis/scarring. No focal infiltrate, consolidation, or large effusion. Heart is not enlarged with stable tortuous descending aorta. Stable left electronic device with single lead projecting left apex. Bony thorax intact again with osteopenia, degenerative changes, right clavicle resection, and remote multilevel compression fractures. Impression: Continued nonacute chest with chronic features.
[2020-04-04 13:27] LABS: Absolute Neutrophil Ct (ANC) 2.71 (1.4-6.9); BASOPHIL % 0.6 % (0.0-0.4); Basophil (Absolute #) 0.03 (0-0.4); Eosinophil % 7.7 % (0.00-5.0); Hematocrit 41.8 % (35-47); Hemoglobin 13.7 gm/dl (12.0-16.0); Lymphocyte (Absolute #) 1.39 (1.0-4.6); Lymphocytes % 26.9 % (24.0-44.0); Mean Cell Volume 90.9 fl (78-100); Mean Corpuscular Hemoglobin 29.8 pg (26-32); Mean Corpuscular Hgb Concent. 32.8 g/dl (32-36); Mean Platelet Volume 9.2 fl (7.5-11.0); Monocyte (Absolute #) 0.64 (0.0-1.3); Monocytes % 12.4 % (0.0-12.0); Neutrophil % 52.4 % (36.0-66.0); Platelet Count 211 K/mm3 (150-450); Red Cell Distribution Width 15.2 % (11.5-14.0); White Blood Count 5.2 K/mm3 (4.0-10.5)
[2020-04-04 13:47] LABS: ALBUMIN 4.1 g/dL (3.5-5.0); ALKALINE PHOSPHATASE 85 U/L (38-126); ANION GAP 11.6 MEQ/L (5-15); BLOOD UREA NITROGEN 14 mg/dL (7-17); CHLORIDE 105 mmol/L (98-107); Carbon Dioxide 26 mmol/L (22-30); Creatinine 1 0.85 mg/dL (0.52-1.04); Glucose 88 mg/dL (74-106); NT PRO BNP 91.4 pg/mL (0-900); Potassium 4.4 mmol/L (3.5-5.1); SGOT/AST 26 U/L (14-36); SGPT/ALT 17 U/L (0-35); SODIUM 138 mmol/L (137-145); Total Protein 7.3 g/dL (6.3-8.2)
[2020-04-04 15:23] VITALS: BP 120/70; PULSE 70; O2SAT 97
== END 2020-04-04 15:05 | disposition home or self-care (01) ==
LOC: ED 12:52
DX: R06.02 Shortness of breath (principal); J44.1 Chronic obstructive pulmonary disease with (acute) exacerbation; F41.9 Anxiety disorder, unspecified; Z87.891 Personal history of nicotine dependence; R07.89 Other chest pain; Z79.899 Other long term (current) drug therapy
CPT/HCPCS: 36000; 36415; 71045; 80053; 83880; 84484; 85025; 93005; 93041; 94760; 96374; 99284; J2060

== ENCOUNTER 2021-05-10 23:54 | Emergency (ER) | payer OTHER ==
--- NOTE | 2021-05-11 00:02 | ERPHSYRPT ---
- History of Present Illness Time Seen by Provider: 05/11/21 00:02 Source: patient Exam Limitations: no limitations Physician History: This is a 70-year-old patient of Dr. Jose who presents with sudden onset of bilateral lower leg pain with weakness in the same areas. She denies trauma. She denies shortness of breath. She denies chest pain. She has no abdominal pain. There are no new medications that she is taking. She took her usual medications at 8:30 this evening. At 9 PM this evening, she felt very weak in her lower extremities bilaterally. She has had no vaginal bleeding. She denies rectal bleeding. She has not been coughing up blood. She has no cough. Timing/Duration: today Severity: mild (To moderate) Modifying Factors: Improves With: movement Associated Symptoms: denies symptoms, weakness Allergies/Adverse Reactions: cefaclor [From Ceclor] Allergy (Mild, Verified 05/11/21 00:08) STATES GOT REAL HOT Home Medications: Levetiracetam [Keppra] 750 mg PO BID 09/22/17 [History] lamoTRIgine [Lamictal] 200 mg PO BID 09/22/17 [History] Acetaminophen [Tylenol] 650 mg PO Q4HPRN PRN 02/25/18 [History] Metoprolol Tartrate 25 mg [Lopressor 25MG Tab] 25 mg PO BID 02/25/18 [History] ALPRAZolam [Alprazolam] 0.25 mg PO DAILY PRN PRN 11/06/18 [History] Fluticasone Propionate [Flonase NASAL] 1 spray IH DAILY 11/06/18 [History] Hydroxyzine HCl 25 mg [Atarax 25 mg] 25 mg PO TID 11/06/18 [History] Melatonin 3 mg PO HS PRN PRN 11/06/18 [History] Sertraline HCl 100 mg PO DAILY 11/06/18 [History] risperiDONE [Risperidone] 1 mg PO BID 11/06/18 [History] Hx Tetanus, Diphtheria Vaccination/Date Given: Yes Hx Influenza Vaccination/Date Given: Yes Hx Pneumococcal Vaccination/Date Given: Yes Travel Risk - International Travel Have you traveled outside of the country in past 3 weeks: No - Coronavirus Screening Are you exhibiting any of the following symptoms?: No Close contact with a COVID-19 positive Pt in past 14-21 Days: No - Review of Systems Constitutional: Weakness Eyes: No Symptoms Ears, Nose, & Throat: No Symptoms Respiratory: No Symptoms Cardiac: No Symptoms Abdominal/Gastrointestinal: No Symptoms Genitourinary Symptoms: No Symptoms Musculoskeletal: No Symptoms Skin: No Symptoms Neurological: Other (Bilateral lower extremity weakness) Psychological: No Symptoms Endocrine: No Symptoms Hematologic/Lymphatic: No Symptoms Immunological/Allergic: No Symptoms All Other Systems: Reviewed and Negative - Past Medical History Pertinent Past Medical History: Yes Neurological History: Seizures ENT History: No Pertinent History Cardiac History: No Pertinent History Respiratory History: Asthma Endocrine Medical History: No Pertinent History Musculoskeletal History: No Pertinent History GI Medical History: No Pertinent History History: No Pertinent History Psycho-Social History: Anxiety, Depression, Panic Disorder Female Reproductive Disorders: No Pertinent History Other Medical History: SEIZURE 02/03 FELL AND LED TO R SHOULDER ISSUES. PT USES O2 @ 2L PRN during the day and routine at night AT HOME - Past Surgical History Past Surgical History: Yes Neuro Surgical History: No Pertinent History Cardiac: No Pertinent History Respiratory: No Pertinent History Gastrointestinal: No Pertinent History Genitourinary: No Pertinent History Musculoskeletal: No Pertinent History, Joint Replacement, Orthopedic Surgery Female Surgical History: No Pertinent History Other Surgical History: MAGNET PLACEMENT FOR SEIZURES in left chest and wears a watch to activate magnet. - Social History Smoking Status: Never smoker How long have you smoked: 55 years Exposure to second hand smoke: Yes Drug Use: none Patient Lives Alone: Yes Significant Family History: no pertinent family hx - Nursing Vital Signs Nursing Vital Signs: Initial Vital Signs Temperature 98.0 F 05/10/21 23:57 Pulse Rate 87 05/10/21 23:57 Respiratory Rate 22 05/10/21 23:57 Blood Pressure 173/93 05/10/21 23:57 O2 Sat by Pulse Oximetry 99 05/10/21 23:57 Pain Scale Pain Intensity 0 - Physical Exam General Appearance: no apparent distress, alert, anxiety Eye Exam: PERRL/EOMI, eyes nml inspection Ears, Nose, Throat Exam: normal ENT inspection, moist mucous membranes Neck Exam: normal inspection, non-tender, supple, full range of motion Respiratory Exam: normal breath sounds, lungs clear, airway intact, No chest tenderness, No respiratory distress Cardiovascular Exam: regular rate/rhythm, normal heart sounds, normal peripheral pulses Gastrointestinal/Abdomen Exam: soft, normal bowel sounds, No tenderness Pelvic Exam: not done Rectal Exam: not done Back Exam: normal inspection, normal range of motion, No CVA tenderness, No vertebral tenderness Extremity Exam: normal inspection, normal range of motion, pelvis stable Neurologic Exam: alert, oriented x 3, cooperative, 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 tested, normal mood/affect, nml cerebellar function, nml station & gait, sensation nml Skin Exam: normal color, warm, dry Lymphatic Exam: No adenopathy SpO2 Interpretation: normal SpO2: 99 O2 Delivery: Room Air Ordered Tests: Active Orders 24 hr Category Date Time Status EKG-ER Only STAT Care 05/11/21 00:51 Active IV Insertion STAT Care 05/11/21 00:51 Active Pulse Oximetry (ED) STAT Care 05/11/21 00:51 Active CBC W DIFF Stat Lab 05/11/21 01:12 Completed CMP Stat Lab 05/11/21 01:12 Completed CULTURE,URINE Stat Lab 05/11/21 01:08 Received MAGNESIUM Stat Lab 05/11/21 01:12 Completed NT PRO BNP Stat Lab 05/11/21 01:12 Completed TROPONIN Q3H Lab 05/11/21 01:12 Completed TROPONIN Q3H Lab 05/11/21 04:00 Ordered TROPONIN Q3H Lab 05/11/21 07:00 Ordered TROPONIN Q3H Lab 05/11/21 10:00 Ordered TROPONIN Q3H Lab 05/11/21 13:00 Ordered UA W/RFX UR CULTURE Stat Lab 05/11/21 01:08 Completed Medication Summary Discontinued Medications Generic Name Dose Route Start Last Admin Trade Name Julia PRN Reason Stop Dose Admin Sodium Chloride 1,000 mls @ 999 mls/hr 05/11/21 00:51 05/11/21 01:12 Sodium Chloride 0.9% 1000 Ml IV 05/11/21 01:51 999 mls/hr .Q1H1M STA Administration Sodium Chloride Confirm 05/11/21 01:11 Sodium Chloride 0.9% 1000 Ml Administered 05/11/21 01:12 Dose 1,000 mls @ ud .ROUTE .STK-MED ONE Lab/Rad Data: Laboratory Result Diagrams 05/11/21 01:12 05/11/21 01:12 Laboratory Results 07/24/21 07/24/21 07/24/21 Range/Units 01:12 01:12 01:12 WBC 7.1 (4.0-10.5) K/mm3 RBC 4.73 (4.1-5.4) M/mm3 Hgb 14.6 (12.0-16.0) gm/dl Hct 44.7 (35-47) % MCV 94.5 (78-100) fl MCH 30.9 (26-32) pg MCHC 32.7 (32-36) g/dl RDW 13.6 (11.5-14.0) % Plt Count 210 (150-450) K/mm3 MPV 9.1 (7.5-11.0) fl Gran % 67.0 H (36.0-66.0) % Eos # (Auto) 0.40 (0-0.5) Absolute Lymphs (auto) 1.28 (1.0-4.6) Absolute Monos (auto) 0.63 (0.0-1.3) Lymphocytes % 18.1 L (24.0-44.0) % Monocytes % 8.9 (0.0-12.0) % Eosinophils % 5.7 H (0.00-5.0) % Basophils % 0.3 (0.0-0.4) % Absolute Granulocytes 4.73 (1.4-6.9) Basophils # 0.02 (0-0.4) Sodium 133 L (137-145) mmol/L Potassium 4.4 (3.5-5.1) mmol/L Chloride 97 L (98-107) mmol/L Carbon Dioxide 29 (22-30) mmol/L Anion Gap 11.9 (5-15) MEQ/L BUN 14 (7-17) mg/dL Creatinine 0.88 (0.52-1.04) mg/dL Estimated GFR > 60.0 ML/MIN Glucose 111 H (74-106) mg/dL Calcium 9.4 (8.4-10.2) mg/dL Magnesium 2.1 (1.6-2.3) mg/dL Total Bilirubin 0.20 (0.2-1.3) mg/dL AST 33 (14-36) U/L ALT 14 (0-35) U/L Alkaline Phosphatase 87 (38-126) U/L Troponin I < 0.012 (0.000-0.034) ng/mL NT-Pro-B Natriuret Pep 160 (0-900) pg/mL Serum Total Protein 7.7 (6.3-8.2) g/dL Albumin 4.4 (3.5-5.0) g/dL Urine Color (YELLOW) Urine Appearance (CLEAR) Urine pH (5-6) Ur Specific [place] (1.005-1.025) Urine Protein (Negative) Urine Ketones (NEGATIVE) Urine Blood (0-5) Jos/ul Urine Nitrite (NEGATIVE) Urine Bilirubin (NEGATIVE) Urine Urobilinogen (0-1) mg/dL Ur Leukocyte Esterase (NEGATIVE) Urine WBC (Auto) (0-5) /HPF Urine RBC (Auto) (0-2) /HPF U Epithel Cells (Auto) (FEW) /HPF Urine Bacteria (Auto) (NEGATIVE) /HPF U Non-Squamous Epi Cells (FEW) /HPF Urine Culture Reflexed (NO) Urine Glucose (NEGATIVE) mg/dL 05/11/21 Range/Units 01:08 WBC (4.0-10.5) K/mm3 RBC (4.1-5.4) M/mm3 Hgb (12.0-16.0) gm/dl Hct (35-47) % MCV (78-100) fl MCH (26-32) pg MCHC (32-36) g/dl RDW (11.5-14.0) % Plt Count (150-450) K/mm3 MPV (7.5-11.0) fl Gran % (36.0-66.0) % Eos # (Auto) (0-0.5) Absolute Lymphs (auto) (1.0-4.6) Absolute Monos (auto) (0.0-1.3) Lymphocytes % (24.0-44.0) % Monocytes % (0.0-12.0) % Eosinophils % (0.00-5.0) % Basophils % (0.0-0.4) % Absolute Granulocytes (1.4-6.9) Basophils # (0-0.4) Sodium (137-145) mmol/L Potassium (3.5-5.1) mmol/L Chloride (98-107) mmol/L Carbon Dioxide (22-30) mmol/L Anion Gap (5-15) MEQ/L BUN (7-17) mg/dL Creatinine (0.52-1.04) mg/dL Estimated GFR ML/MIN Glucose (74-106) mg/dL Calcium (8.4-10.2) mg/dL Magnesium (1.6-2.3) mg/dL Total Bilirubin (0.2-1.3) mg/dL AST (14-36) U/L ALT (0-35) U/L Alkaline Phosphatase (38-126) U/L Troponin I (0.000-0.034) ng/mL NT-Pro-B Natriuret Pep (0-900) pg/mL Serum Total Protein (6.3-8.2) g/dL Albumin (3.5-5.0) g/dL Urine Color STRAW (YELLOW) Urine Appearance CLEAR (CLEAR) Urine pH 7.0 (5-6) Ur Specific [place] 1.005 (1.005-1.025) Urine Protein NEGATIVE (Negative) Urine Ketones NEGATIVE (NEGATIVE) Urine Blood NEGATIVE (0-5) Jos/ul Urine Nitrite NEGATIVE (NEGATIVE) Urine Bilirubin NEGATIVE (NEGATIVE) Urine Urobilinogen NEGATIVE (0-1) mg/dL Ur Leukocyte Esterase LARGE (NEGATIVE) Urine WBC (Auto) 26-50 (0-5) /HPF Urine RBC (Auto) NONE (0-2) /HPF U Epithel Cells (Auto) NONE (FEW) /HPF Urine Bacteria (Auto) NONE (NEGATIVE) /HPF U Non-Squamous Epi Cells RARE (FEW) /HPF Urine Culture Reflexed YES (NO) Urine Glucose NEGATIVE (NEGATIVE) mg/dL - Progress Progress: improved Counseled pt/family regarding: lab results, diagnosis, need for follow-up - Departure Departure Disposition: Home Clinical Impression: UTI (urinary tract infection), Weakness Condition: Stable Critical Care Time: No Referrals: IMELDA JOSE [Primary Care Provider] - Additional Instructions: Drink plenty fluids. Follow-up with your primary care physician for further management. Take your medication as prescribed. Prescriptions: Ciprofloxacin [Cipro 500 MG] 500 mg PO BID #14 tablet
[2021-05-11] MEDS ORDERED: Sodium Chloride 0.9% 1000 ML 1,000 ML IV STA (00:51)
[2021-05-11] MEDS ORDERED: Sodium Chloride 0.9% 1000 ML 1,000 ML ONE (01:11)
[2021-05-11 01:16] LABS: Absolute Neutrophil Ct (ANC) 4.73 (1.4-6.9); BASOPHIL % 0.3 % (0.0-0.4); Basophil (Absolute #) 0.02 (0-0.4); Eosinophil % 5.7 % (0.00-5.0); Hematocrit 44.7 % (35-47); Hemoglobin 14.6 gm/dl (12.0-16.0); Lymphocyte (Absolute #) 1.28 (1.0-4.6); Lymphocytes % 18.1 % (24.0-44.0); Mean Cell Volume 94.5 fl (78-100); Mean Corpuscular Hemoglobin 30.9 pg (26-32); Mean Corpuscular Hgb Concent. 32.7 g/dl (32-36); Mean Platelet Volume 9.1 fl (7.5-11.0); Monocyte (Absolute #) 0.63 (0.0-1.3); Monocytes % 8.9 % (0.0-12.0); Platelet Count 210 K/mm3 (150-450); Red Blood Count 4.73 M/mm3 (4.1-5.4); Red Cell Distribution Width 13.6 % (11.5-14.0); White Blood Count 7.1 K/mm3 (4.0-10.5)
[2021-05-11 01:30] LABS: Appearance CLEAR (CLEAR); Bilirubin NEGATIVE (NEGATIVE); Blood NEGATIVE Ery/ul (0-5); Glucose NEGATIVE (NEGATIVE); Ketones NEGATIVE (NEGATIVE); Leukocyte Esterase LARGE (NEGATIVE); Nitrite NEGATIVE (NEGATIVE); Non-Squamous Epithelial Cells RARE /HPF (FEW); Protein,Urine Dip NEGATIVE (Negative); Specific Gravity 1.005 (1.005-1.025); Urobilinogen NEGATIVE mg/dL (0-1); WBC 26-50 /HPF (0-5)
[2021-05-11 01:50] LABS: ALBUMIN 4.4 g/dL (3.5-5.0); ALKALINE PHOSPHATASE 87 U/L (38-126); ANION GAP 11.9 MEQ/L (5-15); BLOOD UREA NITROGEN 14 mg/dL (7-17); CHLORIDE 97 mmol/L (98-107); Calcium 9.4 mg/dL (8.4-10.2); Carbon Dioxide 29 mmol/L (22-30); Creatinine 1 0.88 mg/dL (0.52-1.04); EST GLOMERULAR FILTRATION RATE > 60.0 ML/MIN; Glucose 111 mg/dL (74-106); MAGNESIUM 2.1 mg/dL (1.6-2.3); NT PRO BNP 160 pg/mL (0-900); Potassium 4.4 mmol/L (3.5-5.1); SGOT/AST 33 U/L (14-36); SGPT/ALT 14 U/L (0-35); SODIUM 133 mmol/L (137-145); Total Protein 7.7 g/dL (6.3-8.2)
[2021-05-11] MEDS ORDERED: Levofloxacin 500 MG Tablet PO ONE (03:10)
[2021-05-11] MEDS ORDERED: Levofloxacin 500 MG Tablet ONE (03:13)
[2021-05-11 06:12] VITALS: O2SAT 96
[2021-05-11 07:25] VITALS: BP 149/100; PULSE 78
== END 2021-05-11 07:25 | disposition home or self-care (01) ==
LOC: ED 23:54
DX: N39.0 Urinary tract infection, site not specified (principal); R53.1 Weakness; M79.605 Pain in left leg; M79.604 Pain in right leg; Z79.899 Other long term (current) drug therapy
CPT/HCPCS: 36000; 36415; 80053; 81001; 83735; 83880; 84484; 85025; 87086; 93005; 94760; 99284; A9270-GY

== ENCOUNTER 2021-11-02 10:42 | Observation (INO) | payer OTHER ==
[2021-11-02 11:28] LABS: Absolute Neutrophil Ct (ANC) 6.52 (1.4-6.9); Basophil (Absolute #) 0.03 (0-0.4); Eosinophil (Absolute #) 0.09 (0-0.5); Hematocrit 47.3 % (35-47); Hemoglobin 15.6 gm/dl (12.0-16.0); Lymphocyte (Absolute #) 1.54 (1.0-4.6); Lymphocytes % 17.2 % (24.0-44.0); Mean Cell Volume 94.8 fl (78-100); Mean Corpuscular Hemoglobin 31.3 pg (26-32); Monocyte (Absolute #) 0.77 (0.0-1.3); Monocytes % 8.6 % (0.0-12.0); Neutrophil % 72.9 % (36.0-66.0); Platelet Count 267 K/mm3 (150-450); Red Blood Count 4.99 M/mm3 (4.1-5.4)
[2021-11-02 11:30] LABS: ALBUMIN 4.4 g/dL (3.5-5.0); BLOOD UREA NITROGEN 8 mg/dL (7-17); CHLORIDE 99 mmol/L (98-107); Carbon Dioxide 25 mmol/L (22-30); Creatinine 1 0.85 mg/dL (0.52-1.04); EST GLOMERULAR FILTRATION RATE > 60.0 ML/MIN; NT PRO BNP 262 pg/mL (0-900); Total Protein 7.4 g/dL (6.3-8.2)
[2021-11-02 11:34] LABS: ALKALINE PHOSPHATASE 114 U/L (38-126); Calcium 9.5 mg/dL (8.4-10.2); Glucose 126 mg/dL (74-106); Potassium 4.4 mmol/L (3.5-5.1); SGOT/AST 28 U/L (14-36); SGPT/ALT 17 U/L (0-35); SODIUM 133 mmol/L (137-145)
[2021-11-02 11:41] LABS: ANION GAP 13.4 MEQ/L (5-15)
--- NOTE | 2021-11-02 13:30 | ERPHSYRPT ---
- History of Present Illness Time Seen by Provider: 11/02/21 10:45 Historian: patient, EMS Exam Limitations: no limitations Patient Subjective Stated Complaint: Pt states "I woke up around 3 am this morning with pressure in my chest. It went away a little and I was able to go back asleep but it came back. It is easing up now." Triage Nursing Assessment: Pt presented alert and oriented X 3, skin wpd Pt able to speak in clear full sentences pt in no apaprent respiratory distress. Pt anxious. Physician History: 70-year-old female with history of hypertension, seizure disorder, COPD on 2 L oxygen as needed presented in the ER with substernal chest pain waking her up from sleep around 3 AM today which lasted for few minutes and improved and then she woke up this morning again with similar pain moderate intensity which improved after she was given aspirin and nitro by EMS and currently almost chest pain-free. Denies any associated increased shortness of breath than usual. No fever or chills reported. Vaccinated for COVID-19. Timing/Duration: today, intermittent, improved Activities at Onset: sleep Quality: dullness, fullness Location: substernal Chest Pain Radiation: no radiation Severity of Pain-Max: moderate Severity of Pain-Current: none Modifying Factors: Improves With: nitroglycerin, aspirin Associated Symptoms: denies symptoms Prior Chest Pain/Cardiac Workup: no prior chest pain, no prior cardiac workup Nitro Today/Relief: 0.4 mg x 1 Aspirin Treatment Today: 81 mg x 4 Allergies/Adverse Reactions: cefaclor [From Ceclor] Allergy (Mild, Verified 05/11/21 00:08) STATES GOT REAL HOT Home Medications: Levetiracetam [Keppra] 750 mg PO BID 09/22/17 [History] lamoTRIgine [Lamictal] 200 mg PO BID 09/22/17 [History] Acetaminophen [Tylenol] 650 mg PO Q4HPRN PRN 02/25/18 [History] Metoprolol Tartrate 25 mg [Lopressor 25MG Tab] 25 mg PO BID 02/25/18 [History] ALPRAZolam [Alprazolam] 0.25 mg PO DAILY PRN PRN 11/06/18 [History] Fluticasone Propionate [Flonase NASAL] 1 spray IH DAILY 11/06/18 [History] Hydroxyzine HCl 25 mg [Atarax 25 mg] 25 mg PO TID 11/06/18 [History] Melatonin 3 mg PO HS PRN PRN 11/06/18 [History] Sertraline HCl 100 mg PO DAILY 11/06/18 [History] risperiDONE [Risperidone] 1 mg PO BID 11/06/18 [History] Hx Tetanus, Diphtheria Vaccination/Date Given: Yes Hx Influenza Vaccination/Date Given: Yes Hx Pneumococcal Vaccination/Date Given: Yes Immunizations Up to Date: Yes Travel Risk - International Travel Have you traveled outside of the country in past 3 weeks: No - Coronavirus Screening Are you exhibiting any of the following symptoms?: No Close contact with a COVID-19 positive Pt in past 14-21 Days: No - Vaccine Status Have you recieved a Covid-19 vaccination: Yes [employer]: [employer] - Vaccination Dates Date of 2cond Vaccination (if applicable): 2020 - Review of Systems Constitutional: No Symptoms Eyes: No Symptoms Ears, Nose, & Throat: No Symptoms Respiratory: Dyspnea Cardiac: Chest Pain Abdominal/Gastrointestinal: No Symptoms Genitourinary Symptoms: No Symptoms Musculoskeletal: No Symptoms Skin: No Symptoms Neurological: No Symptoms Psychological: No Symptoms Endocrine: No Symptoms Hematologic/Lymphatic: No Symptoms Immunological/Allergic: No Symptoms - Past Medical History Pertinent Past Medical History: Yes Neurological History: Seizures ENT History: No Pertinent History Cardiac History: No Pertinent History Respiratory History: Asthma Endocrine Medical History: No Pertinent History Musculoskeletal History: No Pertinent History GI Medical History: No Pertinent History History: No Pertinent History Psycho-Social History: Anxiety, Depression, Panic Disorder Female Reproductive Disorders: No Pertinent History Other Medical History: SEIZURE 02/03 FELL AND LED TO R SHOULDER ISSUES. PT USES O2 @ 2L PRN during the day and routine at night AT HOME - Past Surgical History Past Surgical History: Yes Neuro Surgical History: No Pertinent History Cardiac: No Pertinent History Respiratory: No Pertinent History Gastrointestinal: No Pertinent History Genitourinary: No Pertinent History Musculoskeletal: No Pertinent History, Joint Replacement, Orthopedic Surgery Female Surgical History: No Pertinent History Other Surgical History: MAGNET PLACEMENT FOR SEIZURES in left chest and wears a watch to activate magnet. - Social History Smoking Status: Never smoker How long have you smoked: 55 years Exposure to second hand smoke: Yes Drug Use: none Patient Lives Alone: Yes Significant Family History: no pertinent family hx - Nursing Vital Signs Nursing Vital Signs: Initial Vital Signs Temperature 98.6 F 11/02/21 10:44 Pulse Rate 121 H 11/02/21 10:44 Respiratory Rate 22 11/02/21 10:44 Blood Pressure 167/107 11/02/21 10:44 O2 Sat by Pulse Oximetry 93 L 11/02/21 10:44 Pain Scale Pain Intensity 2 - Physical Exam General Appearance: no apparent distress, alert Eye Exam: PERRL/EOMI, eyes nml inspection Ears, Nose, Throat Exam: normal ENT inspection, pharynx normal Neck Exam: normal inspection, non-tender, supple, full range of motion Respiratory Exam: normal breath sounds, rhonchi Cardiovascular Exam: normal heart sounds, tachycardia Gastrointestinal/Abdomen Exam: soft, normal bowel sounds Back Exam: normal inspection, normal range of motion Extremity Exam: normal inspection, normal range of motion Neurologic Exam: alert, oriented x 3, cooperative Skin Exam: normal color SpO2 Interpretation: O2 applied SpO2: 93 O2 Delivery: Nasal Cannula - Course EKG Interpreted by Me: RATE ([id number]), Sinus Tach, NORMAL AXIS, NORMAL INTERVALS, Q- wave, Non-specific ST Changes Ordered Tests: Active Orders 24 hr Category Date Time Status CHEST 1 VIEW (PORTABLE) Stat Exams 11/02/21 10:48 Taken CBC W DIFF Stat Lab 11/02/21 10:53 Completed CMP Stat Lab 11/02/21 10:53 Completed D-DIMER QUANTITATIVE Stat Lab 11/02/21 11:08 Completed NT PRO BNP Stat Lab 11/02/21 10:53 Completed TROPONIN Q3H Lab 11/02/21 10:53 Completed TROPONIN Q3H Lab 11/02/21 14:00 Ordered TROPONIN Q3H Lab 11/02/21 17:00 Ordered TROPONIN Q3H Lab 11/02/21 20:00 Ordered TROPONIN Q3H Lab 11/02/21 23:00 Ordered Lab/Rad Data: Laboratory Result Diagrams 11/02/21 10:53 11/02/21 10:53 Laboratory Results 11/02/21 11/02/21 11/02/21 Range/Units 11:08 10:53 10:53 WBC (4.0-10.5) K/mm3 RBC (4.1-5.4) M/mm3 Hgb (12.0-16.0) gm/dl Hct (35-47) % MCV (78-100) fl MCH (26-32) pg MCHC (32-36) g/dl RDW (11.5-14.0) % Plt Count (150-450) K/mm3 MPV (7.5-11.0) fl Gran % (36.0-66.0) % Eos # (Auto) (0-0.5) Absolute Lymphs (auto) (1.0-4.6) Absolute Monos (auto) (0.0-1.3) Lymphocytes % (24.0-44.0) % Monocytes % (0.0-12.0) % Eosinophils % (0.00-5.0) % Basophils % (0.0-0.4) % Absolute Granulocytes (1.4-6.9) Basophils # (0-0.4) D-Dimer 268 (215-500) ng/mL Sodium 133 L (137-145) mmol/L Potassium 4.4 (3.5-5.1) mmol/L Chloride 99 (98-107) mmol/L Carbon Dioxide 25 (22-30) mmol/L Anion Gap 13.4 (5-15) MEQ/L BUN 8 (7-17) mg/dL Creatinine 0.85 (0.52-1.04) mg/dL Estimated GFR > 60.0 ML/MIN Glucose 126 H (74-106) mg/dL Calcium 9.5 (8.4-10.2) mg/dL Total Bilirubin 0.60 (0.2-1.3) mg/dL AST 28 (14-36) U/L ALT 17 (0-35) U/L Alkaline Phosphatase 114 (38-126) U/L Troponin I < 0.012 (0.000-0.034) ng/mL NT-Pro-B Natriuret Pep 262 (0-900) pg/mL Serum Total Protein 7.4 (6.3-8.2) g/dL Albumin 4.4 (3.5-5.0) g/dL 11/02/21 Range/Units 10:53 WBC 9.0 (4.0-10.5) K/mm3 RBC 4.99 (4.1-5.4) M/mm3 Hgb 15.6 (12.0-16.0) gm/dl Hct 47.3 H (35-47) % MCV 94.8 (78-100) fl MCH 31.3 (26-32) pg MCHC 33.0 (32-36) g/dl RDW 13.0 (11.5-14.0) % Plt Count 267 (150-450) K/mm3 MPV 9.0 (7.5-11.0) fl Gran % 72.9 H (36.0-66.0) % Eos # (Auto) 0.09 (0-0.5) Absolute Lymphs (auto) 1.54 (1.0-4.6) Absolute Monos (auto) 0.77 (0.0-1.3) Lymphocytes % 17.2 L (24.0-44.0) % Monocytes % 8.6 (0.0-12.0) % Eosinophils % 1.0 (0.00-5.0) % Basophils % 0.3 (0.0-0.4) % Absolute Granulocytes 6.52 (1.4-6.9) Basophils # 0.03 (0-0.4) D-Dimer (215-500) ng/mL Sodium (137-145) mmol/L Potassium (3.5-5.1) mmol/L Chloride (98-107) mmol/L Carbon Dioxide (22-30) mmol/L Anion Gap (5-15) MEQ/L BUN (7-17) mg/dL Creatinine (0.52-1.04) mg/dL Estimated GFR ML/MIN Glucose (74-106) mg/dL Calcium (8.4-10.2) mg/dL Total Bilirubin (0.2-1.3) mg/dL AST (14-36) U/L ALT (0-35) U/L Alkaline Phosphatase (38-126) U/L Troponin I (0.000-0.034) ng/mL NT-Pro-B Natriuret Pep (0-900) pg/mL Serum Total Protein (6.3-8.2) g/dL Albumin (3.5-5.0) g/dL - Progress Progress: improved Air Movement: good Progress Note: 11/02/21 13:28 70-year-old is evaluated for intermittent chest pain since morning. EKG showed sinus tach without any ST elevation. Negative initial troponin and D-dimers. Grossly unremarkable chemistries. Chest x-ray reviewed by me revealed old changes and no acute findings. Official report is pending. Discussed with Dr. Aguiar and patient is being admitted for observation. Blood Culture(s) Obtained: No Antibiotics given: No Discussed with : Ildefonso Will see patient in: hospital (observation) Counseled pt/family regarding: lab results, diagnosis, rad results - Departure Departure Disposition: Observation Clinical Impression: Chest pain, rule out acute myocardial infarction Condition: Stable Critical Care Time: No Referrals: IMELDA LUJAN [Primary Care Provider] - Follow up/PCP as directed
[2021-11-02 14:27] LABS: INFLUENZA A NEGATIVE (NEGATIVE); INFLUENZA B NEGATIVE (NEGATIVE); RESPIRATORY SYNCTIAL VIRUS NEGATIVE (Negative); SARS-CoV-2 Xpert Express NEGATIVE (NEGATIVE)
[2021-11-02] MEDS ORDERED: TYLENOL 325 MG PO PRN ×2 (15:55→17:00)
[2021-11-02] MEDS ORDERED: Nitrostat 0.4 MG Tablet SL PRN (16:57)
[2021-11-02] MEDS ORDERED: MELATONIN PO PRN (16:57)
[2021-11-02] MEDS ORDERED: xanAX 0.25 MG PO PRN (16:57)
[2021-11-02] MEDS ORDERED: NON-FORMULARY ITEM (Acetaminophen [Tylenol] 325 MG Capsule) PO PRN (16:57)
[2021-11-02] MEDS ORDERED: DUONEB 0.5-3 MG/3 ml Neb IH SCH (19:00)
--- NOTE | 2021-11-02 19:22 | XRAY ---
Indication: Chest pain. Comparison: May 04, 2020. Portable chest again demonstrates minimal bibasilar subsegmental atelectasis/scarring and tiny right apical calcified granuloma. No focal infiltrate, consolidation, or large effusion. Heart not enlarged. Descending aorta remains tortuous. Bony thorax intact again with osteopenia, degenerative changes, remote multilevel compression fractures, and left electronic device with lead terminating left apex. Impression: Continued nonacute chest with chronic features.
[2021-11-02] MEDS: Keppra 250 MG PO SCH (21:30)
[2021-11-02] MEDS: lamICTAL 100MG TABLET PO SCH (21:30)
[2021-11-02] MEDS: Lopressor 25MG Tab PO SCH (21:31)
[2021-11-02] MEDS: Risperdal 1 MG PO SCH (21:31)
[2021-11-02] MEDS: MAG-OX 400 PO SCH (21:31)
[2021-11-02] MEDS ORDERED: NON-FORMULARY ITEM (Lamotrigine [Lamictal] 200 MG Tablet) PO SCH (22:00)
[2021-11-02] MEDS ORDERED: NON-FORMULARY ITEM (Levetiracetam [Keppra] 750 MG Tablet) PO SCH (22:00)
[2021-11-03 06:43] LABS: Absolute Neutrophil Ct (ANC) 4.68 (1.4-6.9); Basophil (Absolute #) 0.02 (0-0.4); Eosinophil % 2.9 % (0.00-5.0); Eosinophil (Absolute #) 0.22 (0-0.5); Hematocrit 44.3 % (35-47); Hemoglobin 14.6 gm/dl (12.0-16.0); Lymphocyte (Absolute #) 1.75 (1.0-4.6); Mean Cell Volume 96.3 fl (78-100); Mean Corpuscular Hemoglobin 31.7 pg (26-32); Mean Platelet Volume 9.2 fl (7.5-11.0); Monocyte (Absolute #) 0.95 (0.0-1.3); Monocytes % 12.5 % (0.0-12.0); Neutrophil % 61.3 % (36.0-66.0); Platelet Count 229 K/mm3 (150-450); White Blood Count 7.6 K/mm3 (4.0-10.5)
[2021-11-03 07:40] LABS: ALBUMIN 3.6 g/dL (3.5-5.0); ALKALINE PHOSPHATASE 95 U/L (38-126); ANION GAP 12.8 MEQ/L (5-15); BLOOD UREA NITROGEN 9 mg/dL (7-17); CHLORIDE 99 mmol/L (98-107); Calcium 9.1 mg/dL (8.4-10.2); Carbon Dioxide 27 mmol/L (22-30); Creatinine 1 0.96 mg/dL (0.52-1.04); EST GLOMERULAR FILTRATION RATE > 60.0 ML/MIN; Glucose 111 mg/dL (74-106); Potassium 4.4 mmol/L (3.5-5.1); SGOT/AST 23 U/L (14-36); SGPT/ALT 14 U/L (0-35); SODIUM 134 mmol/L (137-145); Total Protein 6.4 g/dL (6.3-8.2)
[2021-11-03] MEDS: Keppra 250 MG PO SCH (09:16)
[2021-11-03] MEDS: MAG-OX 400 PO SCH (09:17)
[2021-11-03] MEDS: Risperdal 1 MG PO SCH (09:18)
[2021-11-03] MEDS: lamICTAL 100MG TABLET PO SCH (09:18)
[2021-11-03] MEDS: Lopressor 25MG Tab PO SCH (09:18)
[2021-11-03] MEDS ORDERED: ZOLOFT 50 MG TABLET PO SCH (10:00)
[2021-11-03] MEDS ORDERED: NON-FORMULARY ITEM (Sertraline Hcl [Sertraline Hcl] 100 MG Tablet) PO SCH (10:00)
[2021-11-03] MEDS ORDERED: PROTONIX 40 MG IV IV SCH (10:00)
[2021-11-03 13:42] VITALS: BP 107/67; PULSE 92; O2SAT 90
[2021-11-06] MEDS ORDERED: Fosamax 70 MG PO SCH (06:00)
--- NOTE | 2021-11-06 13:11 | SSS ---
DISCHARGE DIAGNOSIS: CHEST PRESSURE. HISTORY: The patient is a 70-year-old white female presented to the emergency room with complaints of chest pressure. She noted she had some sweating. She reports that this pressure lasted for approximately an hour at home. She presented to the emergency room for evaluation and management. PAST MEDICAL/SURGICAL HISTORY: Significant for hypertension, seizure disorder, chronic obstructive pulmonary disease. She is on oxygen at 2 liters cannula at home. HOME MEDICATIONS: Includes Tylenol PRN, Fosamax 70 mg a week, Alprazolam 0.25 mg PRN for anxiety, Lamictal 200 mg b.i.d., Keppra 750 mg b.i.d., magnesium 400 mg twice a day, melatonin at night for sleep, metoprolol 25 mg b.i.d. She has Nitrostat on a PRN basis although when I asked the patient, the patient did not have this at home. She is on Risperidone 1 mg b.i.d., Sertraline 100 mg daily for depression. ALLERGIES: CEFACLOR. PHYSICAL EXAMINATION: VITAL SIGNS: The patient's vital signs on admission showed her temperature to 98.6F, pulse 121, respiratory rate 22 and blood pressure 167/107. O2 saturation 92%. HEENT: Normocephalic, atraumatic. Pupils equal round reactive to light. Extraocular movements intact. Oropharynx is pink and moist. NECK: Supple without lymphadenopathy, thyromegaly or JVD. CHEST: Clear to auscultation with good air movement. HEART: Regular rate and rhythm without murmurs, rubs or gallops. ABDOMEN: Soft. No palpable masses. EXTREMITIES: Without cyanosis, clubbing or edema. NEUROLOGIC: The patient is alert and oriented x3 with no focal deficits noted. HOSPITAL COURSE: The patient was felt the need to be admitted to the hospital for observation. The patient's vital signs stabilized with blood pressure at times dropping to 92/55, 139/73 and 168/92 were all noted. Pulse rate was running 94 to 100. Pulse oximetry showed her to be 92-93% on supplemental oxygen. She reported no further discomfort in the chest. Her troponins were all less than 0.012. On 11/03/2021, her glucose was 111 fasting, BUN 9, creatinine 0.96. Electrolytes were normal. Liver enzymes were normal. CBC was normal. The patient's COVID, respiratory syncytial virus and influenza tests were negative. D-dimer was normal. She had a chest x-ray which was nonacute with chronic features. She had been in sinus rhythm throughout her stay. Her 12-lead EKG showed borderline left axis deviation, no acute ST or T wave changes noted and just a sinus tachycardia at 117. ASSESSMENT: A patient with possible unstable angina. We will refill her Nitro. She said that she does not have this at home. She will be allowed to go home and reports that she does have an appointment to see. Dr. Duque tomorrow. She was instructed to come back to the hospital if she has chest pain not controlled by the sublingual nitroglycerin. She is to check her blood pressure before she takes the Nitro to be sure that she is not hypotensive prior to taking the medication. If the problem is unresolved she has agreed to present to the hospital again.
== END 2021-11-03 14:47 | disposition home or self-care (01) ==
LOC: ED 10:42 → MED SURG 15:51
PROVIDERS: ADMIT Family Medicine; ATTEND Family Medicine
DX: R07.89 Other chest pain (principal); I10 Essential (primary) hypertension; J44.9 Chronic obstructive pulmonary disease, unspecified; Z99.81 Dependence on supplemental oxygen; Z20.828 Contact with and (suspected) exposure to other viral communicable diseases; Z79.899 Other long term (current) drug therapy
CPT/HCPCS: 0241U; 36415; 71045; 80053; 82947; 83880; 84484; 85025; 85379; 93268; 94760; 99284; G0378; A9270-GY

== ENCOUNTER 2022-10-26 07:31 | Emergency (ER) | payer OTHER ==
[2022-10-26 07:57] LABS: Absolute Neutrophil Ct (ANC) 3.32 x10^3/uL (1.4-6.9); Basophil (Absolute #) 0.07 x10^3/uL (0-0.4); Eosinophil % 8.1 % (0.00-5.0); Hematocrit 43.2 % (35-47); Hemoglobin 13.7 g/dL (12.0-16.0); Lymphocyte (Absolute #) 1.58 x10^3/uL (1.0-4.6); Lymphocytes % 25.7 % (24.0-44.0); Mean Cell Volume 98.9 fL (78-100); Mean Corpuscular Hemoglobin 31.4 pg (26-32); Mean Corpuscular Hgb Concent. 31.7 g/dL (32-36); Mean Platelet Volume 9.2 fL (7.5-11.0); Monocyte (Absolute #) 0.63 x10^3/uL (0.0-1.3); Monocytes % 10.3 % (0.0-12.0); Neutrophil % 54.1 % (36.0-66.0); Platelet Count 206 x10^3/uL (150-450); Red Blood Count 4.37 x10^6/uL (4.1-5.4); Red Cell Distribution Width 12.6 % (11.5-14.0); White Blood Count 6.1 x10^3/uL (4.0-10.5)
--- NOTE | 2022-10-26 08:03 | ERPHSYRPT ---
- History of Present Illness Historian: patient, EMS Exam Limitations: no limitations Patient Subjective Stated Complaint: pt reports sharp chest pain beginning approx 0500 while at rest, reports now she has more pressure, denies any other s/s Triage Nursing Assessment: pt is aox3, pupils perrl, afebrile, pt appears in no distress, resps easy and non labored, pt presents on O2 per home use, radial pulses strong and equal, cap refill < 3 seconds, no edema appreciated, pt skin pink warm dry. Physician History: 71 yo WF w chest pain since 5:30AM when she woke up. She was already awake when the pain began. Pain was mid-sternal, 4 out of 10, and described as an ache. Pain did not radiate, but EMS reported that it radiated down her L arm. It improved after EMS gave her 324 ASA chewable. Pain accompanied by dyspnea but N/V/diaphoresis all denied. Pt denies CAD/PR but does have HTN/smoked 1ppd until 3 yrs ago. Pain is now R sided and described as pressure. Cough/fever denied. Timing/Duration: other (5:30AM) Quality: aching Location: substernal Chest Pain Radiation: no radiation Severity of Pain-Max: moderate Severity of Pain-Current: moderate Modifying Factors: Improves With: aspirin (Better after ASA) Associated Symptoms: denies symptoms, shortness of breath Prior Chest Pain/Cardiac Workup: angina Nitro Today/Relief: no nitro taken today Aspirin Treatment Today: 325 mg x 1 Allergies/Adverse Reactions: cefaclor [From Ceclor] Allergy (Mild, Verified 10/26/22 07:49) STATES GOT REAL HOT Home Medications: Levetiracetam [Keppra] 750 mg PO BID 09/22/17 [History] lamoTRIgine [Lamictal] 200 mg PO BID 09/22/17 [History] Acetaminophen [Tylenol] 650 mg PO Q4HPRN PRN 02/25/18 [History] Metoprolol Tartrate 25 mg [Lopressor 25MG Tab] 25 mg PO BID 02/25/18 [History] ALPRAZolam [Alprazolam] 0.25 mg PO DAILY PRN PRN 11/06/18 [History] Melatonin 3 mg PO HS PRN PRN 11/06/18 [History] Sertraline HCl 100 mg PO DAILY 11/06/18 [History] risperiDONE [Risperidone] 1 mg PO BID 11/06/18 [History] Alendronate Sodium 70 mg [Fosamax 70 MG] 70 mg PO WEEKLY 11/02/21 [History] Hx Tetanus, Diphtheria Vaccination/Date Given: Yes Hx Influenza Vaccination/Date Given: Yes Hx Pneumococcal Vaccination/Date Given: Yes Immunizations Up to Date: Yes Travel Risk - International Travel Have you traveled outside of the country in past 3 weeks: No - Coronavirus Screening Are you exhibiting any of the following symptoms?: No Close contact with a COVID-19 positive Pt in past 14-21 Days: No - Vaccine Status Have you recieved a Covid-19 vaccination: No Devulcanizer Tender: Krush - Vaccination Dates Date of 2cond Vaccination (if applicable): Unsure Comment: Pt states card is in her purse and she did not bring. Pt states she has had both vaccines and thinks she had her booster in July 2021 - Review of Systems Constitutional: No Symptoms Eyes: No Symptoms Ears, Nose, & Throat: No Symptoms Respiratory: No Symptoms, Dyspnea Cardiac: No Symptoms, Chest Pain Abdominal/Gastrointestinal: No Symptoms Genitourinary Symptoms: No Symptoms Musculoskeletal: No Symptoms Skin: No Symptoms Neurological: No Symptoms Psychological: No Symptoms Endocrine: No Symptoms Hematologic/Lymphatic: No Symptoms Immunological/Allergic: No Symptoms - Past Medical History Pertinent Past Medical History: Yes Neurological History: Seizures ENT History: No Pertinent History Cardiac History: No Pertinent History Respiratory History: Asthma Endocrine Medical History: No Pertinent History Musculoskeletal History: No Pertinent History GI Medical History: No Pertinent History History: No Pertinent History Psycho-Social History: Anxiety, Depression, Panic Disorder Female Reproductive Disorders: No Pertinent History Other Medical History: SEIZURE 02/03 FELL AND LED TO R SHOULDER ISSUES. PT USES O2 @ 2L PRN during the day and routine at night AT HOME - Past Surgical History Past Surgical History: Yes Neuro Surgical History: No Pertinent History Cardiac: No Pertinent History Respiratory: No Pertinent History Gastrointestinal: No Pertinent History Genitourinary: No Pertinent History Musculoskeletal: No Pertinent History, Joint Replacement, Orthopedic Surgery Female Surgical History: No Pertinent History Other Surgical History: MAGNET PLACEMENT FOR SEIZURES in left chest and wears a watch to activate magnet. Right Shoulder replacement - Social History Smoking Status: Former smoker How long have you smoked: 55 years Exposure to second hand smoke: No Drug Use: none Patient Lives Alone: Yes Significant Family History: no pertinent family hx - Nursing Vital Signs Nursing Vital Signs: Initial Vital Signs Temperature 98.2 F 10/26/22 07:31 Pulse Rate 75 10/26/22 07:31 Respiratory Rate 20 10/26/22 07:31 Blood Pressure 195/104 10/26/22 07:31 O2 Sat by Pulse Oximetry 97 10/26/22 07:31 Pain Scale Pain Intensity 0 Hypertensive - Physical Exam General Appearance: no apparent distress, anxiety Eye Exam: PERRL/EOMI, eyes nml inspection Ears, Nose, Throat Exam: normal ENT inspection, TMs normal, pharynx normal, moist mucous membranes Neck Exam: normal inspection, non-tender, supple, full range of motion, No meningismus, No mass, No Brudzinski, No Kernig's Respiratory Exam: crackles/rales (Rales L base/Faint R base) Cardiovascular Exam: regular rate/rhythm, normal heart sounds, normal peripheral pulses, capillary refill <2 sec, No murmur Gastrointestinal/Abdomen Exam: soft, normal bowel sounds, No tenderness Back Exam: normal inspection, normal range of motion Extremity Exam: normal inspection, normal range of motion Neurologic Exam: alert, oriented x 3, cooperative, 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 security 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-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 as tested, normal mood/affect, sensation nml Skin Exam: normal color, warm, dry, No rash Lymphatic Exam: No adenopathy SpO2 Interpretation: normal SpO2: 97 O2 Delivery: Nasal Cannula - Course Nursing assessment & vital signs reviewed: Yes EKG Interpreted by Me: RATE (NSR/Rate75/No acute ST-Twave changes) - Radiology Exams Chest X-ray Interpretation: Teleradiologist Report (CXR no sig change) - CT Exams Chest CT Interpretation: Tele-radiologist Report (CT chest-nothing acute per Rad) Ordered Tests: Active Orders 24 hr Category Date Time Status EKG-ER Only STAT Care 10/26/22 07:34 Completed CHEST 1 VIEW (PORTABLE) Stat Exams 10/26/22 07:50 Completed CHEST WITHOUT CONTRAST [CT] Stat Exams 10/26/22 08:55 Completed CBC W DIFF Stat Lab 10/26/22 07:59 Completed CMP Stat Lab 10/26/22 07:59 Completed NT PRO BNP Stat Lab 10/26/22 07:59 Completed PROTIME WITH INR Stat Lab 10/26/22 07:59 Completed PTT Stat Lab 10/26/22 07:59 Completed TROPONIN Q4H Lab 10/26/22 07:59 Completed TROPONIN Q4H Lab 10/26/22 10:35 Completed Lab/Rad Data: Laboratory Result Diagrams 10/26/22 07:59 10/26/22 07:59 Laboratory Results 10/26/22 10/26/22 10/26/22 Range/Units 10:35 07:59 07:59 WBC (4.0-10.5) x10^3/uL RBC (4.1-5.4) x10^6/uL Hgb (12.0-16.0) g/dL Hct (35-47) % MCV (78-100) fL MCH (26-32) pg MCHC (32-36) g/dL RDW (11.5-14.0) % Plt Count (150-450) x10^3/uL MPV (7.5-11.0) fL Gran % (36.0-66.0) % Immature Gran % (Auto) (0.00-0.4) % Nucleat RBC Rel Count (0.00-0.1) % Eos # (Auto) (0-0.5) x10^3/uL Immature Gran # (Auto) (0.00-0.03) x10^3u/L Absolute Lymphs (auto) (1.0-4.6) x10^3/uL Absolute Monos (auto) (0.0-1.3) x10^3/uL Absolute Nucleated RBC (0.00-0.01) x10^3u/L Lymphocytes % (24.0-44.0) % Monocytes % (0.0-12.0) % Eosinophils % (0.00-5.0) % Basophils % (0.0-0.4) % Absolute Granulocytes (1.4-6.9) x10^3/uL Basophils # (0-0.4) x10^3/uL PT (9.4-12.5) SECONDS INR (0.8-3.0) APTT (25.1-36.5) SECONDS Sodium (137-145) mmol/L Potassium (3.5-5.1) mmol/L Chloride (98-107) mmol/L Carbon Dioxide (22-30) mmol/L Anion Gap (5-15) MEQ/L BUN (7-17) mg/dL Creatinine (0.52-1.04) mg/dL Estimated GFR ML/MIN Glucose (74-106) mg/dL Calcium (8.4-10.2) mg/dL Total Bilirubin (0.2-1.3) mg/dL AST (14-36) U/L ALT (0-35) U/L Alkaline Phosphatase (38-126) U/L Troponin I < 0.012 < 0.012 (0.000-0.034) ng/mL NT-Pro-B Natriuret Pep (0-900) pg/mL Serum Total Protein (6.3-8.2) g/dL Albumin (3.5-5.0) g/dL Influenza Type A Ag NEGATIVE (NEGATIVE) Influenza Type B Ag NEGATIVE (NEGATIVE) RSV (PCR) NEGATIVE (Negative) SARS-CoV-2 (PCR) NEGATIVE (NEGATIVE) 10/26/22 10/26/22 10/26/22 Range/Units 07:59 07:59 07:59 WBC 6.1 (4.0-10.5) x10^3/uL RBC 4.37 (4.1-5.4) x10^6/uL Hgb 13.7 (12.0-16.0) g/dL Hct 43.2 (35-47) % MCV 98.9 (78-100) fL MCH 31.4 (26-32) pg MCHC 31.7 L (32-36) g/dL RDW 12.6 (11.5-14.0) % Plt Count 206 (150-450) x10^3/uL MPV 9.2 (7.5-11.0) fL Gran % 54.1 (36.0-66.0) % Immature Gran % (Auto) 0.7 H (0.00-0.4) % Nucleat RBC Rel Count 0.0 (0.00-0.1) % Eos # (Auto) 0.50 (0-0.5) x10^3/uL Immature Gran # (Auto) 0.04 H (0.00-0.03) x10^3u/L Absolute Lymphs (auto) 1.58 (1.0-4.6) x10^3/uL Absolute Monos (auto) 0.63 (0.0-1.3) x10^3/uL Absolute Nucleated RBC 0.00 (0.00-0.01) x10^3u/L Lymphocytes % 25.7 (24.0-44.0) % Monocytes % 10.3 (0.0-12.0) % Eosinophils % 8.1 H (0.00-5.0) % Basophils % 1.1 (0.0-0.4) % Absolute Granulocytes 3.32 (1.4-6.9) x10^3/uL Basophils # 0.07 (0-0.4) x10^3/uL PT 10.5 (9.4-12.5) SECONDS INR 0.99 (0.8-3.0) APTT 26.0 (25.1-36.5) SECONDS Sodium 135 L (137-145) mmol/L Potassium 4.7 (3.5-5.1) mmol/L Chloride 102 (98-107) mmol/L Carbon Dioxide 29 (22-30) mmol/L Anion Gap 8.6 (5-15) MEQ/L BUN 16 (7-17) mg/dL Creatinine 0.82 (0.52-1.04) mg/dL Estimated GFR > 60.0 ML/MIN Glucose 106 (74-106) mg/dL Calcium 8.9 (8.4-10.2) mg/dL Total Bilirubin 0.40 (0.2-1.3) mg/dL AST 25 (14-36) U/L ALT 14 (0-35) U/L Alkaline Phosphatase 77 (38-126) U/L Troponin I (0.000-0.034) ng/mL NT-Pro-B Natriuret Pep 150 (0-900) pg/mL Serum Total Protein 7.1 (6.3-8.2) g/dL Albumin 4.0 (3.5-5.0) g/dL Influenza Type A Ag (NEGATIVE) Influenza Type B Ag (NEGATIVE) RSV (PCR) (Negative) SARS-CoV-2 (PCR) (NEGATIVE) - Progress Progress: improved Air Movement: good Progress Note: 10/26/22 10:03 Pt became pain free while in ER wo any definitive pain meds(NTG or MSO4) ASA 324mg chewable per EMS Chest pain score 5 Wells score of 0 Pt lives in an apartment by herself All XR's and labs reviewed and shared w pt Recommended that pt be admitted due to risk factors and chest pain score of 5, but pt refuses at this time. Risks explained to pt including PR/ Pt pain free upon discharge w stable vital signs 10/26/22 11:24 10/26/22 11:25 10/26/22 23:09 Counseled pt/family regarding: lab results, diagnosis, need for follow-up, rad results - Departure Departure Disposition: Home Clinical Impression: Chest pain Condition: Stable Critical Care Time: No Referrals: IMELDA LUJAN [Primary Care Provider] - Follow up/PCP as directed Instructions: Chest Pain (DC) Additional Instructions: Follow up with your family MD Return to ER for chest pain or shortness of breath
[2022-10-26 08:12] LABS: INR 0.99 (0.8-3.0); PROTIME 10.5 SECONDS (9.4-12.5)
[2022-10-26 08:20] LABS: ALKALINE PHOSPHATASE 77 U/L (38-126); ANION GAP 8.6 MEQ/L (5-15); BLOOD UREA NITROGEN 16 mg/dL (7-17); CHLORIDE 102 mmol/L (98-107); Calcium 8.9 mg/dL (8.4-10.2); Carbon Dioxide 29 mmol/L (22-30); Creatinine 1 0.82 mg/dL (0.52-1.04); EST GLOMERULAR FILTRATION RATE > 60.0 ML/MIN; Glucose 106 mg/dL (74-106); NT PRO BNP 150 pg/mL (0-900); Potassium 4.7 mmol/L (3.5-5.1); SGOT/AST 25 U/L (14-36); SGPT/ALT 14 U/L (0-35); SODIUM 135 mmol/L (137-145); Total Protein 7.1 g/dL (6.3-8.2)
--- NOTE | 2022-10-26 08:20 | XRAY ---
Indication: Chest pain. Comparison: November 02, 2021 Portable chest unchanged again demonstrating minimal bibasilar subsegmental atelectasis/scarring and tiny right apical calcified granuloma. Heart not enlarged again with tortuous descending aorta. Bony thorax intact again with osteopenia, mild double curvature scoliosis, degenerative changes, remote mid thoracic compression fractures, and left chest electrode device with single lead. Impression: Continued nonacute chest with chronic features.
[2022-10-26 08:40] LABS: INFLUENZA A NEGATIVE (NEGATIVE); INFLUENZA B NEGATIVE (NEGATIVE); RESPIRATORY SYNCTIAL VIRUS NEGATIVE (Negative); SARS-CoV-2 Xpert Express NEGATIVE (NEGATIVE)
[2022-10-26 10:10] VITALS: O2SAT 97
[2022-10-26 11:37] VITALS: BP 132/80; PULSE 64
--- NOTE | 2022-10-26 18:10 | XRAY ---
Indication: Chest pain, cough, and high blood pressure. Multiple contiguous axial images obtained through the chest without contrast. Comparison: December 12, 2019 Lungs again demonstrates mild diffuse pulmonary emphysema, bibasilar subsegmental atelectasis/scarring, and tiny right upper lobe calcified granuloma. No suspicious pulmonary mass, infiltrate, or effusion. Heart not enlarged. Aorta mildly arteriosclerotic without aneurysm. No pathologic mediastinal lymphadenopathy. Bony thorax intact again with osteopenia, remote T7/T8 compression fractures, mild multilevel endplate concave deformities, and old sternum fracture. Limited upper abdomen again demonstrates fatty liver. Impression: No change. Again pulmonary emphysema, bibasilar atelectasis/scarring, chronic bony findings, and old granulomatous disease. Comment: Preliminary interpretation made by C. No critical discrepancy.
== END 2022-10-26 11:36 | disposition home or self-care (01) ==
LOC: ED 07:31
DX: R07.9 Chest pain, unspecified (principal); R06.00 Dyspnea, unspecified; I10 Essential (primary) hypertension; Z79.899 Other long term (current) drug therapy; Z20.828 Contact with and (suspected) exposure to other viral communicable diseases
CPT/HCPCS: 0241U; 36415; 71045; 71250; 80053; 83880; 84484; 85025; 85610; 85730; 93005; 99284; 99291

== ENCOUNTER 2023-05-25 23:44 | Emergency (ER) | payer OTHER ==
[2023-05-25 23:52] VITALS: TEMP 97.9
[2023-05-26] MEDS ORDERED: NORVASC 5 MG PO ONE (00:13)
[2023-05-26] MEDS ORDERED: Sodium Chloride 0.9% 1000 ML 1,000 ML IV SCH (00:15)
[2023-05-26] MEDS ORDERED: CLONIDINE 0.1 MG TABLET PO ONE ×2 (00:16→01:42)
[2023-05-26] MEDS ORDERED: CLONIDINE 0.1 MG TABLET ONE ×2 (00:18→01:43)
[2023-05-26] MEDS ORDERED: NORVASC 5 MG ONE (00:19)
[2023-05-26] MEDS ORDERED: Sodium Chloride 0.9% 1000 ML 1,000 ML ONE (00:19)
[2023-05-26] MEDS ORDERED: MORPHINE SULFATE 2 MG INJ ONE (00:21)
[2023-05-26] MEDS ORDERED: MORPHINE SULFATE 2 MG INJ IM ONE (00:23)
[2023-05-26] MEDS ORDERED: Zofran 4 MG/2 ML VIAL ONE (00:23)
[2023-05-26] MEDS ORDERED: Zofran 4 MG/2 ML VIAL IV ONE (00:23)
--- NOTE | 2023-05-26 00:23 | ERPHSYRPT ---
- History of Present Illness Time Seen by Provider: 05/26/23 00:05 Historian: patient Exam Limitations: no limitations Patient Subjective Stated Complaint: pt states "my blood pressure has been high for about 3 days. 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 pt has hx of copd and wears 2 L NC at all times Physician History: Patient is a 72-year-old white female who presents with a complaint of chest pain and hypertension. She says her blood pressure has been elevated for 3 days and then this morning she developed pressure like tightness in the chest. Her only blood pressure medicine is metoprolol she denies any nausea vomiting diarrhea she does have chronic shortness of breath and is on 2 L at all times. She does carry diagnosis of COPD. She was given an aspirin by EMS. Timing/Duration: day(s) (3) Activities at Onset: none Quality: pressure, tightness Location: substernal Chest Pain Radiation: no radiation Severity of Pain-Max: moderate Severity of Pain-Current: mild Modifying Factors: Improves With: aspirin Associated Symptoms: shortness of breath Nitro Today/Relief: no nitro taken today Aspirin Treatment Today: 81 mg x 1, provided by EMS Allergies/Adverse Reactions: cefaclor [From Ceclor] Allergy (Mild, Verified 05/25/23 23:48) STATES GOT REAL HOT Home Medications: Levetiracetam [Keppra] 750 mg PO BID 09/22/17 [History] Metoprolol Tartrate 25 mg [Lopressor 25MG Tab] 25 mg PO BID 02/25/18 [History] Melatonin 3 mg PO HS PRN PRN 11/06/18 [History] Sertraline HCl 100 mg PO DAILY 11/06/18 [History] risperiDONE [Risperidone] 1 mg PO BID 11/06/18 [History] Alendronate Sodium 70 mg [Fosamax 70 MG] 70 mg PO WEEKLY 11/02/21 [History] Cetirizine HCl [All Day Allergy] 10 mg PO DAILY 05/26/23 [History] Simvastatin 20Mg [Zocor 20Mg] 20 mg PO DAILY 05/26/23 [History] clonazePAM [Clonazepam] 0.5 mg PO PRN 05/26/23 [History] Hx Tetanus, Diphtheria Vaccination/Date Given: Yes Hx Influenza Vaccination/Date Given: Yes Hx Pneumococcal Vaccination/Date Given: Yes Immunizations Up to Date: Yes Travel Risk - International Travel Have you traveled outside of the country in past 3 weeks: No - Coronavirus Screening Are you exhibiting any of the following symptoms?: No Close contact with a COVID-19 positive Pt in past 14-21 Days: No - Vaccine Status Have you recieved a Covid-19 vaccination: Yes 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 [employer]: [employer] - Vaccination Dates Date of 2cond Vaccination (if applicable): Unsure - Review of Systems Constitutional: No Fever, No Chills Eyes: No Symptoms Ears, Nose, & Throat: No Symptoms Respiratory: No Cough, No Dyspnea Cardiac: No Chest Pain, No Edema, No Syncope Abdominal/Gastrointestinal: No Abdominal Pain, No Nausea, No Vomiting, No Di arrhea Genitourinary Symptoms: No Dysuria Musculoskeletal: No Back Pain, No Neck Pain Skin: No Rash Neurological: No Dizziness, No Focal Weakness, No Sensory Changes Psychological: No Symptoms Endocrine: No Symptoms All Other Systems: Reviewed and Negative - Past Medical History Pertinent Past Medical History: Yes Neurological History: Seizures ENT History: No Pertinent History Cardiac History: High Cholesterol, Hypertension Respiratory History: Asthma, COPD Endocrine Medical History: No Pertinent History Musculoskeletal History: No Pertinent History GI Medical History: No Pertinent History History: No Pertinent History Psycho-Social History: Anxiety, Depression, Panic Disorder Female Reproductive Disorders: No Pertinent History Other Medical History: SEIZURE 02/03 FELL AND LED TO R SHOULDER ISSUES. PT USES O2 @ 2L PRN during the day and routine at night AT HOME - Past Surgical History Past Surgical History: Yes Neuro Surgical History: No Pertinent History Cardiac: No Pertinent History Respiratory: No Pertinent History Gastrointestinal: No Pertinent History Genitourinary: No Pertinent History Musculoskeletal: No Pertinent History, Joint Replacement, Orthopedic Surgery Female Surgical History: No Pertinent History Other Surgical History: MAGNET PLACEMENT FOR SEIZURES in left chest and wears a watch to activate magnet. Right Shoulder replacement - Social History Smoking Status: Former smoker How long have you smoked: 55 years Exposure to second hand smoke: No Drug Use: none Patient Lives Alone: Yes Significant Family History: no pertinent family hx - Nursing Vital Signs Nursing Vital Signs: Initial Vital Signs Temperature 97.9 F 05/25/23 23:49 Pulse Rate 70 05/25/23 23:49 Respiratory Rate 19 05/25/23 23:49 Blood Pressure 201/112 05/25/23 23:49 O2 Sat by Pulse Oximetry 95 05/25/23 23:49 Pain Scale Pain Intensity 0 - Physical Exam General Appearance: no apparent distress, alert Eye Exam: PERRL/EOMI, eyes nml inspection Ears, Nose, Throat Exam: normal ENT inspection, moist mucous membranes Neck Exam: normal inspection, non-tender, supple, full range of motion, carotid bruit (Faint bruit on the left) Respiratory Exam: normal breath sounds, lungs clear, No respiratory distress Cardiovascular Exam: regular rate/rhythm, normal heart sounds Gastrointestinal/Abdomen Exam: soft, No tenderness, No mass Back Exam: normal inspection, No CVA tenderness, No vertebral tenderness Extremity Exam: normal inspection, normal range of motion Neurologic Exam: alert, oriented x 3, cooperative, normal mood/affect, sensation nml, No motor deficits Skin Exam: normal color, warm, dry SpO2 Interpretation: O2 applied SpO2: 95 O2 Delivery: Nasal Cannula - Course Nursing assessment & vital signs reviewed: Yes EKG Interpreted by Me: RATE (70), Sinus Rhythm, NORMAL AXIS, Non-specific ST Changes, Other (Left ventricular hypertrophy) - Radiology Exams Chest X-ray Interpretation: Interpreted by me, Other (No acute processes identified) Ordered Tests: Active Orders 24 hr Category Date Time Status EKG-ER Only STAT Care 05/26/23 00:13 Active IV Insertion STAT Care 05/26/23 00:13 Active CHEST 1 VIEW (PORTABLE) Stat Exams 05/26/23 00:14 Taken CBC W DIFF Stat Lab 05/26/23 00:06 Completed CMP Stat Lab 05/26/23 00:06 Completed D-DIMER QUANTITATIVE Stat Lab 05/26/23 00:06 Completed Erythrocyte Sedimentation Rate Stat Lab 05/26/23 00:06 Completed LIPASE Stat Lab 05/26/23 00:06 Completed Lactic Acid Stat Lab 05/26/23 00:20 Completed NT PRO BNPII Stat Lab 05/26/23 00:06 Completed TROPONIN Q4H Lab 05/26/23 00:06 Completed TROPONIN Q4H Lab 05/26/23 04:15 Ordered TROPONIN Q4H Lab 05/26/23 08:15 Ordered UA W/RFX UR CULTURE Stat Lab 05/26/23 00:29 Completed Medication Summary Generic Name Dose Route Start Last Admin Trade Name Julia PRN Reason Stop Dose Admin Sodium Chloride 1,000 mls @ 100 mls/hr 05/26/23 00:15 05/26/23 00:22 Sodium Chloride 0.9% 1000 Ml IV 06/25/23 00:14 100 mls/hr .Q10H MOE Administration Discontinued Medications Generic Name Dose Route Start Last Admin Trade Name Julia PRN Reason Stop Dose Admin Amlodipine Besylate 5 mg 05/26/23 00:13 05/26/23 00:22 Amlodipine Besylate 5 Mg Tablet PO 05/26/23 00:14 5 mg STAT ONE Administration Amlodipine Besylate Confirm 05/26/23 00:19 Amlodipine Besylate 5 Mg Tablet Administered 05/26/23 00:20 Dose 5 mg .ROUTE .STK-MED ONE Clonidine 0.1 mg 05/26/23 00:16 05/26/23 00:22 Clonidine Hcl 0.1 Mg Tablet PO 05/26/23 00:17 0.1 mg STAT ONE Administration Clonidine Confirm 05/26/23 00:18 Clonidine Hcl 0.1 Mg Tablet Administered 05/26/23 00:19 Dose 0.1 mg .ROUTE .STK-MED ONE Clonidine 0.1 mg 05/26/23 01:42 05/26/23 01:44 Clonidine Hcl 0.1 Mg Tablet PO 05/26/23 01:43 0.1 mg STAT ONE Administration Clonidine Confirm 05/26/23 01:43 Clonidine Hcl 0.1 Mg Tablet Administered 05/26/23 01:44 Dose 0.1 mg .ROUTE .STK-MED ONE Morphine Sulfate Confirm 05/26/23 00:21 Morphine Sulfate 2 Mg/Ml Inj Administered 05/26/23 00:22 Dose 2 mg .ROUTE .STK-MED ONE Morphine Sulfate 2 mg 05/26/23 00:23 05/26/23 01:28 Morphine Sulfate 2 Mg/Ml Inj IM 05/26/23 00:24 Not Given STAT ONE Morphine Sulfate 2 mg 05/26/23 01:27 05/26/23 00:20 Morphine Sulfate 2 Mg/Ml Inj IV 05/26/23 01:28 2 mg STAT ONE Administration Ondansetron HCl Confirm 05/26/23 00:23 Ondansetron Hcl 4 Mg/2 Ml Vial Administered 05/26/23 00:24 Dose 4 mg .ROUTE .STK-MED ONE Ondansetron HCl 4 mg 05/26/23 00:23 05/26/23 00:20 Ondansetron Hcl 4 Mg/2 Ml Vial IV 05/26/23 00:24 4 mg STAT ONE Administration Lab/Rad Data: Laboratory Result Diagrams 05/26/23 00:06 05/26/23 00:06 Laboratory Results 05/26/23 05/26/23 05/26/23 Range/Units 00:29 00:20 00:06 WBC (4.0-10.5) x10^3/uL RBC (4.1-5.4) x10^6/uL Hgb (12.0-16.0) g/dL Hct (35-47) % MCV (78-100) fL MCH (26-32) pg MCHC (32-36) g/dL RDW (11.5-14.0) % Plt Count (150-450) x10^3/uL MPV (7.5-11.0) fL Gran % (36.0-66.0) % Immature Gran % (Auto) (0.00-0.4) % Nucleat RBC Rel Count (0.00-0.1) % Eos # (Auto) (0-0.5) x10^3/uL Immature Gran # (Auto) (0.00-0.03) x10^3u/L Absolute Lymphs (auto) (1.0-4.6) x10^3/uL Absolute Monos (auto) (0.0-1.3) x10^3/uL Absolute Nucleated RBC (0.00-0.01) x10^3u/L Lymphocytes % (24.0-44.0) % Monocytes % (0.0-12.0) % Eosinophils % (0.00-5.0) % Basophils % (0.0-0.4) % Absolute Granulocytes (1.4-6.9) x10^3/uL Basophils # (0-0.4) x10^3/uL ESR (0-20) mm/hr D-Dimer (0.0-0.50) mg/L Sodium (137-145) mmol/L Potassium (3.5-5.1) mmol/L Chloride (98-107) mmol/L Carbon Dioxide (22-30) mmol/L Anion Gap (5-15) MEQ/L BUN (7-17) mg/dL Creatinine (0.52-1.04) mg/dL Estimated GFR ML/MIN Glucose (74-106) mg/dL Lactic Acid 0.7 (0.4-2.0) Calcium (8.4-10.2) mg/dL Total Bilirubin (0.2-1.3) mg/dL AST (14-36) U/L ALT (0-35) U/L Alkaline Phosphatase (38-126) U/L Troponin I < 0.012 (0.000-0.034) ng/mL NT-Pro-B Natriuret Pep (<300) pg/mL Serum Total Protein (6.3-8.2) g/dL Albumin (3.5-5.0) g/dL Lipase (23-300) U/L Urine Color Yellow (Yellow) Urine Appearance Clear (Clear) Urine pH 7.5 (4.6-8.0) Ur Specific [place] <=1.005 (1.005-1.030) Urine Protein Negative (Negative) Urine Glucose (UA) Negative (Negative) mg/dL Urine Ketones Negative (Negative) Urine Blood Negative (Negative) Urine Nitrite Negative (Negative) Urine Bilirubin Negative (Negative) Urine Urobilinogen 0.2 (0.2) mg/dL Ur Leukocyte Esterase Negative (Negative) U Hyaline Cast (Auto) NONE SEEN (0-2) /LPF Urine Microscopic RBC 0-2 (0-5) /HPF Urine Microscopic WBC 0-2 (0-5) /HPF Ur Epithelial Cells None Seen (None Seen) /HPF Urine Bacteria None Seen (None Seen) /HPF Urine Culture Reflexed NO (NO) 05/26/23 05/26/23 05/26/23 Range/Units 00:06 00:06 00:06 WBC 7.4 (4.0-10.5) x10^3/uL RBC 4.37 (4.1-5.4) x10^6/uL Hgb 13.9 (12.0-16.0) g/dL Hct 41.6 (35-47) % MCV 95.2 (78-100) fL MCH 31.8 (26-32) pg MCHC 33.4 (32-36) g/dL RDW 11.6 (11.5-14.0) % Plt Count 245 (150-450) x10^3/uL MPV 9.4 (7.5-11.0) fL Gran % 58.1 (36.0-66.0) % Immature Gran % (Auto) 0.4 (0.00-0.4) % Nucleat RBC Rel Count 0.0 (0.00-0.1) % Eos # (Auto) 0.47 (0-0.5) x10^3/uL Immature Gran # (Auto) 0.03 (0.00-0.03) x10^3u/L Absolute Lymphs (auto) 1.91 (1.0-4.6) x10^3/uL Absolute Monos (auto) 0.62 (0.0-1.3) x10^3/uL Absolute Nucleated RBC 0.00 (0.00-0.01) x10^3u/L Lymphocytes % 25.9 (24.0-44.0) % Monocytes % 8.4 (0.0-12.0) % Eosinophils % 6.4 H (0.00-5.0) % Basophils % 0.8 (0.0-0.4) % Absolute Granulocytes 4.29 (1.4-6.9) x10^3/uL Basophils # 0.06 (0-0.4) x10^3/uL ESR 39 H (0-20) mm/hr D-Dimer 0.34 (0.0-0.50) mg/L Sodium 135 L (137-145) mmol/L Potassium 4.3 (3.5-5.1) mmol/L Chloride 97 L (98-107) mmol/L Carbon Dioxide 29 (22-30) mmol/L Anion Gap 13.2 (5-15) MEQ/L BUN 17 (7-17) mg/dL Creatinine 0.94 (0.52-1.04) mg/dL Estimated GFR > 60.0 ML/MIN Glucose 108 H (74-106) mg/dL Lactic Acid (0.4-2.0) Calcium 9.2 (8.4-10.2) mg/dL Total Bilirubin 0.40 (0.2-1.3) mg/dL AST 27 (14-36) U/L ALT 16 (0-35) U/L Alkaline Phosphatase 75 (38-126) U/L Troponin I (0.000-0.034) ng/mL NT-Pro-B Natriuret Pep 222 (<300) pg/mL Serum Total Protein 7.5 (6.3-8.2) g/dL Albumin 4.1 (3.5-5.0) g/dL Lipase 135 (23-300) U/L Urine Color (Yellow) Urine Appearance (Clear) Urine pH (4.6-8.0) Ur Specific [place] (1.005-1.030) Urine Protein (Negative) Urine Glucose (UA) (Negative) mg/dL Urine Ketones (Negative) Urine Blood (Negative) Urine Nitrite (Negative) Urine Bilirubin (Negative) Urine Urobilinogen (0.2) mg/dL Ur Leukocyte Esterase (Negative) U Hyaline Cast (Auto) (0-2) /LPF Urine Microscopic RBC (0-5) /HPF Urine Microscopic WBC (0-5) /HPF Ur Epithelial Cells (None Seen) /HPF Urine Bacteria (None Seen) /HPF Urine Culture Reflexed (NO) - Progress Progress: improved Air Movement: good Blood Culture(s) Obtained: No Antibiotics given: No Medical Desision Making - Diagnostic Testing Diagnostic test were ordered, analyzed, and reviewed by me: Yes Radiological Interpretation: Interpreted by me, Reviewed by me - Risk of complications The pt has a mod risk of morbidity or mortality based on: Need for prescription drug management - Departure Departure Disposition: Home Clinical Impression: Hypertension Condition: Stable Critical Care Time: No Referrals: IMELDA LUJAN [ACTIVE STAFF] - Follow up/PCP as directed Instructions: Malignant Hypertension (DC) Prescriptions: Amlodipine Besylate 5 mg [Norvasc 5 mg] 5 mg PO DAILY 30 Days #30 tablet
[2023-05-26 00:32] LABS: Absolute Neutrophil Ct (ANC) 4.29 x10^3/uL (1.4-6.9); BASOPHIL % 0.8 % (0.0-0.4); Basophil (Absolute #) 0.06 x10^3/uL (0-0.4); Eosinophil % 6.4 % (0.00-5.0); Eosinophil (Absolute #) 0.47 x10^3/uL (0-0.5); Hematocrit 41.6 % (35-47); Hemoglobin 13.9 g/dL (12.0-16.0); IMMATURE GRAN # 0.03 x10^3u/L (0.00-0.03); IMMATURE GRAN % 0.4 % (0.00-0.4); Lymphocyte (Absolute #) 1.91 x10^3/uL (1.0-4.6); Lymphocytes % 25.9 % (24.0-44.0); Mean Cell Volume 95.2 fL (78-100); Mean Corpuscular Hemoglobin 31.8 pg (26-32); Mean Corpuscular Hgb Concent. 33.4 g/dL (32-36); Mean Platelet Volume 9.4 fL (7.5-11.0); Monocyte (Absolute #) 0.62 x10^3/uL (0.0-1.3); Monocytes % 8.4 % (0.0-12.0); Neutrophil % 58.1 % (36.0-66.0); Platelet Count 245 x10^3/uL (150-450); Red Blood Count 4.37 x10^6/uL (4.1-5.4); Red Cell Distribution Width 11.6 % (11.5-14.0); White Blood Count 7.4 x10^3/uL (4.0-10.5)
[2023-05-26 00:50] LABS: Erythrocyte Sedimentation Rate 39 mm/hr (0-20)
[2023-05-26 00:54] LABS: ALBUMIN 4.1 g/dL (3.5-5.0); ALKALINE PHOSPHATASE 75 U/L (38-126); ANION GAP 13.2 MEQ/L (5-15); BLOOD UREA NITROGEN 17 mg/dL (7-17); CHLORIDE 97 mmol/L (98-107); Calcium 9.2 mg/dL (8.4-10.2); Carbon Dioxide 29 mmol/L (22-30); Creatinine 1 0.94 mg/dL (0.52-1.04); EST GLOMERULAR FILTRATION RATE > 60.0 ML/MIN; Glucose 108 mg/dL (74-106); LIPASE 135 U/L (23-300); NT PRO BNPII 222 pg/mL (<300); Potassium 4.3 mmol/L (3.5-5.1); SGOT/AST 27 U/L (14-36); SGPT/ALT 16 U/L (0-35); SODIUM 135 mmol/L (137-145); Total Protein 7.5 g/dL (6.3-8.2)
[2023-05-26 01:25] LABS: Appearance Clear (Clear); Bacteria None Seen /HPF (None Seen); Bilirubin Negative (Negative); Blood Negative (Negative); Epithelial Cells None Seen /HPF (None Seen); Glucose, Urine Negative (Negative); Hyaline Casts NONE SEEN /LPF (0-2); Ketones Negative (Negative); Leukocyte Esterase Negative (Negative); Nitrite Negative (Negative); Ph 7.5 (4.6-8.0); Protein,Urine Dip Negative (Negative); RBC 0-2 /HPF (0-5); Specific Gravity <=1.005 (1.005-1.030); Urobilinogen 0.2 mg/dL (0.2); WBC 0-2 /HPF (0-5)
[2023-05-26] MEDS ORDERED: MORPHINE SULFATE 2 MG INJ IV ONE (01:27)
[2023-05-26 01:30] LABS: ADD URINE CULTURE? NO (NO)
[2023-05-26 06:23] VITALS: BP 126/79; PULSE 73; RESP 15; O2SAT 95
--- NOTE | 2023-05-26 08:55 | XRAY ---
Indication: Chest pain. Comparison: October 26, 2022 Portable chest again demonstrates minimal right base subsegmental atelectasis/scarring and tiny right apical calcified granuloma. No focal infiltrate, consolidation, or large effusion. Heart not enlarged. Bony thorax intact again with osteopenia, mild degenerative changes, remote T7 compression fracture, and minimal scoliosis. Stable left chest electronic device with single lead. Impression: Continued nonacute chest with chronic features.
== END 2023-05-26 06:40 | disposition home or self-care (01) ==
LOC: ED 23:44
DX: I10 Essential (primary) hypertension (principal); R07.9 Chest pain, unspecified; E78.5 Hyperlipidemia, unspecified; Z79.899 Other long term (current) drug therapy
CPT/HCPCS: 36000; 36415; 71045; 80053; 81001; 83605; 83690; 83880; 84484; 85025; 85379; 85652; 93005; 96360; 96361; 96374; 96375; 99285; J2270; J2405; A9270-GY

== ENCOUNTER 2023-10-18 19:51 | Emergency (ER) | payer OTHER ==
[2023-10-18 20:09] VITALS: TEMP 98.4
[2023-10-18 20:31] VITALS: RESP 22
[2023-10-18 21:01] VITALS: O2SAT 91
--- NOTE | 2023-10-18 21:01 | ERPHSYRPT ---
- History of Present Illness Time Seen by Provider: 10/18/23 20:09 Source: patient Exam Limitations: no limitations Patient Subjective Stated Complaint: pt states that she is able to drink and eat. pt states that she still feels like there is something in her throat Triage Nursing Assessment: pt ambulated into the er; pt is axo x4; c/o foreign body in throat; pt is maintaining airway, no respiratory distress present; expiratory wheezing present to neck and jayesh upper lobes; skin PDW; hypertensive Physician History: 72 years old female with multiple medical problems presented in the ER with chief complaint of foreign body sensation in the throat. Patient reports she was eating chicken almost an hour prior to arrival and bone got stuck in her throat. She was not able to drink or swallow. Later on she was able to drink and did have some piece of bread she was able to swallow as well. Denies any difficulty breathing but still have pain in the throat with feeling of foreign body. No chest pain or stridor noticed. Allergies/Adverse Reactions: [email or web address] Allergy (Mild, Verified 10/18/23 19:59) STATES GOT REAL HOT Home Medications: Levetiracetam [Keppra] 750 mg PO BID 09/22/17 [History] Metoprolol Tartrate 25 mg [Lopressor 25MG Tab] 25 mg PO BID 02/25/18 [History] Melatonin 3 mg PO HS PRN PRN 11/06/18 [History] Sertraline HCl 100 mg PO DAILY 11/06/18 [History] risperiDONE [Risperidone] 1 mg PO BID 11/06/18 [History] Alendronate Sodium 70 mg [Fosamax 70 MG] 70 mg PO WEEKLY 11/02/21 [History] Cetirizine HCl [All Day Allergy] 10 mg PO DAILY 05/26/23 [History] Simvastatin 20Mg [Zocor 20Mg] 20 mg PO DAILY 05/26/23 [History] clonazePAM [Clonazepam] 0.5 mg PO BID 05/26/23 [History] Hx Tetanus, Diphtheria Vaccination/Date Given: Yes Hx Influenza Vaccination/Date Given: Yes Hx Pneumococcal Vaccination/Date Given: Yes Travel Risk - International Travel Have you traveled outside of the country in past 3 weeks: No - Coronavirus Screening Are you exhibiting any of the following symptoms?: No Close contact with a COVID-19 positive Pt in past 14-21 Days: No - Vaccine Status Have you recieved a Covid-19 vaccination: Yes 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[employer] - Vaccination Dates Date of 2cond Vaccination (if applicable): Unsure - Review of Systems Constitutional: No Symptoms Eyes: No Symptoms Ears, Nose, & Throat: Throat Pain, Throat Swelling Respiratory: No Symptoms Cardiac: No Symptoms Abdominal/Gastrointestinal: No Symptoms Musculoskeletal: No Symptoms Skin: No Symptoms Neurological: No Symptoms Endocrine: No Symptoms Hematologic/Lymphatic: No Symptoms - Past Medical History Pertinent Past Medical History: Yes Neurological History: Seizures ENT History: No Pertinent History Cardiac History: High Cholesterol, Hypertension Respiratory History: Asthma, COPD Endocrine Medical History: No Pertinent History Musculoskeletal History: No Pertinent History GI Medical History: No Pertinent History History: No Pertinent History Psycho-Social History: Anxiety, Depression, Panic Disorder Female Reproductive Disorders: No Pertinent History Other Medical History: SEIZURE 02/03 FELL AND LED TO R SHOULDER ISSUES. PT USES O2 @ 2L PRN during the day and routine at night AT HOME - Past Surgical History Past Surgical History: Yes Neuro Surgical History: No Pertinent History Cardiac: No Pertinent History Respiratory: No Pertinent History Gastrointestinal: No Pertinent History Genitourinary: No Pertinent History Musculoskeletal: No Pertinent History, Joint Replacement, Orthopedic Surgery Female Surgical History: No Pertinent History Other Surgical History: MAGNET PLACEMENT FOR SEIZURES in left chest and wears a watch to activate magnet. Right Shoulder replacement - Social History Smoking Status: Former smoker How long have you smoked: 55 years Exposure to second hand smoke: No Drug Use: none Patient Lives Alone: Yes Significant Family History: no pertinent family hx - Nursing Vital Signs Nursing Vital Signs: Initial Vital Signs Pulse Rate 81 10/18/23 20:00 Blood Pressure 162/94 10/18/23 20:00 O2 Sat by Pulse Oximetry 91 L 10/18/23 20:00 Pain Scale Pain Intensity 0 - Physical Exam General Appearance: no apparent distress Eye Exam: bilateral eye: normal inspection, PERRL, EOMI Ear Exam: bilateral ear: auricle normal Nasal Exam: normal inspection Throat Exam: moist mucus membranes, pharynx swelling, pharynx tenderness, uvula swelling Neck Exam: normal inspection, non-tender, supple, full range of motion, trachea midline (Stridor with audible with stethoscope) Cardiovascular/Respiratory Exam: normal breath sounds, regular rate/rhythm Abdominal Exam: non-tender, soft Neurologic Exam: alert, oriented x 3, cooperative Skin Exam: normal color SpO2 Interpretation: normal SpO2: 91 O2 Delivery: Room Air Ordered Tests: Active Orders 24 hr Category Date Time Status NECK WO CONTRAST [CT] Stat Exams 10/18/23 20:15 Completed - Progress Progress: improved Progress Note: 10/18/23 21:34 72 years old is evaluated in the ER for questionable foreign body/chicken bone in the throat. Patient was eating chicken and accidentally per her bone got stuck in the throat and initially she was not able to drink anything but later on she was able to drink and eat the bread. She still have some foreign body sensation. She has no difficulty breathing. She had a little stridor on presentation which improved without any medication. She has pharyngeal erythema. I have obtained CT neck without contrast which is negative for any foreign body, free air/perforation/soft tissue swelling. I believe whenever she swallowed the bone and the hard part of it irritated her upper airway/pharynx/upper esophagus but no stuck in foreign body. Patient is thoroughly counseled. Do not think she needs any other workup and is stable for discharge with outpatient follow-up. Discussed signs symptoms of worsening needing return to ER which she seems understanding. Stable for discharge. Counseled pt/family regarding: diagnosis, need for follow-up, rad results Medical Desision Making - Diagnostic Testing Radiological Interpretation: Reviewed by me, Teleradiologist Report - Departure Departure Disposition: Home Clinical Impression: Foreign body sensation in throat Condition: Stable Critical Care Time: No Referrals: BERTHA OLVERA NP, RN [Primary Care Provider] - Follow up with PCP 2 days Instructions: Sore throat in adults Additional Instructions: Take Tylenol as needed. Follow-up with primary care for reevaluation. Take soft diet. Return to ER for any worsening of throat pain, foreign body sensation/difficulty breathing/swallowing etc.
--- NOTE | 2023-10-18 21:11 | XRAY ---
CLINICAL HISTORY:throat foreign body COMPARISON:None TECHNIQUE:CT Angio neck has been performed without contrast in axial dimensions. Coronal and sagittal reconstructed images have also been provided for reporting. FINDINGS: Aerodigestive tract appears intact. No radiological evidence of foregin body seen in aerodigestive tract, upper esophagus or airways. No signs of inflammation like abnormal wall thickening or fat stranding are noted. No free air seen in soft tissue in neck or mediastinum. Salivary gland appear unremarkable. A small 8 x 6 mm cystic lesion is noted in right lobe of thyroid gland. Marked atherosclerotic changes are noted in visualized major vessels. No pathologically significant cervical, supraclavicular or mediastinal lymphadenopathy. Incidental note is made of calcification of carroll of trachea. Visualized lung apices show centrilobular emphysematous changes. Visualized brain parenchyma shows senile atrophic changes. Visualized skeleton shows extensive degenerative changes with exaggerated cervical lordosis. There is grade 1 retrolisthesis of C3 over C4. Incidental note is made of cardiac pacemaker seen along left chest wall. IMPRESSION: No radiological evidence of foregin body in aerodigestive tract, upper esophagus or airways. No associated signs of soft tissue inflammation are noted. No free air seen in soft tissues of neck or mediastinum. Electronically Signed by: Jana Gibbons MD. (10/18/2023 21:06:57 EST)
[2023-10-18] MEDS ORDERED: MAALOX ES 30 ML UNIT DOSE ONE (22:04)
[2023-10-18] MEDS ORDERED: XYLOCAINE VISCOUS 2% 15 ML CUP ONE (22:04)
[2023-10-18] MEDS: GI COCKTAIL 45 ML (Maalox/Lidocaine) PO ONE ×2 (22:05→22:10)
[2023-10-18 22:08] VITALS: BP 146/97; PULSE 81
== END 2023-10-18 22:11 | disposition home or self-care (01) ==
LOC: ED 19:51
DX: R09.A2 Foreign body sensation, throat (principal); E78.5 Hyperlipidemia, unspecified; I10 Essential (primary) hypertension; Z79.899 Other long term (current) drug therapy
CPT/HCPCS: 70490; 99283; A9270-GY

== ENCOUNTER 2024-01-17 21:30 | Emergency (ER) | payer OTHER ==
[2024-01-17 21:44] VITALS: TEMP 99.4
[2024-01-17] MEDS ORDERED: Sodium Chloride 0.9% 1000 ML 1,000 ML ONE (21:52)
[2024-01-17] MEDS ORDERED: Hydromorphone 1 mg/ml Injection ONE (21:53)
[2024-01-17] MEDS: Hydromorphone 1 mg/ml Injection IV ONE (21:55)
[2024-01-17] MEDS: Sodium Chloride 0.9% 1000 ML 1,000 ML IV SCH (21:55)
[2024-01-17 21:59] LABS: Absolute Neutrophil Ct (ANC) 3.36 x10^3/uL (1.4-6.9); BASOPHIL % 0.8 % (0.0-0.4); Basophil (Absolute #) 0.05 x10^3/uL (0-0.4); Eosinophil (Absolute #) 0.46 x10^3/uL (0-0.5); Hemoglobin 13.8 g/dL (12.0-16.0); IMMATURE GRAN # 0.02 x10^3u/L (0.00-0.03); IMMATURE GRAN % 0.3 % (0.00-0.4); Lymphocyte (Absolute #) 2.01 x10^3/uL (1.0-4.6); Lymphocytes % 30.5 % (24.0-44.0); Mean Cell Volume 97.1 fL (78-100); Mean Corpuscular Hemoglobin 31.2 pg (26-32); Mean Corpuscular Hgb Concent. 32.1 g/dL (32-36); Mean Platelet Volume 9.4 fL (7.5-11.0); Monocytes % 10.6 % (0.0-12.0); Neutrophil % 50.8 % (36.0-66.0); Platelet Count 229 x10^3/uL (150-450); Red Blood Count 4.43 x10^6/uL (4.1-5.4); Red Cell Distribution Width 12.5 % (11.5-14.0); White Blood Count 6.6 x10^3/uL (4.0-10.5)
--- NOTE | 2024-01-17 22:11 | ERPHSYRPT ---
- History of Present Illness Time Seen by Provider: 01/17/24 21:30 Historian: patient Exam Limitations: no limitations Patient Subjective Stated Complaint: pt states she was reaching across to grab something with L arm and felt a "pop" and now c/o L shoulder/clavicle pain Triage Nursing Assessment: pt presents to ED via medic 1, pt alert and oriented x3, skin pwd, pt c/o L shoulder/clavicle pain after reaching across to grab something and felt a "pop", pt grasping L shoulder, pt hypertensive upon arrival, rating pain 7/10, cap refill less than 2 secs, pt denies any tingling or numbness in L extrremity Physician History: About 30 minutes ago at home pt states she reached for something with her left arm and felt a "pop" with pain in her left upper chest around her left clavicle and now has decreased rom of her left shoulder; denies numbness of her left hand. Pt states she has been on home oxygen for the past 2 years. Pt denies abdominal pain, fever, nausea, vomiting, diarrhea; admits to shortness of air. Aspirin Treatment Today: unknown Allergies/Adverse Reactions: cefaclor [From Ceclor] Allergy (Mild, Verified 01/17/24 21:33) STATES GOT REAL HOT Home Medications: Levetiracetam [Keppra] 750 mg PO BID 09/22/17 [History] Metoprolol Tartrate 25 mg [Lopressor 25MG Tab] 25 mg PO BID 02/25/18 [History] Melatonin 3 mg PO HS PRN PRN 11/06/18 [History] Sertraline HCl 100 mg PO DAILY 11/06/18 [History] risperiDONE [Risperidone] 1 mg PO BID 11/06/18 [History] Alendronate Sodium 70 mg [Fosamax 70 MG] 70 mg PO WEEKLY 11/02/21 [History] Cetirizine HCl [All Day Allergy] 10 mg PO DAILY 05/26/23 [History] Simvastatin 20Mg [Zocor 20Mg] 20 mg PO DAILY 05/26/23 [History] clonazePAM [Clonazepam] 0.5 mg PO BID 05/26/23 [History] Hx Tetanus, Diphtheria Vaccination/Date Given: Yes Hx Influenza Vaccination/Date Given: Yes Hx Pneumococcal Vaccination/Date Given: Yes Travel Risk - International Travel Have you traveled outside of the country in past 3 weeks: No - Emerging Infectious Disease Are you exhibiting symptoms associated with any current EIDs: No - Review of Systems Constitutional: No Fever Respiratory: Dyspnea Abdominal/Gastrointestinal: No Abdominal Pain, No Nausea, No Vomiting, No Diarrhea Genitourinary Symptoms: No Dysuria Musculoskeletal: Joint Pain (left shoulder) Neurological: No Headache - Past Medical History Pertinent Past Medical History: Yes Neurological History: Seizures ENT History: No Pertinent History Cardiac History: High Cholesterol, Hypertension Respiratory History: Asthma, COPD Endocrine Medical History: No Pertinent History Musculoskeletal History: No Pertinent History GI Medical History: No Pertinent History History: No Pertinent History Psycho-Social History: Anxiety, Depression, Panic Disorder Female Reproductive Disorders: No Pertinent History Other Medical History: SEIZURE 02/03 FELL AND LED TO R SHOULDER ISSUES. PT USES O2 @ 2L PRN during the day and routine at night AT HOME - Past Surgical History Past Surgical History: Yes Neuro Surgical History: No Pertinent History Cardiac: No Pertinent History Respiratory: No Pertinent History Gastrointestinal: No Pertinent History Genitourinary: No Pertinent History Musculoskeletal: No Pertinent History, Joint Replacement, Orthopedic Surgery Female Surgical History: No Pertinent History Other Surgical History: MAGNET PLACEMENT FOR SEIZURES in left chest and wears a watch to activate magnet. Right Shoulder replacement Significant Family History: no pertinent family hx - Social History Smoking Status: Former smoker How long have you smoked: 55 years Exposure to second hand smoke: No Drug Use: none Patient Lives Alone: Yes - Nursing Vital Signs Nursing Vital Signs: Initial Vital Signs Pulse Rate 77 01/17/24 21:33 Respiratory Rate 35 H 01/17/24 21:33 Blood Pressure 193/122 01/17/24 21:33 O2 Sat by Pulse Oximetry 96 01/17/24 21:33 Pain Scale Pain Intensity 4 - Physical Exam General Appearance: alert Eye Exam: eyes nml inspection Ears, Nose, Throat Exam: pharynx normal, moist mucous membranes Neck Exam: normal inspection Respiratory Exam: chest tenderness (left upper chest tenderness around clavicle), airway intact, wheezing (Pt states she always wheezes) Cardiovascular Exam: normal heart sounds Gastrointestinal/Abdomen Exam: soft, normal bowel sounds Extremity Exam: No pedal edema Neurologic Exam: alert, cooperative Skin Exam: warm, dry SpO2 Interpretation: borderline oxygenation SpO2: 93 O2 Delivery: Room Air - Course Nursing assessment & vital signs reviewed: Yes EKG Interpreted by Me: RATE (83), Sinus Rhythm, NORMAL AXIS, Other (QTc = 418) - Radiology Exams Left Shoulder X-ray Interpretation: Teleradiologist Report (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 Mild osteoarthritic changes at the glenohumeral joint. Reduced bone density.) Left Clavicle X-ray Interpretation: Teleradiologist Report (No obvious/definite bony abnormality at the left clavicle bone. See rest of report.) - CT Exams Chest CT Interpretation: Tele-radiologist Report (Centrilobular emphysematous changes in bilateral upper lobes with basilar atelectatic changes. See rest of report.) Ordered Tests: Active Orders 24 hr Category Date Time Status EKG-ER Only STAT Care 01/17/24 21:41 Active IV Insertion STAT Care 01/17/24 21:41 Active Sling Application STAT Care 01/18/24 03:13 Active CHEST WITHOUT CONTRAST [CT] Stat Exams 01/17/24 21:43 Completed CLAVICLE Stat Exams 01/17/24 21:44 Completed SHOULDER Stat Exams 01/17/24 21:45 Completed BMP Stat Lab 01/17/24 21:40 Completed CBC W DIFF Stat Lab 01/17/24 21:40 Completed TROPONIN Q4H Lab 01/17/24 21:40 Completed TROPONIN Q4H Lab 01/18/24 01:50 Completed TROPONIN Q4H Lab 01/18/24 05:45 Ordered Medication Summary Generic Name Dose Route Start Last Admin Trade Name Freq PRN Reason Stop Dose Admin Albuterol Sulfate 2.5 mg 01/18/24 03:16 Albuterol Sulfate 2.5 Mg/3 Ml Neb IH 01/18/24 03:17 STAT ONE Sodium Chloride 1,000 mls @ 100 mls/hr 01/17/24 21:45 01/17/24 21:55 Sodium Chloride 0.9% 1000 Ml IV 02/16/24 21:44 100 mls/hr .Q10H MOE Administration Discontinued Medications Generic Name Dose Route Start Last Admin Trade Name Freq PRN Reason Stop Dose Admin Hydromorphone HCl 0.5 mg 01/17/24 21:41 01/17/24 21:55 Hydromorphone 1 Mg/1ml Inj IV 01/17/24 21:42 0.5 mg STAT ONE Administration Hydromorphone HCl Confirm 01/17/24 21:53 Hydromorphone 1 Mg/1ml Inj Administered 01/17/24 21:54 Dose 1 mg .ROUTE .STK-MED ONE Hydromorphone HCl 0.5 mg 01/18/24 01:55 01/18/24 02:09 Hydromorphone 1 Mg/1ml Inj IV 01/18/24 01:56 0.5 mg STAT ONE Administration Hydromorphone HCl Confirm 01/18/24 02:07 Hydromorphone 1 Mg/1ml Inj Administered 01/18/24 02:08 Dose 1 mg .ROUTE .STK-MED ONE Nitroglycerin 0.4 mg 01/17/24 22:33 01/17/24 22:40 Nitroglycerin 0.4 Mg (Ed) 0.4 Mg Tab.Subl SL 01/17/24 22:34 0.4 mg STAT ONE Administration Nitroglycerin Confirm 01/17/24 22:39 Nitroglycerin 0.4 Mg (Ed) 0.4 Mg Tab.Subl Administered 01/17/24 22:40 Dose 0.4 mg SL .STK-MED ONE Lab/Rad Data: Laboratory Result Diagrams 01/17/24 21:40 01/17/24 21:40 Laboratory Results 01/18/24 01/17/24 01/17/24 Range/Units 01:50 21:40 21:40 WBC (4.0-10.5) x10^3/uL RBC (4.1-5.4) x10^6/uL Hgb (12.0-16.0) g/dL Hct (35-47) % MCV (78-100) fL MCH (26-32) pg MCHC (32-36) g/dL RDW (11.5-14.0) % Plt Count (150-450) x10^3/uL MPV (7.5-11.0) fL Gran % (36.0-66.0) % Immature Gran % (Auto) (0.00-0.4) % Nucleat RBC Rel Count (0.00-0.1) % Eos # (Auto) (0-0.5) x10^3/uL Immature Gran # (Auto) (0.00-0.03) x10^3u/L Absolute Lymphs (auto) (1.0-4.6) x10^3/uL Absolute Monos (auto) (0.0-1.3) x10^3/uL Absolute Nucleated RBC (0.00-0.01) x10^3u/L Lymphocytes % (24.0-44.0) % Monocytes % (0.0-12.0) % Eosinophils % (0.00-5.0) % Basophils % (0.0-0.4) % Absolute Granulocytes (1.4-6.9) x10^3/uL Basophils # (0-0.4) x10^3/uL Sodium 136 (135-145) mmol/L Potassium 4.4 (3.5-5.1) mmol/L Chloride 100 (98-107) mmol/L Carbon Dioxide 29 (22-30) mmol/L Anion Gap 11.4 (5-15) MEQ/L BUN 15 (7-17) mg/dL Creatinine 1.14 H (0.52-1.04) mg/dL Estimated GFR 50.5 ML/MIN Glucose 101 (74-106) mg/dL Calcium 9.1 (8.4-10.2) mg/dL Troponin I < 0.012 < 0.012 (0.000-0.034) ng/mL 01/17/24 Range/Units 21:40 WBC 6.6 (4.0-10.5) x10^3/uL RBC 4.43 (4.1-5.4) x10^6/uL Hgb 13.8 (12.0-16.0) g/dL Hct 43.0 (35-47) % MCV 97.1 (78-100) fL MCH 31.2 (26-32) pg MCHC 32.1 (32-36) g/dL RDW 12.5 (11.5-14.0) % Plt Count 229 (150-450) x10^3/uL MPV 9.4 (7.5-11.0) fL Gran % 50.8 (36.0-66.0) % Immature Gran % (Auto) 0.3 (0.00-0.4) % Nucleat RBC Rel Count 0.0 (0.00-0.1) % Eos # (Auto) 0.46 (0-0.5) x10^3/uL Immature Gran # (Auto) 0.02 (0.00-0.03) x10^3u/L Absolute Lymphs (auto) 2.01 (1.0-4.6) x10^3/uL Absolute Monos (auto) 0.70 (0.0-1.3) x10^3/uL Absolute Nucleated RBC 0.00 (0.00-0.01) x10^3u/L Lymphocytes % 30.5 (24.0-44.0) % Monocytes % 10.6 (0.0-12.0) % Eosinophils % 7.0 H (0.00-5.0) % Basophils % 0.8 (0.0-0.4) % Absolute Granulocytes 3.36 (1.4-6.9) x10^3/uL Basophils # 0.05 (0-0.4) x10^3/uL Sodium (135-145) mmol/L Potassium (3.5-5.1) mmol/L Chloride (98-107) mmol/L Carbon Dioxide (22-30) mmol/L Anion Gap (5-15) MEQ/L BUN (7-17) mg/dL Creatinine (0.52-1.04) mg/dL Estimated GFR ML/MIN Glucose (74-106) mg/dL Calcium (8.4-10.2) mg/dL Troponin I (0.000-0.034) ng/mL - Progress Progress: improved Counseled pt/family regarding: lab results, diagnosis, need for follow-up, rad results Medical Desision Making - Diagnostic Testing Diagnostic test were ordered, analyzed, and reviewed by me: Yes Radiological Interpretation: Teleradiologist Report - Departure Departure Disposition: Home Clinical Impression: Left shoulder pain, Dyspnea Condition: Stable Critical Care Time: No Referrals: BERTHA OLVERA NP, RN [NON-STAFF PHY W/O PRIVILEGES] - Follow up/PCP as directed Instructions: Shoulder Sprain (DC), Shortness of Breath, Adult ED Additional Instructions: Follow up with private doctor tomorrow. Wear left arm sling for comfort. Prescriptions: Ibuprofen 400 mg PO Q6H PRN PRN #30 tablet PRN Reason: Pain
[2024-01-17] MEDS ORDERED: Nitrostat 0.4 MG (ED) SL ONE (22:39)
[2024-01-17] MEDS: Nitrostat 0.4 MG (ED) SL ONE (22:40)
[2024-01-17 23:02] LABS: ANION GAP 11.4 MEQ/L (5-15); Calcium 9.1 mg/dL (8.4-10.2); Creatinine 1 1.14 mg/dL (0.52-1.04); EST GLOMERULAR FILTRATION RATE 50.5 ML/MIN; Potassium 4.4 mmol/L (3.5-5.1)
[2024-01-18 00:34] VITALS: RESP 24
--- NOTE | 2024-01-18 00:47 | XRAY ---
CLINICAL HISTORY: pain left upper chest COMPARISON: None. TECHNIQUE: Contiguous 3.[address] images of the chest were acquired without contrast. Coronal and sagittal reconstructions were obtained. One of the following dose reduction techniques were utilized for this exam: Automated exposure control, adjustment of the mA and/or kV according to patient size, and use of iterative reconstruction. FINDINGS: The thoracic cavity is barrel shaped and shows centrilobular emphysematous changes in bilateral upper lobes with basilar atelectatic changes. A 5 mm calcified nodule is seen in apical segment of right upper lobe. No free or encysted pleural effusion. Mild borderline dilatation of ascending aorta noted, measuring 31 mm in maximum caliber. The thoracic aorta shows atherosclerotic changes with calcified plaques. Heart size is normal, and there is no pericardial effusion. No pathologically enlarged mediastinal, hilar or axillary lymph node identified. The thoracic spine shows exaggeration of the thoracic kyphosis with osteoporotic compression fractures at few levels, most significant at T8 level causing nearly 70% reduction in vertebral height and T3 level causing 40% reduction in vertebral height. Sclerotic focus seen in T5 vertebral body. There is no definite mass lesion in the chest wall. Scanned upper abdomen is unremarkable except for renal arterial calcification.. IMPRESSION: The thoracic cavity is barrel shapedand shows centrilobular emphysematous changes in bilateral upper lobes with basilar atelectatic changes. A 5 mm calcified nodule in apical segment of right upper lobe, no follow up is required Mild borderline dilatation of ascending aorta noted, measuring 31 mm in maximum caliber. Recommended interval screening Electronically Signed by: Jana Gibbons MD. (01/18/2024 00:43:11 EDT)
[2024-01-18] MEDS ORDERED: Hydromorphone 1 mg/ml Injection ONE (02:07)
[2024-01-18] MEDS: Hydromorphone 1 mg/ml Injection IV ONE (02:09)
--- NOTE | 2024-01-18 02:41 | XRAY ---
CLINICAL HISTORY: decreased rom COMPARISON: None. TECHNIQUE: X-ray examination of the left shoulder joint is performed in AP/ internal and external rotation and Y 3 views. FINDINGS: 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 Mild osteoarthritic changes at the glenohumeral joint. Reduced bone density. No obvious/definite acute osseous abnormality. No significant soft tissue swelling. 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 Mild osteoarthritic changes at the glenohumeral joint. Reduced bone density. DISCLAIMER:A subtle bone abnormality or fracture may not be readily apparent on x-rays, thus clinical correlation and further imaging including follow up CT, MRI, or follow up x-rays are advised as needed. Electronically Signed by: Jana Gibbons MD. (01/18/2024 02:38:17 EDT)
--- NOTE | 2024-01-18 02:48 | XRAY ---
CLINICAL HISTORY: pain COMPARISON: None. TECHNIQUE: X-ray examination of left clavicle bone is performed in AP and axillary 2 views. FINDINGS: No obvious/definite bony abnormality at the left clavicle bone. Osteoarthritic changes are seen at the left acromioclavicular and glenohumeral joints. Osteopenic bones. No significant soft tissue swelling. IMPRESSION: No obvious/definite bony abnormality at the left clavicle bone. Osteoarthritic changes are seen at the left acromioclavicular and glenohumeral joints. Osteopenic bones. DISCLAIMER:A subtle bone abnormality or fracture may not be readily apparent on x-rays, thus clinical correlation and further imaging including follow up CT, MRI, or follow up x-rays are advised as needed. Electronically Signed by: Jana Gibbons MD. (01/18/2024 02:44:14 EDT)
[2024-01-18 03:15] VITALS: BP 172/85
[2024-01-18] MEDS ORDERED: PROVENTIL 2.5 MG/3 ML NEB IH ONE (03:22)
[2024-01-18] MEDS: PROVENTIL 2.5 MG/3 ML NEB IH ONE (03:34)
[2024-01-18 03:36] VITALS: PULSE 83; O2SAT 98
== END 2024-01-18 03:59 | disposition home or self-care (01) ==
LOC: ED 21:30
DX: M25.512 Pain in left shoulder (principal); R06.00 Dyspnea, unspecified; R07.9 Chest pain, unspecified; E78.5 Hyperlipidemia, unspecified; I10 Essential (primary) hypertension; Z79.899 Other long term (current) drug therapy; Z99.81 Dependence on supplemental oxygen
CPT/HCPCS: 36000; 36415; 71250; 73000; 73030; 80048; 84484; 85025; 93005; 94640; 96374; 96376; 99284; J1170; J7609; A9270-GY

== ENCOUNTER 2024-01-21 13:42 | Observation (INO) | payer OTHER ==
[2024-01-21 14:34] LABS: Absolute Neutrophil Ct (ANC) 4.79 x10^3/uL (1.4-6.9); BASOPHIL % 0.6 % (0.0-0.4); Basophil (Absolute #) 0.04 x10^3/uL (0-0.4); Eosinophil % 4.8 % (0.00-5.0); Eosinophil (Absolute #) 0.34 x10^3/uL (0-0.5); Hematocrit 40.4 % (35-47); Hemoglobin 13.2 g/dL (12.0-16.0); IMMATURE GRAN # 0.02 x10^3u/L (0.00-0.03); IMMATURE GRAN % 0.3 % (0.00-0.4); Lymphocytes % 15.6 % (24.0-44.0); Mean Cell Volume 97.6 fL (78-100); Mean Corpuscular Hemoglobin 31.9 pg (26-32); Mean Corpuscular Hgb Concent. 32.7 g/dL (32-36); Monocyte (Absolute #) 0.75 x10^3/uL (0.0-1.3); Monocytes % 10.7 % (0.0-12.0); Platelet Count 208 x10^3/uL (150-450); Red Blood Count 4.14 x10^6/uL (4.1-5.4); Red Cell Distribution Width 12.7 % (11.5-14.0)
[2024-01-21] MEDS ORDERED: DUONEB 0.5-3 MG/3 ml Neb IH ONE (14:43)
[2024-01-21] MEDS: DUONEB 0.5-3 MG/3 ml Neb IH ONE (14:44)
[2024-01-21 14:48] LABS: ALBUMIN 4.1 g/dL (3.5-5.0); ANION GAP 9.6 MEQ/L (5-15); BILIRUBIN,TOTAL 0.3 mg/dL (0.2-1.3); Calcium 9.3 mg/dL (8.4-10.2); Creatinine 1 1.06 mg/dL (0.52-1.04); EST GLOMERULAR FILTRATION RATE 55.1 ML/MIN; MAGNESIUM 1.9 mg/dL (1.6-2.3); Potassium 4.2 mmol/L (3.5-5.1); Total Protein 7.4 g/dL (6.3-8.2)
[2024-01-21 15:00] LABS: NT PRO BNPII 498 pg/mL (<300); TROPONIN < 0.012 ng/mL (0.000-0.033)
--- NOTE | 2024-01-21 15:43 | XRAY ---
Indication: Short of breath. Comparison: May Portable chest now markedly rotated and moderately underinflated, crowding both lung bases. Visualized upper lungs clear. Heart probably within normal limits. Bony thorax intact again with osteopenia, degenerative changes, remote T7 fracture, mild scoliosis, and left chest electronic device with single lead. Impression: Nonacute underinflated limited chest again with chronic features.
--- NOTE | 2024-01-21 17:01 | ERPHSYRPT ---
- History of Present Illness Time Seen by Provider: 01/21/24 13:50 Patient Subjective Stated Complaint: Pt states that she had a sudden onset of weakness, shaking and unable to catch her breath and she was wearing 2L NC when it began Triage Nursing Assessment: Pt was brought to the ER by EMS, hypertensive, tachypnic, denies pain at this time, pulses normal, upper chest and jayesh breasts are severely bruised from something that happened the other day and she came to the ER, upon arrival pts shaking had decreased but was still significant, approx 15 minutes after being here most of the shaking had stopped, pt states that she all of a sudden couldn't catch her breath and was trying to go to the neighbors house for help, wheezing and crackles throughout, denies chest pain, Physician History: 73-year-old female with history of seizure disorder, COPD with chronic res piratory failure on 2 L oxygen, anxiety/panic disorder, hypertension who recently had a fall with contusion in the anterior chest wall with bruising presented in the ER with sudden onset increasing shortness of breath prior to arrival. Patient was tachypneic and tachycardic per EMS and was shaking. Patient reports having similar symptoms in the past as well. Patient oxygen saturation was also dropping and she was increased from 2 to 4 L oxygen. Patient has minimal wheezing on presentation, very anxious but per EMS she is getting better now. She denies any chest pain but shortness of breath. Has minimal productive cough which is not any worse than usual. No fever or chills reported. She is not a good historian and history is limited. Allergies/Adverse Reactions: cefaclor [From [facility]] Allergy (Mild, Verified 01/21/24 14:00) STATES GOT REAL HOT Home Medications: Levetiracetam [Keppra] 750 mg PO BID 09/22/17 [History] Metoprolol Tartrate 25 mg [Lopressor 25MG Tab] 25 mg PO BID 02/25/18 [History] Melatonin 3 mg PO HS 11/06/18 [History] risperiDONE [Risperidone] 1 mg PO BID 11/06/18 [History] Alendronate Sodium 70 mg [Fosamax 70 MG] 70 mg PO WEEKLY 11/02/21 [History] Cetirizine HCl [All Day Allergy] 10 mg PO DAILY 05/26/23 [History] Simvastatin 20Mg [Zocor 20Mg] 20 mg PO DAILY 05/26/23 [History] clonazePAM [Clonazepam] 0.5 mg PO DAILY PRN 05/26/23 [History] Beclomethasone Dipropionate [Qvar Redihaler] 2 inh PO BID 01/21/24 [History] Venlafaxine HCl [Venlafaxine HCl ER] 150 mg PO DAILY 01/21/24 [History] lamoTRIgine [Lamotrigine] 200 mg PO BID 01/21/24 [History] Hx Tetanus, Diphtheria Vaccination/Date Given: Yes Hx Influenza Vaccination/Date Given: Yes Hx Pneumococcal Vaccination/Date Given: Yes Travel Risk - International Travel Have you traveled outside of the country in past 3 weeks: No - Emerging Infectious Disease Are you exhibiting symptoms associated with any current EIDs: No - Review of Systems Constitutional: Fatigue Eyes: No Symptoms Ears, Nose, & Throat: Throat Swelling Respiratory: Cough, Dyspnea, Wheezing Cardiac: Palpitations Abdominal/Gastrointestinal: No Symptoms Genitourinary Symptoms: No Symptoms Musculoskeletal: Arthralgias Skin: No Symptoms Neurological: No Symptoms Psychological: Anxiety Immunological/Allergic: No Symptoms - Past Medical History Pertinent Past Medical History: Yes Neurological History: Seizures ENT History: No Pertinent History Cardiac History: High Cholesterol, Hypertension Respiratory History: Asthma, COPD Endocrine Medical History: No Pertinent History Musculoskeletal History: No Pertinent History GI Medical History: No Pertinent History History: No Pertinent History Psycho-Social History: Anxiety, Depression, Panic Disorder Female Reproductive Disorders: No Pertinent History Other Medical History: SEIZURE 02/03 FELL AND LED TO R SHOULDER ISSUES. PT USES O2 @ 2L PRN during the day and routine at night AT HOME - Past Surgical History Past Surgical History: Yes Neuro Surgical History: No Pertinent History Cardiac: No Pertinent History Respiratory: No Pertinent History Gastrointestinal: No Pertinent History Genitourinary: No Pertinent History Musculoskeletal: No Pertinent History, Joint Replacement, Orthopedic Surgery Female Surgical History: No Pertinent History Other Surgical History: MAGNET PLACEMENT FOR SEIZURES in left chest and wears a watch to activate magnet. Right Shoulder replacement Significant Family History: no pertinent family hx - Social History Smoking Status: Former smoker How long have you smoked: 55 years Exposure to second hand smoke: No Drug Use: none Patient Lives Alone: Yes - Nursing Vital Signs Nursing Vital Signs: Initial Vital Signs Temperature 98.9 F 01/21/24 13:47 Pulse Rate 95 H 01/21/24 13:47 Respiratory Rate 29 H 01/21/24 13:47 Blood Pressure 194/102 01/21/24 13:47 O2 Sat by Pulse Oximetry 93 L 01/21/24 13:47 Pain Scale Pain Intensity 0 - Physical Exam General Appearance: no apparent distress, alert, anxiety Eye Exam: PERRL/EOMI Ears, Nose, Throat Exam: hearing grossly normal, normal ENT inspection Neck Exam: normal inspection, non-tender, supple, full range of motion Respiratory Exam: diminished breath sounds, wheezing Cardiovascular/Chest Exam: normal heart sounds, tachycardia Abdominal/Gastrointestinal Exam: soft, normal bowel sounds, No tenderness Extremity Exam: non-tender, normal range of motion Neurologic Exam: alert, oriented x 3, cooperative, 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-XII nml as tested, nml cerebellar function, sensation nml, No normal mood/affect, No motor deficits SpO2 Interpretation: O2 applied SpO2: 92 O2 Delivery: Nasal Cannula - Course EKG Interpreted by Me: RATE (90), Sinus Rhythm, NORMAL AXIS, NORMAL INTERVALS, Non-specific ST Changes Ordered Tests: Active Orders 24 hr Category Date Time Status Bedrest ROUTINE Activity 01/21/24 18:56 Active Up With Assistance ROUTINE Activity 01/21/24 18:56 Active Call Admit Doctor for Orders ON ADMISSION Care 01/21/24 18:56 Active Mop Handle Assembler STAT Care 01/21/24 14:13 Completed Code Status Order ROUTINE Care 01/21/24 18:56 Active EKG-ER Only STAT Care 01/21/24 14:13 Completed Fall Protocol ROUTINE Care 01/21/24 18:56 Active IV Insertion STAT Care 01/21/24 14:13 Completed Neuro Checks Q4H Care 01/21/24 18:56 Active Oxygen-ED Only Nasal Cannula 3 lpm Care 01/21/24 14:[address] in Observation ROUTINE Care 01/21/24 18:56 Active CHEST 1 VIEW (PORTABLE) Stat Exams 01/21/24 14:13 Completed CHEST WITH CONTRAST [CT] Stat Exams 01/21/24 17:00 Taken BLOOD CULTURE Stat Lab 01/21/24 18:55 Received CBC W DIFF Stat Lab 01/21/24 14:30 Completed CMP Stat Lab 01/21/24 14:30 Completed D-DIMER QUANTITATIVE Stat Lab 01/21/24 14:30 Completed Lactic Acid Stat Lab 01/21/24 14:13 Completed MAGNESIUM Stat Lab 01/21/24 14:30 Completed NT PRO BNPII Stat Lab 01/21/24 14:30 Completed TROPONIN Q4H Lab 01/21/24 14:30 Completed TROPONIN Q4H Lab 01/21/24 18:35 Completed TROPONIN Q4H Lab 01/21/24 22:00 Completed Oxygen Nasal Cannula 5 lpm RT 01/21/24 18:56 Active Pulse Oximetry CONTINUOUS RT 01/21/24 18:56 Active Respiratory Therapy Assessment DAILY RT 01/21/24 14:44 Completed Respiratory Therapy Consult ONCE RT 01/21/24 18:56 Active Transfer Order Routine Transfer 01/21/24 Completed Medication Summary Discontinued Medications Generic Name Dose Route Start Last Admin Trade Name Freq PRN Reason Stop Dose Admin Albuterol/Ipratropium 3 ml 01/21/24 14:13 01/21/24 14:44 Ipratropium/Albuterol Sulfate 3 Ml Ampul.Neb IH 01/21/24 14:14 3 ml STAT ONE Administration Albuterol/Ipratropium Confirm 01/21/24 14:43 Ipratropium/Albuterol Sulfate 3 Ml Ampul.Neb Administered 01/21/24 14:44 Dose 3 ml IH .STK-MED ONE Methylprednisolone Sodium 0 mg 01/21/24 17:42 01/21/24 18:59 Succinate 125 mg/ Sterile IV 01/21/24 17:43 125 mg Water 2 ml STAT ONE Administration Levetiracetam 1,000 mg/ 110 mls @ 220 mls/hr 01/21/24 18:15 01/21/24 18:57 Dextrose IV 01/21/24 18:44 220 mls/hr STAT ONE Administration Levofloxacin/Dextrose 500 mg in 100 mls @ 100 mls/hr 01/21/24 18:30 01/21/24 20:47 Levofloxacin 500mg/100ml D5w IV 01/21/24 19:29 Infused STAT STA Infusion Dextrose Confirm 01/21/24 18:54 Dextrose 5%/Water Iv Soln. 100ml Plus Bag Administered 01/21/24 18:55 Dose 100 mls @ ud IV .STK-MED ONE Levofloxacin/Dextrose Confirm 01/21/24 19:44 Levofloxacin 500mg/100ml D5w Administered 01/21/24 19:45 Dose 500 mg in 100 mls @ ud IV .STK-MED ONE Labetalol HCl 10 mg 01/21/24 21:23 01/21/24 21:26 Labetalol Hcl 20 Mg/4 Ml Disp.Syringe IV 01/21/24 21:24 10 mg STAT ONE Administration Labetalol HCl Confirm 01/21/24 21:25 Labetalol Hcl 20 Mg/4 Ml Disp.Syringe Administered 01/21/24 21:26 Dose 20 mg IV .STK-MED ONE Levetiracetam Confirm 01/21/24 18:53 Levetiracetam 500 Mg/5 Ml Vial Administered 01/21/24 18:54 Dose 1,000 mg .ROUTE .STK-MED ONE Lorazepam 1 mg 01/21/24 18:32 01/21/24 18:59 Lorazepam 2 Mg/1 Ml 2 Mg Vial IV 01/21/24 18:33 1 mg STAT ONE Administration Lorazepam Confirm 01/21/24 18:53 Lorazepam 2 Mg/1 Ml 2 Mg Vial Administered 01/21/24 18:54 Dose 2 mg .ROUTE .STK-MED ONE Methylprednisolone Sodium Succinate Confirm 01/21/24 18:53 Methylprednis Sod Succ 125 Mg/2 Ml Vial Administered 01/21/24 18:54 Dose 125 mg .ROUTE .STK-MED ONE Sterile Water Confirm 01/21/24 18:52 Water For Injection,Sterile 10 Ml Vial Administered 01/21/24 18:53 Dose 10 ml IJ .STK-MED ONE Lab/Rad Data: Laboratory Result Diagrams 01/21/24 14:30 01/21/24 14:30 Laboratory Results 01/21/24 01/21/24 01/21/24 Range/Units 22:00 18:50 18:35 WBC (4.0-10.5) x10^3/uL RBC (4.1-5.4) x10^6/uL Hgb (12.0-16.0) g/dL Hct (35-47) % MCV (78-100) fL MCH (26-32) pg MCHC (32-36) g/dL RDW (11.5-14.0) % Plt Count (150-450) x10^3/uL MPV (7.5-11.0) fL Gran % (36.0-66.0) % Immature Gran % (Auto) (0.00-0.4) % Nucleat RBC Rel Count (0.00-0.1) % Eos # (Auto) (0-0.5) x10^3/uL Immature Gran # (Auto) (0.00-0.03) x10^3u/L Absolute Lymphs (auto) (1.0-4.6) x10^3/uL Absolute Monos (auto) (0.0-1.3) x10^3/uL Absolute Nucleated RBC (0.00-0.01) x10^3u/L Lymphocytes % (24.0-44.0) % Monocytes % (0.0-12.0) % Eosinophils % (0.00-5.0) % Basophils % (0.0-0.4) % Absolute Granulocytes (1.4-6.9) x10^3/uL Basophils # (0-0.4) x10^3/uL D-Dimer (0.0-0.50) mg/L Sodium (135-145) mmol/L Potassium (3.5-5.1) mmol/L Chloride (98-107) mmol/L Carbon Dioxide (22-30) mmol/L Anion Gap (5-15) MEQ/L BUN (7-17) mg/dL Creatinine (0.52-1.04) mg/dL Estimated GFR ML/MIN Glucose (74-106) mg/dL Lactic Acid (0.4-2.0) Calcium (8.4-10.2) mg/dL Magnesium (1.6-2.3) mg/dL Total Bilirubin (0.2-1.3) mg/dL AST (14-36) U/L ALT (0-35) U/L Alkaline Phosphatase (38-126) U/L Troponin I < 0.012 < 0.012 (0.000-0.033) ng/mL NT-Pro-B Natriuret Pep (<300) pg/mL Serum Total Protein (6.3-8.2) g/dL Albumin (3.5-5.0) g/dL Influenza Type A Ag NEGATIVE (NEGATIVE) Influenza Type B Ag NEGATIVE (NEGATIVE) RSV (PCR) NEGATIVE (NEGATIVE) SARS-CoV-2 (PCR) NEGATIVE (NEGATIVE) 01/21/24 01/21/24 01/21/24 Range/Units 14:30 14:30 14:30 WBC (4.0-10.5) x10^3/uL RBC (4.1-5.4) x10^6/uL Hgb (12.0-16.0) g/dL Hct (35-47) % MCV (78-100) fL MCH (26-32) pg MCHC (32-36) g/dL RDW (11.5-14.0) % Plt Count (150-450) x10^3/uL MPV (7.5-11.0) fL Gran % (36.0-66.0) % Immature Gran % (Auto) (0.00-0.4) % Nucleat RBC Rel Count (0.00-0.1) % Eos # (Auto) (0-0.5) x10^3/uL Immature Gran # (Auto) (0.00-0.03) x10^3u/L Absolute Lymphs (auto) (1.0-4.6) x10^3/uL Absolute Monos (auto) (0.0-1.3) x10^3/uL Absolute Nucleated RBC (0.00-0.01) x10^3u/L Lymphocytes % (24.0-44.0) % Monocytes % (0.0-12.0) % Eosinophils % (0.00-5.0) % Basophils % (0.0-0.4) % Absolute Granulocytes (1.4-6.9) x10^3/uL Basophils # (0-0.4) x10^3/uL D-Dimer 0.64 H* (0.0-0.50) mg/L Sodium 138 (135-145) mmol/L Potassium 4.2 (3.5-5.1) mmol/L Chloride 102 (98-107) mmol/L Carbon Dioxide 31 H (22-30) mmol/L Anion Gap 9.6 (5-15) MEQ/L BUN 14 (7-17) mg/dL Creatinine 1.06 H (0.52-1.04) mg/dL Estimated GFR 55.1 ML/MIN Glucose 108 H (74-106) mg/dL Lactic Acid (0.4-2.0) Calcium 9.3 (8.4-10.2) mg/dL Magnesium 1.9 (1.6-2.3) mg/dL Total Bilirubin 0.30 (0.2-1.3) mg/dL AST 25 (14-36) U/L ALT 14 (0-35) U/L Alkaline Phosphatase 63 (38-126) U/L Troponin I < 0.012 (0.000-0.033) ng/mL NT-Pro-B Natriuret Pep 498 (<300) pg/mL Serum Total Protein 7.4 (6.3-8.2) g/dL Albumin 4.1 (3.5-5.0) g/dL Influenza Type A Ag (NEGATIVE) Influenza Type B Ag (NEGATIVE) RSV (PCR) (NEGATIVE) SARS-CoV-2 (PCR) (NEGATIVE) 01/21/24 01/21/24 Range/Units 14:30 14:13 WBC 7.0 (4.0-10.5) x10^3/uL RBC 4.14 (4.1-5.4) x10^6/uL Hgb 13.2 (12.0-16.0) g/dL Hct 40.4 (35-47) % MCV 97.6 (78-100) fL MCH 31.9 (26-32) pg MCHC 32.7 (32-36) g/dL RDW 12.7 (11.5-14.0) % Plt Count 208 (150-450) x10^3/uL MPV 9.0 (7.5-11.0) fL Gran % 68.0 H (36.0-66.0) % Immature Gran % (Auto) 0.3 (0.00-0.4) % Nucleat RBC Rel Count 0.0 (0.00-0.1) % Eos # (Auto) 0.34 (0-0.5) x10^3/uL Immature Gran # (Auto) 0.02 (0.00-0.03) x10^3u/L Absolute Lymphs (auto) 1.10 (1.0-4.6) x10^3/uL Absolute Monos (auto) 0.75 (0.0-1.3) x10^3/uL Absolute Nucleated RBC 0.00 (0.00-0.01) x10^3u/L Lymphocytes % 15.6 L (24.0-44.0) % Monocytes % 10.7 (0.0-12.0) % Eosinophils % 4.8 (0.00-5.0) % Basophils % 0.6 (0.0-0.4) % Absolute Granulocytes 4.79 (1.4-6.9) x10^3/uL Basophils # 0.04 (0-0.4) x10^3/uL D-Dimer (0.0-0.50) mg/L Sodium (135-145) mmol/L Potassium (3.5-5.1) mmol/L Chloride (98-107) mmol/L Carbon Dioxide (22-30) mmol/L Anion Gap (5-15) MEQ/L BUN (7-17) mg/dL Creatinine (0.52-1.04) mg/dL Estimated GFR ML/MIN Glucose (74-106) mg/dL Lactic Acid 1.6 (0.4-2.0) Calcium (8.4-10.2) mg/dL Magnesium (1.6-2.3) mg/dL Total Bilirubin (0.2-1.3) mg/dL AST (14-36) U/L ALT (0-35) U/L Alkaline Phosphatase (38-126) U/L Troponin I (0.000-0.033) ng/mL NT-Pro-B Natriuret Pep (<300) pg/mL Serum Total Protein (6.3-8.2) g/dL Albumin (3.5-5.0) g/dL Influenza Type A Ag (NEGATIVE) Influenza Type B Ag (NEGATIVE) RSV (PCR) (NEGATIVE) SARS-CoV-2 (PCR) (NEGATIVE) - Progress Progress: re-examined Air Movement: fair Progress Note: 01/21/24 18:36 73-year-old is evaluated for increasing shortness of breath with shaking. Patient seem to had some element of panic attack. She is given DuoNeb but her oxygen did not improve and it was going down, she is increased to 5 L oxygen with saturation around 94 to 96%. Chest x-ray no acute findings. Normal white count, fairly unremarkable chemistries and negative troponins. Although her D- dimers for age-adjusted are -0.64 but with her symptoms of hypoxia I have obtained CTA chest which is negative for PE or any other acute finding per preliminary report. Official report is pending. Patient while in the ER had a possible seizure activity with tachycardia and on evaluation immediately patient is confused and not acting herself. She is given a dose of Keppra and CT head is ordered. By the time patient went to CT scanner she refused to have it done. She had no focal neurodeficit and is back to her baseline. She is very anxious and wants something for her anxiety and is given Ativan. I believe patient has COPD exacerbation and given a dose of Levaquin along with steroids. Discussed with Dr. Bonilla, reviewed history, workup and agreed with admission. Will obtain COVID and flu as well. Blood Culture(s) Obtained: Yes Antibiotics given: Yes Discussed with : Other (Dr. Bonilla hospitalist) Counseled pt/family regarding: lab results, diagnosis, need for follow-up, rad results Medical Desision Making - Discussion of managment Care discussed with:: hospitalist Reviewed:: Test results Agreed on:: Treatment plan Will see patient: in hospital - Diagnostic Testing Diagnostic test were ordered, analyzed, and reviewed by me: Yes Radiological Interpretation: Reviewed by me - Risk of complications The pt has a high risk of morbidity or mortality based on: Decision regarding hospitilization or escalation of hosp level of care - Departure Departure Disposition: Observation Clinical Impression: COPD exacerbation, Seizure disorder Respiratory failure Qualifiers: Chronicity: acute on chronic Respiratory failure complication: hypoxia Qualified Code(s): J96.21 - Acute and chronic respiratory failure with hypoxia Condition: Stable Critical Care Time: No
[2024-01-21] MEDS ORDERED: Sterile H2O 10 ml IJ ONE (18:52)
[2024-01-21] MEDS ORDERED: Keppra 500 MG/5 ML ONE (18:53)
[2024-01-21] MEDS ORDERED: solu-MEDROL ONE (18:53)
[2024-01-21] MEDS ORDERED: Ativan 2 MG/1 ML VIAL ONE (18:53)
[2024-01-21] MEDS ORDERED: Dextrose 5%/Water IV Soln. 100ML PLUS BAG 100 ML IV ONE (18:54)
[2024-01-21] MEDS: Keppra 500 MG/5 ML*** 1,000 MG in D5w 100ML Mini Bag 100 ML 100 ML IV ONE (18:57)
[2024-01-21] MEDS: solu-MEDROL 125 MG, Sterile H2O 10 ml 2 ML IV ONE (18:59)
[2024-01-21] MEDS: Ativan 2 MG/1 ML VIAL IV ONE (18:59)
[2024-01-21 19:42] LABS: INFLUENZA A NEGATIVE (NEGATIVE); INFLUENZA B NEGATIVE (NEGATIVE); RESPIRATORY SYNCTIAL VIRUS NEGATIVE (NEGATIVE); SARS-CoV-2 Xpert Express NEGATIVE (NEGATIVE)
[2024-01-21] MEDS ORDERED: Levofloxacin 500MG/100ML D5W 500 MG/100 ML BAG IV ONE (19:44)
[2024-01-21] MEDS: Levofloxacin 500MG/100ML D5W 500 MG/100 ML BAG IV STA (19:47)
[2024-01-21] MEDS ORDERED: TRANDATE 20 MG/4 ML SYRINGE IV ONE (21:25)
[2024-01-21] MEDS: TRANDATE 20 MG/4 ML SYRINGE IV ONE (21:26)
[2024-01-22] MEDS ORDERED: Nitrostat 0.4 MG Tablet SL PRN (01:40)
[2024-01-22] MEDS ORDERED: Fosamax 70 MG PO SCH (01:45)
[2024-01-22] MEDS ORDERED: DUONEB 0.5-3 MG/3 ml Neb IH PRN (01:57)
--- NOTE | 2024-01-22 01:57 | PCM.HP ---
History of Present Illness - Chief Complaint Chief Complaint: COPD Exac, Resp. failure Date: 01/22/24 History of Present Illness: Ms. Patel is a 73 year-old female with COPD, chronic hypoxemic respiratory failure, HTN, HLD, seizure disorder, and anxiety disorder who presents with anxiety. She states that earlier this afternoon she suddenly became short of breath, shaky, tachycardic, and tachypnic - this episode did not last long. Upon arrival to [place], she was a little hypertensive, but her laboratory data and imaging were unremarkable. On my examination, she is feeling better and back to baseline, and she currently denies fevers, chills, nausea, vomiting, diarrhea, syncope, presyncope, visual changes, orthopnea, PND, odynophagia, dysphagia, chest pain, shortness of breath, belly pain, dysuria, hematuria, melena, hematochezia, or neurological changes. All other systems were reviewed and were negative. - Review of Systems Constitutional: Other ( PER HPI) Medications & Allergies Home Medications: Home Medication List Nitroglycerin 0.4 mg Tablet [Nitrostat 0.4 MG Tablet] 0.4 mg SL Q5MIN PRN MR X 3 PRN #1 bottle 09/25/16 [Rx Confirmed 01/21/24] Levetiracetam [Keppra] 750 mg PO BID 09/22/17 [History Confirmed 01/21/24] Magnesium Oxide 400 mg [Mag-Ox 400] 400 mg PO BID #60 tablet 10/27/17 [Rx Confirmed 01/21/24] Metoprolol Tartrate 25 mg [Lopressor 25MG Tab] 25 mg PO BID 02/25/18 [History Confirmed 01/21/24] Melatonin 3 mg PO HS 11/06/18 [History Confirmed 01/21/24] risperiDONE [Risperidone] 1 mg PO BID 11/06/18 [History Confirmed 01/21/24] Alendronate Sodium 70 mg [Fosamax 70 MG] 70 mg PO WEEKLY 11/02/21 [History Confirmed 01/21/24] Cetirizine HCl [All Day Allergy] 10 mg PO DAILY 05/26/23 [History Confirmed 01/21/24] Simvastatin 20Mg [Zocor 20Mg] 20 mg PO DAILY 05/26/23 [History Confirmed 01/21/24] clonazePAM [Clonazepam] 0.5 mg PO DAILY PRN 05/26/23 [History Confirmed 01/21/24] Beclomethasone Dipropionate [Qvar Redihaler] 2 inh PO BID 01/21/24 [History Confirmed 01/21/24] Venlafaxine HCl [Venlafaxine HCl ER] 150 mg PO DAILY 01/21/24 [History Confirmed 01/21/24] lamoTRIgine [Lamotrigine] 200 mg PO BID 01/21/24 [History Confirmed 01/21/24] Allergies/Adverse Reactions: Allergies Allergy/AdvReac Type Severity Reaction Status Date / Time cefaclor [From Ceclor] Allergy Mild Verified 01/21/24 14:00 - Past Medical History Past Medical History: Yes Neurological History: Seizures ENT History: No Pertinent History Cardiac History: High Cholesterol, Hypertension Respiratory History: Asthma, COPD Endocrine Medical History: No Pertinent History Musculoskelatal History: No Pertinent History GI Medical History: No Pertinent History History: No Pertinent History Pyscho-Social History: Anxiety, Depression, Panic Disorder Reproductive Disorders: No Pertinent History Comment: SEIZURE 02/03 FELL AND LED TO R SHOULDER ISSUES. PT USES O2 @ 2L PRN during the day and routine at night AT HOME - Female History Are you now?: No - Past Surgical History Past Surgical History: Yes Neuro Surgical History: No Pertinent History Cardiac History: No Pertinent History Respiratory Surgery: No Pertinent History GI Surgical History: No Pertinent History Genitourinary Surgical Hx: No Pertinent History Musculskeletal Surgical Hx: No Pertinent History, Joint Replacement, Orthopedic Surgery Female Surgical History: No Pertinent History Other Surgical History: MAGNET PLACEMENT FOR SEIZURES in left chest and wears a watch to activate magnet. Right Shoulder replacement Significant Family History: no pertinent family hx - Social History Smoking Status: Former smoker How long have you smoked: 55 years Exposure to second hand smoke: No Alcohol: None Drug Use: none - Social Determinants of Health Will the patient participate in the screening: Yes Do you worry about a steady place to live?: No Do you have any problems with any of the following?: No known problems In the past 12 months,have you had to go without utilities?: No Have you or anyone in your house had to go without enough: No Transportation Issues: No Has anyone in your support network made you feel unsafe?: No Does the patient want assistance with any of the above?: No - Physical Exam Vital Signs: Vital Signs - 24 hr Temp Pulse Resp BP BP Pulse Ox 01/22/24 00:44 96 01/22/24 00:06 104 H 22 90 L 01/21/24 23:37 98.9 F 104 H 18 168/81 90 L 01/21/24 23:26 92 L 01/21/24 22:54 98.9 F 104 H 18 168/81 90 L 01/21/24 22:00 107 H 25 H 178/93 93 L 01/21/24 21:50 102 H 18 169/104 93 L 01/21/24 21:40 103 H 18 155/117 94 L 01/21/24 21:30 105 H 30 H 180/103 92 L 01/21/24 21:18 114 H 169/128 92 L 01/21/24 21:00 118 H 23 172/110 89 L 01/21/24 20:30 115 H 37 H 167/99 89 L 01/21/24 20:00 110 H 28 H 161/102 91 L 01/21/24 16:02 29 H 143/81 92 L 01/21/24 15:30 30 H 181/111 01/21/24 15:00 95 H 25 H 172/97 01/21/24 14:48 90 22 97 01/21/24 14:30 93 H 29 H 168/104 92 L 01/21/24 14:00 93 H 17 183/99 93 L 01/21/24 13:47 98.9 F 95 H 29 H 194/102 93 L General Appearance: no apparent distress, alert Neurologic Exam: alert, oriented x 3, cooperative, normal mood/affect, nml cerebellar function, nml station & gait, sensation nml, No motor deficits Eye Exam: PERRL/EOMI, eyes nml inspection Ears, Nose, Throat Exam: normal ENT inspection, TMs normal, pharynx normal, moist mucous membranes Neck Exam: normal inspection, non-tender, supple, full range of motion Respiratory Exam: normal breath sounds, lungs clear, No respiratory distress Cardiovascular Exam: regular rate/rhythm, normal heart sounds, normal peripheral pulses Gastrointestinal/Abdomen Exam: soft, normal bowel sounds, No tenderness, No mass Back Exam: normal inspection, normal range of motion, No CVA tenderness, No vertebral tenderness Extremity Exam: normal inspection, normal range of motion, pelvis stable Skin Exam: normal color, warm, dry, No rash Lymphatic Exam: No adenopathy Results - Labs Lab/Micro Results: Lab Results-Last 24 Hours 01/21/24 01/21/24 01/21/24 Range/Units 14:13 14:30 14:30 WBC 7.0 (4.0-10.5) x10^3/uL RBC 4.14 (4.1-5.4) x10^6/uL Hgb 13.2 (12.0-16.0) g/dL Hct 40.4 (35-47) % MCV 97.6 (78-100) fL MCH 31.9 (26-32) pg MCHC 32.7 (32-36) g/dL RDW 12.7 (11.5-14.0) % Plt Count 208 (150-450) x10^3/uL MPV 9.0 (7.5-11.0) fL Gran % 68.0 H (36.0-66.0) % Immature Gran % (Auto) 0.3 (0.00-0.4) % Nucleat RBC Rel Count 0.0 (0.00-0.1) % Eos # (Auto) 0.34 (0-0.5) x10^3/uL Immature Gran # (Auto) 0.02 (0.00-0.03) x10^3u/L Absolute Lymphs (auto) 1.10 (1.0-4.6) x10^3/uL Absolute Monos (auto) 0.75 (0.0-1.3) x10^3/uL Absolute Nucleated RBC 0.00 (0.00-0.01) x10^3u/L Lymphocytes % 15.6 L (24.0-44.0) % Monocytes % 10.7 (0.0-12.0) % Eosinophils % 4.8 (0.00-5.0) % Basophils % 0.6 (0.0-0.4) % Absolute Granulocytes 4.79 (1.4-6.9) x10^3/uL Basophils # 0.04 (0-0.4) x10^3/uL D-Dimer (0.0-0.50) mg/L Sodium 138 (135-145) mmol/L Potassium 4.2 (3.5-5.1) mmol/L Chloride 102 (98-107) mmol/L Carbon Dioxide 31 H (22-30) mmol/L Anion Gap 9.6 (5-15) MEQ/L BUN 14 (7-17) mg/dL Creatinine 1.06 H (0.52-1.04) mg/dL Estimated GFR 55.1 ML/MIN Glucose 108 H (74-106) mg/dL Lactic Acid 1.6 (0.4-2.0) Calcium 9.3 (8.4-10.2) mg/dL Magnesium 1.9 (1.6-2.3) mg/dL Total Bilirubin 0.30 (0.2-1.3) mg/dL AST 25 (14-36) U/L ALT 14 (0-35) U/L Alkaline Phosphatase 63 (38-126) U/L Troponin I (0.000-0.033) ng/mL NT-Pro-B Natriuret Pep (<300) pg/mL Serum Total Protein 7.4 (6.3-8.2) g/dL Albumin 4.1 (3.5-5.0) g/dL Influenza Type A Ag (NEGATIVE) Influenza Type B Ag (NEGATIVE) RSV (PCR) (NEGATIVE) SARS-CoV-2 (PCR) (NEGATIVE) 01/21/24 01/21/24 01/21/24 Range/Units 14:30 14:30 18:35 WBC (4.0-10.5) x10^3/uL RBC (4.1-5.4) x10^6/uL Hgb (12.0-16.0) g/dL Hct (35-47) % MCV (78-100) fL MCH (26-32) pg MCHC (32-36) g/dL RDW (11.5-14.0) % Plt Count (150-450) x10^3/uL MPV (7.5-11.0) fL Gran % (36.0-66.0) % Immature Gran % (Auto) (0.00-0.4) % Nucleat RBC Rel Count (0.00-0.1) % Eos # (Auto) (0-0.5) x10^3/uL Immature Gran # (Auto) (0.00-0.03) x10^3u/L Absolute Lymphs (auto) (1.0-4.6) x10^3/uL Absolute Monos (auto) (0.0-1.3) x10^3/uL Absolute Nucleated RBC (0.00-0.01) x10^3u/L Lymphocytes % (24.0-44.0) % Monocytes % (0.0-12.0) % Eosinophils % (0.00-5.0) % Basophils % (0.0-0.4) % Absolute Granulocytes (1.4-6.9) x10^3/uL Basophils # (0-0.4) x10^3/uL D-Dimer 0.64 H* (0.0-0.50) mg/L Sodium (135-145) mmol/L Potassium (3.5-5.1) mmol/L Chloride (98-107) mmol/L Carbon Dioxide (22-30) mmol/L Anion Gap (5-15) MEQ/L BUN (7-17) mg/dL Creatinine (0.52-1.04) mg/dL Estimated GFR ML/MIN Glucose (74-106) mg/dL Lactic Acid (0.4-2.0) Calcium (8.4-10.2) mg/dL Magnesium (1.6-2.3) mg/dL Total Bilirubin (0.2-1.3) mg/dL AST (14-36) U/L ALT (0-35) U/L Alkaline Phosphatase (38-126) U/L Troponin I < 0.012 < 0.012 (0.000-0.033) ng/mL NT-Pro-B Natriuret Pep 498 (<300) pg/mL Serum Total Protein (6.3-8.2) g/dL Albumin (3.5-5.0) g/dL Influenza Type A Ag (NEGATIVE) Influenza Type B Ag (NEGATIVE) RSV (PCR) (NEGATIVE) SARS-CoV-2 (PCR) (NEGATIVE) 01/21/24 01/21/24 Range/Units 18:50 22:00 WBC (4.0-10.5) x10^3/uL RBC (4.1-5.4) x10^6/uL Hgb (12.0-16.0) g/dL Hct (35-47) % MCV (78-100) fL MCH (26-32) pg MCHC (32-36) g/dL RDW (11.5-14.0) % Plt Count (150-450) x10^3/uL MPV (7.5-11.0) fL Gran % (36.0-66.0) % Immature Gran % (Auto) (0.00-0.4) % Nucleat RBC Rel Count (0.00-0.1) % Eos # (Auto) (0-0.5) x10^3/uL Immature Gran # (Auto) (0.00-0.03) x10^3u/L Absolute Lymphs (auto) (1.0-4.6) x10^3/uL Absolute Monos (auto) (0.0-1.3) x10^3/uL Absolute Nucleated RBC (0.00-0.01) x10^3u/L Lymphocytes % (24.0-44.0) % Monocytes % (0.0-12.0) % Eosinophils % (0.00-5.0) % Basophils % (0.0-0.4) % Absolute Granulocytes (1.4-6.9) x10^3/uL Basophils # (0-0.4) x10^3/uL D-Dimer (0.0-0.50) mg/L Sodium (135-145) mmol/L Potassium (3.5-5.1) mmol/L Chloride (98-107) mmol/L Carbon Dioxide (22-30) mmol/L Anion Gap (5-15) MEQ/L BUN (7-17) mg/dL Creatinine (0.52-1.04) mg/dL Estimated GFR ML/MIN Glucose (74-106) mg/dL Lactic Acid (0.4-2.0) Calcium (8.4-10.2) mg/dL Magnesium (1.6-2.3) mg/dL Total Bilirubin (0.2-1.3) mg/dL AST (14-36) U/L ALT (0-35) U/L Alkaline Phosphatase (38-126) U/L Troponin I < 0.012 (0.000-0.033) ng/mL NT-Pro-B Natriuret Pep (<300) pg/mL Serum Total Protein (6.3-8.2) g/dL Albumin (3.5-5.0) g/dL Influenza Type A Ag NEGATIVE (NEGATIVE) Influenza Type B Ag NEGATIVE (NEGATIVE) RSV (PCR) NEGATIVE (NEGATIVE) SARS-CoV-2 (PCR) NEGATIVE (NEGATIVE) - Radiology Impressions Radiology Exams & Impressions: Radiology Procedures Category Date Time Status CHEST 1 VIEW (PORTABLE) Stat Exams 01/21/24 14:13 Completed CHEST WITH CONTRAST [CT] Stat Exams 01/21/24 17:00 Taken - Other Procedures and Tests Respiratory Therapy 01/21/24 18:56 Oxygen Nasal Cannula 5 lpm Assessment/Plan (1) Anxiety Current Visit: Yes Status: Acute Assessment & Plan: ASSESSMENT 1. Acute Anxiety 2. Seizure Disorder 3. COPD 4. Chronic Hypoxemic Respiratory Failure 5. Hypertension 6. Hyperlipidemia PLAN 1. Wean oxygen to maintain SaO2 > 90% 2. Continue anti seizure medications 3. Continue home COPD regimen 4. CT chest read pending, but I am not seeing an acute process; lungs clear; no steroids or Abx for now; PRN nebs 5. Vitals stable Lovenox The entirety of this encounter was done via telemedicine Omari Acevedo MD Pulmonary and Critical Care Medicine Code(s): F41.9 - ANXIETY DISORDER, UNSPECIFIED Telemedicine Encounter - Telemedicine Encounter Telemedicine Encounter: The entirety of this encounter was performed via Telemedicine"
[2024-01-22] MEDS ORDERED: MELATONIN PO ONE (01:59)
[2024-01-22] MEDS: MELATONIN PO SCH (02:01)
[2024-01-22] MEDS ORDERED: clonazePAM PO ONE (04:02)
[2024-01-22] MEDS: Lactated Ringers 1,000 ML IV SCH (04:07)
[2024-01-22] MEDS: NON-FORMULARY ITEM (Clonazepam [Clonazepam] 0.5 MG Tab.Rapdis) PO PRN (04:12)
[2024-01-22] MEDS ORDERED: DUONEB 0.5-3 MG/3 ml Neb IH ONE (06:54)
[2024-01-22] MEDS ORDERED: clonazePAM PO PRN (07:07)
[2024-01-22] MEDS ORDERED: MEDICATION INTERVENTION MC SCH (07:15)
[2024-01-22 07:41] VITALS: O2SAT 93
[2024-01-22 08:03] LABS: Absolute Neutrophil Ct (ANC) 12.32 x10^3/uL (1.4-6.9); BASOPHIL % 0.1 % (0.0-0.4); Basophil (Absolute #) 0.02 x10^3/uL (0-0.4); Eosinophil (Absolute #) 0 x10^3/uL (0-0.5); Hematocrit 38.6 % (35-47); Hemoglobin 13.1 g/dL (12.0-16.0); IMMATURE GRAN # 0.03 x10^3u/L (0.00-0.03); IMMATURE GRAN % 0.2 % (0.00-0.4); Lymphocyte (Absolute #) 1.16 x10^3/uL (1.0-4.6); Lymphocytes % 8.1 % (24.0-44.0); Mean Cell Volume 94.8 fL (78-100); Mean Corpuscular Hemoglobin 32.2 pg (26-32); Mean Corpuscular Hgb Concent. 33.9 g/dL (32-36); Mean Platelet Volume 9.1 fL (7.5-11.0); Monocytes % 5.6 % (0.0-12.0); Platelet Count 233 x10^3/uL (150-450); Red Blood Count 4.07 x10^6/uL (4.1-5.4); Red Cell Distribution Width 12.8 % (11.5-14.0); White Blood Count 14.3 x10^3/uL (4.0-10.5)
[2024-01-22 08:16] LABS: ANION GAP 10.3 MEQ/L (5-15); BILIRUBIN,TOTAL 0.4 mg/dL (0.2-1.3); Calcium 9.5 mg/dL (8.4-10.2); Creatinine 1 0.93 mg/dL (0.52-1.04); EST GLOMERULAR FILTRATION RATE 64.5 ML/MIN; Potassium 4.2 mmol/L (3.5-5.1); Total Protein 7.3 g/dL (6.3-8.2)
--- NOTE | 2024-01-22 09:11 | XRAY ---
Indication: Short of breath. Elevated d-dimer. Pulmonary embolus. Multiple contiguous axial images obtained through the chest using 80 cc Isovue 370 contrast and pulmonary most protocol. Comparison: CT chest without contrast January 17, 2024 Adequate opacification of the pulmonary arteries to include the lobar and segmental branches. Mild respiration artifact limits evaluation for pulmonary embolus. No obvious pulmonary embolus. Heart not enlarged again with scattered coronary calcifications. Aorta remains mildly arteriosclerotic without aneurysm/dissection. No pathologic mediastinal/hilar lymphadenopathy. Lungs again demonstrates mild pulmonary emphysema, tiny right apical calcified granuloma, and right lung base subsegmental atelectasis/scarring. No new pulmonary mass/nodule, infiltrate, or effusion. Bony thorax intact again with osteopenia, mild/moderate degenerative changes throughout spine, mild levoscoliosis, and remote T7/T8 impression fractures. Limited upper abdomen again demonstrates fatty liver. Impression: 1. Respiration artifact limits pulmonary embolus evaluation. No obvious pulmonary embolus. 2. Remaining chest unchanged again with pulmonary emphysema, right lung base atelectasis/scarring, arteriosclerotic disease, chronic bony findings, fatty liver, and old granulomatous disease.
[2024-01-22] MEDS ORDERED: BECLOMETHASONE DIPROPIONATE PO SCH (10:00)
--- NOTE | 2024-01-22 10:41 | PCM.NOTE ---
Date and Time: 01/22/24 1036 Objective Data Vital Signs: Vital Signs - 24 hr Temp Pulse Resp BP BP Pulse Ox 01/22/24 07:36 105 H 16 93 L 01/22/24 06:55 98.6 F 115 H 28 H 145/88 01/22/24 04:00 98.7 F 112 H 20 157/83 90 L 01/22/24 00:44 96 01/22/24 00:40 96 01/22/24 00:06 104 H 22 90 L 01/21/24 23:37 98.9 F 104 H 18 168/81 90 L 01/21/24 23:26 92 L 01/21/24 22:54 98.9 F 104 H 18 168/81 90 L 01/21/24 22:00 107 H 25 H 178/93 93 L 01/21/24 21:50 102 H 18 169/104 93 L 01/21/24 21:40 103 H 18 155/117 94 L 01/21/24 21:30 105 H 30 H 180/103 92 L 01/21/24 21:18 114 H 169/128 92 L 01/21/24 21:00 118 H 23 172/110 89 L 01/21/24 20:30 115 H 37 H 167/99 89 L 01/21/24 20:00 110 H 28 H 161/102 91 L 01/21/24 16:02 29 H 143/81 92 L 01/21/24 15:30 30 H 181/111 01/21/24 15:00 95 H 25 H 172/97 01/21/24 14:48 90 22 97 01/21/24 14:30 93 H 29 H 168/104 92 L 01/21/24 14:00 93 H 17 183/99 93 L 01/21/24 13:47 98.9 F 95 H 29 H 194/102 93 L Pain Assessment - Last Documented Pain Intensity 0 Intake and Output: Intake & Output 01/19/24 01/20/24 01/21/24 01/22/24 11:59 11:59 11:59 11:59 Intake Total 940 Balance 940 Weight 61.8 kg Lab Results: Lab Results-Last 24 Hours 01/21/24 01/21/24 01/21/24 Range/Units 14:13 14:30 14:30 WBC 7.0 (4.0-10.5) x10^3/uL RBC 4.14 (4.1-5.4) x10^6/uL Hgb 13.2 (12.0-16.0) g/dL Hct 40.4 (35-47) % MCV 97.6 (78-100) fL MCH 31.9 (26-32) pg MCHC 32.7 (32-36) g/dL RDW 12.7 (11.5-14.0) % Plt Count 208 (150-450) x10^3/uL MPV 9.0 (7.5-11.0) fL Gran % 68.0 H (36.0-66.0) % Immature Gran % (Auto) 0.3 (0.00-0.4) % Nucleat RBC Rel Count 0.0 (0.00-0.1) % Eos # (Auto) 0.34 (0-0.5) x10^3/uL Immature Gran # (Auto) 0.02 (0.00-0.03) x10^3u/L Absolute Lymphs (auto) 1.10 (1.0-4.6) x10^3/uL Absolute Monos (auto) 0.75 (0.0-1.3) x10^3/uL Absolute Nucleated RBC 0.00 (0.00-0.01) x10^3u/L Lymphocytes % 15.6 L (24.0-44.0) % Monocytes % 10.7 (0.0-12.0) % Eosinophils % 4.8 (0.00-5.0) % Basophils % 0.6 (0.0-0.4) % Absolute Granulocytes 4.79 (1.4-6.9) x10^3/uL Basophils # 0.04 (0-0.4) x10^3/uL D-Dimer (0.0-0.50) mg/L Sodium 138 (135-145) mmol/L Potassium 4.2 (3.5-5.1) mmol/L Chloride 102 (98-107) mmol/L Carbon Dioxide 31 H (22-30) mmol/L Anion Gap 9.6 (5-15) MEQ/L BUN 14 (7-17) mg/dL Creatinine 1.06 H (0.52-1.04) mg/dL Estimated GFR 55.1 ML/MIN Glucose 108 H (74-106) mg/dL Lactic Acid 1.6 (0.4-2.0) Calcium 9.3 (8.4-10.2) mg/dL Magnesium 1.9 (1.6-2.3) mg/dL Total Bilirubin 0.30 (0.2-1.3) mg/dL AST 25 (14-36) U/L ALT 14 (0-35) U/L Alkaline Phosphatase 63 (38-126) U/L Troponin I (0.000-0.033) ng/mL NT-Pro-B Natriuret Pep (<300) pg/mL Serum Total Protein 7.4 (6.3-8.2) g/dL Albumin 4.1 (3.5-5.0) g/dL Influenza Type A Ag (NEGATIVE) Influenza Type B Ag (NEGATIVE) RSV (PCR) (NEGATIVE) SARS-CoV-2 (PCR) (NEGATIVE) 01/21/24 01/21/24 01/21/24 Range/Units 14:30 14:30 18:35 WBC (4.0-10.5) x10^3/uL RBC (4.1-5.4) x10^6/uL Hgb (12.0-16.0) g/dL Hct (35-47) % MCV (78-100) fL MCH (26-32) pg MCHC (32-36) g/dL RDW (11.5-14.0) % Plt Count (150-450) x10^3/uL MPV (7.5-11.0) fL Gran % (36.0-66.0) % Immature Gran % (Auto) (0.00-0.4) % Nucleat RBC Rel Count (0.00-0.1) % Eos # (Auto) (0-0.5) x10^3/uL Immature Gran # (Auto) (0.00-0.03) x10^3u/L Absolute Lymphs (auto) (1.0-4.6) x10^3/uL Absolute Monos (auto) (0.0-1.3) x10^3/uL Absolute Nucleated RBC (0.00-0.01) x10^3u/L Lymphocytes % (24.0-44.0) % Monocytes % (0.0-12.0) % Eosinophils % (0.00-5.0) % Basophils % (0.0-0.4) % Absolute Granulocytes (1.4-6.9) x10^3/uL Basophils # (0-0.4) x10^3/uL D-Dimer 0.64 H* (0.0-0.50) mg/L Sodium (135-145) mmol/L Potassium (3.5-5.1) mmol/L Chloride (98-107) mmol/L Carbon Dioxide (22-30) mmol/L Anion Gap (5-15) MEQ/L BUN (7-17) mg/dL Creatinine (0.52-1.04) mg/dL Estimated GFR ML/MIN Glucose (74-106) mg/dL Lactic Acid (0.4-2.0) Calcium (8.4-10.2) mg/dL Magnesium (1.6-2.3) mg/dL Total Bilirubin (0.2-1.3) mg/dL AST (14-36) U/L ALT (0-35) U/L Alkaline Phosphatase (38-126) U/L Troponin I < 0.012 < 0.012 (0.000-0.033) ng/mL NT-Pro-B Natriuret Pep 498 (<300) pg/mL Serum Total Protein (6.3-8.2) g/dL Albumin (3.5-5.0) g/dL Influenza Type A Ag (NEGATIVE) Influenza Type B Ag (NEGATIVE) RSV (PCR) (NEGATIVE) SARS-CoV-2 (PCR) (NEGATIVE) 01/21/24 01/21/24 01/22/24 Range/Units 18:50 22:00 07:55 WBC 14.3 H (4.0-10.5) x10^3/uL RBC 4.07 L (4.1-5.4) x10^6/uL Hgb 13.1 (12.0-16.0) g/dL Hct 38.6 (35-47) % MCV 94.8 (78-100) fL MCH 32.2 H (26-32) pg MCHC 33.9 (32-36) g/dL RDW 12.8 (11.5-14.0) % Plt Count 233 (150-450) x10^3/uL MPV 9.1 (7.5-11.0) fL Gran % 86.0 H (36.0-66.0) % Immature Gran % (Auto) 0.2 (0.00-0.4) % Nucleat RBC Rel Count 0.0 (0.00-0.1) % Eos # (Auto) 0 (0-0.5) x10^3/uL Immature Gran # (Auto) 0.03 (0.00-0.03) x10^3u/L Absolute Lymphs (auto) 1.16 (1.0-4.6) x10^3/uL Absolute Monos (auto) 0.80 (0.0-1.3) x10^3/uL Absolute Nucleated RBC 0.00 (0.00-0.01) x10^3u/L Lymphocytes % 8.1 L (24.0-44.0) % Monocytes % 5.6 (0.0-12.0) % Eosinophils % 0.0 (0.00-5.0) % Basophils % 0.1 (0.0-0.4) % Absolute Granulocytes 12.32 H (1.4-6.9) x10^3/uL Basophils # 0.02 (0-0.4) x10^3/uL D-Dimer (0.0-0.50) mg/L Sodium (135-145) mmol/L Potassium (3.5-5.1) mmol/L Chloride (98-107) mmol/L Carbon Dioxide (22-30) mmol/L Anion Gap (5-15) MEQ/L BUN (7-17) mg/dL Creatinine (0.52-1.04) mg/dL Estimated GFR ML/MIN Glucose (74-106) mg/dL Lactic Acid (0.4-2.0) Calcium (8.4-10.2) mg/dL Magnesium (1.6-2.3) mg/dL Total Bilirubin (0.2-1.3) mg/dL AST (14-36) U/L ALT (0-35) U/L Alkaline Phosphatase (38-126) U/L Troponin I < 0.012 (0.000-0.033) ng/mL NT-Pro-B Natriuret Pep (<300) pg/mL Serum Total Protein (6.3-8.2) g/dL Albumin (3.5-5.0) g/dL Influenza Type A Ag NEGATIVE (NEGATIVE) Influenza Type B Ag NEGATIVE (NEGATIVE) RSV (PCR) NEGATIVE (NEGATIVE) SARS-CoV-2 (PCR) NEGATIVE (NEGATIVE) 01/22/24 Range/Units 07:55 WBC (4.0-10.5) x10^3/uL RBC (4.1-5.4) x10^6/uL Hgb (12.0-16.0) g/dL Hct (35-47) % MCV (78-100) fL MCH (26-32) pg MCHC (32-36) g/dL RDW (11.5-14.0) % Plt Count (150-450) x10^3/uL MPV (7.5-11.0) fL Gran % (36.0-66.0) % Immature Gran % (Auto) (0.00-0.4) % Nucleat RBC Rel Count (0.00-0.1) % Eos # (Auto) (0-0.5) x10^3/uL Immature Gran # (Auto) (0.00-0.03) x10^3u/L Absolute Lymphs (auto) (1.0-4.6) x10^3/uL Absolute Monos (auto) (0.0-1.3) x10^3/uL Absolute Nucleated RBC (0.00-0.01) x10^3u/L Lymphocytes % (24.0-44.0) % Monocytes % (0.0-12.0) % Eosinophils % (0.00-5.0) % Basophils % (0.0-0.4) % Absolute Granulocytes (1.4-6.9) x10^3/uL Basophils # (0-0.4) x10^3/uL D-Dimer (0.0-0.50) mg/L Sodium 137 (135-145) mmol/L Potassium 4.2 (3.5-5.1) mmol/L Chloride 103 (98-107) mmol/L Carbon Dioxide 27 (22-30) mmol/L Anion Gap 10.3 (5-15) MEQ/L BUN 18 H (7-17) mg/dL Creatinine 0.93 (0.52-1.04) mg/dL Estimated GFR 64.5 ML/MIN Glucose 140 H (74-106) mg/dL Lactic Acid (0.4-2.0) Calcium 9.5 (8.4-10.2) mg/dL Magnesium (1.6-2.3) mg/dL Total Bilirubin 0.40 (0.2-1.3) mg/dL AST 28 (14-36) U/L ALT 15 (0-35) U/L Alkaline Phosphatase 73 (38-126) U/L Troponin I (0.000-0.033) ng/mL NT-Pro-B Natriuret Pep (<300) pg/mL Serum Total Protein 7.3 (6.3-8.2) g/dL Albumin 4.0 (3.5-5.0) g/dL Influenza Type A Ag (NEGATIVE) Influenza Type B Ag (NEGATIVE) RSV (PCR) (NEGATIVE) SARS-CoV-2 (PCR) (NEGATIVE) Radiology Exams: Radiology Procedures Category Date Time Status CHEST 1 VIEW (PORTABLE) Stat Exams 01/21/24 14:13 Completed CHEST WITH CONTRAST [CT] Stat Exams 01/21/24 17:00 Completed Multi-Disciplinary Progress Notes: Multi-Disciplinary Progress Notes 01/22/24 09:27 Case Management Note by Iris Gary Addendum entered by Iris Gary 01/22/24 10:16: [facility] UNABLE TO ACCEPT D/T INSURANCE Original Note: [facility]. THEY WILL NEED NOTIFIED AT TIME OF DC AT [phone]. THEY WILL NEED FAXED THE DC INSTRUCTIONS, DC MED LIST AND DC SUMMARY TO [phone] Initialized on 01/22/24 09:27 - END OF NOTE
[2024-01-22] MEDS: Lopressor 25MG Tab PO SCH (10:46)
[2024-01-22] MEDS: CLARITIN 10 MG PO SCH (10:46)
[2024-01-22] MEDS: Risperdal 1 MG PO SCH (10:47)
[2024-01-22] MEDS: Effexor XR 75 MG PO SCH (10:47)
[2024-01-22] MEDS: ZOCOR 20MG PO SCH (10:47)
[2024-01-22] MEDS: Keppra 250 MG PO SCH (10:47)
[2024-01-22] MEDS: MAG-OX 400 PO SCH (10:47)
[2024-01-22] MEDS: lamICTAL 100MG TABLET PO SCH (10:47)
[2024-01-22] MEDS: KEPPRA PO SCH (10:47)
--- NOTE | 2024-01-22 11:12 | PCM.DS ---
Discharge Summary Date of Admission: 01/21/24 22:13 Date of Discharge: 01/22/24 Admitting Physician: HALEY MARIN MD Primary Care Provider: VENICE FLORES Allergies Allergies cefaclor [From Ceclor] Allergy (Mild, Verified 01/21/24 14:00) STATES [facility] Summary - Hospital Course Hospital Course: Ms. Patel is a 73 year-old female with COPD, chronic hypoxemic respiratory failure, HTN, HLD, seizure disorder, and anxiety disorder who presents with anxiety. She states that earlier this afternoon she suddenly became short of breath, shaky, tachycardic, and tachypnic - this episode did not last long. Upon arrival to [place], she was a little hypertensive, but her laboratory data and imaging were unremarkable. No overnight events noted, no further dyspnea, and vitals stable. CT with chronic features, no acute process. Discharge Note New Diagnosis: Acute anxiety New Medications: none Follow Up: PCP Latest Assessment & Plan ASSESSMENT 1. Acute Anxiety 2. Seizure Disorder 3. COPD 4. Chronic Hypoxemic Respiratory Failure 5. Hypertension 6. Hyperlipidemia PLAN 1. Wean oxygen to maintain SaO2 > 90% 2. Continue anti seizure medications 3. Continue home COPD regimen 4. CT chest read pending, but I am not seeing an acute process; lungs clear; no steroids or Abx for now; PRN nebs 5. Vitals stable I spent 35 minutes [id number] with the patient on the day of discharge performing discharge exam, discussing hospital stay and discharge instructions with patient and caregivers, preparation of discharge records, prescriptions & referral forms and addressing any questions/concerns the patient had as documented above. - Vitals & Intake/Output Vital Signs: Vital Signs Temperature 98.6 F 01/22/24 06:55 Pulse Rate 105 H 01/22/24 07:36 Respiratory Rate 16 01/22/24 07:36 Blood Pressure 145/88 01/22/24 06:55 O2 Sat by Pulse Oximetry 93 L 01/22/24 07:36 Intake & Output: Intake & Output 01/19/24 01/20/24 01/21/24 01/22/24 11:59 11:59 11:59 11:59 Intake Total 940 Balance 940 Weight 61.8 kg - Lab Result Diagrams: 01/22/24 07:55 01/22/24 07:55 Lab Results-Last 24 Hrs: Lab Results-Last 24 Hours 01/21/24 01/21/24 01/21/24 Range/Units 14:13 14:30 14:30 WBC 7.0 (4.0-10.5) x10^3/uL RBC 4.14 (4.1-5.4) x10^6/uL Hgb 13.2 (12.0-16.0) g/dL Hct 40.4 (35-47) % MCV 97.6 (78-100) fL MCH 31.9 (26-32) pg MCHC 32.7 (32-36) g/dL RDW 12.7 (11.5-14.0) % Plt Count 208 (150-450) x10^3/uL MPV 9.0 (7.5-11.0) fL Gran % 68.0 H (36.0-66.0) % Immature Gran % (Auto) 0.3 (0.00-0.4) % Nucleat RBC Rel Count 0.0 (0.00-0.1) % Eos # (Auto) 0.34 (0-0.5) x10^3/uL Immature Gran # (Auto) 0.02 (0.00-0.03) x10^3u/L Absolute Lymphs (auto) 1.10 (1.0-4.6) x10^3/uL Absolute Monos (auto) 0.75 (0.0-1.3) x10^3/uL Absolute Nucleated RBC 0.00 (0.00-0.01) x10^3u/L Lymphocytes % 15.6 L (24.0-44.0) % Monocytes % 10.7 (0.0-12.0) % Eosinophils % 4.8 (0.00-5.0) % Basophils % 0.6 (0.0-0.4) % Absolute Granulocytes 4.79 (1.4-6.9) x10^3/uL Basophils # 0.04 (0-0.4) x10^3/uL D-Dimer (0.0-0.50) mg/L Sodium 138 (135-145) mmol/L Potassium 4.2 (3.5-5.1) mmol/L Chloride 102 (98-107) mmol/L Carbon Dioxide 31 H (22-30) mmol/L Anion Gap 9.6 (5-15) MEQ/L BUN 14 (7-17) mg/dL Creatinine 1.06 H (0.52-1.04) mg/dL Estimated GFR 55.1 ML/MIN Glucose 108 H (74-106) mg/dL Lactic Acid 1.6 (0.4-2.0) Calcium 9.3 (8.4-10.2) mg/dL Magnesium 1.9 (1.6-2.3) mg/dL Total Bilirubin 0.30 (0.2-1.3) mg/dL AST 25 (14-36) U/L ALT 14 (0-35) U/L Alkaline Phosphatase 63 (38-126) U/L Troponin I (0.000-0.033) ng/mL NT-Pro-B Natriuret Pep (<300) pg/mL Serum Total Protein 7.4 (6.3-8.2) g/dL Albumin 4.1 (3.5-5.0) g/dL Influenza Type A Ag (NEGATIVE) Influenza Type B Ag (NEGATIVE) RSV (PCR) (NEGATIVE) SARS-CoV-2 (PCR) (NEGATIVE) 01/21/24 01/21/24 01/21/24 Range/Units 14:30 14:30 18:35 WBC (4.0-10.5) x10^3/uL RBC (4.1-5.4) x10^6/uL Hgb (12.0-16.0) g/dL Hct (35-47) % MCV (78-100) fL MCH (26-32) pg MCHC (32-36) g/dL RDW (11.5-14.0) % Plt Count (150-450) x10^3/uL MPV (7.5-11.0) fL Gran % (36.0-66.0) % Immature Gran % (Auto) (0.00-0.4) % Nucleat RBC Rel Count (0.00-0.1) % Eos # (Auto) (0-0.5) x10^3/uL Immature Gran # (Auto) (0.00-0.03) x10^3u/L Absolute Lymphs (auto) (1.0-4.6) x10^3/uL Absolute Monos (auto) (0.0-1.3) x10^3/uL Absolute Nucleated RBC (0.00-0.01) x10^3u/L Lymphocytes % (24.0-44.0) % Monocytes % (0.0-12.0) % Eosinophils % (0.00-5.0) % Basophils % (0.0-0.4) % Absolute Granulocytes (1.4-6.9) x10^3/uL Basophils # (0-0.4) x10^3/uL D-Dimer 0.64 H* (0.0-0.50) mg/L Sodium (135-145) mmol/L Potassium (3.5-5.1) mmol/L Chloride (98-107) mmol/L Carbon Dioxide (22-30) mmol/L Anion Gap (5-15) MEQ/L BUN (7-17) mg/dL Creatinine (0.52-1.04) mg/dL Estimated GFR ML/MIN Glucose (74-106) mg/dL Lactic Acid (0.4-2.0) Calcium (8.4-10.2) mg/dL Magnesium (1.6-2.3) mg/dL Total Bilirubin (0.2-1.3) mg/dL AST (14-36) U/L ALT (0-35) U/L Alkaline Phosphatase (38-126) U/L Troponin I < 0.012 < 0.012 (0.000-0.033) ng/mL NT-Pro-B Natriuret Pep 498 (<300) pg/mL Serum Total Protein (6.3-8.2) g/dL Albumin (3.5-5.0) g/dL Influenza Type A Ag (NEGATIVE) Influenza Type B Ag (NEGATIVE) RSV (PCR) (NEGATIVE) SARS-CoV-2 (PCR) (NEGATIVE) 01/21/24 01/21/24 01/22/24 Range/Units 18:50 22:00 07:55 WBC 14.3 H (4.0-10.5) x10^3/uL RBC 4.07 L (4.1-5.4) x10^6/uL Hgb 13.1 (12.0-16.0) g/dL Hct 38.6 (35-47) % MCV 94.8 (78-100) fL MCH 32.2 H (26-32) pg MCHC 33.9 (32-36) g/dL RDW 12.8 (11.5-14.0) % Plt Count 233 (150-450) x10^3/uL MPV 9.1 (7.5-11.0) fL Gran % 86.0 H (36.0-66.0) % Immature Gran % (Auto) 0.2 (0.00-0.4) % Nucleat RBC Rel Count 0.0 (0.00-0.1) % Eos # (Auto) 0 (0-0.5) x10^3/uL Immature Gran # (Auto) 0.03 (0.00-0.03) x10^3u/L Absolute Lymphs (auto) 1.16 (1.0-4.6) x10^3/uL Absolute Monos (auto) 0.80 (0.0-1.3) x10^3/uL Absolute Nucleated RBC 0.00 (0.00-0.01) x10^3u/L Lymphocytes % 8.1 L (24.0-44.0) % Monocytes % 5.6 (0.0-12.0) % Eosinophils % 0.0 (0.00-5.0) % Basophils % 0.1 (0.0-0.4) % Absolute Granulocytes 12.32 H (1.4-6.9) x10^3/uL Basophils # 0.02 (0-0.4) x10^3/uL D-Dimer (0.0-0.50) mg/L Sodium (135-145) mmol/L Potassium (3.5-5.1) mmol/L Chloride (98-107) mmol/L Carbon Dioxide (22-30) mmol/L Anion Gap (5-15) MEQ/L BUN (7-17) mg/dL Creatinine (0.52-1.04) mg/dL Estimated GFR ML/MIN Glucose (74-106) mg/dL Lactic Acid (0.4-2.0) Calcium (8.4-10.2) mg/dL Magnesium (1.6-2.3) mg/dL Total Bilirubin (0.2-1.3) mg/dL AST (14-36) U/L ALT (0-35) U/L Alkaline Phosphatase (38-126) U/L Troponin I < 0.012 (0.000-0.033) ng/mL NT-Pro-B Natriuret Pep (<300) pg/mL Serum Total Protein (6.3-8.2) g/dL Albumin (3.5-5.0) g/dL Influenza Type A Ag NEGATIVE (NEGATIVE) Influenza Type B Ag NEGATIVE (NEGATIVE) RSV (PCR) NEGATIVE (NEGATIVE) SARS-CoV-2 (PCR) NEGATIVE (NEGATIVE) 01/22/24 Range/Units 07:55 WBC (4.0-10.5) x10^3/uL RBC (4.1-5.4) x10^6/uL Hgb (12.0-16.0) g/dL Hct (35-47) % MCV (78-100) fL MCH (26-32) pg MCHC (32-36) g/dL RDW (11.5-14.0) % Plt Count (150-450) x10^3/uL MPV (7.5-11.0) fL Gran % (36.0-66.0) % Immature Gran % (Auto) (0.00-0.4) % Nucleat RBC Rel Count (0.00-0.1) % Eos # (Auto) (0-0.5) x10^3/uL Immature Gran # (Auto) (0.00-0.03) x10^3u/L Absolute Lymphs (auto) (1.0-4.6) x10^3/uL Absolute Monos (auto) (0.0-1.3) x10^3/uL Absolute Nucleated RBC (0.00-0.01) x10^3u/L Lymphocytes % (24.0-44.0) % Monocytes % (0.0-12.0) % Eosinophils % (0.00-5.0) % Basophils % (0.0-0.4) % Absolute Granulocytes (1.4-6.9) x10^3/uL Basophils # (0-0.4) x10^3/uL D-Dimer (0.0-0.50) mg/L Sodium 137 (135-145) mmol/L Potassium 4.2 (3.5-5.1) mmol/L Chloride 103 (98-107) mmol/L Carbon Dioxide 27 (22-30) mmol/L Anion Gap 10.3 (5-15) MEQ/L BUN 18 H (7-17) mg/dL Creatinine 0.93 (0.52-1.04) mg/dL Estimated GFR 64.5 ML/MIN Glucose 140 H (74-106) mg/dL Lactic Acid (0.4-2.0) Calcium 9.5 (8.4-10.2) mg/dL Magnesium (1.6-2.3) mg/dL Total Bilirubin 0.40 (0.2-1.3) mg/dL AST 28 (14-36) U/L ALT 15 (0-35) U/L Alkaline Phosphatase 73 (38-126) U/L Troponin I (0.000-0.033) ng/mL NT-Pro-B Natriuret Pep (<300) pg/mL Serum Total Protein 7.3 (6.3-8.2) g/dL Albumin 4.0 (3.5-5.0) g/dL Influenza Type A Ag (NEGATIVE) Influenza Type B Ag (NEGATIVE) RSV (PCR) (NEGATIVE) SARS-CoV-2 (PCR) (NEGATIVE) - Radiology Exams Ordered Rad Exams-Entire Visit: Radiology Procedures Category Date Time Status CHEST 1 VIEW (PORTABLE) Stat Exams 01/21/24 14:13 Completed CHEST WITH CONTRAST [CT] Stat Exams 01/21/24 17:00 Completed - Procedures and Test Procedures and Tests throughout Hospitalization: Therapy Orders & Screens 01/21/24 14:44 Respiratory Therapy Assessment DAILY Comment: 01/21/24 18:56 Oxygen Nasal Cannula 5 lpm Comment: Respiratory Therapy Consult ONCE Comment: Reason For Exam: 01/21/24 23:26 RT Screen per Nursing Assess ONCE Comment: Protocol Order Physician Instructions: Greater than 3 points order RT Admission Screen Reason For Exam: Triggered on Admission Diagnosis: COPD Exac, Resp. failure Diagnosis: COPD Exac, Resp. failure Pneumonia: No Home O2: Yes Asthma: No CHF: No Home CPAP/BIPAP: No Home Nebs/MDI: Yes Total Points: 10 01/22/24 02:45 Respiratory Therapy Assessment DAILY Comment: Diagnosis: COPD Exac, Resp. failure Discharge Exam General Appearance: no apparent distress Neurologic Exam: alert, oriented x 3, cooperative Eye Exam: PERRL Ears, Nose, Throat Exam: normal ENT inspection Neck Exam: normal inspection Respiratory Exam: wheezing Cardiovascular Exam: regular rate/rhythm, normal heart sounds Gastrointestinal/Abdomen Exam: soft, normal bowel sounds Pelvic Exam: deferred Rectal Exam: deferred Back Exam: normal inspection Extremity Exam: normal inspection Skin Exam: normal color Final Diagnosis/Problem List - Final Discharge Diagnosis/Problem (1) Acute anxiety Current Visit: Yes Status: Resolved Code(s): F41.9 - ANXIETY DISORDER, UNSPECIFIED (2) Chronic hypoxic respiratory failure Current Visit: Yes Status: Chronic (3) HTN (hypertension) Current Visit: Yes Status: Chronic Code(s): I10 - ESSENTIAL (PRIMARY) HYPERTENSION (4) HLD (hyperlipidemia) Current Visit: Yes Status: Chronic Code(s): E78.5 - HYPERLIPIDEMIA, UNSPECIFIED (5) Seizure disorder Current Visit: Yes Status: Chronic Code(s): G40.909 - EPILEPSY, UNSP, NOT INTRACTABLE, WITHOUT STATUS EPILEPTICUS (6) COPD (chronic obstructive pulmonary disease) Current Visit: No Status: Chronic - Discharge Disposition: Home, Self-Care Condition: Stable Prescriptions: Continue Nitroglycerin 0.4 mg Tablet [Nitrostat 0.4 MG Tablet] 0.4 mg SL Q5MIN PRN MR X 3 PRN #1 bottle PRN Reason: Chest Pain Levetiracetam [Keppra] 750 mg PO BID Magnesium Oxide 400 mg [Mag-Ox 400] 400 mg PO BID #60 tablet Metoprolol Tartrate 25 mg [Lopressor 25MG Tab] 25 mg PO BID Melatonin 3 mg PO HS risperiDONE [Risperidone] 1 mg PO BID Alendronate Sodium 70 mg [Fosamax 70 MG] 70 mg PO WEEKLY Simvastatin 20Mg [Zocor 20Mg] 20 mg PO DAILY clonazePAM [Clonazepam] 0.5 mg PO DAILY PRN PRN Reason: Anxiety Cetirizine HCl [All Day Allergy] 10 mg PO DAILY Beclomethasone Dipropionate [Qvar Redihaler] 2 inh PO BID lamoTRIgine [Lamotrigine] 200 mg PO BID Venlafaxine HCl [Venlafaxine HCl ER] 150 mg PO DAILY Follow up with: VENICE FLORES MD [Primary Care Provider] - 02/02/24 3:00 pm
[2024-01-22 11:41] VITALS: BP 159/74; PULSE 90; RESP 23; TEMP 97.9
== END 2024-01-22 13:15 | disposition home health service (06) ==
LOC: ED 13:42 → MED SURG 22:13
PROVIDERS: ADMIT Internal Medicine Critical Care Medicine; ATTEND Internal Medicine Critical Care Medicine
DX: F41.9 Anxiety disorder, unspecified (principal); J96.11 Chronic respiratory failure with hypoxia; I10 Essential (primary) hypertension; E78.5 Hyperlipidemia, unspecified; G40.909 Epilepsy, unspecified, not intractable, without status epilepticus; J44.9 Chronic obstructive pulmonary disease, unspecified; Z79.899 Other long term (current) drug therapy
CPT/HCPCS: 0241U; 36000; 36415; 71045; 71260; 80053; 83605; 83735; 83880; 84484; 85025; 85379; 87040; 93005; 93041; 94640; 94762; 96367; 96374; 96375; 99285; Q3014; G0378; J1953; J1956; J2060; J2930; A9270-GY

== ENCOUNTER 2024-04-10 15:48 | Emergency (ER) | payer OTHER ==
[2024-04-10 15:56] VITALS: TEMP 96.1
[2024-04-10] MEDS ORDERED: Sodium Chloride 0.9% 1000 ML 1,000 ML ONE (16:06)
[2024-04-10] MEDS: Sodium Chloride 0.9% 1000 ML 1,000 ML IV SCH (16:07)
[2024-04-10] MEDS ORDERED: PULMICORT 0.5 MG/2 ML RESPULES IH ONE (16:12)
[2024-04-10] MEDS ORDERED: DUONEB 0.5-3 MG/3 ml Neb IH ONE (16:16)
--- NOTE | 2024-04-10 16:17 | ERPHSYRPT ---
- History of Present Illness Time Seen by Provider: 04/10/24 16:14 Source: patient, EMS Exam Limitations: no limitations Patient Subjective Stated Complaint: pt here for sudden onset of sob today, no fever nonproductive cough Triage Nursing Assessment: pt alert, arrived per ambulance, alert, shaky, skin w/d/p.moves all ext well. chest Physician History: Patient is 73-year-old female with significant past medical history of end-stage emphysema and COPD history of smoking hypertension was doing okay since today morning suddenly when she walked from her bedroom to the kitchen she suddenly got extremely short of breath and could not breathe so she called ambulance and patient was brought into the emergency room. In the emergency room patient is short of breath but denies any other symptoms including fever chills nausea vomiting headache or chest pain. Timing/Duration: today Activities at Onset: activity Severity of Dyspnea-Max: moderate Severity of Dyspnea-Current: moderate Possible Cause: frequent episodes Modifying Factors: Improves With: activity Associated Symptoms: wheezing, No chest pain/discomfort, No ankle swelling, No calf pain, No dizziness, No productive cough Allergies/Adverse Reactions: cefaclor [From Ceclor] Allergy (Mild, Verified 04/10/24 15:51) STATES GOT REAL HOT Home Medications: Levetiracetam [Keppra] 750 mg PO BID 09/22/17 [History] Metoprolol Tartrate 25 mg [Lopressor 25MG Tab] 25 mg PO BID 02/25/18 [History] Melatonin 3 mg PO HS 11/06/18 [History] risperiDONE [Risperidone] 1 mg PO BID 11/06/18 [History] Alendronate Sodium 70 mg [Fosamax 70 MG] 70 mg PO WEEKLY 11/02/21 [History] Cetirizine HCl [All Day Allergy] 10 mg PO DAILY 05/26/23 [History] Simvastatin 20Mg [Zocor 20Mg] 20 mg PO DAILY 05/26/23 [History] clonazePAM [Clonazepam] 0.5 mg PO DAILY PRN 05/26/23 [History] Beclomethasone Dipropionate [Qvar Redihaler] 2 inh PO BID 01/21/24 [History] Venlafaxine HCl [Venlafaxine HCl ER] 150 mg PO DAILY 01/21/24 [History] lamoTRIgine [Lamotrigine] 200 mg PO BID 01/21/24 [History] Tramadol HCl 50 mg [Ultram 50 mg] 50 mg PO BID 04/10/24 [History] Hx Tetanus, Diphtheria Vaccination/Date Given: Yes Hx Influenza Vaccination/Date Given: Yes Hx Pneumococcal Vaccination/Date Given: Yes Immunizations Up to Date: Yes Travel Risk - International Travel Have you traveled outside of the country in past 3 weeks: No - Emerging Infectious Disease Are you exhibiting symptoms associated with any current EIDs: No - Review of Systems Constitutional: No Fever, No Chills Eyes: No Symptoms Ears, Nose, & Throat: No Symptoms Respiratory: Dyspnea, Dyspnea on Exertion (PE[place]OCK), Wheezing, No Cough Cardiac: No Chest Pain, No Edema, No Syncope Abdominal/Gastrointestinal: No Abdominal Pain, No Nausea, No Vomiting, No Diarrhea Genitourinary Symptoms: No Dysuria Musculoskeletal: No Back Pain, No Neck Pain Skin: No Rash Neurological: No Dizziness, No Focal Weakness, No Sensory Changes Psychological: No Symptoms Endocrine: No Symptoms All Other Systems: Reviewed and Negative - Past Medical History Pertinent Past Medical History: Yes Neurological History: Seizures ENT History: No Pertinent History Cardiac History: High Cholesterol, Hypertension Respiratory History: COPD Endocrine Medical History: No Pertinent History Musculoskeletal History: Osteoarthritis, Osteoporosis GI Medical History: No Pertinent History History: No Pertinent History Psycho-Social History: Anxiety, Depression, Panic Disorder Female Reproductive Disorders: No Pertinent History Other Medical History: PSH: SURGERY ON R HAND/FINGERS, R TSA, MAGNET PLACED FOR HX OF SEIZURES. PMH:SMOKING HX (NOT CURRENT), SEIZURES (MEDICATION CONTROLLED), COPD - Past Surgical History Past Surgical History: Yes Neuro Surgical History: No Pertinent History Cardiac: No Pertinent History Respiratory: No Pertinent History Gastrointestinal: No Pertinent History Genitourinary: No Pertinent History Musculoskeletal: No Pertinent History, Joint Replacement, Orthopedic Surgery Female Surgical History: No Pertinent History Other Surgical History: MAGNET PLACEMENT FOR SEIZURES in left chest and wears a watch to activate magnet. Right Shoulder replacement Significant Family History: no pertinent family hx - Social History Smoking Status: Former smoker How long have you smoked: 55 years Exposure to second hand smoke: No Drug Use: none Patient Lives Alone: Yes - Social Determinants of Health Will the patient participate in the screening: Yes Do you worry about a steady place to live?: No Do you have any problems with any of the following?: No known problems In the past 12 months,have you had to go without utilities?: No Transportation Issues: No Has anyone in your support network made you feel unsafe?: No Have you or anyone in your house had to go without enough: No - Nursing Vital Signs Nursing Vital Signs: Initial Vital Signs Temperature 96.1 F 04/10/24 15:54 Pulse Rate 91 H 04/10/24 15:54 Respiratory Rate 20 04/10/24 15:54 Blood Pressure 157/91 04/10/24 15:54 O2 Sat by Pulse Oximetry 95 04/10/24 15:54 Pain Scale Pain Intensity 0 - Physical Exam General Appearance: no apparent distress, alert Eye Exam: PERRL/EOMI Neck Exam: normal inspection, supple Respiratory Exam: diminished breath sounds, accessory muscle use, crackles/rales, wheezing Cardiovascular/Chest Exam: normal heart sounds, regular rate/rhythm Abdominal/Gastrointestinal Exam: soft, No tenderness, No distention, No mass Extremity Exam: non-tender, normal range of motion, normal inspection, no calf tenderness, no pedal edema Neurologic Exam: alert, oriented x 3, 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, 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, sensation nml, No motor deficits Skin Exam: normal color, warm, No dry SpO2: 95 - Course Nursing assessment & vital signs reviewed: Yes - Radiology Exams Chest X-ray Interpretation: Interpreted by me, Reviewed by me Ordered Tests: Active Orders 24 hr Category Date Time Status Manager Of Regulatory Affairs STAT Care 04/10/24 16:05 Active EKG-ER Only STAT Care 04/10/24 16:01 Active IV Insertion STAT Care 04/10/24 15:57 Active Oxygen-ED Only Nasal Cannula 2 lpm Care 04/10/24 15:58 Active CHEST 1 VIEW (PORTABLE) Stat Exams 04/10/24 16:13 Taken CBC W DIFF Stat Lab 04/10/24 16:20 Completed CMP Stat Lab 04/10/24 16:20 Completed NT PRO BNPII Stat Lab 04/10/24 16:20 Completed TROPONIN Stat Lab 04/10/24 16:20 Completed Respiratory Therapy Assessment DAILY RT 04/10/24 16:27 Active Medication Summary Generic Name Dose Route Start Last Admin Trade Name Freq PRN Reason Stop Dose Admin Sodium Chloride 1,000 mls @ 50 mls/hr 04/10/24 16:15 04/10/24 16:07 Sodium Chloride 0.9% 1000 Ml IV 05/10/24 16:14 50 mls/hr .Q20H MOE Administration Discontinued Medications Generic Name Dose Route Start Last Admin Trade Name Meloq PRN Reason Stop Dose Admin Albuterol/Ipratropium 3 ml 04/10/24 16:01 04/10/24 16:20 Ipratropium/Albuterol Sulfate 3 Ml Ampul.Neb IH 04/10/24 16:02 3 ml STAT ONE Administration Albuterol/Ipratropium Confirm 04/10/24 16:16 Ipratropium/Albuterol Sulfate 3 Ml Ampul.Neb Administered 04/10/24 16:17 Dose 3 ml IH .STK-MED ONE Budesonide 0.5 mg 04/10/24 16:03 04/10/24 16:20 Budesonide 0.5 Mg/2 Ml Ampul.Neb. IH 04/10/24 16:04 0.5 mg ONCE ONE Administration Lab/Rad Data: Laboratory Result Diagrams 04/10/24 16:20 04/10/24 16:20 Laboratory Results 04/10/24 04/10/24 Range/Units 16:20 16:20 WBC 5.5 (3.98-10.04) x10^3/uL RBC 4.13 (3.93-5.22) x10^6/uL Hgb 13.2 (11.2-15.7) g/dL Hct 40.3 (34.1-44.9) % MCV 97.6 H (79.4-94.8) fL MCH 32.0 (25.6-32.2) pg MCHC 32.8 (32.2-35.5) g/dL RDW 11.9 (11.7-14.4) % Plt Count 235 (182-369) x10^3/uL MPV 8.9 L (9.4-12.3) fL Gran % 46.3 (34.0-71.1) % Immature Gran % (Auto) 0.2 (0.001-0.429) % Nucleat RBC Rel Count 0.0 (0.00-0.2) % Eos # (Auto) 0.42 H (0.04-0.36) x10^3/uL Immature Gran # (Auto) 0.01 (0.001-0.031) x10^3u/L Absolute Lymphs (auto) 2.00 (1.18-3.74) x10^3/uL Absolute Monos (auto) 0.47 (0.24-0.86) x10^3/uL Absolute Nucleated RBC 0.00 (0.00-0.012) x10^3u/L Lymphocytes % 36.5 (19.3-51.7) % Monocytes % 8.6 (4.7-12.5) % Eosinophils % 7.7 H (0.7-5.8) % Basophils % 0.7 (0.1-1.2) % Absolute Granulocytes 2.54 (1.56-6.13) x10^3/uL Basophils # 0.04 (0.01-0.08) x10^3/uL Sodium 138 (135-145) mmol/L Potassium 3.9 (3.5-5.1) mmol/L Chloride 98 (98-107) mmol/L Carbon Dioxide 32 H (22-30) mmol/L Anion Gap 12.5 (5-15) MEQ/L BUN 10 (7-17) mg/dL Creatinine 0.99 (0.52-1.04) mg/dL Estimated GFR 59.8 ML/MIN Glucose 126 H (74-106) mg/dL Calcium 9.9 (8.4-10.2) mg/dL Total Bilirubin 0.30 (0.2-1.3) mg/dL AST 27 (14-36) U/L ALT 16 (0-35) U/L Alkaline Phosphatase 109 (38-126) U/L Troponin I < 0.012 (0.000-0.033) ng/mL NT-Pro-B Natriuret Pep 331 (<300) pg/mL Serum Total Protein 7.8 (6.3-8.2) g/dL Albumin 4.4 (3.5-5.0) g/dL - Progress Progress: improved Air Movement: fair Blood Culture(s) Obtained: No Antibiotics given: No Counseled pt/family regarding: lab results, diagnosis, need for follow-up, rad results, smoking cessation Medical Desision Making - Diagnostic Testing Diagnostic test were ordered, analyzed, and reviewed by me: Yes Radiological Interpretation: Interpreted by me, Reviewed by me - Risk of complications Low Risk: Low risk of morbidity from additional dx testing or treatment - Departure Departure Disposition: Home Clinical Impression: Chronic hypoxic respiratory failure, COPD exacerbation COPD (chronic obstructive pulmonary disease) Qualifiers: COPD type: COPD with acute exacerbation Qualified Code(s): J44.1 - Chronic obstructive pulmonary disease with (acute) exacerbation Condition: Stable Critical Care Time: No Referrals: VENICE FLORES MD [Primary Care Provider] - Follow up/PCP as directed Instructions: Chronic Obstructive Pulmonary Disease, Exacerbation of COPD (DC) Additional Instructions: Discharge/Care Plan JAMES FIGUEROA was seen on 04/10/24 in the Emergency Room. The patient was counseled regarding Diagnosis,Lab results, Imaging studies, need for follow up and when to return to the Emergency Room. Prescriptions given: Discharge Note I have spoken with the patient and/or caregivers. I have explained the patient's condition, diagnosis and treatment plan based on the information available to me at this time. I have answered the patient's and/or caregiver's questions and addressed any concerns. The patient and/or caregivers have as good understanding of the patient's diagnosis, condition and treatment plan as can be expected at this point. The vital signs have been stable. The patient's condition is stable and appropriate for discharge from the emergency department. The patient will pursue further outpatient evaluation with the primary care ph ysician or other designated or consulting physician as outlined in the discharge instructions. The patient and/or caregivers are agreeable to this plan of care and follow-up instructions have been explained in detail. The patient and/or caregivers have received these instruction. The patient/and or caregivers are aware that any significant change in condition or worsening of symptoms should prompt an immediate return to this or the closest emergency department or call 911. JAMES FIGUEROA was seen on 04/10/24 n the Emergency Room. At that time you were treated for an emergent condition, during your visit Laboratory, Radiology and/or other procedures may have been ordered. It is very important that you follow-up with your Primary Care Physician VENICE FLORES within the next 24-48 hours to review your Emergency Room visit and the final results of testing that was ordered. Some test results such as Urine Cultures, Blood Cultures, and other cultures if ordered will not be finalized for 24-48 hours. If you do not have a Primary Care Provider please call the medical records department at [phone] ext [phone] to obtain a copy of your results or you may sign into our patient portal to obtain these results by visiting us @ [email or web address] and completing the following steps: 1. Click on the Patient Portal link 2. Click the Patient Self Enrollment Link to complete the enrollment form and entering your 3. Once the enrollment form is completed you will receive an email with a temporary ID and password at the email address you provided. 4. Next choose a user name and password. Your user name must be at least 4 characters long and your password must be at least 4 characters long. 5. Choose a security question from the list and provide your answer to the q uestion. If you already have signed into the Health Portal you may access your Health Care Information 11/05 by the following steps: 1. Login to our website @ [email or web address] 2. Enter your original user name and password. FAQS The [facility] Health Portal is an online tool that contains your Lab Results, Radiology Reports, Visit History, Discharge Instructions and Health Summary Lab and Radiology Results will not be available for 72 hours on the portal. The Portal is a secure site, passwords are encryted and URLs are re-written so they cannot be copied and pasted. You and authorized family members are the only ones who can access your Portal. Also there is a timeout feature that protects your information if you leave the Portal page open. If you have technical difficulty please use the Contact Us link on the page this will allow you to submit any questions you have regarding the Portal or you may contact the Medical Record Department at [phone] ext [phone]. Prescriptions: Methylprednisolone Packet [Medrol Dosepack] 4 mg PO UD #21 packet Azithromycin 250 mg [Zithromax 250 MG TABLET] 250 mg PO ZPACK #6 tablet
[2024-04-10] MEDS: PULMICORT 0.5 MG/2 ML RESPULES IH ONE (16:20)
[2024-04-10] MEDS: DUONEB 0.5-3 MG/3 ml Neb IH ONE (16:20)
[2024-04-10 16:22] LABS: Absolute Neutrophil Ct (ANC) 2.54 x10^3/uL (1.56-6.13); BASOPHIL % 0.7 % (0.1-1.2); Basophil (Absolute #) 0.04 x10^3/uL (0.01-0.08); Eosinophil % 7.7 % (0.7-5.8); Eosinophil (Absolute #) 0.42 x10^3/uL (0.04-0.36); Hematocrit 40.3 % (34.1-44.9); Hemoglobin 13.2 g/dL (11.2-15.7); IMMATURE GRAN # 0.01 x10^3u/L (0.001-0.031); IMMATURE GRAN % 0.2 % (0.001-0.429); Lymphocytes % 36.5 % (19.3-51.7); Mean Cell Volume 97.6 fL (79.4-94.8); Mean Corpuscular Hgb Concent. 32.8 g/dL (32.2-35.5); Mean Platelet Volume 8.9 fL (9.4-12.3); Monocyte (Absolute #) 0.47 x10^3/uL (0.24-0.86); Monocytes % 8.6 % (4.7-12.5); Neutrophil % 46.3 % (34.0-71.1); Platelet Count 235 x10^3/uL (182-369); Red Blood Count 4.13 x10^6/uL (3.93-5.22); Red Cell Distribution Width 11.9 % (11.7-14.4); White Blood Count 5.5 x10^3/uL (3.98-10.04)
[2024-04-10 16:47] LABS: ALBUMIN 4.4 g/dL (3.5-5.0); ALKALINE PHOSPHATASE 109 U/L (38-126); ANION GAP 12.5 MEQ/L (5-15); BLOOD UREA NITROGEN 10 mg/dL (7-17); CHLORIDE 98 mmol/L (98-107); Calcium 9.9 mg/dL (8.4-10.2); Carbon Dioxide 32 mmol/L (22-30); Creatinine 1 0.99 mg/dL (0.52-1.04); EST GLOMERULAR FILTRATION RATE 59.8 ML/MIN; Glucose 126 mg/dL (74-106); NT PRO BNPII 331 pg/mL (<300); Potassium 3.9 mmol/L (3.5-5.1); SGOT/AST 27 U/L (14-36); SGPT/ALT 16 U/L (0-35); SODIUM 138 mmol/L (135-145); TROPONIN < 0.012 ng/mL (0.000-0.033); Total Protein 7.8 g/dL (6.3-8.2)
[2024-04-10] MEDS ORDERED: Zithromax 250 MG TABLET ONE (17:29)
[2024-04-10] MEDS: Zithromax 250 MG TABLET PO ONE (17:35)
[2024-04-10 17:42] VITALS: BP 139/83; PULSE 78; RESP 18; O2SAT 98
--- NOTE | 2024-04-10 19:36 | XRAY ---
Indication: Short of breath. Comparison: January 21, 2024 Portable chest unchanged again rotated and underinflated crowding both lung bases. Upper lungs remain clear. Heart not enlarged. Bony thorax intact again with osteopenia, degenerative changes, remote T7 fracture, mild levoscoliosis, and left chest electronic device. Impression: Continued nonacute Limited chest with chronic features.
== END 2024-04-10 17:40 | disposition home or self-care (01) ==
LOC: ED 15:48
DX: J96.11 Chronic respiratory failure with hypoxia (principal); J44.1 Chronic obstructive pulmonary disease with (acute) exacerbation; J43.9 Emphysema, unspecified; I10 Essential (primary) hypertension; E78.5 Hyperlipidemia, unspecified; Z79.52 Long term (current) use of systemic steroids; Z79.891 Long term (current) use of opiate analgesic; Z79.899 Other long term (current) drug therapy
CPT/HCPCS: 36000; 36415; 71045; 80053; 83880; 84484; 85025; 93005; 93041; 94640; 99284; A9270-GY

== ENCOUNTER 2024-06-25 17:14 | Emergency (ER) | payer OTHER ==
[2024-06-25 17:29] VITALS: TEMP 97.6
[2024-06-25 17:54] LABS: Absolute Neutrophil Ct (ANC) 2.55 x10^3/uL (1.56-6.13); BASOPHIL % 0.9 % (0.1-1.2); Basophil (Absolute #) 0.04 x10^3/uL (0.01-0.08); Eosinophil % 6.6 % (0.7-5.8); Hematocrit 37.9 % (34.1-44.9); Hemoglobin 12.4 g/dL (11.2-15.7); IMMATURE GRAN # 0.01 x10^3u/L (0.001-0.031); IMMATURE GRAN % 0.2 % (0.001-0.429); Lymphocytes % 26.3 % (19.3-51.7); Mean Cell Volume 96.7 fL (79.4-94.8); Mean Corpuscular Hemoglobin 31.6 pg (25.6-32.2); Mean Corpuscular Hgb Concent. 32.7 g/dL (32.2-35.5); Mean Platelet Volume 8.8 fL (9.4-12.3); Monocyte (Absolute #) 0.47 x10^3/uL (0.24-0.86); Monocytes % 10.3 % (4.7-12.5); Neutrophil % 55.7 % (34.0-71.1); Platelet Count 224 x10^3/uL (182-369); Red Blood Count 3.92 x10^6/uL (3.93-5.22); Red Cell Distribution Width 12.8 % (11.7-14.4); White Blood Count 4.6 x10^3/uL (3.98-10.04)
[2024-06-25 18:08] LABS: ALBUMIN 4.3 g/dL (3.5-5.0); ANION GAP 10.9 MEQ/L (5-15); BILIRUBIN,TOTAL 0.3 mg/dL (0.2-1.3); Creatinine 1 0.99 mg/dL (0.52-1.04); EST GLOMERULAR FILTRATION RATE 59.8 ML/MIN; MAGNESIUM 2.1 mg/dL (1.6-2.3); Potassium 4.1 mmol/L (3.5-5.1); Total Protein 7.3 g/dL (6.3-8.2)
--- NOTE | 2024-06-25 18:10 | ERPHSYRPT ---
- History of Present Illness Time Seen by Provider: 06/25/24 18:04 Source: patient, EMS Exam Limitations: no limitations Patient Subjective Stated Complaint: Pt states "I stood up and my legs did not want to go forward." Triage Nursing Assessment: PT presented alert and oriented X 3, skin pwd. Pt able to speak in clear full sentences. Pt able to move all extremities, clear speach, equal strength bilat upper and lower extremities. Physician History: Pt states "I stood up and my legs did not want to go forward." Patient is 73-year-old female with significant past medical history of hypertension recently started on amlodipine and Lamictal and since then patient started having some weakness in her leg and she is not able to move forward she feels so weak in her leg unable to lift it up and started in last 3 to 4 days. Denies any other symptoms including headache nausea vomiting chest pain shortness of breath. Also denies any other neurological deficits. Timing/Duration: today Severity: mild Associated Symptoms: denies symptoms Allergies/Adverse Reactions: cefaclor [From Ceclor] Allergy (Mild, Verified 04/10/24 15:51) STATES GOT REAL HOT Home Medications: Levetiracetam [Keppra] 750 mg PO BID 09/22/17 [History] Melatonin 3 mg PO HS 11/06/18 [History] risperiDONE [Risperidone] 1 mg PO BID 11/06/18 [History] Alendronate Sodium 70 mg [Fosamax 70 MG] 70 mg PO WEEKLY 11/02/21 [History] Venlafaxine HCl [Venlafaxine HCl ER] 150 mg PO DAILY 01/21/24 [History] lamoTRIgine [Lamotrigine] 200 mg PO BID 01/21/24 [History] Amlodipine Besylate [Norvasc] 10 mg PO DAILY 06/25/24 [History] Calcium Carbonate/Vitamin D3 [Sv Calcium 600Mg-D3 20Mcg Tab] 2 tab PO DAILY 06/25/24 [History] Celecoxib [Celebrex] 200 mg PO UD 06/25/24 [History] Famotidine 20 mg [Pepcid 20 MG] 20 mg PO DAILY 06/25/24 [History] Hx Tetanus, Diphtheria Vaccination/Date Given: Yes Hx Influenza Vaccination/Date Given: Yes Hx Pneumococcal Vaccination/Date Given: Yes Immunizations Up to Date: No Travel Risk - International Travel Have you traveled outside of the country in past 3 weeks: No - Emerging Infectious Disease Are you exhibiting symptoms associated with any current EIDs: No - Review of Systems Constitutional: No Fever, No Chills Eyes: No Symptoms Ears, Nose, & Throat: No Symptoms Respiratory: No Cough, No Dyspnea Cardiac: No Chest Pain, No Edema, No Syncope Abdominal/Gastrointestinal: No Abdominal Pain, No Nausea, No Vomiting, No Diarrhea Genitourinary Symptoms: No Dysuria Musculoskeletal: Other (weakness in lower leg), No Back Pain, No Neck Pain Skin: No Rash Neurological: No Dizziness, No Focal Weakness, No Sensory Changes Psychological: No Symptoms Endocrine: No Symptoms All Other Systems: Reviewed and Negative - Past Medical History Pertinent Past Medical History: Yes Neurological History: Seizures ENT History: No Pertinent History Cardiac History: High Cholesterol, Hypertension Respiratory History: COPD Endocrine Medical History: No Pertinent History Musculoskeletal History: Osteoarthritis, Osteoporosis GI Medical History: No Pertinent History History: No Pertinent History Psycho-Social History: Anxiety, Depression, Panic Disorder Female Reproductive Disorders: No Pertinent History Other Medical History: PSH: SURGERY ON R HAND/FINGERS, R TSA, MAGNET PLACED FOR HX OF SEIZURES. PMH:SMOKING HX (NOT CURRENT), SEIZURES (MEDICATION CONTROLLED), COPD - Past Surgical History Past Surgical History: Yes Neuro Surgical History: No Pertinent History Cardiac: No Pertinent History Respiratory: No Pertinent History Gastrointestinal: No Pertinent History Genitourinary: No Pertinent History Musculoskeletal: No Pertinent History, Joint Replacement, Orthopedic Surgery Female Surgical History: No Pertinent History Other Surgical History: MAGNET PLACEMENT FOR SEIZURES in left chest and wears a watch to activate magnet. Right Shoulder replacement Significant Family History: no pertinent family hx - Social History Smoking Status: Former smoker How long have you smoked: 2019 Exposure to second hand smoke: Yes Drug Use: none Patient Lives Alone: Yes - Social Determinants of Health Will the patient participate in the screening: Yes Do you worry about a steady place to live?: No Do you have any problems with any of the following?: No known problems In the past 12 months,have you had to go without utilities?: No Transportation Issues: No Has anyone in your support network made you feel unsafe?: No Have you or anyone in your house had to go without enough: No - Nursing Vital Signs Nursing Vital Signs: Initial Vital Signs Temperature 97.6 F 06/25/24 17:24 Pulse Rate 97 H 06/25/24 17:24 Respiratory Rate 18 06/25/24 17:24 Blood Pressure 110/78 06/25/24 17:24 O2 Sat by Pulse Oximetry 97 06/25/24 17:24 Pain Scale Pain Intensity 0 - Physical Exam General Appearance: no apparent distress, alert Eye Exam: PERRL/EOMI, eyes nml inspection Ears, Nose, Throat Exam: normal ENT inspection, TMs normal, pharynx normal, moist mucous membranes Neck Exam: normal inspection, non-tender, supple, full range of motion Respiratory Exam: normal breath sounds, lungs clear, No respiratory distress Cardiovascular Exam: regular rate/rhythm, normal heart sounds, normal peripheral pulses Gastrointestinal/Abdomen Exam: soft, normal bowel sounds, No tenderness, No mass Back Exam: normal inspection, normal range of motion, No CVA tenderness, No vertebral tenderness Extremity Exam: normal inspection, normal range of motion, pelvis stable Neurologic Exam: alert, oriented x 3, cooperative, normal mood/affect, nml cereb ellar function, nml station & gait, sensation nml, No motor deficits, No motor weakness, No dysarthria, No abnormal gait, No abnormal cerebellar tests, 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 Skin Exam: normal color, warm, dry, No rash Lymphatic Exam: No adenopathy SpO2 Interpretation: normal SpO2: 97 O2 Delivery: Room Air - Course Nursing assessment & vital signs reviewed: Yes Ordered Tests: Active Orders 24 hr Category Date Time Status CBC W DIFF Stat Lab 06/25/24 17:54 Completed CMP Stat Lab 06/25/24 17:54 Received MAGNESIUM Stat Lab 06/25/24 17:54 Received UA W/RFX UR CULTURE Stat Lab 06/25/24 17:37 Ordered Medication Summary Generic Name Dose Route Start Last Admin Trade Name Freq PRN Reason Stop Dose Admin Sodium Chloride 1,000 mls @ 999 mls/hr 06/25/24 17:34 Sodium Chloride 0.9% 1000 Ml IV 06/25/24 18:34 .[id number] STA Discontinued Medications Generic Name Dose Route Start Last Admin Trade Name Freq PRN Reason Stop Dose Admin Scopolamine HBr 1.5 mg 06/25/24 17:34 Scopolamine 1.5 Mg Patch TOP 06/25/24 17:35 STAT ONE Lab/Rad Data: Laboratory Result Diagrams 06/25/24 17:54 Laboratory Results 06/25/24 Range/Units 17:54 WBC 4.6 (3.98-10.04) x10^3/uL RBC 3.92 L (3.93-5.22) x10^6/uL Hgb 12.4 (11.2-15.7) g/dL Hct 37.9 (34.1-44.9) % MCV 96.7 H (79.4-94.8) fL MCH 31.6 (25.6-32.2) pg MCHC 32.7 (32.2-35.5) g/dL RDW 12.8 (11.7-14.4) % Plt Count 224 (182-369) x10^3/uL MPV 8.8 L (9.4-12.3) fL Gran % 55.7 (34.0-71.1) % Immature Gran % (Auto) 0.2 (0.001-0.429) % Nucleat RBC Rel Count 0.0 (0.00-0.2) % Eos # (Auto) 0.30 (0.04-0.36) x10^3/uL Immature Gran # (Auto) 0.01 (0.001-0.031) x10^3u/L Absolute Lymphs (auto) 1.20 (1.18-3.74) x10^3/uL Absolute Monos (auto) 0.47 (0.24-0.86) x10^3/uL Absolute Nucleated RBC 0.00 (0.00-0.012) x10^3u/L Lymphocytes % 26.3 (19.3-51.7) % Monocytes % 10.3 (4.7-12.5) % Eosinophils % 6.6 H (0.7-5.8) % Basophils % 0.9 (0.1-1.2) % Absolute Granulocytes 2.55 (1.56-6.13) x10^3/uL Basophils # 0.04 (0.01-0.08) x10^3/uL - Progress Progress: improved Counseled pt/family regarding: lab results, diagnosis, need for follow-up - Departure Departure Disposition: Home Clinical Impression: Transient leg weakness, Side effect of medication Condition: Stable Critical Care Time: No Referrals: VENICE FLORES MD [Primary Care Provider] - Follow up/PCP as directed Instructions: Side effects from medicines, Adverse Drug Reactions, Adult Additional Instructions: Please hold your levicitarem (Lamictal) medication till you go and see your physician because you are experiencing side effects from that medication. Discharge/Care Plan JAMES FIGUEROA was seen on 06/25/24 in the Emergency Room. The patient was counseled regarding Diagnosis,Lab results, Imaging studies, need for follow up and when to return to the Emergency Room. Prescriptions given: Discharge Note I have spoken with the patient and/or caregivers. I have explained the patient's condition, diagnosis and treatment plan based on the information available to me at this time. I have answered the patient's and/or caregiver's questions and addressed any concerns. The patient and/or caregivers have as good understanding of the patient's diagnosis, condition and treatment plan as can be expected at this point. The vital signs have been stable. The patient's condition is stable and appropriate for discharge from the emergency department. The patient will pursue further outpatient evaluation with the primary care physician or other designated or consulting physician as outlined in the disch arge instructions. The patient and/or caregivers are agreeable to this plan of care and follow-up instructions have been explained in detail. The patient and/or caregivers have received these instruction. The patient/and or caregivers are aware that any significant change in condition or worsening of symptoms should prompt an immediate return to this or the closest emergency department or call 911. Please hold your levicitarem (Lamictal) medication till you go and see your physician because you are experiencing side effects from that medication. JAMES FIGUEROA was seen on 06/25/24 n the Emergency Room. At that time you were treated for an emergent condition, during your visit Laboratory, Radiology and/or other procedures may have been ordered. It is very important that you follow-up with your Primary Care Physician VENICE FLORES within the next 24-48 hours to review your Emergency Room visit and the final results of testing that was ordered. Some test results such as Urine Cultures, Blood Cultures, and other cultures if ordered will not be finalized for 24-48 hours. If you do not have a Primary Care Provider please call the medical records department at [phone] ext [phone] to obtain a copy of your results or you may sign into our patient portal to obtain these results by visiting us @ [email or web address] and completing the following steps: 1. Click on the Patient Portal link 2. Click the Patient Self Enrollment Link to complete the enrollment form and entering your 3. Once the enrollment form is completed you will receive an email with a temporary ID and password at the email address you provided. 4. Next choose a user name and password. Your user name must be at least 4 characters long and your password must be at least 4 characters long. 5. Choose a security question from the list and provide your answer to the que stion. If you already have signed into the Health Portal you may access your Health Ca re Information 11/05 by the following steps: 1. Login to our website @ [email or web address] 2. Enter your original user name and password. FAQS The [facility] Health Portal is an online tool that contains your Lab Results, Radiology Reports, Visit History, Discharge Instructions and Health Summary Lab and Radiology Results will not be available for 72 hours on the portal. The Portal is a secure site, passwords are encryted and URLs are re-written so they cannot be copied and pasted. You and authorized family members are the only ones who can access your Portal. Also there is a timeout feature that protects your information if you leave the Portal page open. If you have technical difficulty please use the Contact Us link on the page this will allow you to submit any questions you have regarding the Portal or you may contact the Medical Record Department at [phone] ext [phone].
[2024-06-25] MEDS ORDERED: Sodium Chloride 0.9% 1000 ML 1,000 ML ONE (18:27)
[2024-06-25] MEDS: Sodium Chloride 0.9% 1000 ML 1,000 ML IV STA (18:29)
[2024-06-25] MEDS: Transderm Scop 1.5MG Patch TOP ONE (18:32)
[2024-06-25 20:28] VITALS: BP 132/74; PULSE 92; RESP 32; O2SAT 96
== END 2024-06-25 20:15 | disposition home or self-care (01) ==
LOC: ED 17:14
DX: M62.81 Muscle weakness (generalized) (principal); T42.6X5A Adverse effect of other antiepileptic and sedative-hypnotic drugs, initial encounter; I10 Essential (primary) hypertension; E78.5 Hyperlipidemia, unspecified; Z79.899 Other long term (current) drug therapy
CPT/HCPCS: 36000; 36415; 80053; 83735; 85025; 99284; A9270-GY

== ENCOUNTER 2024-06-26 10:51 | Emergency (ER) | payer OTHER ==
[2024-06-26 11:11] VITALS: TEMP 97.4
--- NOTE | 2024-06-26 11:38 | ERPHSYRPT ---
- History of Present Illness Time Seen by Provider: 06/26/24 11:20 Source: patient Exam Limitations: no limitations Patient Subjective Stated Complaint: Weakness/loss of vision Triage Nursing Assessment: Patient brought back to ED and transferred to bed with assist of 1. Patient A+O X 3. Patient's skin pale, warm and dry. Patient states around 0930 she was watching TV when she lost her vision for approx 30 mins. Patient was attempting to call for help and couldn't see the buttons on her phone. Patient states she was able to talk during the loss of vision. Patient states she is able to see now and denies any pain or discomfort. Patient wears home O2 at 4 liters per N/C at all times. Patient has non productive moist cough. Lungs noted to have wheezing. Physician History: Pt states yesterday between 4 PM & 8 PM she was weak in her legs and was unable to walk; today from 9 AM to 9:30 AM she had loss of vision. Pt states currently she has no weakness in her legs and can see normally. Pt denies chest pain, fever, abdominal pain, nausea, vomiting, numbness; admits to shortness of air. Allergies/Adverse Reactions: cefaclor [From Ceclor] Allergy (Mild, Verified 06/26/24 11:03) STATES GOT REAL HOT Home Medications: Levetiracetam [Keppra] 750 mg PO BID 09/22/17 [History] Melatonin 3 mg PO HS 11/06/18 [History] risperiDONE [Risperidone] 1 mg PO BID 11/06/18 [History] Alendronate Sodium 70 mg [Fosamax 70 MG] 70 mg PO WEEKLY 11/02/21 [History] Venlafaxine HCl [Venlafaxine HCl ER] 150 mg PO DAILY 01/21/24 [History] lamoTRIgine [Lamotrigine] 200 mg PO BID 01/21/24 [History] Amlodipine Besylate [Norvasc] 10 mg PO DAILY 06/25/24 [History] Calcium Carbonate/Vitamin D3 [Sv Calcium 600Mg-D3 20Mcg Tab] 2 tab PO DAILY 06/25/24 [History] Celecoxib [Celebrex] 200 mg PO UD 06/25/24 [History] Famotidine 20 mg [Pepcid 20 MG] 20 mg PO DAILY 06/25/24 [History] Hx Tetanus, Diphtheria Vaccination/Date Given: Yes Hx Influenza Vaccination/Date Given: Yes Hx Pneumococcal Vaccination/Date Given: Yes Immunizations Up to Date: Yes Travel Risk - International Travel Have you traveled outside of the country in past 3 weeks: No - Emerging Infectious Disease Are you exhibiting symptoms associated with any current EIDs: No - Review of Systems Constitutional: No Fever Respiratory: Dyspnea (on home oxygen for the past 2 years for COPD 4L/min) Cardiac: No Chest Pain Abdominal/Gastrointestinal: No Abdominal Pain, No Nausea, No Vomiting Skin: No Rash Neurological: No Headache - Past Medical History Pertinent Past Medical History: Yes Neurological History: Seizures ENT History: No Pertinent History Cardiac History: High Cholesterol, Hypertension Respiratory History: COPD Endocrine Medical History: No Pertinent History Musculoskeletal History: Osteoarthritis, Osteoporosis GI Medical History: No Pertinent History History: No Pertinent History Psycho-Social History: Anxiety, Depression, Panic Disorder Female Reproductive Disorders: No Pertinent History Other Medical History: PSH: SURGERY ON R HAND/FINGERS, R TSA, MAGNET PLACED FOR HX OF SEIZURES. PMH:SMOKING HX (NOT CURRENT), SEIZURES (MEDICATION CONTROLLED), COPD - Past Surgical History Past Surgical History: Yes Neuro Surgical History: No Pertinent History Cardiac: No Pertinent History Respiratory: No Pertinent History Gastrointestinal: No Pertinent History Genitourinary: No Pertinent History Musculoskeletal: No Pertinent History, Joint Replacement, Orthopedic Surgery Female Surgical History: No Pertinent History Other Surgical History: MAGNET PLACEMENT FOR SEIZURES in left chest and wears a watch to activate magnet. Right Shoulder replacement Significant Family History: no pertinent family hx - Social History Smoking Status: Former smoker How long have you smoked: 2019 Exposure to second hand smoke: Yes Drug Use: none Patient Lives Alone: Yes - Social Determinants of Health Will the patient participate in the screening: Yes Do you worry about a steady place to live?: No Do you have any problems with any of the following?: No known problems In the past 12 months,have you had to go without utilities?: No Transportation Issues: No Has anyone in your support network made you feel unsafe?: No Have you or anyone in your house had to go without enough: No - Nursing Vital Signs Nursing Vital Signs: Initial Vital Signs Temperature 97.4 F 06/26/24 11:04 Pulse Rate 106 H 06/26/24 11:04 Respiratory Rate 18 06/26/24 11:04 Blood Pressure 142/80 06/26/24 11:04 O2 Sat by Pulse Oximetry 96 06/26/24 11:04 Pain Scale Pain Intensity 0 - Physical Exam General Appearance: alert Eye Exam: eyes nml inspection Ears, Nose, Throat Exam: pharyngeal erythema, other (cerumen occlusion of left ear) Neck Exam: normal inspection Respiratory Exam: rhonchi, wheezing Cardiovascular Exam: normal heart sounds Gastrointestinal/Abdomen Exam: normal bowel sounds Back Exam: normal inspection Extremity Exam: No pedal edema Neurologic Exam: alert, cooperative, sensation nml, No motor deficits Skin Exam: warm, dry SpO2 Interpretation: normal SpO2: 96 O2 Delivery: Nasal Cannula - Course Nursing assessment & vital signs reviewed: Yes EKG Interpreted by Me: RATE (106), Sinus Tach, Left [place] Deviation, Other (QTc = 451) - CT Exams Head CT Interpretation: Tele-radiologist Report (Microvascular ischemic changes. Central and cortical brain involutional changes. See rest of report.) Chest CT Interpretation: Tele-radiologist Report (No significant interval changes from 01/21/24. No PE. Right lower lobar subpleural mild subsegmental consolidation air space changes suggest inflammatory changes.) Ordered Tests: Active Orders 24 hr Category Date Time Status Certified Physical Therapist Assistant STAT Care 06/26/24 11:42 Active EKG-ER Only STAT Care 06/26/24 11:41 Active IV Insertion STAT Care 06/26/24 11:41 Active Oxygen-ED Only Nasal Cannula 4 lpm Care 06/26/24 11:41 Active CHEST WITH CONTRAST [CT] Stat Exams 06/26/24 11:45 Completed HEAD WITHOUT CONTRAST [CT] Stat Exams 06/26/24 11:01 Completed BLOOD CULTURE Stat Lab 06/26/24 12:45 Received CBC W DIFF Stat Lab 06/26/24 11:55 Completed CMP Stat Lab 06/26/24 11:55 Completed CULTURE,SPUTUM Stat Lab 06/26/24 11:43 Ordered CULTURE,URINE Stat Lab 06/26/24 11:46 Received MAGNESIUM Stat Lab 06/26/24 11:55 Completed MONO SCREEN Stat Lab 06/26/24 11:55 Completed TROPONIN Q4H Lab 06/26/24 11:55 Completed TROPONIN Q4H Lab 06/26/24 16:00 Ordered TROPONIN Q4H Lab 06/26/24 20:00 Ordered UA W/RFX UR CULTURE Stat Lab 06/26/24 11:46 Completed VENOUS BLOOD GAS Stat Lab 06/26/24 12:00 Completed Respiratory Therapy Assessment DAILY RT 06/26/24 12:09 Active Medication Summary Discontinued Medications Generic Name Dose Route Start Last Admin Trade Name Julia PRN Reason Stop Dose Admin Albuterol Sulfate 2.5 mg 06/26/24 11:41 06/26/24 11:59 Albuterol Sulfate 2.5 Mg/3 Ml Neb IH 06/26/24 11:42 2.5 mg STAT ONE Administration Albuterol Sulfate Confirm 06/26/24 11:58 Albuterol Sulfate 2.5 Mg/3 Ml Neb Administered 06/26/24 11:59 Dose 2.5 mg IH .STK-MED ONE Sodium Chloride 1,000 mls @ 999 mls/hr 06/26/24 11:41 06/26/24 14:13 Sodium Chloride 0.9% 1000 Ml IV 06/26/24 12:41 Infused .Q1H1M STA Infusion Azithromycin 500 mg in 250 mls @ 250 mls/hr 06/26/24 11:41 06/26/24 14:13 Zithromax 500 Mg/ 250 Ml Nacl Premix IV 06/26/24 12:40 Infused STAT STA Infusion Azithromycin Confirm 06/26/24 13:08 Zithromax 500 Mg/ 250 Ml Nacl Premix Administered 06/26/24 13:09 Dose 500 mg in 250 mls @ ud IV .STK-MED ONE Sodium Chloride Confirm 06/26/24 13:08 Sodium Chloride 0.9% 1000 Ml Administered 06/26/24 13:09 Dose 1,000 mls @ ud .ROUTE .STK-MED ONE Lab/Rad Data: Laboratory Result Diagrams 06/26/24 11:55 06/26/24 11:55 Laboratory Results 06/26/24 06/26/24 06/26/24 Range/Units 12:50 12:50 12:00 WBC (3.98-10.04) x10^3/uL RBC (3.93-5.22) x10^6/uL Hgb (11.2-15.7) g/dL Hct (34.1-44.9) % MCV (79.4-94.8) fL MCH (25.6-32.2) pg MCHC (32.2-35.5) g/dL RDW (11.7-14.4) % Plt Count (182-369) x10^3/uL MPV (9.4-12.3) fL Gran % (34.0-71.1) % Immature Gran % (Auto) (0.001-0.429) % Nucleat RBC Rel Count (0.00-0.2) % Eos # (Auto) (0.04-0.36) x10^3/uL Immature Gran # (Auto) (0.001-0.031) x10^3u/L Absolute Lymphs (auto) (1.18-3.74) x10^3/uL Absolute Monos (auto) (0.24-0.86) x10^3/uL Absolute Nucleated RBC (0.00-0.012) x10^3u/L Lymphocytes % (19.3-51.7) % Monocytes % (4.7-12.5) % Eosinophils % (0.7-5.8) % Basophils % (0.1-1.2) % Absolute Granulocytes (1.56-6.13) x10^3/uL Basophils # (0.01-0.08) x10^3/uL pO2/FiO2 Ratio 36.0 % VBG pH 7.43 H (7.32-7.42) VBG pCO2 at Pat Temp 52 (42-55) mm/Hg VBG pO2 at Pat Temp 41 H (25-40) mm/Hg VBG HCO3 34.5 H* (22-28) meq/L VBG O2 Sat (Ritu) 73.9 L (95-100) VBG Base Excess 8.6 H (-2.0-2.0) VBG Hemoglobin 13.0 VBG Carboxyhemoglobin 4.7 (0.0-6.9) % T HGB POC Potassium 3.6 (3.5-5.1) Sodium (135-145) mmol/L Potassium (3.5-5.1) mmol/L Chloride (98-107) mmol/L Carbon Dioxide (22-30) mmol/L Anion Gap (5-15) MEQ/L BUN (7-17) mg/dL Creatinine (0.52-1.04) mg/dL Estimated GFR ML/MIN Glucose (74-106) mg/dL Calcium (8.4-10.2) mg/dL Magnesium (1.6-2.3) mg/dL Total Bilirubin (0.2-1.3) mg/dL AST (14-36) U/L ALT (0-35) U/L Alkaline Phosphatase (38-126) U/L Troponin I (0.000-0.033) ng/mL Serum Total Protein (6.3-8.2) g/dL Albumin (3.5-5.0) g/dL Urine Color (Yellow) Urine Appearance (Clear) Urine pH (4.6-8.0) Ur Specific [place] (1.005-1.030) Urine Protein (Negative) Urine Glucose (UA) (Negative) mg/dL Urine Ketones (Negative) Urine Blood (Negative) Urine Nitrite (Negative) Urine Bilirubin (Negative) Urine Urobilinogen (0.2) mg/dL Ur Leukocyte Esterase (Negative) U Hyaline Cast (Auto) (0-2) /LPF Urine Microscopic RBC (0-5) /HPF Urine Microscopic WBC (0-5) /HPF Ur Epithelial Cells (None Seen) /HPF Urine Bacteria (None Seen) /HPF Urine Culture Reflexed (NO) Monoscreen (NEGATIVE) Influenza Type A Ag NEGATIVE (NEGATIVE) Influenza Type B Ag NEGATIVE (NEGATIVE) RSV (PCR) NEGATIVE (NEGATIVE) SARS-CoV-2 (PCR) NEGATIVE (NEGATIVE) Group A Strep Antibody NOT DETECTED (NEGATIVE) 06/26/24 06/26/24 06/26/24 Range/Units 11:55 11:55 11:55 WBC (3.98-10.04) x10^3/uL RBC (3.93-5.22) x10^6/uL Hgb (11.2-15.7) g/dL Hct (34.1-44.9) % MCV (79.4-94.8) fL MCH (25.6-32.2) pg MCHC (32.2-35.5) g/dL RDW (11.7-14.4) % Plt Count (182-369) x10^3/uL MPV (9.4-12.3) fL Gran % (34.0-71.1) % Immature Gran % (Auto) (0.001-0.429) % Nucleat RBC Rel Count (0.00-0.2) % Eos # (Auto) (0.04-0.36) x10^3/uL Immature Gran # (Auto) (0.001-0.031) x10^3u/L Absolute Lymphs (auto) (1.18-3.74) x10^3/uL Absolute Monos (auto) (0.24-0.86) x10^3/uL Absolute Nucleated RBC (0.00-0.012) x10^3u/L Lymphocytes % (19.3-51.7) % Monocytes % (4.7-12.5) % Eosinophils % (0.7-5.8) % Basophils % (0.1-1.2) % Absolute Granulocytes (1.56-6.13) x10^3/uL Basophils # (0.01-0.08) x10^3/uL pO2/FiO2 Ratio % VBG pH (7.32-7.42) VBG pCO2 at Pat Temp (42-55) mm/Hg VBG pO2 at Pat Temp (25-40) mm/Hg VBG HCO3 (22-28) meq/L VBG O2 Sat (Ritu) (95-100) VBG Base Excess (-2.0-2.0) VBG Hemoglobin VBG Carboxyhemoglobin (0.0-6.9) % T HGB POC Potassium (3.5-5.1) Sodium 141 (135-145) mmol/L Potassium 3.5 (3.5-5.1) mmol/L Chloride 99 (98-107) mmol/L Carbon Dioxide 33 H (22-30) mmol/L Anion Gap 12.1 (5-15) MEQ/L BUN 11 (7-17) mg/dL Creatinine 0.96 (0.52-1.04) mg/dL Estimated GFR 62.1 ML/MIN Glucose 121 H (74-106) mg/dL Calcium 9.9 (8.4-10.2) mg/dL Magnesium 2.1 (1.6-2.3) mg/dL Total Bilirubin 0.30 (0.2-1.3) mg/dL AST 28 (14-36) U/L ALT 18 (0-35) U/L Alkaline Phosphatase 87 (38-126) U/L Troponin I < 0.012 (0.000-0.033) ng/mL Serum Total Protein 7.3 (6.3-8.2) g/dL Albumin 4.5 (3.5-5.0) g/dL Urine Color (Yellow) Urine Appearance (Clear) Urine pH (4.6-8.0) Ur Specific [place] (1.005-1.030) Urine Protein (Negative) Urine Glucose (UA) (Negative) mg/dL Urine Ketones (Negative) Urine Blood (Negative) Urine Nitrite (Negative) Urine Bilirubin (Negative) Urine Urobilinogen (0.2) mg/dL Ur Leukocyte Esterase (Negative) U Hyaline Cast (Auto) (0-2) /LPF Urine Microscopic RBC (0-5) /HPF Urine Microscopic WBC (0-5) /HPF Ur Epithelial Cells (None Seen) /HPF Urine Bacteria (None Seen) /HPF Urine Culture Reflexed (NO) Monoscreen NEGATIVE (NEGATIVE) Influenza Type A Ag (NEGATIVE) Influenza Type B Ag (NEGATIVE) RSV (PCR) (NEGATIVE) SARS-CoV-2 (PCR) (NEGATIVE) Group A Strep Antibody (NEGATIVE) 06/26/24 06/26/24 Range/Units 11:55 11:46 WBC 5.0 (3.98-10.04) x10^3/uL RBC 3.92 L (3.93-5.22) x10^6/uL Hgb 12.7 (11.2-15.7) g/dL Hct 38.6 (34.1-44.9) % MCV 98.5 H (79.4-94.8) fL MCH 32.4 H (25.6-32.2) pg MCHC 32.9 (32.2-35.5) g/dL RDW 13.0 (11.7-14.4) % Plt Count 240 (182-369) x10^3/uL MPV 9.2 L (9.4-12.3) fL Gran % 73.1 H (34.0-71.1) % Immature Gran % (Auto) 0.4 (0.001-0.429) % Nucleat RBC Rel Count 0.0 (0.00-0.2) % Eos # (Auto) 0.15 (0.04-0.36) x10^3/uL Immature Gran # (Auto) 0.02 (0.001-0.031) x10^3u/L Absolute Lymphs (auto) 0.79 L (1.18-3.74) x10^3/uL Absolute Monos (auto) 0.35 (0.24-0.86) x10^3/uL Absolute Nucleated RBC 0.00 (0.00-0.012) x10^3u/L Lymphocytes % 15.9 L (19.3-51.7) % Monocytes % 7.0 (4.7-12.5) % Eosinophils % 3.0 (0.7-5.8) % Basophils % 0.6 (0.1-1.2) % Absolute Granulocytes 3.64 (1.56-6.13) x10^3/uL Basophils # 0.03 (0.01-0.08) x10^3/uL pO2/FiO2 Ratio % VBG pH (7.32-7.42) VBG pCO2 at Pat Temp (42-55) mm/Hg VBG pO2 at Pat Temp (25-40) mm/Hg VBG HCO3 (22-28) meq/L VBG O2 Sat (Ritu) (95-100) VBG Base Excess (-2.0-2.0) VBG Hemoglobin VBG Carboxyhemoglobin (0.0-6.9) % T HGB POC Potassium (3.5-5.1) Sodium (135-145) mmol/L Potassium (3.5-5.1) mmol/L Chloride (98-107) mmol/L Carbon Dioxide (22-30) mmol/L Anion Gap (5-15) MEQ/L BUN (7-17) mg/dL Creatinine (0.52-1.04) mg/dL Estimated GFR ML/MIN Glucose (74-106) mg/dL Calcium (8.4-10.2) mg/dL Magnesium (1.6-2.3) mg/dL Total Bilirubin (0.2-1.3) mg/dL AST (14-36) U/L ALT (0-35) U/L Alkaline Phosphatase (38-126) U/L Troponin I (0.000-0.033) ng/mL Serum Total Protein (6.3-8.2) g/dL Albumin (3.5-5.0) g/dL Urine Color Yellow (Yellow) Urine Appearance Clear (Clear) Urine pH 6.5 (4.6-8.0) Ur Specific [place] 1.010 (1.005-1.030) Urine Protein Trace A (Negative) Urine Glucose (UA) Negative (Negative) mg/dL Urine Ketones Negative (Negative) Urine Blood Negative (Negative) Urine Nitrite Negative (Negative) Urine Bilirubin Negative (Negative) Urine Urobilinogen 0.2 (0.2) mg/dL Ur Leukocyte Esterase Trace A (Negative) U Hyaline Cast (Auto) NONE SEEN (0-2) /LPF Urine Microscopic RBC 0-2 (0-5) /HPF Urine Microscopic WBC 3-5 (0-5) /HPF Ur Epithelial Cells None Seen (None Seen) /HPF Urine Bacteria None Seen (None Seen) /HPF Urine Culture Reflexed YES (NO) Monoscreen (NEGATIVE) Influenza Type A Ag (NEGATIVE) Influenza Type B Ag (NEGATIVE) RSV (PCR) (NEGATIVE) SARS-CoV-2 (PCR) (NEGATIVE) Group A Strep Antibody (NEGATIVE) - Progress Progress: unchanged Counseled pt/family regarding: lab results, diagnosis, need for follow-up, rad results Medical Desision Making - Diagnostic Testing Diagnostic test were ordered, analyzed, and reviewed by me: Yes Radiological Interpretation: Teleradiologist Report - Departure Departure Disposition: Home Clinical Impression: Bronchitis, Transient vision loss, Roderick Transient lower extremity weakness Condition: Stable Critical Care Time: No Referrals: VENICE FLORES MD [Primary Care Provider] - Follow up/PCP as directed Instructions: Bronchitis, Adult ED Additional Instructions: Follow up with private doctor tomorrow. Prescriptions: Albuterol 2.5 mg/3 ml Neb [Proventil 2.5 mg/3 ml Neb] 2.5 mg IH Q4H PRN PRN #25 PRN Reason: Shortness Of Breath/Wheezing Azithromycin 500 mg PO DAILY #3 tablet
--- NOTE | 2024-06-26 11:49 | XRAY ---
CLINICAL HISTORY: loss of vision COMPARISON: None. TECHNIQUE: Axial noncontrast CT scan of the brain was performed from the skull base to the high parietal region with coronal and sagittal reformats. One of the following dose reduction techniques was utilized for this exam: Automated exposure control, adjustment of the mA and/or kV according to patient size, and use of iterative reconstruction. FINDINGS: Patchy periventricular deep white matter hypodensities together with multiple ill-defined iso-to hypodense areas are noted in the subcortical white matter bilaterally, suggestive of microvascular ischemic changes. The ventricular system, cortical sulci and basal cisterns are prominent consistent with senile changes. No midline shifts or deformity. No intracerebral or extra axial hematoma. Prominent cerebellar folia. Normal CT appearance of the brainstem and cerebellar peduncles. The IACs are unremarkable. The cerebello-pontine angles are clear. The osseous structures in the skull base are unremarkable. No definite calvarium fractures. Intracerebral atherosclerotic vascular calcifications. Th scanned paranasal sinuses are clear. IMPRESSION: 1. Microvascular ischemic changes. 2. Central and cortical brain involutional changes. 3. If acute ischemic insult is clinically suspected, further evaluation by dedicated MR examination with diffusion sequences would be recommended. Electronically Signed by: Jana Gibbons MD. (06/26/2024 11:41:36 EDT) ADDENDUM: 06/26/2024 11:44:59 EDT [facility] ER was called at [phone] at 10:43 AM ENGINEERING TECH, 06/26/2024 and Jodi MOBLEY was informed regarding negative stroke results in the report. Electronically Signed by: Jana Gibbons MD. (06/26/2024 11:44:59 EDT)
[2024-06-26] MEDS ORDERED: PROVENTIL 2.5 MG/3 ML NEB IH ONE (11:58)
[2024-06-26] MEDS: PROVENTIL 2.5 MG/3 ML NEB IH ONE (11:59)
[2024-06-26 12:07] LABS: VBG BASE EXCESS 8.6 (-2.0-2.0); VBG CARBOXYHEMOGLOBIN 4.7 % T HGB (0.0-6.9); VBG HCO3- 34.5 meq/L (22-28); VBG O2 SATURATION 73.9 (95-100); VBG POTASSIUM 3.6 (3.5-5.1); VBG pH 7.43 (7.32-7.42)
[2024-06-26 12:09] LABS: Absolute Neutrophil Ct (ANC) 3.64 x10^3/uL (1.56-6.13); BASOPHIL % 0.6 % (0.1-1.2); Basophil (Absolute #) 0.03 x10^3/uL (0.01-0.08); Eosinophil (Absolute #) 0.15 x10^3/uL (0.04-0.36); Hematocrit 38.6 % (34.1-44.9); Hemoglobin 12.7 g/dL (11.2-15.7); IMMATURE GRAN # 0.02 x10^3u/L (0.001-0.031); IMMATURE GRAN % 0.4 % (0.001-0.429); Lymphocyte (Absolute #) 0.79 x10^3/uL (1.18-3.74); Lymphocytes % 15.9 % (19.3-51.7); Mean Cell Volume 98.5 fL (79.4-94.8); Mean Corpuscular Hemoglobin 32.4 pg (25.6-32.2); Mean Corpuscular Hgb Concent. 32.9 g/dL (32.2-35.5); Mean Platelet Volume 9.2 fL (9.4-12.3); Monocyte (Absolute #) 0.35 x10^3/uL (0.24-0.86); Neutrophil % 73.1 % (34.0-71.1); Platelet Count 240 x10^3/uL (182-369); Red Blood Count 3.92 x10^6/uL (3.93-5.22)
[2024-06-26 12:15] LABS: Appearance Clear (Clear); Bacteria None Seen /HPF (None Seen); Bilirubin Negative (Negative); Blood Negative (Negative); Epithelial Cells None Seen /HPF (None Seen); Glucose, Urine Negative (Negative); Hyaline Casts NONE SEEN /LPF (0-2); Ketones Negative (Negative); Leukocyte Esterase Trace (Negative); Nitrite Negative (Negative); Ph 6.5 (4.6-8.0); Protein,Urine Dip Trace (Negative); RBC 0-2 /HPF (0-5); Urobilinogen 0.2 mg/dL (0.2)
[2024-06-26 12:18] LABS: ADD URINE CULTURE? YES (NO)
[2024-06-26 12:25] LABS: ALBUMIN 4.5 g/dL (3.5-5.0); ANION GAP 12.1 MEQ/L (5-15); BILIRUBIN,TOTAL 0.3 mg/dL (0.2-1.3); Calcium 9.9 mg/dL (8.4-10.2); Creatinine 1 0.96 mg/dL (0.52-1.04); EST GLOMERULAR FILTRATION RATE 62.1 ML/MIN; MAGNESIUM 2.1 mg/dL (1.6-2.3); Potassium 3.5 mmol/L (3.5-5.1); Total Protein 7.3 g/dL (6.3-8.2)
[2024-06-26] MEDS ORDERED: Sodium Chloride 0.9% 1000 ML 1,000 ML ONE (13:08)
[2024-06-26] MEDS ORDERED: Zithromax 500 MG/ 250 ML NaCl Premix 500 MG/250 ML IVPB IV ONE (13:08)
[2024-06-26] MEDS: Sodium Chloride 0.9% 1000 ML 1,000 ML IV STA (13:09)
[2024-06-26] MEDS: Zithromax 500 MG/ 250 ML NaCl Premix 500 MG/250 ML IVPB IV STA (13:09)
[2024-06-26 13:42] LABS: INFLUENZA A NEGATIVE (NEGATIVE); INFLUENZA B NEGATIVE (NEGATIVE); RESPIRATORY SYNCTIAL VIRUS NEGATIVE (NEGATIVE); SARS-CoV-2 Xpert Express NEGATIVE (NEGATIVE)
--- NOTE | 2024-06-26 14:05 | XRAY ---
CLINICAL HISTORY: shortness of air COMPARISON: compared to prior dated 01/21/2024. TECHNIQUE: Contiguous axial CT images of the chest were acquired with administration of 80cc of Isovue-370mg/ml intravenous contrast. Coronal and sagittal reconstructions were obtained. One of the following dose reduction techniques was utilized for this exam: Automated exposure control, adjustment of the mA and/or kV according to patient size, and use of iterative reconstruction FINDINGS: Lungs: Bilateral centrilobular emphysematous changes. Right upper lobar subpleural calcified nodule measuring 2.8 mm along maximum diameter, likely old granulomatous. Bilateral basal subpleural reticulations with fine interstitial thickening could be senile-related. Superimposed right lower lobar subpleural mild subsegmental consolidation air space changes. Middle lobar thick atelectatic band. Lungs are clear with no evidence of collapse, or focal lesions. Pleura: No pleural effusion or pleural thickening. Mediastinum: No mediastinal mass or abnormal lymphadenopathy. Normal appearance of the thymus. Hilar Structures: Normal size and configuration, no enlargement. Heart and Great Vessels: A left chest wall cardiac pacemaker is noted. Normal heart size and configuration. No pericardial effusion. Ectatic ascending aorta with atheromatous calcifications of the thoracic aorta. No aneurysm. Normal enhancement of the great vessels post-contrast. Pulmonary Arteries: No evidence of pulmonary embolism. Normal size and course of the pulmonary arteries. Esophagus: Normal course and caliber. No masses or dilatation. 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 No fractures or lytic/sclerotic lesions. Normal bone density and alignment. No evidence of rib fractures. Chest Wall: Barrel-shaped thorax. No masses or soft tissue abnormalities. A left breast macro-calcific focus. Upper Abdomen: Visualized portions of the liver, spleen, pancreas, adrenal glands, and kidneys are normal. No abnormalities were noted in the visualized upper abdominal organs. Thyroid: Normal size and morphology. No nodules or masses. IMPRESSION: 1. Bilateral basal subpleural reticulations with fine interstitial thickening could be senile-related. Superimposed right lower lobar subpleural mild subsegmental consolidation air space changes suggest inflammatory changes, and need clinical and lab correlation. 2. Bilateral centrilobular emphysematous changes. 3. 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 4. Normal size and course of the pulmonary arteries. No evidence of pulmonary embolism. 5. No significant interval changes. Electronically Signed by: Jana Gibbons MD. (06/26/2024 14:01:07 EDT)
[2024-06-26 14:14] VITALS: PULSE 106; RESP 18
[2024-06-26 14:36] VITALS: O2SAT 96
[2024-06-26] MEDS: solu-MEDROL 125 MG, Sterile H2O 10 ml 2 ML IV ONE (14:47)
[2024-06-26] MEDS ORDERED: solu-MEDROL ONE (14:47)
[2024-06-26] MEDS ORDERED: Sterile H2O 10 ml IJ ONE (14:47)
[2024-06-26 15:07] VITALS: BP 131/75
== END 2024-06-26 15:20 | disposition home or self-care (01) ==
LOC: ED 10:51
DX: J40 Bronchitis, not specified as acute or chronic (principal); H53.123 Transient visual loss, bilateral; M62.81 Muscle weakness (generalized); E78.5 Hyperlipidemia, unspecified; I10 Essential (primary) hypertension; Z79.899 Other long term (current) drug therapy
CPT/HCPCS: 0241U; 36000; 36415; 70450; 71260; 80053; 81001; 82805; 83735; 84484; 85025; 86308; 87040; 87086; 87651; 93005; 93041; 94640; 96360; 96365; 96374; 99284; J0456; J2919; J7609; A9270-GY